=== PATIENT | female | born 1935 ===

== ENCOUNTER 2016-07-06 09:31 | Observation (INO) | payer MEDICARE, MEDICAID ==
[2016-07-06 09:31] VITALS: BMI 28.7
[2016-07-06 10:31] LABS: BASO % 0.3 % (0.0-2.0); EOS # 0.1 K/uL (0.0-0.7); EOS % 0.4 % (0.0-4.0); HEMATOCRIT 42.9 % (34.0-47.0); LYMPH # 6.8 K/uL (1.0-4.3); LYMPH % 40.5 % (20.0-40.0); MEAN CELL VOLUME 86.2 fL (81.0-99.0); MEAN CORPUSCULAR HEMOGLOBIN 27.9 pg (27.0-31.0); MEAN CORPUSCULAR HGB CONC 32.4 g/dL (33.0-37.0); MEAN PLATELET VOLUME 8.5 fL (7.2-11.7); MONO # 1.2 K/uL (0.0-0.8); MONO % 6.8 % (0.0-10.0); NRBC % 0.1 % (0.0-2.0); RED CELL DISTRIBUTION WIDTH 14.6 % (11.5-14.5); WHITE BLOOD COUNT 16.9 K/uL (4.8-10.8)
[2016-07-06 10:37] LABS: INR 1.2
[2016-07-06 10:44] LABS: CHLORIDE 100 mmol/L (98-107); POTASSIUM 3.8 mmol/L (3.6-5.2); SODIUM 140 mmol/L (132-148)
[2016-07-06 10:46] LABS: BILIRUBIN,TOTAL 0.6 mg/dL (0.2-1.3); GFR AFRICAN-AMERICAN > 60
[2016-07-06 10:47] LABS: ALB/GLOB RATIO 1.2 (1.0-2.1); ALKALINE PHOSPHATASE 73 U/L (38-126); ALT/SGPT 122 U/L (9-52); AST/SGOT 41 U/L (14-36); BLOOD UREA NITROGEN 23 mg/dL (7-17); CALCIUM 8.2 mg/dl (8.6-10.4); CARBON DIOXIDE 29 mmol/L (22-30); GLUCOSE,RANDOM 101 mg/dL (65-105); TOTAL PROTEIN 7.4 g/dL (6.3-8.3)
--- NOTE | 2016-07-06 11:55 | RAD ---
HISTORY: chest pain COMPARISON: Chest x-ray performed 06/26/15 TECHNIQUE: Chest, one view. FINDINGS: Examination limited by habitus. LUNGS: Biapical pleural thickening. Mild bibasilar atelectasis. Please note that chest x-ray has limited sensitivity for the detection of pulmonary masses. PLEURA: No significant pleural effusion identified. No definite pneumothorax . CARDIOVASCULAR: Heart size appears within normal limits. Atherosclerotic calcification of the aorta. OSSEOUS STRUCTURES: No acute osseous abnormality identified. VISUALIZED UPPER ABDOMEN: Unremarkable. OTHER FINDINGS: None. IMPRESSION: Biapical pleural thickening. Mild bibasilar atelectasis.
--- NOTE | 2016-07-06 12:12 | C.PDOC ---
History Of Present Illness A 80 year old female presents to the emergency room with complaints of an increasing cough for the past few days. Patient describes the cough as mostly dry. Patient notes tightness in chest that is worst with exertion. Patient is taking regular medications. Patient denies any fever, chills, nausea, vomiting or noncompliance with meds. Time Seen by Provider: 07/06/16 09:48 Chief Complaint (Nursing): Chest Pain History Per: Patient History/Exam Limitations: no limitations Onset/Duration Of Symptoms: Days (Few days) Current Symptoms Are (Timing): Still Present Severity: Mild Quality: Tightness Associated Symptoms: denies: Nausea, Diaphoresis Modifying Factors: None Exacerbating Factors: Exertion Alleviating Factors: None Recent travel outside of the [place]: No Past Medical History Reviewed: Historical Data, Nursing Documentation, Vital Signs Vital Signs: Last Vital Signs Temp 98.0 F 07/06/16 09:42 Pulse 104 H 07/06/16 11:47 Resp 20 07/06/16 11:47 BP 116/56 L 07/06/16 11:47 Pulse Ox 97 07/06/16 12:18 - Medical History PMH: Anxiety, Asthma, Atrial Fibrillation, CAD, Cardia Arrhythmia, CVA (2000), Gall Bladder Disease (Cholecystitis (April 2014)), HTN, Hypercholesterolemia, Malignancy, Osteoporosis Surgical History: Endoscopy - [facility] Procedures ATRIAL CARDIOVERSION (04/26/13) DX ULTRASOUND-HEART (04/26/13) OTHER ESOPHAGOSCOPY (04/26/13) Family History: States: Unknown Family Hx, Diabetes (son) - Social History Hx Tobacco Use: Yes (Former (1992)) Hx Alcohol Use: No Hx Substance Use: No Review Of Systems Constitutional: Negative for: Fever, Chills Cardiovascular: Positive for: Chest Pain (Chest tightness, worst with exertion) Respiratory: Positive for: Cough Gastrointestinal: Negative for: Nausea, Vomiting, Diarrhea Neurological: Negative for: Headache, Dizziness Physical Exam - Physical Exam Appears: Non-toxic Skin: Warm, Dry, No Rash Head: Atraumatic, Normacephalic Cardiovascular: Rhythm Irregular (Irregularly irregular rhythm) Respiratory: Decreased Breath Sounds (Bilaterally), No Rales, No Rhonchi, No Wheezing Gastrointestinal/Abdominal: Soft, No Tenderness Extremity: Normal ROM, No Tenderness, No Deformity, No Swelling Neurological/Psych: Oriented x3, Normal Speech, Normal Cognition ED Course And Treatment - Laboratory Results Result Diagrams: 07/06/16 10:23 07/06/16 10:23 ECG: Interpreted By Me, Viewed By Me ECG Rhythm: Atrial Fibrillation Interpretation Of ECG: Incomplete left bundle branch block Rate From EC O2 Sat by Pulse Oximetry: 97 - Radiology CXR: Interpreted by Me, Viewed By Me CXR Interpretation: Yes: Cardiomegaly, Other (Mild vascular congestion) Medical Decision Making Medical Decision Making: Plan: -- EKG -- CXR -- Labs -- Cardizem Post bolus and drip given PO cardizem, HR continued around 100, without further CP or SOB In view of tjhe CP and SOB observation indicated Discussed with dr Mcfarland and Dr Fox plan tele obs Disposition - Disposition Disposition: HOSPITALIZED Disposition Time: 13:15 Condition: FAIR - Clinical Impression Clinical Impression: Congestive heart failure, Chest pain - Scribe Statement The provider has reviewed the documentation as recorded by the Scribcolette Sim All medical record entries made by the Artisibe were at my direction and personally dictated by me. I have reviewed the chart and agree that the record accurately reflects my personal performance of the history, physical exam, medical decision making, and the department course for this patient. I have also personally directed, reviewed, and agree with the discharge instructions and disposition.
--- NOTE | 2016-07-06 15:04 | CON ---
DATE: 07/06/2016 REASON FOR CONSULTATION: Rapid atrial fibrillation. The patient is an 80-year-old female who has a history of chronic atrial fibrillation, history of CVA in the past and is on Cardizem and Xarelto therapy at home. She presented because of a dry cough as well as chest tightness for the past few weeks. The patient denies any fever or chills. The patien t stated that she may have had a heart attack in the past. SOCIAL HISTORY: The patient is a nonsmoker, nondrinker. HOME MEDICATIONS: Include Crestor 10 mg once a day, Lopressor 25 mg twice a day, p.r.n. sublingual n itroglycerin, albuterol inhaler, Xarelto 15 mg daily, Protonix 40 mg p.o. once a day, Cardizem 240 mg once a day, Cardizem-CD 240 mg once a day. REVIEW OF SYSTEMS: No fever or chills. No vomiting or diarrhea. No dizziness or syncope. PHYSICAL EXAMINATION: GENERAL: The patient is an elderly female who does not appear to be in acute distress. VITAL SIGNS: Blood pressure 116/56, heart rate currently 93, respirations 20, temperature 98. HEENT: Left facial drooping. NECK: No JVD. CHEST: Minimal rhonchi bilaterally. HEART: S1, S2 regular. ABDOMEN: Soft. EXTREMITIES: No edema. LABORATORIES: SMA-7 is within normal limits except for BUN of 23. ProBNP is 4270. CBC: WBC 16.9, hemoglobin 13.9, hematocrit 42.9, platelet count . INR is 1.2, PTT 29. Head CT scan dating back to 09/2015 revealed chronic microvascular ischemic changes, a small left caud ate head lacunar infarct. Echocardiograph study in 04/2013 revealed moderate mitral insufficiency, mi ld aortic insufficiency and mild tricuspid insufficiency. ASSESSMENT: 1. Rapid atrial fibrillation. 2. Consider exacerbation of chronic obstructive lung disease. 3. Rule out underlying pneumonia. RECOMMENDATIONS: The patient was already given a dose of 10 mg of intravenous Lasix and was started on infusion at 5 mg per hour, which was later discontinued. Resume the patient's prior medications i ncluding Crestor at 10 mg once a day, Lopressor 25 mg twice a day, Xarelto 15 mg once a day, Cardizem -CD at 240 mg once a day. Obtain an echocardiogram, TSH level. Carroll Gonzalez MD cc: [id number] TT: 07/06/2016 15:04:25 Confirmation # [id number] Dictation # [id number] en
[2016-07-06 17:11] LABS: THYROID STIMULATING HORMONE 1.27 mIU/L (0.46-4.68)
[2016-07-07] MEDS: Albuterol-Ipratrop 3 mg / 0.5 (3 ml) UD INH PRN ×2 (00:43→08:15)
[2016-07-07 07:29] LABS: BASO % 0.3 % (0.0-2.0); EOS # 0.1 K/uL (0.0-0.7); EOS % 1.4 % (0.0-4.0); HEMATOCRIT 38.6 % (34.0-47.0); LYMPH # 4.6 K/uL (1.0-4.3); LYMPH % 44.2 % (20.0-40.0); MEAN CORPUSCULAR HEMOGLOBIN 28.3 pg (27.0-31.0); MEAN CORPUSCULAR HGB CONC 32.9 g/dL (33.0-37.0); MEAN PLATELET VOLUME 8.3 fL (7.2-11.7); MONO # 0.7 K/uL (0.0-0.8); MONO % 6.7 % (0.0-10.0); RED CELL DISTRIBUTION WIDTH 14.2 % (11.5-14.5); WHITE BLOOD COUNT 10.4 K/uL (4.8-10.8)
[2016-07-07 07:32] LABS: INR 1.1
[2016-07-07 07:57] LABS: CHLORIDE 100 mmol/L (98-107); POTASSIUM 3.6 mmol/L (3.6-5.2); SODIUM 136 mmol/L (132-148)
[2016-07-07 07:59] LABS: ALB/GLOB RATIO 1.1 (1.0-2.1); AST/SGOT 26 U/L (14-36); BILIRUBIN,TOTAL 0.7 mg/dL (0.2-1.3); CARBON DIOXIDE 28 mmol/L (22-30); CHOLESTEROL 142 mg/dL (0-199); GFR AFRICAN-AMERICAN > 60; TOTAL PROTEIN 6.5 g/dL (6.3-8.3)
[2016-07-07 08:00] LABS: ALKALINE PHOSPHATASE 72 U/L (38-126); ALT/SGPT 82 U/L (9-52); BLOOD UREA NITROGEN 15 mg/dL (7-17); CALCIUM 7.5 mg/dl (8.6-10.4); GLUCOSE,RANDOM 107 mg/dL (65-105)
[2016-07-07] MEDS ORDERED: Fluticasone-Salmeterol 250-50mcg Diskus IH SCH (08:00)
[2016-07-07] MEDS: Calcium-Vit D 500 mg-200 Units Tab UD PO SCH ×2 (09:23→18:01)
[2016-07-07] MEDS: diltiaZEM 240 mg/24 Hours CD Cap PO SCH (09:23)
--- NOTE | 2016-07-07 10:22 | CP.PCM.HP ---
History of Present Illness - History of Present Illness History of Present Illness: cough sob Present on Admission - Present on Admission Any Indicators Present on Admission: No Review of Systems - Review of Systems Systems not reviewed;Unavailable: Acuity of Condition - Constitutional Constitutional: Fatigue - EENT Eyes: As Per HPI Nose/Mouth/Throat: As Per HPI - Breasts Breasts: As Per HPI - Cardiovascular Cardiovascular: Chest Pain, Dyspnea, Irregular Heart Rhythm, Palpitations, Rapid Heart Rate - Respiratory Respiratory: Cough, Dyspnea, Wheezing - Gastrointestinal Gastrointestinal: As Per HPI - Genitourinary Genitourinary: As Per HPI - Reproductive: Female Reproductive:Female: Post Menopausal - Menstruation Menstruation: Post Menopausal - Musculoskeletal Musculoskeletal: Stiffness - Integumentary Integumentary: As Per HPI - Neurological Neurological: As Per HPI - Psychiatric Psychiatric: As Per HPI - Endocrine Endocrine: Palpitations - Hematologic/Lymphatic Hematologic: As Per HPI Past Patient History - Infectious Disease Hx of Infectious Diseases: None - Past Medical History & Family History Past Medical History?: Yes - Past Social History Smoking Status: Never Smoked - CARDIAC Hx Atrial Fibrillation: Yes Hx Cardia Arrhythmia: Yes Hx Hypercholesterolemia: Yes Hx Hypertension: Yes - PULMONARY Hx Asthma: Yes - NEUROLOGICAL HX Cerebrovascular Accident: Yes (residual left side weakness) - HEENT Hx HEENT Problems: Yes Hx Cataracts: Yes (both eyes) Other/Comment: wear eyeglasses - ENDOCRINE/METABOLIC Hx Endocrine Disorders: No - HEMATOLOGICAL/ONCOLOGICAL Hx Blood Disorders: No Hx Blood Transfusions: No - INTEGUMENTARY Hx Dermatological Problems: No - MUSCULOSKELETAL/RHEUMATOLOGICAL Hx Falls: No Hx Osteoporosis: Yes - GASTROINTESTINAL Hx Gall Bladder Disease: Yes (Cholecystitis (April 2014)) - GENITOURINARY/GYNECOLOGICAL Hx Genitourinary Disorders: Yes Hx Cervical Cancer: Yes (S/P HYSTERECTOMY) - PSYCHIATRIC Hx Anxiety: Yes Hx Substance Use: No - SURGICAL HISTORY Hx Surgeries: Yes Hx Hysterectomy: Yes - ANESTHESIA Hx Anesthesia: Yes Hx Anesthesia Reactions: No Hx Malignant Hyperthermia: No Meds Allergies/Adverse Reactions: Allergies Allergy/AdvReac Type Severity Reaction Status Date / Time paroxetine HCl [From Paxil] Allergy Verified 07/06/16 09:41 tramadol Allergy Verified 07/06/16 09:41 Physical Exam - Constitutional Appears: Non-toxic, In Acute Distress - Head Exam Head Exam: ATRAUMATIC - Eye Exam Eye Exam: Normal appearance - ENT Exam ENT Exam: Mucous Membranes Moist - Neck Exam Neck exam: Positive for: Full Rom - Respiratory Exam Respiratory Exam: Decreased Breath Sounds, Rhonchi - Cardiovascular Exam Cardiovascular Exam: Irregular Rhythm - GI/Abdominal Exam GI & Abdominal Exam: Normal Bowel Sounds - Rectal Exam Rectal Exam: NORMAL INSPECTION - Extremities Exam Extremities exam: Positive for: normal inspection Results - Vital Signs Recent Vital Signs: Last Vital Signs Temp 98 F 07/07/16 07:20 Pulse 88 07/07/16 07:20 Resp 18 07/07/16 07:20 BP 114/80 07/07/16 07:20 Pulse Ox 95 07/07/16 07:20 - Labs Result Diagrams: 07/07/16 07:09 07/07/16 07:09 Labs: Laboratory Results - last 24 hr 07/07/16 07/07/16 07/07/16 00:29 07:09 07:09 WBC 10.4 RBC 4.48 Hgb 12.7 Hct 38.6 MCV 86.0 MCH 28.3 MCHC 32.9 L RDW 14.2 Plt Count 240 MPV 8.3 Neut % (Auto) 47.4 L Lymph % (Auto) 44.2 H Irion % (Auto) 6.7 Eos % (Auto) 1.4 Baso % (Auto) 0.3 Neut # 4.9 Lymph # 4.6 H Irion # 0.7 Eos # 0.1 Baso # 0.0 PT 12.5 H INR 1.1 Sodium Potassium Chloride Carbon Dioxide Anion Gap BUN Creatinine Est GFR ( Amer) Est GFR (Non-Af Amer) Random Glucose Calcium Total Bilirubin AST ALT Alkaline Phosphatase Total Creatine Kinase 36 CK-MB (Mass) 0.36 Troponin I, Quant < 0.0120 Total Protein Albumin Globulin Albumin/Globulin Ratio Triglycerides Cholesterol LDL Cholesterol Direct HDL Cholesterol 07/07/16 07:09 WBC RBC Hgb Hct MCV MCH MCHC RDW Plt Count MPV Neut % (Auto) Lymph % (Auto) Irion % (Auto) Eos % (Auto) Baso % (Auto) Neut # Lymph # Irion # Eos # Baso # PT INR Sodium 136 Potassium 3.6 Chloride 100 Carbon Dioxide 28 Anion Gap 12 BUN 15 Creatinine 0.6 L Est GFR ( Amer) > 60 Est GFR (Non-Af Amer) > 60 Random Glucose 107 H Calcium 7.5 L Total Bilirubin 0.7 AST 26 ALT 82 H D Alkaline Phosphatase 72 Total Creatine Kinase CK-MB (Mass) Troponin I, Quant Total Protein 6.5 Albumin 3.4 L Globulin 3.1 Albumin/Globulin Ratio 1.1 Triglycerides 116 D Cholesterol 142 LDL Cholesterol Direct 69 HDL Cholesterol 49 - EKG Data Interpretation: Acute Arrhythmia Assessment & Plan - Assessment and Plan (Free Text) Assessment: ac at fib rapid rate ac bronchitis athma chest pain Plan: as per orders - Date & Time Date: 07/07/16 Time: 10:28 Decision To Admit - Pt Status Changed To: Hospital Disposition Of: Inpatient - Admit Certification Admit to Inpatient:: After my assessment, the patient will require hospitalization for at least two midnights. This is because of the severity of symptoms shown, intensity of services needed, and/or the medical risk in this patient being treated as an outpatient. - InPatient: Physician Admission Certification:: pt admited to tele cardiology consultcalled - . Bed Request Type: Telemetry
--- NOTE | 2016-07-07 17:17 | PN ---
DATE: 07/07/2016 SUBJECTIVE: The patient denies any chest pain. She denies any cough or shortness of breath. PHYSICAL EXAMINATION: VITAL SIGNS: Blood pressure 109/64, heart rate 87, temperature 98, respiration 18. HEENT: Left facial drooping. NECK: No JVD. CHEST: Clear. HEART: S1, S2 regular. ABDOMEN: Soft. EXTREMITIES: No edema. LABORATORIES: Today's SMA-7 is within normal limits except for glucose of 107 and creatinine 0.6. T wo sets of troponins are negative. Today's hemoglobin, hematocrit, white count and platelet count ar e within normal limits. EKG revealed sinus rhythm at a rate of 82 and left bundle branch block. ASSESSMENT: 1. Paroxysmal atrial fibrillation. 2. Consider exacerbation of chronic obstructive lung disease. 3. Hypertension. RECOMMENDATIONS: Continue Xarelto 15 mg once a day, Crestor 10 mg once a day, Cardizem-CD at 240 mg once a day. I will review the echocardiographic study performed today. was done and is within normal limits. Carroll Gonzalez MD cc: [id number] TT: 07/07/2016 17:16:10 Confirmation # [id number] Dictation # [id number] rico
[2016-07-07] MEDS: Pantoprazole 40 mg EC Tab PO SCH (17:59)
[2016-07-08] MEDS: diltiaZEM 240 mg/24 Hours CD Cap PO SCH (09:46)
[2016-07-08] MEDS: Calcium-Vit D 500 mg-200 Units Tab UD PO SCH ×2 (09:46→17:49)
--- NOTE | 2016-07-08 11:36 | CP.PCM.PN ---
Subjective - Date & Time of Evaluation Date of Evaluation: 07/08/16 Time of Evaluation: 11:31 - Subjective Subjective: PT HAS PAIN LEG TODAY STILL COUGHING ALOT Objective - Vital Signs/Intake and Output Vital Signs (last 24 hours): Temp Pulse Resp BP Pulse Ox 98.2 F 81 18 122/72 95 07/08/16 07:35 07/08/16 09:45 07/08/16 07:35 07/08/16 09:45 07/08/16 07:35 Intake and Output: 07/08/16 07/08/16 06:59 18:59 Intake Total 300 Balance 300 - Medications Medications: Current Medications Albuterol/Ipratropium (Duoneb 3 Mg/0.5 Mg (3 Ml) Ud) 3 ml INH RQ6 PRN PRN Reason: Shortness of Breath Last Admin: 07/07/16 08:15 Dose: 3 ml Calcium/Vitamin D (Oyster Shell Calcium/Vitamin D 500 Mg-200 Iu) 1 tab PO BID [facility] Last Admin: 07/08/16 09:46 Dose: 1 tab Diltiazem HCl (Cardizem Cd) 240 mg PO DAILY [facility] Last Admin: 07/08/16 09:46 Dose: 240 mg Montelukast Sodium (Singulair) 10 mg PO HS [facility] Pantoprazole Sodium (Protonix Ec Tab) 40 mg PO ACD [facility] Last Admin: 07/07/16 17:59 Dose: 40 mg Rivaroxaban (Xarelto) 15 mg PO DAILY [facility] Last Admin: 07/08/16 09:46 Dose: 15 mg Rosuvastatin Calcium (Crestor) 10 mg PO HS [facility] Last Admin: 07/07/16 21:36 Dose: 10 mg Fluticasone/Salmeterol (Advair Diskus 250/50) 1 puff IH RQ12 [facility] - Labs Labs: 07/07/16 07:09 07/07/16 07:09 PT 12.5 SECONDS (9.7-12.2) H 07/07/16 07:09 INR 1.1 07/07/16 07:09 APTT 29 SECONDS (21-34) 07/06/16 10:23 - Constitutional Appears: Non-toxic - Head Exam Head Exam: NORMAL INSPECTION - Eye Exam Eye Exam: Normal appearance Pupil Exam: NORMAL ACCOMODATION - ENT Exam ENT Exam: Mucous Membranes Moist - Neck Exam Neck Exam: Full ROM - Respiratory Exam Respiratory Exam: Decreased Breath Sounds, Rales - Neurological Exam Neurological Exam: Normal Gait - Psychiatric Exam Psychiatric exam: Normal Mood - Skin Skin Exam: Normal Color Assessment and Plan - Assessment and Plan (Free Text) Assessment: AC PAIN LEG AC BRONHITIS ABN CXRAY HX AT FIB Plan: PER ORDERS
[2016-07-08 14:00] LABS: INR 2.2
--- NOTE | 2016-07-08 16:04 | PN ---
DATE: 07/08/2016 The patient denies any cough or shortness of breath. PHYSICAL EXAMINATION: VITAL SIGNS: Blood pressure 122/72, heart rate 88, temperature 98.2, respirations 18. HEENT: Normocephalic. NECK: No JVD. CHEST: Minimal rhonchi. HEART: S1, S2 regular. ABDOMEN: Soft. EXTREMITIES: No edema. Today's INR is 2.2. ASSESSMENT: 1. Paroxysmal atrial fibrillation. 2. Systemic hypertension. 3. Chronic obstructive lung disease. RECOMMENDATIONS: Continue Cardizem-CD at 240 mg once a day, Crestor at 10 mg once a day, Xarelto at 15 mg daily. Echo report is still pending. Carroll Gonzalez MD cc: [id number] TT: 07/08/2016 16:03:02 Confirmation # [id number] Dictation # [id number] en
[2016-07-08] MEDS: Pantoprazole 40 mg EC Tab PO SCH (17:49)
--- NOTE | 2016-07-08 18:04 | CARD ---
APPROVED REPORT EXAM: Two-dimensional and M-mode echocardiogram with Doppler and color Doppler. Other Information Quality : AverageRhythm : NSR INDICATION Atrial Fibrillation Chest Pain M-Mode DIMENSIONS RVDd1.39 (2.1-3.2cm)Left Atrium (MM)3.44 (2.5-4.0cm) IVSd1.46 (0.7-1.1cm)Aortic Root2.46 (2.2-3.7cm) LVDd4.96 (4.0-5.6cm)Aortic Cusp Exc.1.60 (1.5-2.0cm) PWd1.32 (0.7-1.1cm)FS (%) 24 % LVDs3.78 (2.0-3.8cm)LVEF (%)47 (>50%) Aortic Valve AoV Peak Bskhviua166.9cm/Emilee Peak GR.9mmHgAI P 1/2 [id number] Mitral Valve MV E Mrtluqjx26.1cm/sMV A Njtbfueo438.8cm/sE/A ratio0.5 TDI E/Lateral E'0.0E/Medial E'0.0 Tricuspid Valve TR Peak [id number]/sTR Peak Gr.82usMeEKTY69bdHz LEFT VENTRICLE The left ventricle is normal size. There is mild to moderate concentric left ventricular hypertrophy. Left ventricle systolic function is mildly impaired. The Ejection Fraction is 40-45%. No regional wall motion abnormalities noted. Tissue Doppler imaging reveals abnormal left ventricular diastolic dysfunction. No left ventricle thrombus noted on this study. There is no ventricular septal defect visualized. There is no left ventricular aneurysm. There is no mass noted in the left ventricle. RIGHT VENTRICLE The right ventricle is normal size. There is normal right ventricular wall thickness. The right ventricular systolic function is normal. ATRIA The left atrium size is normal. The right atrium size is normal. The interatrial septum is intact with no evidence for an atrial septal defect. AORTIC VALVE The aortic valve is normal in structure and function. There is mild aortic regurgitation. There is no aortic valvular stenosis. There is no aortic valvular vegetation. MITRAL VALVE The mitral valve is normal in structure and function. There is no evidence of mitral valve prolapse. There is no mitral valve stenosis. Mitral regurgitation is mild. TRICUSPID VALVE The tricuspid valve is normal in structure and function. There is mild tricuspid regurgitation. Right ventricular systolic pressure is estimated at 30-40 mmHg. There is mild-moderate pulmonary hypertension. There is no tricuspid valve prolapse or vegetation. There is no tricuspid valve stenosis. PULMONIC VALVE The pulmonary valve is normal in structure and function. There is no pulmonic valvular regurgitation. There is no pulmonic valvular stenosis. GREAT VESSELS The aortic root is normal in size. The ascending aorta is normal in size. The pulmonary artery is normal. The IVC is normal in size and collapses >50% with inspiration. PERICARDIAL EFFUSION The pericardium appears normal. There is no pleural effusion. <Conclusion> The left ventricle is normal size. There is mild to moderate concentric left ventricular hypertrophy. The Ejection Fraction is 40-45%. Tissue Doppler imaging reveals abnormal left ventricular diastolic dysfunction. There is mild aortic regurgitation. There is mild aortic regurgitation. Mitral regurgitation is mild.
--- NOTE | 2016-07-08 18:33 | CP.PCM.CON ---
History of Present Illness - History of Present Illness History of Present Illness: Chief complaint: Congested chest cough History present illness: 80-year-old female with history of chronic atrial fibrillation, history of CVA, hypertension, congestive heart failure admitted to the hospital with the complaining of one-week history of chronic cough. Patient is also having shortness of breath, cough and congested lungs. Patient is a Hebrew-speaking. After hospitalized the patient feeling slightly better. Currently having still minimal cough. Her leg swelling is improving. She did not have any fever, no chills noted. Denies any nausea, no vomiting noted. Patient received Lasix in the emergency room, after that she felt better. But still having some changes in the lungs noted, especially with the cough, thick yellow mucus production. Review of Systems - Review of Systems All systems: reviewed and no additional remarkable complaints except Review of Systems: She has no headache. Denies any visual symptom, denies any neck pain. Throat discomfort noted, with the cough, congested lungs noted. Wheezing occasionally percent. Denies any nausea. Leg swelling occasionally noted, bilateral knee pain noted patient also had a history of atrial fibrillation, and palpitation on and off noted. Past Patient History - Infectious Disease Hx of Infectious Diseases: None - Past Medical History & Family History Past Medical History?: Yes Past Family History: Reviewed and not pertinent - Past Social History Smoking Status: Never Smoked - CARDIAC Hx Atrial Fibrillation: Yes Hx Cardia Arrhythmia: Yes Hx Hypercholesterolemia: Yes Hx Hypertension: Yes - PULMONARY Hx Asthma: Yes - NEUROLOGICAL HX Cerebrovascular Accident: Yes (residual left side weakness) - HEENT Hx HEENT Problems: Yes Hx Cataracts: Yes (both eyes) Other/Comment: wear eyeglasses - ENDOCRINE/METABOLIC Hx Endocrine Disorders: No - HEMATOLOGICAL/ONCOLOGICAL Hx Blood Disorders: No Hx Blood Transfusions: No - INTEGUMENTARY Hx Dermatological Problems: No - MUSCULOSKELETAL/RHEUMATOLOGICAL Hx Falls: No Hx Osteoporosis: Yes - GASTROINTESTINAL Hx Gall Bladder Disease: Yes (Cholecystitis (April 2014)) - GENITOURINARY/GYNECOLOGICAL Hx Genitourinary Disorders: Yes Hx Cervical Cancer: Yes (S/P HYSTERECTOMY) - PSYCHIATRIC Hx Anxiety: Yes Hx Substance Use: No - SURGICAL HISTORY Hx Surgeries: Yes Hx Hysterectomy: Yes - ANESTHESIA Hx Anesthesia: Yes Hx Anesthesia Reactions: No Hx Malignant Hyperthermia: No Meds Allergies/Adverse Reactions: Allergies Allergy/AdvReac Type Severity Reaction Status Date / Time paroxetine HCl [From Paxil] Allergy Verified 07/06/16 09:41 tramadol Allergy Verified 07/06/16 09:41 - Medications Medications: Current Medications Albuterol/Ipratropium (Duoneb 3 Mg/0.5 Mg (3 Ml) Ud) 3 ml INH RQ6 PRN PRN Reason: Shortness of Breath Last Admin: 07/07/16 08:15 Dose: 3 ml Calcium/Vitamin D (Oyster Shell Calcium/Vitamin D 500 Mg-200 Iu) 1 tab PO BID [facility] Last Admin: 07/08/16 17:49 Dose: 1 tab Diltiazem HCl (Cardizem Cd) 240 mg PO DAILY [facility] Last Admin: 07/08/16 09:46 Dose: 240 mg Montelukast Sodium (Singulair) 10 mg PO HS [facility] Pantoprazole Sodium (Protonix Ec Tab) 40 mg PO ACD [facility] Last Admin: 07/08/16 17:49 Dose: 40 mg Rivaroxaban (Xarelto) 15 mg PO DAILY [facility] Last Admin: 07/08/16 09:46 Dose: 15 mg Rosuvastatin Calcium (Crestor) 10 mg PO HS [facility] Last Admin: 07/07/16 21:36 Dose: 10 mg Fluticasone/Salmeterol (Advair Diskus 250/50) 1 puff IH RQ12 [facility] Physical Exam - Head Exam Head Exam: ATRAUMATIC Additional comments: Vital signs reviewed No neck vein distention noted Chest good air entry bilaterally, no wheezing or rales noted CVS regular heart sound, no murmur noted Abdomen soft, nontender. Extremities no pedal edema [employer] alert awake oriented 3, no functional neurological deficit Results - Vital Signs Recent Vital Signs: Last Vital Signs Temp 98.1 F 07/08/16 16:44 Pulse 78 07/08/16 16:44 Resp 20 07/08/16 16:44 BP 106/68 07/08/16 16:44 Pulse Ox 98 07/08/16 16:44 - Labs Result Diagrams: 07/07/16 07:09 07/07/16 07:09 Labs: Laboratory Results - last 24 hr 07/08/16 13:49 PT 25.2 H D INR 2.2 D - Impressions Impression: Chest x-ray is nonspecific. Mild vascular congestion noted. No other major changes noted. But reported as having pleural thickening, I suggested to have a CAT scan Assessment & Plan (1) Congestive heart failure Status: Acute (2) Atrial fibrillation by electrocardiogram Assessment and Plan: Patient with the CHF, atrial fibrillation. Currently controlled well. He is on anticoagulation, beta maritza. Continue the current treatment. Patient also has a questionable changes in the lung x-ray. I suggested to have a CAT scan of the chest. But no further treatment is needed at this time. Continue the current treatment Status: Acute
[2016-07-08] MEDS ORDERED: Fluticasone-Salmeterol 250-50mcg Diskus IH SCH (20:00)
[2016-07-09 08:06] VITALS: TEMP 98.3
[2016-07-09] MEDS: Calcium-Vit D 500 mg-200 Units Tab UD PO SCH ×2 (09:54→17:22)
[2016-07-09] MEDS: diltiaZEM 240 mg/24 Hours CD Cap PO SCH (09:54)
--- NOTE | 2016-07-09 10:58 | VASCLAB ---
PROCEDURE: Lower Extremity Venous Duplex Exam. HISTORY: R leg pain, rule out DVT PRIORS: None. TECHNIQUE: Bilateral common femoral, femoral, popliteal and posterior tibial, peroneal and great saphenous veins were evaluated. Flow was assessed with color Doppler, compressibility, assessment of phasic flow and augmentation response. Report prepared by PEDRO Ansari call out clerk. FINDINGS: RIGHT: 1. Common Femoral Vein: 1.1. Compressibility - Fully compressible: Thrombus - None : Flow - Phasic: Augmentation -Normal: Reflux - None. 2. Femoral Vein: 2.1. Compressibility - Fully compressible: Thrombus - None : Flow - Phasic: Augmentation -Normal: Reflux - None. 3. Popliteal Vein: 3.1. Compressibility - Fully compressible: Thrombus - None : Flow - Phasic: Augmentation -Normal: Reflux - None. 4. Posterior Tibial Vein: 4.1. Compressibility - Fully compressible: Thrombus - None: Flow - Phasic: Augmentation -Normal: Reflux - None. 5. Peroneal Vein: 5.1. Compressibility - Fully compressible: Thrombus - None: Flow - Phasic: Augmentation -Normal: Reflux - None. 6. Great Saphenous Vein: 6.1. Compressibility - Fully compressible: Thrombus - None: Flow - Phasic: Augmentation - Normal: Reflux - None. LEFT: 1. Common Femoral Vein: 1.1. Compressibility - Fully compressible: Thrombus - None: Flow - Phasic: Augmentation -Normal: Reflux - None. 2. Femoral Vein: 2.1. Compressibility - Fully compressible: Thrombus - None: Flow - Phasic: Augmentation -Normal: Reflux - None. 3. Popliteal Vein: 3.1. Compressibility - Fully compressible: Thrombus - None : Flow - Phasic: Augmentation -Normal: Reflux - None. 4. Posterior Tibial Vein: 4.1. Compressibility - Fully compressible: Thrombus - None: Flow - Phasic: Augmentation -Normal: Reflux - None. 5. Peroneal Vein: 5.1. Compressibility - Fully compressible: Thrombus - None: Flow - Phasic: Augmentation -Normal: Reflux - None. 6. Great Saphenous Vein: 6.1. Compressibility - Fully compressible: Thrombus - None: Flow - Phasic: Augmentation - Normal: Reflux - None. OTHER FINDINGS: Right: None significant. Left: None significant. IMPRESSION: Right: No evidence of deep or superficial vein thrombosis of the right lower extremity. Normal valve function noted of the right side. Left: No evidence of deep or superficial vein thrombosis of the left lower extremity. Normal valve function noted of the left side.
--- NOTE | 2016-07-09 11:10 | CARD ---
APPROVED REPORT EKG Measurement Heart [id number] <Conclusion> Atrial fibrillation with rapid ventricular response Left axis deviation Incomplete left bundle branch block Nonspecific ST and T wave abnormality Abnormal ECG
--- NOTE | 2016-07-09 13:58 | CT ---
PROCEDURE: CT Chest without contrast HISTORY: pleural thickening COMPARISON: None. TECHNIQUE: Contiguous axial images were obtained through the chest without intravenous contrast enhancement. Sagittal and coronal reconstructions were performed. Radiation dose (DLP): 352.99 mGy-cm. This CT exam was performed using one or more of the following dose reduction techniques: Automated exposure control, adjustment of the mA and/or kV according to patient size, and/or use of iterative reconstruction technique. FINDINGS: LUNGS: No pulmonary infiltrate. No pulmonary mass. Minimal bilateral apical scarring. MEDIASTINUM: Unremarkable thoracic aorta. No aneurysm. Normal sized heart. Main pulmonary artery unremarkable. No vascular congestion. No lymphadenopathy. Small hiatal hernia noted. PLEURA: No pleural effusion. No significant pleural thickening. No pneumothorax. BONES: No fracture. No destructive lesion. UPPER ABDOMEN: Several small calcifications in the posterior right hepatic lobe consistent with old calcified granulomas. OTHER FINDINGS: None. IMPRESSION: No acute abnormality. No significant pleural thickening identified. Minimal bilateral apical scarring.
--- NOTE | 2016-07-09 16:39 | CP.PCM.PN ---
Subjective - Date & Time of Evaluation Date of Evaluation: 07/09/16 Time of Evaluation: 16:36 - Subjective Subjective: feels beter no cough Objective - Vital Signs/Intake and Output Vital Signs (last 24 hours): Temp Pulse Resp BP Pulse Ox 98.3 F 91 H 18 115/70 97 07/09/16 07:05 07/09/16 12:00 07/09/16 07:05 07/09/16 09:52 07/09/16 07:05 Intake and Output: 07/09/16 07/09/16 06:59 18:59 Intake Total 300 400 Balance 300 400 - Medications Medications: Current Medications Albuterol/Ipratropium (Duoneb 3 Mg/0.5 Mg (3 Ml) Ud) 3 ml INH RQ6 PRN PRN Reason: Shortness of Breath Last Admin: 07/07/16 08:15 Dose: 3 ml Calcium/Vitamin D (Oyster Shell Calcium/Vitamin D 500 Mg-200 Iu) 1 tab PO BID [facility] Last Admin: 07/09/16 09:54 Dose: 1 tab Diltiazem HCl (Cardizem Cd) 240 mg PO DAILY [facility] Last Admin: 07/09/16 09:54 Dose: 240 mg Montelukast Sodium (Singulair) 10 mg PO HS [facility] Last Admin: 07/08/16 22:16 Dose: 10 mg Pantoprazole Sodium (Protonix Ec Tab) 40 mg PO ACD [facility] Last Admin: 07/08/16 17:49 Dose: 40 mg Rivaroxaban (Xarelto) 15 mg PO DAILY [facility] Last Admin: 07/09/16 09:54 Dose: 15 mg Rosuvastatin Calcium (Crestor) 10 mg PO HS [facility] Last Admin: 07/08/16 22:16 Dose: 10 mg Fluticasone/Salmeterol (Advair Diskus 250/50) 1 puff IH RQ12 MATT Last Admin: 07/08/16 20:21 Dose: 1 puff - Labs Labs: 07/07/16 07:09 07/07/16 07:09 PT 25.2 SECONDS (9.7-12.2) H D 07/08/16 13:49 INR 2.2 D 07/08/16 13:49 APTT 29 SECONDS (21-34) 07/06/16 10:23 - Constitutional Appears: Non-toxic - Head Exam Head Exam: NORMAL INSPECTION - Eye Exam Eye Exam: Normal appearance Pupil Exam: NORMAL ACCOMODATION - ENT Exam ENT Exam: Mucous Membranes Moist - Neck Exam Neck Exam: Full ROM - Respiratory Exam Respiratory Exam: Clear to Ausculation Bilateral - GI/Abdominal Exam GI & Abdominal Exam: Normal Bowel Sounds - Rectal Exam Rectal Exam: NORMAL INSPECTION - Exam Exam: NORMAL INSPECTION - Extremities Exam Extremities Exam: Full ROM - Neurological Exam Neurological Exam: Alert, Oriented x3 - Psychiatric Exam Psychiatric exam: Normal Mood - Skin Skin Exam: Abrasion Assessment and Plan - Assessment and Plan (Free Text) Assessment: ac bronchitis improved at fib controled rate Plan: pt will d/c home today f/u by me next weekw
[2016-07-09] MEDS: Pantoprazole 40 mg EC Tab PO SCH (17:13)
[2016-07-09 17:56] VITALS: BP 118/73; PULSE 89; RESP 20; O2SAT 96
--- NOTE | 2016-07-09 18:34 | PN ---
DATE: 07/09/2016 The patient denied any palpitation or dizziness. PHYSICAL EXAMINATION: VITAL SIGNS: Blood pressure 118/73, heart rate 89, temperature 98.3, respirations 20. HEENT: Normocephalic. NECK: No JVD. CHEST: Clear. HEART: S1, S2 regular. ABDOMEN: Soft. EXTREMITIES: No edema. Echocardiographic study revealed ejection fraction range of 40-45%, mild aortic insufficiency, and mi ld mitral insufficiency. Chest CT scan: No acute abnormality, no significant pleural thickening veena ntified. Minimal bilateral apical scarring. The study was a noncontrast study. ASSESSMENT: 1. Atrial fibrillation. 2. History of cerebrovascular accident. 3. Mildly depressed ejection fraction. 4. Chronic obstructive lung disease. RECOMMENDATIONS: Continue current Cardizem-CD 240 mg once a day, Crestor at 10 mg once a day, Xarelt o at 15 mg daily. Start enalapril at 2.5 mg once a day. Carroll Gonzalez MD cc: [id number] TT: 07/09/2016 18:33:53 Confirmation # [id number] Dictation # [id number] evelyne
--- NOTE | 2016-07-09 19:05 | CP.PCM.PN ---
Subjective - Date & Time of Evaluation Date of Evaluation: 07/09/16 Time of Evaluation: 19:04 - Subjective Subjective: Patient is currently feeling better, denies any chest pain or shortness of breath. Leg swelling is improving. No nausea vomiting. Objective - Vital Signs/Intake and Output Vital Signs (last 24 hours): Temp Pulse Resp BP Pulse Ox 98.3 F 89 20 118/73 96 07/09/16 15:07 07/09/16 15:07 07/09/16 15:07 07/09/16 15:07 07/09/16 15:07 Vital signs reviewed No neck vein distention noted Chest good air entry bilaterally, no wheezing or rales noted CVS regular heart sound, no murmur noted Abdomen soft, nontender. 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 HEAD alert awake oriented 3, no functional neurological deficit Intake and Output: 07/09/16 07/10/16 18:59 06:59 Intake Total 400 Balance 400 - Medications Medications: Current Medications Albuterol/Ipratropium (Duoneb 3 Mg/0.5 Mg (3 Ml) Ud) 3 ml INH RQ6 PRN PRN Reason: Shortness of Breath Last Admin: 07/07/16 08:15 Dose: 3 ml Calcium/Vitamin D (Oyster Shell Calcium/Vitamin D 500 Mg-200 Iu) 1 tab PO BID [facility] Last Admin: 07/09/16 17:22 Dose: 1 tab Diltiazem HCl (Cardizem Cd) 240 mg PO DAILY [facility] Last Admin: 07/09/16 09:54 Dose: 240 mg Enalapril Maleate (Vasotec) 2.5 mg PO DAILY [facility] Montelukast Sodium (Singulair) 10 mg PO HS [facility] Last Admin: 07/08/16 22:16 Dose: 10 mg Pantoprazole Sodium (Protonix Ec Tab) 40 mg PO ACD [facility] Last Admin: 07/09/16 17:13 Dose: 40 mg Rivaroxaban (Xarelto) 15 mg PO DAILY [facility] Last Admin: 07/09/16 09:54 Dose: 15 mg Rosuvastatin Calcium (Crestor) 10 mg PO HS [facility] Last Admin: 07/08/16 22:16 Dose: 10 mg Fluticasone/Salmeterol (Advair Diskus 250/50) 1 puff IH RQ12 [facility] Last Admin: 07/08/16 20:21 Dose: 1 puff - Labs Labs: 07/07/16 07:09 07/07/16 07:09 PT 25.2 SECONDS (9.7-12.2) H D 07/08/16 13:49 INR 2.2 D 07/08/16 13:49 APTT 29 SECONDS (21-34) 07/06/16 10:23 Assessment and Plan (1) Congestive heart failure Assessment & Plan: Patient CT scan of the chest showing no evidence of any acute pathology, minimal apical pleural thickening, nonspecific. Congestive heart failure stable, atrial fibrillation control. Continue the current management. Status: Acute (2) Atrial fibrillation by electrocardiogram Status: Acute
--- NOTE | 2016-07-20 11:19 | CARD ---
APPROVED REPORT EKG Measurement Heart [id number] NC [id number] [id number] <Conclusion> Normal sinus rhythm Left axis deviation Left bundle branch block Abnormal ECG
--- NOTE | 2016-09-06 07:54 | DS ---
HISTORY OF PRESENT ILLNESS: The patient came into the emergency room on 07/06/2016 complaining of chest pain, shortness of breath, cough, and fatigue. She was very tight in her chest. PHYSICAL EXAMINATION: VITAL SIGNS: Her vitals sings were okay. Her blood pressure 116/56, she has pulse of 104, her temperature 98, and her pulse ox is 97. PAST MEDICAL HISTORY: Anxiety, asthma, atrial fibrillation, coronary artery disease with arrhythmia. She had CVA, hypertension, and hypercholesterolemia. On admission, her white count was 16.9 and her BUN was 23 *------*. Otherwise, the rest was normal. Her EKG was done. Her chest x-ray, she was advised on catheterization. The impression was congestive heart failure, bronchitis, and chest pain, and she was started on medications, oxygen nebulizer, and the followup visits, she was improving and she was feeling better. She was on diltiazem also for her heart, and pantoprazole and she was on Xarelto and Crestor. Her white count came down to 10, and she improved. Lung is improving. Her CT scan of the chest showed no pulmonary infiltrate, no pulmonary mass, and bilateral apical scarring. Since she had acute bronchitis and she had asthma exacerbation and she was improving and she had the history of atrial fibrillation, she was discharged home with the same medications as she was taking in the hospital and to continue followup by her *------*. FINAL DIAGNOSES: Congestive heart failure, history of cardiac arrhythmia, acute bronchitis, and asthma exacerbation. Elif Ta MD
== END 2016-07-09 19:00 | disposition home or self-care (01) ==
LOC: C.ER 09:31 → C.9E 13:17 → C.6T 18:04
PROVIDERS: ADMIT Internal Medicine; ATTEND Internal Medicine
DX: I11.0 Hypertensive heart disease with heart failure (principal); I25.2 Old myocardial infarction; E78.00 Pure hypercholesterolemia, unspecified; I50.9 Heart failure, unspecified; J44.9 Chronic obstructive pulmonary disease, unspecified; J45.909 Unspecified asthma, uncomplicated; Z86.73 Personal history of transient ischemic attack (TIA), and cerebral infarction without residual deficits; Z87.891 Personal history of nicotine dependence; I48.0 Paroxysmal atrial fibrillation
CPT/HCPCS: 36415; 71010; 71250; 80053; 80061; 83880; 84443; 84484; 85025; 85610; 85730; 93005; 93306; 93970; 94640; 96365; 96366; 96375; 97116; 97162; 99285; G0378; G8978; G8979

== ENCOUNTER 2016-08-17 20:17 | Inpatient (IN) | payer MEDICARE, MEDICAID ==
[2016-08-17 20:17] VITALS: BMI 28.7
[2016-08-17 20:46] LABS: BASO # 0.1 K/uL (0.0-0.2); BASO % 0.9 % (0.0-2.0); EOS # 0.2 K/uL (0.0-0.7); EOS % 1.7 % (0.0-4.0); HEMATOCRIT 39.6 % (34.0-47.0); LYMPH # 3.1 K/uL (1.0-4.3); LYMPH % 26.7 % (20.0-40.0); MEAN CORPUSCULAR HEMOGLOBIN 27.2 pg (27.0-31.0); MEAN CORPUSCULAR HGB CONC 31.9 g/dL (33.0-37.0); MEAN PLATELET VOLUME 8.5 fL (7.2-11.7); MONO % 8.5 % (0.0-10.0); NRBC % 0.1 % (0.0-2.0); RED CELL DISTRIBUTION WIDTH 14.5 % (11.5-14.5); WHITE BLOOD COUNT 11.5 K/uL (4.8-10.8)
[2016-08-17 20:54] LABS: INR 1.2
[2016-08-17 20:56] LABS: CHLORIDE 99 mmol/L (98-107); POTASSIUM 3.4 mmol/L (3.6-5.2); SODIUM 135 mmol/L (132-148)
[2016-08-17 20:58] LABS: AST/SGOT 25 U/L (14-36); BILIRUBIN,TOTAL 0.4 mg/dL (0.2-1.3); CARBON DIOXIDE 27 mmol/L (22-30); GFR AFRICAN-AMERICAN > 60
[2016-08-17 20:59] LABS: ALB/GLOB RATIO 1.1 (1.0-2.1); ALKALINE PHOSPHATASE 72 U/L (38-126); ALT/SGPT 32 U/L (9-52); BLOOD UREA NITROGEN 16 mg/dL (7-17); CALCIUM 8.1 mg/dl (8.6-10.4); GLUCOSE,RANDOM 115 mg/dL (65-105); TOTAL PROTEIN 7.4 g/dL (6.3-8.3)
[2016-08-17 21:16] LABS: VENOUS BLOOD GAS BASE EXCESS 0.5 mmol/L (0.0-2.0); VENOUS BLOOD GAS PCO2 44 mmHg (40-60); VENOUS BLOOD PH 7.38 (7.32-7.43)
[2016-08-17 21:47] LABS: RBC URINE 2 /hpf (0-3); URINE BILIRUBIN NEGATIVE (NEGATIVE); URINE BLOOD 2+ (NEGATIVE); URINE COLOR Colorless (YELLOW); URINE GLUCOSE (UA) NORMAL (Normal); URINE KETONE NEGATIVE (NEGATIVE); URINE PROTEIN NEGATIVE (NEGATIVE); URINE UROBILINOGEN NORMAL mg/dL (0.2-1.0); WBC URINE 2 /hpf (0-5)
[2016-08-17 21:48] LABS: URINE LEUKOCYTE ESTERASE NEGATIVE Leu/uL (Negative)
--- NOTE | 2016-08-17 22:27 | C.PDOC ---
History Of Present Illness 80 year old female presents to the ED with complaints of chest pain and palpitations since noon today. As per patient's daughter, when she arrived home from work she brought patient to ED. Patient has a history of atrial fibrillation, currently on Xarelto. Patient denies SOB, abdominal pain, nausea , vomiting, diarrhea, fever, cough. Time Seen by Provider: 08/17/16 20:26 Chief Complaint (Nursing): Chest Pain History Per: Patient History/Exam Limitations: no limitations Onset/Duration Of Symptoms: Hrs (since noon today ) Current Symptoms Are (Timing): Still Present Severity: Moderate Quality: "Pain" Associated Symptoms: denies: Nausea, Syncope Past Medical History Reviewed: Historical Data, Nursing Documentation, Vital Signs Vital Signs: Last Vital Signs Temp 98.2 F 08/19/16 15:57 Pulse 72 08/19/16 15:57 Resp 20 08/19/16 15:57 BP 105/58 L 08/19/16 15:57 Pulse Ox 98 08/19/16 15:57 - Medical History PMH: Anxiety, Asthma, Atrial Fibrillation, CAD, Cardia Arrhythmia, CVA (2000), Gall Bladder Disease (Cholecystitis (April 2014)), HTN, Hypercholesterolemia, Malignancy, Osteoporosis Surgical History: Endoscopy - [facility] Procedures ATRIAL CARDIOVERSION (04/26/13) DX ULTRASOUND-HEART (04/26/13) OTHER ESOPHAGOSCOPY (04/26/13) Family History: States: Diabetes (son) - Social History Hx Tobacco Use: Yes (Former (1992)) Hx Alcohol Use: No Hx Substance Use: No - Immunization History Hx Tetanus Toxoid Vaccination: No Hx Influenza Vaccination: No Hx Pneumococcal Vaccination: No Review Of Systems Except As Marked, All Systems Reviewed And Found Negative. Constitutional: Negative for: Fever, Chills Cardiovascular: Positive for: Chest Pain, Palpitations Respiratory: Negative for: Cough, Shortness of Breath Gastrointestinal: Negative for: Nausea, Vomiting, Abdominal Pain, Diarrhea Skin: Negative for: Rash Neurological: Negative for: Weakness Physical Exam - Physical Exam Appears: Well, Non-toxic, Other ( in mild pain ) Skin: Normal Color, Warm, Dry, No Rash Head: Normacephalic Eye(s): bilateral: Normal Inspection Oral Mucosa: Moist Cardiovascular: Rhythm Irregular (irregularly irregular & tachycardic ) Respiratory: No Accessory Muscle Use, Rales (mild rales at bases bilaterally ), No Rhonchi, No Wheezing Gastrointestinal/Abdominal: Normal Exam, Bowel Sounds, Soft, No Tenderness Extremity: Normal ROM, No Tenderness, Pedal Edema (+1 pitting edema of the legs ), No Calf Tenderness, No Deformity Pulses: Left Dorsalis Pedis: Normal, Right Dorsalis Pedis: Normal Neurological/Psych: Oriented x3, Normal Sensation, Normal Reflexes ED Course And Treatment - Laboratory Results Result Diagrams: 08/19/16 09:48 08/19/16 09:48 ECG: Interpreted By Me, Viewed By Me ECG Rhythm: Atrial Fibrillation, L BBB ECG Interpretation: Abnormal Interpretation Of ECG: Atrial fibrillation, 127 bpm, left axis deviation, LBBB with no acute ST/T wave changes. O2 Sat by Pulse Oximetry: 99 (RA) Pulse Ox Interpretation: Normal - Radiology CXR: Interpreted by Me, Viewed By Me (? right sided developing infiltrate, no effusions) Progress Note: Patient given IV Cardizem 10mg, PO Cardizem 30mg, ASA 325 mg PO, IV lasix. Blood work, CXR, EKG, UA ordered and reviewed. PO Tylenol given for fever. Heart rate controlled with IV + PO Cardizem. IV Avelox ordered due to fever and questionable left sided infiltrate on CXR. - Physician Consult Information Physician Contacted: Torey Mccoy Jr. Outcome Of Conversation: Discussed patient with Dr. Mccoy, agrees with telemetry admission for Af ib with RVR, chest pain, fever, ? pneumonia, BNP. residential designer notifed of admission. Medical Decision Making Medical Decision Making: differential diagnoses considered: rapid Afib, [place]/ACS, pneumonia, PE, UTI, CHF exacerbation, COPD exacerbation Disposition - Disposition Disposition: HOSPITALIZED Disposition Time: 22:58 Condition: STABLE - Clinical Impression Clinical Impression: Atrial fibrillation with RVR, Chest pain, Fever, Pneumonia - Scribe Statement The provider has reviewed the documentation as recorded by the Scribcolette Oconnor All medical record entries made by the Artisibcolette were at my direction and personally dictated by me. I have reviewed the chart and agree that the record accurately reflects my personal performance of the history, physical exam, medical decision making, and the department course for this patient. I have also personally directed, reviewed, and agree with the discharge instructions and disposition. Decision To Admit - Pt Status Changed To: Hospital Disposition Of: Inpatient - Admit Certification Admit to Inpatient:: After my assessment, the patient will require hospitalization for at least two midnights. This is because of the severity of symptoms shown, intensity of services needed, and/or the medical risk in this patient being treated as an outpatient. - InPatient: Physician Admission Certification: I certify that this patient requires 2 or more midnights of care for the following reason:: see notes - . Bed Request Type: Telemetry Admitting Physician: Torey Mccoy Jr. Patient Diagnosis: Atrial fibrillation with RVR, Chest pain, Fever, Pneumonia
[2016-08-17] MEDS ORDERED: Moxifloxacin IV 400mg/250ml NS 400 MG/250 ML BAG IV STA (22:29)
[2016-08-17] MEDS ORDERED: Moxifloxacin IV 400mg/250ml NS 400 MG/250 ML BAG IVPB ONE (22:42)
[2016-08-18] MEDS ORDERED: Pneumococcal 23-Valent Vaccine IM ONE (00:44)
--- NOTE | 2016-08-18 00:50 | CP.PCM.HP ---
History of Present Illness - History of Present Illness History of Present Illness: CC: chest pain HPI: Mrs Lomois is a 81 yo F who was brought to the ED by her daughter for mid sternal chest pain that started at 2pm yesterday. She describes the pain as a sharp pain which began while at rest. She rates the pain 8/10. Her daughter gave her 0.4mg nitroglycerin sublingual which did not resolve her pain. She states the pain radiates to her left shoulder but not below her shoulder. She says she's never had chest pain like this before. She also endorses a chronic cough with production of clear phlegm, nausea and subjective fever. She denies diaphoresis, palpitations, shortness of breath, abdominal pain, vomiting, diarrhea, constipation, leg pain or noncompliance with medications. PMD: Dr Vaughn; does not see a physician allergist immunologist PMHx: A-fib, Asthma, CAD, CVA (2000), Gall Bladder Disease (Cholecystitis april 2014), Anxiety, Hypercholesterolemia, arthritis, history of uterine cancer s/p hystrectomy in jan 2014 PSHx: hysterectomy jan 2014 Allergies: seasonal allergies Social Hx: smoked 3 ppd for 37 yrs, currently not smoking; social drinker; retired; lives at home with daughter Fam Hx: no hx of heart disease in family, son has DM Present on Admission - Present on Admission Any Indicators Present on Admission: No Review of Systems - Constitutional Constitutional: Fatigue - EENT Eyes: absent: Blurred Vision, Change in Vision Ears: absent: Ear Pain Nose/Mouth/Throat: absent: Nasal Congestion, Nasal Discharge, Sore Throat - Cardiovascular Cardiovascular: Chest Pain, Chest Pain at Rest, Chest Pain with Activity, Pain Radiating to Arm/Neck/Jaw. absent: Palpitations - Respiratory Respiratory: Cough. absent: Hemoptysis, Wheezing - Gastrointestinal Gastrointestinal: absent: Abdominal Pain, Constipation, Diarrhea - Genitourinary Genitourinary: absent: Difficulty Urinating, Dysuria, Flank Pain - Reproductive: Female Reproductive:Female: Amenorrhea, S/P Hysterectomy - Menstruation Menstruation: Amenorrhea - Musculoskeletal Musculoskeletal: Arthralgias, Back Pain. absent: Muscle Cramps - Integumentary Integumentary: absent: Pruritus, Skin Ulcer, Swelling - Neurological Neurological: absent: Confusion, Paresthesias, Syncope - Psychiatric Psychiatric: absent: Change in Appetite, Confusion - Endocrine Endocrine: Fatigue. absent: Excessive Sweating - Hematologic/Lymphatic Hematologic: absent: Easy Bleeding Past Patient History - Infectious Disease Hx of Infectious Diseases: None - Past Medical History & Family History Past Medical History?: Yes - Past Social History Smoking Status: Never Smoked - CARDIAC Hx Atrial Fibrillation: Yes Hx Cardia Arrhythmia: Yes Hx Hypercholesterolemia: Yes Hx Hypertension: Yes - PULMONARY Hx Asthma: Yes - NEUROLOGICAL HX Cerebrovascular Accident: Yes - HEENT Hx HEENT Problems: Yes Hx Cataracts: Yes (both eyes) Other/Comment: wear eyeglasses - ENDOCRINE/METABOLIC Hx Endocrine Disorders: No - HEMATOLOGICAL/ONCOLOGICAL Hx Blood Disorders: No Hx Blood Transfusions: No - INTEGUMENTARY Hx Dermatological Problems: No - MUSCULOSKELETAL/RHEUMATOLOGICAL Hx Osteoporosis: Yes - GASTROINTESTINAL Hx Gall Bladder Disease: Yes (Cholecystitis (April 2014)) - GENITOURINARY/GYNECOLOGICAL Hx Genitourinary Disorders: Yes Hx Cervical Cancer: Yes (S/P HYSTERECTOMY) - PSYCHIATRIC Hx Anxiety: Yes Hx Substance Use: No - SURGICAL HISTORY Hx Surgeries: Yes Hx Hysterectomy: Yes - ANESTHESIA Hx Anesthesia: Yes Hx Anesthesia Reactions: No Hx Malignant Hyperthermia: No Meds Allergies/Adverse Reactions: Allergies Allergy/AdvReac Type Severity Reaction Status Date / Time paroxetine HCl [From Paxil] Allergy Verified 08/17/16 20:35 tramadol Allergy Verified 08/17/16 20:35 Physical Exam - Constitutional Appears: Well, No Acute Distress - Head Exam Head Exam: ATRAUMATIC, NORMAL INSPECTION - Eye Exam Eye Exam: EOMI, Normal appearance Pupil Exam: PERRL - ENT Exam ENT Exam: Mucous Membranes Moist, Normal Exam - Neck Exam Neck exam: Positive for: Normal Inspection - Respiratory Exam Respiratory Exam: Clear to Auscultation Bilateral, NORMAL BREATHING PATTERN. absent: Rales, Rhonchi, Wheezes - Cardiovascular Exam Cardiovascular Exam: Irregular Rhythm - GI/Abdominal Exam GI & Abdominal Exam: Normal Bowel Sounds, Soft. absent: Tenderness - Rectal Exam Rectal Exam: Deferred - Extremities Exam Extremities exam: Positive for: full ROM, normal inspection. Negative for: pedal edema - Back Exam Back exam: NORMAL INSPECTION - Neurological Exam Neurological exam: Alert, CN II-XII Intact, Oriented x3 - Psychiatric Exam Psychiatric exam: Normal Affect, Normal Mood - Skin Skin Exam: Dry, Intact, Normal Color, Warm Results - Vital Signs Recent Vital Signs: Last Vital Signs Temp 99.2 F 08/17/16 21:55 Pulse 98 H 08/17/16 23:26 Resp 18 08/17/16 23:26 BP 113/63 08/17/16 23:26 Pulse Ox 96 08/17/16 23:26 - Labs Result Diagrams: 08/17/16 20:42 08/17/16 20:42 Assessment & Plan (1) Chest pain Assessment and Plan: ROMIx1 negative ROMIx2, EKGx2 ordered 6 hours apart, f/u cmp, cbc, mag, phos, tsh cardio consult, Dr. Goodwin, help appreciated cmp, cbc, mag, phos, tsh, f/u Status: Acute (2) Fever Assessment and Plan: Temp 101.9 [08/17 at 21:13], Temp 98.4 [08/18 00:00] wbc 11.5] c/o of subjective fevers chest xray interpreted by ER physician shows possible right sided developing infiltrate, no effusions consider CT chest CT chest [07/09/16] showed no acute abnormality. No significant pleural thickening identified. Minimal bilateral apical scarring. moxifloxacin IV 400mg qd UA negative procalcitonin, f/u Status: Acute (3) Atrial fibrillation by electrocardiogram Assessment and Plan: hx of AFib EKG taken in ED showed Afib In ED with Afib with rapid ventricular response with rate in 150-160s; was given Cardizem 10mg IV and Cardizem 30mg po which brought her rate down currently rate controlled con't home med of diltiazem 240mg po daily Status: Acute (4) Congestive heart failure Assessment and Plan: BNP 1900; BNP 4270 on 07/04/16 Echo [07/04]: EF 40-45% in ED: Lasix 20mg IV Status: Acute (5) Bronchitis Assessment and Plan: hx of smoking 3 packs per day for 37 years con't home meds: symbicort 160-4.5 mcg IH daily, albuterol IH q6 prn, flovent diskus 50mcg IH daily Status: Acute (6) Hyperlipidemia Assessment and Plan: hx of HLD con't home meds: rosuvastatin 10mg po hs lipid panel, f/u Status: Acute (7) GERD (gastroesophageal reflux disease) Assessment and Plan: hx of GERD con't home meds: pantoprazole 40mg po daily Status: Acute (8) Prophylactic measure Assessment and Plan: SCDs protonix 40mg daily heparin 5000u sc daily PT/OT Status: Acute
[2016-08-18] MEDS ORDERED: Albuterol HFA 90 mcg/actuation (8 g) IH PRN (03:09)
[2016-08-18 07:39] LABS: BASO % 0.5 % (0.0-2.0); EOS # 0.1 K/uL (0.0-0.7); HEMATOCRIT 36.6 % (34.0-47.0); LYMPH # 3.2 K/uL (1.0-4.3); LYMPH % 35.9 % (20.0-40.0); MEAN CELL VOLUME 84.3 fL (81.0-99.0); MEAN CORPUSCULAR HEMOGLOBIN 27.8 pg (27.0-31.0); MEAN PLATELET VOLUME 8.6 fL (7.2-11.7); MONO # 0.9 K/uL (0.0-0.8); MONO % 10.3 % (0.0-10.0); RED CELL DISTRIBUTION WIDTH 14.4 % (11.5-14.5); WHITE BLOOD COUNT 8.8 K/uL (4.8-10.8)
[2016-08-18 08:09] LABS: CHLORIDE 101 mmol/L (98-107)
[2016-08-18 08:10] LABS: POTASSIUM 3.1 mmol/L (3.6-5.2); SODIUM 137 mmol/L (132-148)
[2016-08-18 08:12] LABS: CARBON DIOXIDE 27 mmol/L (22-30); CHOLESTEROL 160 mg/dL (0-199); GFR AFRICAN-AMERICAN > 60
[2016-08-18 08:13] LABS: ALB/GLOB RATIO 1.1 (1.0-2.1); ALKALINE PHOSPHATASE 64 U/L (38-126); ALT/SGPT 27 U/L (9-52); AST/SGOT 20 U/L (14-36); BILIRUBIN,TOTAL 0.5 mg/dL (0.2-1.3); BLOOD UREA NITROGEN 13 mg/dL (7-17); GLUCOSE,RANDOM 100 mg/dL (65-105); PHOSPHOROUS 2.7 mg/dL (2.5-4.5); TOTAL PROTEIN 6.4 g/dL (6.3-8.3)
[2016-08-18 08:14] LABS: CALCIUM 7.5 mg/dl (8.6-10.4); MAGNESIUM 1.7 mg/dL (1.6-2.3)
[2016-08-18 08:39] LABS: THYROID STIMULATING HORMONE 0.57 mIU/L (0.46-4.68)
[2016-08-18] MEDS: Pantoprazole 40 mg EC Tab PO SCH ×2 (09:32→09:33)
[2016-08-18] MEDS: Calcium-Vit D 500 mg-200 Units Tab UD PO SCH ×2 (09:33→18:00)
[2016-08-18] MEDS: diltiaZEM 240 mg/24 Hours CD Cap PO SCH (09:34)
--- NOTE | 2016-08-18 09:55 | RAD ---
PROCEDURE: CHEST RADIOGRAPH, 1 VIEW HISTORY: Chest pain COMPARISON: 07/06/2016. FINDINGS: LUNGS: The lungs are well inflated and clear. PLEURA: No pneumothorax or pleural fluid seen. CARDIOVASCULAR: Normal. OSSEOUS STRUCTURES: No significant abnormalities. VISUALIZED UPPER ABDOMEN: Normal. OTHER FINDINGS: None. IMPRESSION: No active pulmonary disease.
[2016-08-18] MEDS ORDERED: [UNRECOGNIZED DRUG - OTHER] IH SCH (10:00)
[2016-08-18] MEDS ORDERED: Potassium Chloride 20 mEq ER Tab PO ONE (10:00)
[2016-08-18] MEDS: Potassium Chloride 20 mEq ER Tab PO SCH ×2 (10:45→16:00)
[2016-08-18] MEDS ORDERED: Fluticasone-Salmeterol 250-50mcg Diskus IH SCH (20:00)
[2016-08-18] MEDS ORDERED: Moxifloxacin IV 400mg/250ml NS 400 MG/250 ML BAG IVPB SCH (22:00)
[2016-08-18] MEDS ORDERED: Mometasone 220 mcg/puff-14 puff Inh INH SCH (22:00)
--- NOTE | 2016-08-18 22:14 | CP.PCM.PN ---
<Milind Modi - Last Filed: 08/20/16 15:39> Subjective - Date & Time of Evaluation Date of Evaluation: 08/18/16 Time of Evaluation: 08:10 - Subjective Subjective: PGY2 Medicine Note - Dr. Mccoy's Service Patient seen and examined at bedside. No overnight events per nursing. Pt reports cough persists however chest pain is improving with treatment. Denies diaphoresis, palpitations, shortness of breath, abdominal pain, vomiting, diarrhea, constipation, leg pain or any additional complaints. Objective - Vital Signs/Intake and Output Vital Signs (last 24 hours): Temp Pulse Resp BP Pulse Ox 98.2 F 77 20 116/80 95 08/18/16 07:35 08/18/16 07:35 08/18/16 07:35 08/18/16 07:35 08/18/16 07:35 - Medications Medications: Current Medications Albuterol (Ventolin Hfa 90 Mcg/Actuation (8 G)) 1 puff IH RQ6 PRN PRN Reason: Wheezing Calcium/Vitamin D (Oyster Shell Calcium/Vitamin D 500 Mg-200 Iu) 1 tab PO BID [facility] Last Admin: 08/18/16 09:33 Dose: 1 tab Diltiazem HCl (Cardizem Cd) 240 mg PO DAILY [facility] Last Admin: 08/18/16 09:34 Dose: 240 mg Heparin Sodium (Porcine) (Heparin) 5,000 units SC Q12 [facility] Last Admin: 08/18/16 09:34 Dose: 5,000 units Moxifloxacin HCl (Avelox Iv 400mg/250ml Ns) 400 mg in 250 mls @ 167 mls/hr IVPB Q24H [facility] Metoprolol Tartrate (Lopressor) 50 mg PO BID [facility] Last Admin: 08/18/16 09:33 Dose: 50 mg Mometasone Furoate (Asmanex Twisthaler 220 Mcg) 1 puff INH [facility] Montelukast Sodium (Singulair) 10 mg PO HS [facility] Nitroglycerin (Nitrostat Sl Tab) 0.4 mg SL Q5M PRN PRN Reason: CHEST PAIN W/OUT HYPOTENSION Pantoprazole Sodium (Protonix Ec Tab) 40 mg PO DAILY [facility] Pantoprazole Sodium (Protonix Ec Tab) 40 mg PO DAILY [facility] Last Admin: 08/18/16 09:33 Dose: 40 mg Pneumococcal Polyvalent Vaccine (Pneumovax 23 Vaccine) 0.5 ml IM .ONCE ONE Stop: 08/19/16 10:01 Potassium Chloride (K-Dur 20 Meq Er Tab) 40 meq PO DAILY ONE Stop: 08/19/16 10:01 Rivaroxaban (Xarelto) 15 mg PO DAILY [facility] Last Admin: 08/18/16 09:34 Dose: 15 mg Rosuvastatin Calcium (Crestor) 10 mg PO HS [facility] Fluticasone/Salmeterol (Advair Diskus 250/50) 1 puff IH RBID [facility] - Labs Labs: 08/18/16 07:21 08/18/16 07:21 PT 13.8 SECONDS (9.7-12.2) H 08/17/16 20:42 INR 1.2 08/17/16 20:42 APTT 34 SECONDS (21-34) 08/17/16 20:42 - Additional Findings Additional findings: - Constitutional Appears: Well, No Acute Distress - Head Exam Head Exam: ATRAUMATIC, NORMAL INSPECTION - Eye Exam Eye Exam: EOMI, Normal appearance Pupil Exam: PERRL - ENT Exam ENT Exam: Mucous Membranes Moist, Normal Exam - Neck Exam Neck exam: Positive for: Normal Inspection - Respiratory Exam Respiratory Exam: Clear to Auscultation Bilateral, NORMAL BREATHING PATTERN. absent: Rales, Rhonchi, Wheezes +Cough noted - Cardiovascular Exam Cardiovascular Exam: Irregular Rhythm - GI/Abdominal Exam GI & Abdominal Exam: Normal Bowel Sounds, Soft. absent: Tenderness - Extremities Exam Extremities exam: Positive for: full ROM, normal inspection. Negative for: pedal edema - Back Exam Back exam: NORMAL INSPECTION - Neurological Exam Neurological exam: Alert, CN II-XII Intact, Oriented x3 - Psychiatric Exam Psychiatric exam: Normal Affect, Normal Mood - Skin Skin Exam: Dry, Intact, Normal Color, Warm Assessment and Plan - Assessment and Plan (Free Text) Assessment: (1) Chest pain Assessment and Plan: BETH negative x3. EKGx2 ordered 6 hours apart cardio consult, Dr. Goodwin, help appreciated Labs WNL Status: Acute (2) Fever Assessment and Plan: 08/18: fever resolved with tx. procalcitonin WNL Temp 101.9 [08/17 at 21:13], Temp 98.4 [08/18 00:00] wbc 11.5] c/o of subjective fevers chest xray interpreted by ER physician shows possible right sided developing infiltrate, no effusions consider CT chest CT chest [07/09/16] showed no acute abnormality. No significant pleural thickening identified. Minimal bilateral apical scarring. moxifloxacin IV 400mg qd UA negative Status: Acute (3) Atrial fibrillation by electrocardiogram Assessment and Plan: 08/18: rate controlled x of AFib EKG taken in ED showed Afib In ED with Afib with rapid ventricular response with rate in 150-160s; was given Cardizem 10mg IV and Cardizem 30mg po which brought her rate down currently rate controlled con't home med of diltiazem 240mg po daily Status: Acute (4) Congestive heart failure Assessment and Plan: BNP 1900; BNP 4270 on 07/04/16 Echo [07/04]: EF 40-45% in ED: Lasix 20mg IV Status: Acute (5) Bronchitis Assessment and Plan: hx of smoking 3 packs per day for 37 years con't home meds: symbicort 160-4.5 mcg IH daily, albuterol IH q6 prn, flovent diskus 50mcg IH daily Status: Acute (6) Hyperlipidemia Assessment and Plan: hx of HLD con't home meds: rosuvastatin 10mg po hs lipid panel - WNL Status: Acute (7) GERD (gastroesophageal reflux disease) Assessment and Plan: hx of GERD con't home meds: pantoprazole 40mg po daily Status: Acute (8) Prophylactic measure Assessment and Plan: SCDs protonix 40mg daily heparin 5000u sc daily PT/OT Status: Acute <Torey Mccoy Jr. - Last Filed: 08/28/16 10:15> Objective - Vital Signs/Intake and Output Vital Signs (last 24 hours): Temp Pulse Resp BP Pulse Ox 98.2 F 72 20 105/58 L 99 08/19/16 15:57 08/19/16 15:57 08/19/16 15:57 08/19/16 15:57 08/25/16 08:31 - Labs Labs: 08/19/16 09:48 08/19/16 09:48 PT 13.8 SECONDS (9.7-12.2) H 08/17/16 20:42 INR 1.2 08/17/16 20:42 APTT 34 SECONDS (21-34) 08/17/16 20:42 Attending/Attestation - Attestation I have personally seen and examined this patient.: Yes I have fully participated in the care of the patient.: Yes I have reviewed all pertinent clinical information, including history, physical exam and plan: Yes Notes (Text): 08/28/16 10:15 Agree with resident note and findings
[2016-08-19] MEDS: Pantoprazole 40 mg EC Tab PO SCH ×4 (09:26→09:33)
[2016-08-19] MEDS: Calcium-Vit D 500 mg-200 Units Tab UD PO SCH (09:27)
[2016-08-19] MEDS: diltiaZEM 240 mg/24 Hours CD Cap PO SCH (09:28)
[2016-08-19 09:54] LABS: BASO % 0.7 % (0.0-2.0); EOS # 0.3 K/uL (0.0-0.7); EOS % 4.2 % (0.0-4.0); HEMATOCRIT 38.8 % (34.0-47.0); LYMPH % 49.3 % (20.0-40.0); MEAN CELL VOLUME 86.4 fL (81.0-99.0); MEAN CORPUSCULAR HEMOGLOBIN 27.7 pg (27.0-31.0); MEAN CORPUSCULAR HGB CONC 32.1 g/dL (33.0-37.0); MONO # 0.3 K/uL (0.0-0.8); MONO % 5.7 % (0.0-10.0); NRBC % 0.1 % (0.0-2.0); RED CELL DISTRIBUTION WIDTH 14.9 % (11.5-14.5); WHITE BLOOD COUNT 6.2 K/uL (4.8-10.8)
[2016-08-19] MEDS ORDERED: Pneumococcal 23-Valent Vaccine IM ONE (10:00)
[2016-08-19] MEDS ORDERED: Potassium Chloride 20 mEq ER Tab PO ONE (10:00)
[2016-08-19 10:07] LABS: CHLORIDE 104 mmol/L (98-107); POTASSIUM 4.9 mmol/L (3.6-5.2); SODIUM 141 mmol/L (132-148)
[2016-08-19 10:09] LABS: ALB/GLOB RATIO 1.1 (1.0-2.1); ALKALINE PHOSPHATASE 69 U/L (38-126); AST/SGOT 22 U/L (14-36); BILIRUBIN,TOTAL 0.5 mg/dL (0.2-1.3); BLOOD UREA NITROGEN 11 mg/dL (7-17); CARBON DIOXIDE 28 mmol/L (22-30); GFR AFRICAN-AMERICAN > 60; TOTAL PROTEIN 7.1 g/dL (6.3-8.3)
[2016-08-19 10:10] LABS: ALT/SGPT 27 U/L (9-52); CALCIUM 8.1 mg/dl (8.6-10.4); GLUCOSE,RANDOM 144 mg/dL (65-105); PHOSPHOROUS 2.2 mg/dL (2.5-4.5)
[2016-08-19 16:01] VITALS: BP 105/58; PULSE 72; RESP 20; TEMP 98.2
--- NOTE | 2016-08-19 17:19 | CP.PCM.CON ---
History of Present Illness - History of Present Illness History of Present Illness: I was asked to see patient by Dr. Mccoy. Patient is a 81 year old female with PMH THn, afib, CVA who presents with chest pain. She describes intermittent chest pain which is worse with cough. The patient has had cough productive of yellowish sputum. The patitn deneis palpitations or syncope. Review of Systems - Constitutional Constitutional: absent: As Per HPI, Anorexia, Chills, Daytime Sleepiness, Excessive Sweating, Fatigue, Fever, Frequent Falls, Headache, Increased Appetite , Lethargy, Malaise, Night Sweats, Snoring, Sleep Apnea, Weight Gain, Weight Loss, Weakness, Other - EENT Eyes: absent: As Per HPI, Blind Spots, Blurred Vision, Change in Vision, Decreased Night Vision, Diplopia, Discharge, Dry Eye, Exophthalmos, Floaters, Irritation, Itchy Eyes, Loss of Peripheral Vision, Pain, Photophobia, Requires Corrective Lenses, Sees Flashes, Spots in Vision, Tunnel Vision, Other Visual Disturbances, Loss of Vision, Other Ears: absent: As Per HPI, Decreased Hearing, Ear Discharge, Ear Pain, Tinnitus, Abnormal Hearing, Disequilibrium, Dizziness, Other Nose/Mouth/Throat: absent: As Per HPI, Epistaxis, Nasal Congestion, Nasal Discharge, Nasal Obstruction, Nasal Trauma, Nose Pain, Post Nasal Drip, Sinus Pain, Sinus Pressure, Bleeding Gums, Change in Voice, Dental Pain, Dry Mouth, Dysphagia, Halitosis, Hoarsness, Lip Swelling, Mouth Lesions, Mouth Pain, Odynophagia, Sore Throat, Throat Swelling, Tongue Swelling, Facial Pain, Neck Pain, Neck Mass, Other - Cardiovascular Cardiovascular: absent: As Per HPI, Acrocyanosis, Chest Pain, Chest Pain at Rest , Chest Pain with Activity, Claudication, Diaphoresis, Dyspnea, Dyspnea on Exertion, Edema, Irregular Heart Rhythm, Pain Radiating to Arm/Neck/Jaw, Leg Edema, Leg Ulcers, Lightheadedness, Orthopnea, Palpitations, Paroxysmal Nocturnal Dyspnea, Pedal Edema, Radiating Pain, Rapid Heart Rate, Slow Heart Rate, Syncope, Other - Respiratory Respiratory: Cough, Chest Congestion - Gastrointestinal Gastrointestinal: absent: As Per HPI, Abdominal Pain, Belching, Bloating, Change in Bowel Habits, Change in Stool Character, Coffee Ground Emesis, Constipation, Cramping, Diarrhea, Dyspepsia, Dysphagia, Early Satiety, Excessive Flatus, Fecal Incontinence, Heartburn, Hematemesis, Hematochezia, Loose Stools, Melena, Nausea, Odynophagia, Temesmus, Vomiting, Other - Genitourinary Genitourinary: absent: As Per HPI, Change in Urinary Stream, Difficulty Urinating, Dysuria, Flank Pain, Hematuria, Pyuria, Nocturia, Urinary Incontinence, Urinary Frequency, Urinary Hesitance, Urinary Urgency, Voiding Freq/Small Amts, Freq UTI, Hx Renal/Bladder Calculi, Hx /Renal Surgery, Bladder Distension, Other - Musculoskeletal Musculoskeletal: absent: As Per HPI, Abnormal Gait, Arthralgias, Atrophy, Back Pain, Deformity, Joint Swelling, Limited Range of Motion, Loss of Height, Muscle Cramps, Muscle Weakness, Myalgias, Neck Pain, Numbness, Radiating Pain into Limb, Stiffness, Tingling, Other - Integumentary Integumentary: absent: As Per HPI, Acne, Alopecia, Bleeding Lesions, Change in Hair, Change in Nails, Change in Pigmentation, Changing Lesions, Dry Skin, Erythema, Furuncle, Hirsutism, Lesions, New Lesions, Non-Healing Lesions, Photosensitivity, Pruritus, Rash, Skin Pain, Skin Ulcer, Sores, Striae, Swelling , Unusual Bruising, Wounds, Jaundice, Other - Neurological Neurological: absent: As Per HPI, Abnormal Gait, Abnormal Hearing, Abnormal Movements, Abnormal Speech, Behavioral Changes, Burning Sensations, Confusion, Convulsions, Disequilibrium, Dizziness, Numbness, Focal Weakness, Frequent Falls , Headaches, Lack of Coordination, Loss of Vision, Memory Loss, Paresthesias, Radicular Pain, Restless Legs, Sensory Deficit, Syncope, Tingling, Tremor, Vertigo, Weakness, Other Visual Disturbances, Other - Psychiatric Psychiatric: absent: As Per HPI, Abnormal Sleep Pattern, Anhedonia, Anxiety, Auditory Hallucinations, Behavioral Changes, Change in Appetite, Change in Libido, Confusion, Depression, Difficulty Concentrating, Hallucinations, Homicidal Ideation, Hopelessness, Irritability, Memory Loss, Mood Swings, Panic Attacks, Paranoia, Suicidal Ideation, Visual Hallucinations, Tactile Hallucinations, Other - Endocrine Endocrine: absent: As Per HPI, Change in Body Appearance, Change in Libido, Cold Intolorance, Deepening of Voice, Excessive Sweating, Fatigue, Flushing, Heat Intolorance, Increase in Ring/Shoe/Hat Size, Palpitations, Polydipsia, Polyphagia, Polyuria, Other - Hematologic/Lymphatic Hematologic: absent: As Per HPI, Easy Bleeding, Easy Bruising, Lymphadenopathy, Other Past Patient History - Infectious Disease Hx of Infectious Diseases: None - Past Medical History & Family History Past Medical History?: Yes - Past Social History Smoking Status: Never Smoked - CARDIAC Hx Atrial Fibrillation: Yes Hx Cardia Arrhythmia: Yes Hx Hypercholesterolemia: Yes Hx Hypertension: Yes - PULMONARY Hx Asthma: Yes - NEUROLOGICAL HX Cerebrovascular Accident: Yes - HEENT Hx HEENT Problems: Yes Hx Cataracts: Yes (both eyes) Other/Comment: wear eyeglasses - ENDOCRINE/METABOLIC Hx Endocrine Disorders: No - HEMATOLOGICAL/ONCOLOGICAL Hx Blood Disorders: No Hx Blood Transfusions: No - INTEGUMENTARY Hx Dermatological Problems: No - MUSCULOSKELETAL/RHEUMATOLOGICAL Hx Osteoporosis: Yes - GASTROINTESTINAL Hx Gall Bladder Disease: Yes (Cholecystitis (April 2014)) - GENITOURINARY/GYNECOLOGICAL Hx Genitourinary Disorders: Yes Hx Cervical Cancer: Yes (S/P HYSTERECTOMY) - PSYCHIATRIC Hx Anxiety: Yes Hx Substance Use: No - SURGICAL HISTORY Hx Surgeries: Yes Hx Hysterectomy: Yes - ANESTHESIA Hx Anesthesia: Yes Hx Anesthesia Reactions: No Hx Malignant Hyperthermia: No Meds Home Medications: Home Medication List Medication Instructions Recorded Confirmed Type Methylprednisolone [Medrol Dose 4 mg PO DAILY #21 mg 08/19/16 Rx Pack (21 tabs)] Metoprolol Tartrate [Lopressor] 50 mg PO BID #60 tab 08/19/16 Rx Moxifloxacin [Avelox] 400 mg PO DAILY #7 tab 08/19/16 Rx Allergies/Adverse Reactions: Allergies Allergy/AdvReac Type Severity Reaction Status Date / Time paroxetine HCl [From Paxil] Allergy Verified 08/17/16 20:35 tramadol Allergy Verified 08/17/16 20:35 - Medications Medications: Current Medications Albuterol (Ventolin Hfa 90 Mcg/Actuation (8 G)) 1 puff IH RQ6 PRN PRN Reason: Wheezing Calcium/Vitamin D (Oyster Shell Calcium/Vitamin D 500 Mg-200 Iu) 1 tab PO BID [facility] Last Admin: 08/19/16 09:27 Dose: 1 tab Diltiazem HCl (Cardizem Cd) 240 mg PO DAILY [facility] Last Admin: 08/19/16 09:28 Dose: 240 mg Heparin Sodium (Porcine) (Heparin) 5,000 units SC Q12 [facility] Last Admin: 08/19/16 09:28 Dose: 5,000 units Moxifloxacin HCl (Avelox Iv 400mg/250ml Ns) 400 mg in 250 mls @ 167 mls/hr IVPB Q24H [facility] Last Admin: 08/18/16 22:24 Dose: 167 mls/hr Metoprolol Tartrate (Lopressor) 50 mg PO BID [facility] Last Admin: 08/19/16 09:27 Dose: 50 mg Mometasone Furoate (Asmanex Twisthaler 220 Mcg) 1 puff INH RHS [facility] Montelukast Sodium (Singulair) 10 mg PO HS [facility] Last Admin: 08/18/16 22:28 Dose: 10 mg Nitroglycerin (Nitrostat Sl Tab) 0.4 mg SL Q5M PRN PRN Reason: CHEST PAIN W/OUT HYPOTENSION Pantoprazole Sodium (Protonix Ec Tab) 40 mg PO DAILY [facility] Last Admin: 08/19/16 09:27 Dose: 40 mg Pantoprazole Sodium (Protonix Ec Tab) 40 mg PO DAILY [facility] Last Admin: 08/19/16 09:33 Dose: Not Given Rivaroxaban (Xarelto) 15 mg PO DAILY [facility] Last Admin: 08/19/16 09:28 Dose: 15 mg Rosuvastatin Calcium (Crestor) 10 mg PO HS [facility] Last Admin: 08/18/16 22:24 Dose: 10 mg Fluticasone/Salmeterol (Advair Diskus 250/50) 1 puff IH RBID [facility] Physical Exam - Constitutional Appears: Non-toxic - Head Exam Head Exam: NORMAL INSPECTION - Eye Exam Eye Exam: Normal appearance - ENT Exam ENT Exam: Mucous Membranes Moist - Neck Exam Neck exam: Positive for: Full Rom - Respiratory Exam Respiratory Exam: Decreased Breath Sounds - Cardiovascular Exam Cardiovascular Exam: Irregular Rhythm - GI/Abdominal Exam GI & Abdominal Exam: Normal Bowel Sounds - Rectal Exam Rectal Exam: Deferred - Extremities Exam Extremities exam: Negative for: pedal edema - Back Exam Back exam: NORMAL INSPECTION - Neurological Exam Neurological exam: Alert, Oriented x3 - Psychiatric Exam Psychiatric exam: Normal Affect - Skin Skin Exam: Normal Color Results - Vital Signs Recent Vital Signs: Last Vital Signs Temp 98.2 F 08/19/16 15:57 Pulse 72 07/02/17 15:57 Resp 20 08/19/16 15:57 BP 105/58 L 08/19/16 15:57 Pulse Ox 98 08/19/16 15:57 - Labs Result Diagrams: 08/19/16 09:48 08/19/16 09:48 Labs: Laboratory Results - last 24 hr 08/19/16 08/19/16 08/19/16 09:48 09:48 16:55 WBC 6.2 RBC 4.49 Hgb 12.4 Hct 38.8 MCV 86.4 D MCH 27.7 MCHC 32.1 L RDW 14.9 H Plt Count 182 MPV 9.0 Neut % (Auto) 40.1 L Lymph % (Auto) 49.3 H Boyle % (Auto) 5.7 Eos % (Auto) 4.2 H Baso % (Auto) 0.7 Neut # 2.5 Lymph # 3.0 Boyle # 0.3 Eos # 0.3 Baso # 0.0 Sodium 141 Potassium 4.9 Chloride 104 Carbon Dioxide 28 Anion Gap 15 BUN 11 Creatinine 0.6 L Est GFR ( Amer) > 60 Est GFR (Non-Af Amer) > 60 POC Glucose (mg/dL) 109 Random Glucose 144 H Calcium 8.1 L Phosphorus 2.2 L Magnesium 2.0 Total Bilirubin 0.5 AST 22 ALT 27 Alkaline Phosphatase 69 Total Protein 7.1 Albumin 3.7 Globulin 3.4 Albumin/Globulin Ratio 1.1 - EKG Data EKG Interpreted by: Myself Assessment & Plan (1) Chest pain Assessment and Plan: may be realted to cough and possible pneumonitis. recommend serial cardiac enzymes. will recommend continued antiobiotic therapy. consider outpatient stress test. Status: Acute (2) Atrial fibrillation by electrocardiogram Assessment and Plan: rate controlled. consider anticoagulation. Status: Acute
--- NOTE | 2016-08-19 17:20 | CP.PCM.PN ---
Subjective - Date & Time of Evaluation Date of Evaluation: 08/19/16 Time of Evaluation: 12:30 - Subjective Subjective: no current chest pain. less cough Objective - Vital Signs/Intake and Output Vital Signs (last 24 hours): Temp Pulse Resp BP Pulse Ox 98.2 F 72 20 105/58 L 98 08/19/16 15:57 08/19/16 15:57 08/19/16 15:57 08/19/16 15:57 08/19/16 15:57 Intake and Output: 08/19/16 08/19/16 06:59 18:59 Intake Total 350 600 Balance 350 600 - Medications Medications: Current Medications Albuterol (Ventolin Hfa 90 Mcg/Actuation (8 G)) 1 puff IH RQ6 PRN PRN Reason: Wheezing Calcium/Vitamin D (Oyster Shell Calcium/Vitamin D 500 Mg-200 Iu) 1 tab PO BID [facility] Last Admin: 08/19/16 09:27 Dose: 1 tab Diltiazem HCl (Cardizem Cd) 240 mg PO DAILY [facility] Last Admin: 08/19/16 09:28 Dose: 240 mg Heparin Sodium (Porcine) (Heparin) 5,000 units SC Q12 [facility] Last Admin: 08/19/16 09:28 Dose: 5,000 units Moxifloxacin HCl (Avelox Iv 400mg/250ml Ns) 400 mg in 250 mls @ 167 mls/hr IVPB Q24H [facility] Last Admin: 08/18/16 22:24 Dose: 167 mls/hr Metoprolol Tartrate (Lopressor) 50 mg PO BID [facility] Last Admin: 08/19/16 09:27 Dose: 50 mg Mometasone Furoate (Asmanex Twisthaler 220 Mcg) 1 puff INH RHS [facility] Montelukast Sodium (Singulair) 10 mg PO HS [facility] Last Admin: 08/18/16 22:28 Dose: 10 mg Nitroglycerin (Nitrostat Sl Tab) 0.4 mg SL Q5M PRN PRN Reason: CHEST PAIN W/OUT HYPOTENSION Pantoprazole Sodium (Protonix Ec Tab) 40 mg PO DAILY [facility] Last Admin: 08/19/16 09:27 Dose: 40 mg Pantoprazole Sodium (Protonix Ec Tab) 40 mg PO DAILY [facility] Last Admin: 08/19/16 09:33 Dose: Not Given Rivaroxaban (Xarelto) 15 mg PO DAILY [facility] Last Admin: 08/19/16 09:28 Dose: 15 mg Rosuvastatin Calcium (Crestor) 10 mg PO [facility] Last Admin: 08/18/16 22:24 Dose: 10 mg Fluticasone/Salmeterol (Advair Diskus 250/50) 1 puff IH RBID [facility] - Labs Labs: 08/19/16 09:48 08/19/16 09:48 PT 13.8 SECONDS (9.7-12.2) H 08/17/16 20:42 INR 1.2 08/17/16 20:42 APTT 34 SECONDS (21-34) 08/17/16 20:42 - Constitutional Appears: Non-toxic - Head Exam Head Exam: NORMAL INSPECTION - Eye Exam Eye Exam: Normal appearance - ENT Exam ENT Exam: Mucous Membranes Moist - Neck Exam Neck Exam: Full ROM - Respiratory Exam Respiratory Exam: Decreased Breath Sounds - Cardiovascular Exam Cardiovascular Exam: REGULAR RHYTHM - GI/Abdominal Exam GI & Abdominal Exam: Normal Bowel Sounds - Rectal Exam Rectal Exam: Deferred - Extremities Exam Extremities Exam: absent: Pedal Edema - Back Exam Back Exam: NORMAL INSPECTION - Neurological Exam Neurological Exam: Alert - Psychiatric Exam Psychiatric exam: Normal Affect - Skin Skin Exam: Normal Color Assessment and Plan (1) Atrial fibrillation by electrocardiogram Assessment & Plan: rate controlled. continue Xarelto Status: Acute (2) Chest pain Assessment & Plan: no current angina Status: Acute (3) Hyperlipidemia Assessment & Plan: recommend continued statin therapy Status: Acute
--- NOTE | 2016-08-19 17:30 | CP.PCM.DIS ---
Provider - Provider Date of Admission: 08/17/16 22:58 Attending physician: Torey Mccoy Jr, MD Primary care physician: Dr. Mccoy Consults: Dr. Goodwin, cardiology Time Spent in preparation of Discharge (in minutes): 40 Hospital Course - Lab Results Lab Results: Most Recent Lab Values WBC 6.2 K/uL (4.8-10.8) 08/19/16 09:48 RBC 4.49 Mil/uL (3.80-5.20) 08/19/16 09:48 Hgb 12.4 g/dL (11.0-16.0) 08/19/16 09:48 Hct 38.8 % (34.0-47.0) 08/19/16 09:48 MCV 86.4 fL (81.0-99.0) D 08/19/16 09:48 MCH 27.7 pg (27.0-31.0) 08/19/16 09:48 MCHC 32.1 g/dL (33.0-37.0) L 08/19/16 09:48 RDW 14.9 % (11.5-14.5) H 08/19/16 09:48 Plt Count 182 K/uL (130-400) 08/19/16 09:48 MPV 9.0 fL (7.2-11.7) 08/19/16 09:48 Neut % (Auto) 40.1 % (50.0-75.0) L 08/19/16 09:48 Lymph % (Auto) 49.3 % (20.0-40.0) H 08/19/16 09:48 Wake % (Auto) 5.7 % (0.0-10.0) 08/19/16 09:48 Eos % (Auto) 4.2 % (0.0-4.0) H 08/19/16 09:48 Baso % (Auto) 0.7 % (0.0-2.0) 08/19/16 09:48 Neut # 2.5 K/uL (1.8-7.0) 08/19/16 09:48 Lymph # 3.0 K/uL (1.0-4.3) 08/19/16 09:48 Wake # 0.3 K/uL (0.0-0.8) 08/19/16 09:48 Eos # 0.3 K/uL (0.0-0.7) 08/19/16 09:48 Baso # 0.0 K/uL (0.0-0.2) 08/19/16 09:48 PT 13.8 SECONDS (9.7-12.2) H 08/17/16 20:42 INR 1.2 08/17/16 20:42 APTT 34 SECONDS (21-34) 08/17/16 20:42 pO2 25 mm/Hg (30-55) L 08/17/16 21:10 VBG pH 7.38 (7.32-7.43) 08/17/16 21:10 VBG pCO2 44 mmHg (40-60) 08/17/16 21:10 VBG HCO3 23.9 mmol/L 08/17/16 21:10 VBG Total CO2 27.4 mmol/L (22-28) 08/17/16 21:10 VBG O2 Sat (Calc) 53.1 % (40-65) 08/17/16 21:10 VBG Base Excess 0.5 mmol/L (0.0-2.0) 08/17/16 21:10 VBG Potassium 3.4 mmol/L (3.6-5.2) L 08/17/16 21:10 Sodium 137.0 mmol/l (132-148) 08/17/16 21:10 Chloride 104.0 mmol/L (98-107) 08/17/16 21:10 Glucose 127 mg/dl (65-105) H 08/17/16 21:10 Lactate 1.5 mmol/L (0.7-2.1) 08/17/16 21:10 FiO2 21.0 % 08/17/16 21:10 Sodium 141 mmol/L (132-148) 08/19/16 09:48 Potassium 4.9 mmol/L (3.6-5.2) 08/19/16 09:48 Chloride 104 mmol/L (98-107) 08/19/16 09:48 Carbon Dioxide 28 mmol/L (22-30) 08/19/16 09:48 Anion Gap 15 (10-20) 08/19/16 09:48 BUN 11 mg/dL (7-17) 08/19/16 09:48 Creatinine 0.6 MG/DL (0.7-1.2) L 08/19/16 09:48 Est GFR ( Amer) > 60 08/19/16 09:48 Est GFR (Non-Af Amer) > 60 08/19/16 09:48 POC Glucose (mg/dL) 109 mg/dL (65-110) 08/19/16 16:55 Random Glucose 144 mg/dL (65-105) H 08/19/16 09:48 Calcium 8.1 mg/dl (8.6-10.4) L 08/19/16 09:48 Phosphorus 2.2 mg/dL (2.5-4.5) L 08/19/16 09:48 Magnesium 2.0 mg/dL (1.6-2.3) 08/19/16 09:48 Total Bilirubin 0.5 mg/dL (0.2-1.3) 08/19/16 09:48 AST 22 U/L (14-36) 08/19/16 09:48 ALT 27 U/L (9-52) 08/19/16 09:48 Alkaline Phosphatase 69 U/L (38-126) 08/19/16 09:48 Total Creatine Kinase 70 U/L (30-135) 08/18/16 07:21 CK-MB (Mass) 0.46 ng/mL (0.0-3.38) 08/18/16 07:21 Troponin I < 0.0120 ng/mL (0.00-0.120) 08/17/16 20:42 Troponin I, Quant < 0.0120 ng/mL (0.00-0.120) 08/18/16 07:21 NT-Pro-B Natriuret Pep 1900 pg/mL (0-900) H 08/17/16 20:42 Total Protein 7.1 g/dL (6.3-8.3) 08/19/16 09:48 Albumin 3.7 g/dL (3.5-5.0) 08/19/16 09:48 Globulin 3.4 gm/dL (2.2-3.9) 08/19/16 09:48 Albumin/Globulin Ratio 1.1 (1.0-2.1) 08/19/16 09:48 Triglycerides 102 mg/dL (0-149) 08/18/16 07:21 Cholesterol 160 mg/dL (0-199) 08/18/16 07:21 LDL Cholesterol Direct 91 mg/dL (0-129) 08/18/16 07:21 HDL Cholesterol 43 mg/dL (30-70) 08/18/16 07:21 Procalcitonin 0.22 NG/ML (0.19-0.49) 08/18/16 07:21 TSH 3rd Generation 0.57 mIU/L (0.46-4.68) 08/18/16 07:21 Venous Blood Potassium 3.4 mmol/L (3.6-5.2) L 08/17/16 21:10 Urine Color Colorless (YELLOW) 08/17/16 21:39 Urine Clarity Clear (Clear) 08/17/16 21:39 Urine pH 6.0 (5.0-8.0) 08/17/16 21:39 Ur Specific Carmine 1.006 (1.003-1.030) 08/17/16 21:39 Urine Protein Negative mg/dL (NEGATIVE) 08/17/16 21:39 Urine Glucose (UA) Normal mg/dL (Normal) 08/17/16 21:39 Urine Ketones Negative mg/dL (NEGATIVE) 08/17/16 21:39 Urine Blood 2+ (NEGATIVE) H 08/17/16 21:39 Urine Nitrate Negative (NEGATIVE) 08/17/16 21:39 Urine Bilirubin Negative (NEGATIVE) 08/17/16 21:39 Urine Urobilinogen Normal mg/dL (0.2-1.0) 08/17/16 21:39 Ur Leukocyte Esterase Negative Torsten/uL (Negative) 08/17/16 21:39 Urine WBC (Auto) 2 /hpf (0-5) 08/17/16 21:39 Urine RBC (Auto) 2 /hpf (0-3) 08/17/16 21:39 Ur Squamous Epith Cells 1 /hpf (0-5) 08/17/16 21:39 Urine HCG, Qual Negative (NEGATIVE) 08/17/16 21:39 - Hospital Course Hospital Course: Upon hospital admission: Mrs Loomis is a 81 yo F who was brought to the ED by her daughter for mid sternal chest pain that started at 2pm yesterday. She describes the pain as a sharp pain which began while at rest. She rates the pain 8/10. Her daughter gave her 0.4mg nitroglycerin sublingual which did not resolve her pain. She states the pain radiates to her left shoulder but not below her shoulder. She says she's never had chest pain like this before. She also endorses a chronic cough with production of clear phlegm, nausea and subjective fever. She denies diaphoresis, palpitations, shortness of breath, abdominal pain, vomiting, diarrhea, constipation, leg pain or noncompliance with medications. 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 Goodwin. EKG consistent with Afib w/RVR, Left axis deviation, and possible lateral ischemia. (2) Atrial fibrillation by electrocardiogram - In ED with Afib with rapid ventricular response with rate in 150-160s; was given Cardizem 10mg IV and Cardizem 30mg po which brought her rate down. We continued her home med of diltiazem 240mg po daily and she remained rate controlled. (3) Fever with Temp 101.9 [08/17 at 21:13], Temp 98.4 [7 00:00] and wbc 11.5. procalcitonin WNL. UA negative. Chest xray showed possible right sided developing infiltrate, no effusions consider CT chest. CT chest [07/09/16] showed no acute abnormality. No significant pleural thickening identified. Minimal bilateral apical scarring. Patient was treated with moxifloxacin IV 400mg qd and quickly improved. Fevers resolved with tx. (4) Congestive heart failure with BNP 1900; BNP 4270 on . Echo [07/04]: EF 40-45%. Patient treated with Lasix 20mg IV in the ED. (5) Bronchitis in this patient with hx of smoking 3 packs per day for 37 years. She did well on her home meds of symbicort 160-4.5 mcg IH daily, albuterol IH q6 prn , flovent diskus 50mcg IH daily. (6) Hyperlipidemia tx with home med rosuvastatin 10mg po hs. lipid panel - WNL. (7) GERD (gastroesophageal reflux disease) tx with home med pantoprazole 40mg po daily. The patient did well during this admission, responded well to treatment, and was deemed stable for discharge. Upon hospital discharge, the patient was provided with the following instructions: Patient is stable for discharge per Dr. Mccoy. Patient should resume all medications as outlined in this document. Additionally, patient should take the new medications listed below (scripts provided). Please make an appointment and follow up with your Primary Doctor Dr. Mccoy within one week of discharge. Patient should return to ED immediately if symptoms return or worsen. Instructions discussed with patient who understood and agreed. Newly prescribed medications: Medrol Dose Pack 4mg #21 - Please follow label instructions Lopressor 50mg PO BID #60 Avelox 400mg PO daily #7 Please stop your prior dose of Lopressor 25mg PO BID. Thank you. This is a summary of the patient's hospital admission, see chart for comprehensive detail. - Date & Time of H&P Date of H&P: 08/18/16 Time of H&P: 00:05 Discharge Exam - Additional Findings Additional findings: - Constitutional Appears: Well, No Acute Distress - Head Exam Head Exam: ATRAUMATIC, NORMAL INSPECTION - Eye Exam Eye Exam: EOMI, Normal appearance Pupil Exam: PERRL - ENT Exam ENT Exam: Mucous Membranes Moist, Normal Exam - Neck Exam Neck exam: Positive for: Normal Inspection - Respiratory Exam Respiratory Exam: Clear to Auscultation Bilateral, NORMAL BREATHING PATTERN. absent: Rales, Rhonchi, Wheezes Cough resolved - Cardiovascular Exam Cardiovascular Exam: Irregular Rhythm - GI/Abdominal Exam GI & Abdominal Exam: Normal Bowel Sounds, Soft. absent: Tenderness - Extremities Exam Extremities exam: Positive for: full ROM, normal inspection. Negative for: pedal edema - Back Exam Back exam: NORMAL INSPECTION - Neurological Exam Neurological exam: Alert, CN II-XII Intact, Oriented x3 - Psychiatric Exam Psychiatric exam: Normal Affect, Normal Mood - Skin Skin Exam: Dry, Intact, Normal Color, Warm Discharge Plan - Discharge Medications Prescriptions: Methylprednisolone [Medrol Dose Pack (21 tabs)] 4 mg PO DAILY #21 mg Metoprolol Tartrate [Lopressor] 50 mg PO BID #60 tab Moxifloxacin [Avelox] 400 mg PO DAILY #7 tab - Follow Up Plan Condition: GOOD Disposition: HOME/ ROUTINE Instructions: Metoprolol (By mouth), Methylprednisolone (By mouth), Moxifloxacin (By mouth), Angina (DC), Fever in Adults (GEN) Additional Instructions: Patient is stable for discharge per Dr. Mccoy. Patient should resume all medications as outlined in this document. Additionally, patient should take the new medications listed below (scripts provided). Please make an appointment and follow up with your Primary Doctor Dr. Mccoy within one week of discharge. Patient should return to ED immediately if symptoms return or worsen. Instructions discussed with patient who understood and agreed. Newly prescribed medications: Medrol Dose Pack 4mg #21 - Please follow label instructions Lopressor 50mg PO BID #60 Avelox 400mg PO daily #7 Please stop your prior dose of Lopressor 25mg PO BID. Thank you. Referrals: Torey Mccoy Jr., MD [Medical Doctor] -
--- NOTE | 2016-08-20 14:05 | CARD ---
APPROVED REPORT EKG Measurement Heart [id number] <Conclusion> Atrial fibrillation with rapid ventricular response Left axis deviation Incomplete left bundle branch block ST & T wave abnormality, consider lateral ischemia Abnormal ECG
[2016-08-25 08:25] VITALS: O2SAT 99
--- NOTE | 2016-08-27 12:38 | CARD ---
APPROVED REPORT EKG Measurement Heart [id number] <Conclusion> Unusual P axis, possible ectopic atrial rhythm Left axis deviation Anterior infarct, age undetermined Intraventricular conduction delay Abnormal ECG
== END 2016-08-19 18:30 | disposition home or self-care (01) | DRG 291 ==
LOC: C.ER 20:17 → C.6T 22:58
PROVIDERS: ADMIT Internal Medicine; ATTEND Internal Medicine
DX: I11.0 Hypertensive heart disease with heart failure (principal); J18.9 Pneumonia, unspecified organism; I48.91 Unspecified atrial fibrillation; Z79.01 Long term (current) use of anticoagulants; I50.9 Heart failure, unspecified; I25.10 Atherosclerotic heart disease of native coronary artery without angina pectoris; J45.909 Unspecified asthma, uncomplicated; Z86.73 Personal history of transient ischemic attack (TIA), and cerebral infarction without residual deficits; E78.00 Pure hypercholesterolemia, unspecified; M81.0 Age-related osteoporosis without current pathological fracture; Z87.891 Personal history of nicotine dependence; Z85.42 Personal history of malignant neoplasm of other parts of uterus; Z90.49 Acquired absence of other specified parts of digestive tract; F41.9 Anxiety disorder, unspecified; E78.5 Hyperlipidemia, unspecified; K21.9 Gastro-esophageal reflux disease without esophagitis

== ENCOUNTER 2016-10-18 13:16 | Inpatient (IN) | payer MEDICARE, MEDICAID ==
--- NOTE | 2016-10-18 13:47 | C.PDOC ---
History Of Present Illness 81 yr old female presents to the ER with complaints of weakness and dizziness for the past few days. Patient states the symptoms were worse this morning and after waking up she started having palpitations. Patient states she went to go see her PMD Dr. Vaughn who put her on a monitor and found she was in rapid A-fib. Patient reports history of heart failure and hypertension. 911 was called by the PMD, medics gave patient 15mg of Cardizem IV and her rate came down to 90. Currently patient is asymptomatic, denies fever, chills, vision changes, chest pain, SOB, headache or numbness. Time Seen by Provider: 10/18/16 13:27 Chief Complaint (Nursing): Palpitations History Per: Patient History/Exam Limitations: no limitations Onset/Duration Of Symptoms: Days Past Medical History Reviewed: Historical Data, Nursing Documentation, Vital Signs Vital Signs: Last Vital Signs Temp 99.0 F 10/18/16 13:29 Pulse 88 10/18/16 15:52 Resp 15 10/18/16 15:52 BP 116/65 10/18/16 15:52 Pulse Ox 96 10/18/16 15:52 - Medical History PMH: Anxiety, Asthma, Atrial Fibrillation, CAD, Cardia Arrhythmia, CVA (2000), Gall Bladder Disease (Cholecystitis (April 2014)), HTN, Hypercholesterolemia, Malignancy, Osteoporosis Surgical History: Endoscopy - [facility] Procedures ATRIAL CARDIOVERSION (04/26/13) DX ULTRASOUND-HEART (04/26/13) OTHER ESOPHAGOSCOPY (04/26/13) Family History: States: Diabetes (son) - Social History Hx Tobacco Use: Yes (Former (1992)) Hx Alcohol Use: No Hx Substance Use: No - Immunization History Hx Tetanus Toxoid Vaccination: No Hx Influenza Vaccination: No Hx Pneumococcal Vaccination: No Review Of Systems Except As Marked, All Systems Reviewed And Found Negative. Constitutional: Positive for: Weakness. Negative for: Fever, Chills Eyes: Negative for: Vision Change Cardiovascular: Positive for: Palpitations. Negative for: Chest Pain Respiratory: Negative for: Shortness of Breath Neurological: Negative for: Numbness, Headache Physical Exam - Physical Exam Appears: Non-toxic, No Acute Distress Skin: Warm, Dry, No Rash Head: Atraumatic, Normacephalic Oral Mucosa: Moist Chest: Symmetrical, No Tenderness Cardiovascular: Rhythm Irregular (With controlled rate.) Respiratory: Normal Breath Sounds, No Rales, No Rhonchi, No Wheezing Gastrointestinal/Abdominal: Normal Exam, Soft, No Tenderness, No Guarding, No Rebound Extremity: Normal ROM, No Swelling Neurological/Psych: Oriented x3, Normal Speech, Normal Motor ED Course And Treatment - Laboratory Results Result Diagrams: 10/18/16 14:05 10/18/16 14:05 Lab Interpretation: No Acute Changes ECG: Interpreted By Me ECG Rhythm: Atrial Fibrillation (with left axis deviation), L BBB (incomplete), ST/T Changes (flattened I, AVL) Rate From EC O2 Sat by Pulse Oximetry: 96 (RA ) Pulse Ox Interpretation: Normal - Radiology CXR: Interpreted by Me CXR Interpretation: Yes: No Acute Disease Reevaluation Time: 16:10 Reassessment Condition: Improved - Physician Consult Information Time Consulting Physician Contacted: 16:10 Physician Contacted: Torey Mccoy Jr. Outcome Of Conversation: Patient to be admitted to [facility] for new onset atrial fibrillation Medical Decision Making Medical Decision Making: PLAN: * CXR * EKG * CBC * CMP * Troponin * Aspirin PO Disposition - Disposition Disposition: HOSPITALIZED Disposition Time: 16:11 Condition: STABLE - POA Present On Arrival: None - Clinical Impression Clinical Impression: New onset atrial fibrillation - Scribe Statement The provider has reviewed the documentation as recorded by the [email or web address] Oro Provider Attestation: All medical record entries made by the Artisibe were at my direction and personally dictated by me. I have reviewed the chart and agree that the record accurately reflects my personal performance of the history, physical exam, medical decision making, and the department course for this patient. I have also personally directed, reviewed, and agree with the discharge instructions and disposition.
[2016-10-18 13:51] VITALS: BMI 23.3
[2016-10-18] MEDS ORDERED: Aspirin 325 mg EC Tablets PO ONE ×2 (14:00→14:08)
[2016-10-18 14:13] LABS: BASO # 0.1 K/uL (0.0-0.2); BASO % 0.6 % (0.0-2.0); EOS # 0.1 K/uL (0.0-0.7); EOS % 1.6 % (0.0-4.0); HEMATOCRIT 39.2 % (34.0-47.0); LYMPH # 4.7 K/uL (1.0-4.3); LYMPH % 54.8 % (20.0-40.0); MEAN CELL VOLUME 84.9 fL (81.0-99.0); MEAN CORPUSCULAR HEMOGLOBIN 27.3 pg (27.0-31.0); MEAN CORPUSCULAR HGB CONC 32.1 g/dL (33.0-37.0); MEAN PLATELET VOLUME 8.4 fL (7.2-11.7); MONO # 0.7 K/uL (0.0-0.8); MONO % 8.7 % (0.0-10.0); NRBC % 0.1 % (0.0-2.0); RED CELL DISTRIBUTION WIDTH 14.6 % (11.5-14.5); WHITE BLOOD COUNT 8.5 K/uL (4.8-10.8)
[2016-10-18 14:17] LABS: CHLORIDE 103 mmol/L (98-107)
[2016-10-18 14:18] LABS: POTASSIUM 3.6 mmol/L (3.6-5.2); SODIUM 141 mmol/L (132-148)
[2016-10-18 14:20] LABS: ALB/GLOB RATIO 1.2 (1.0-2.1); ALKALINE PHOSPHATASE 67 U/L (38-126); AST/SGOT 25 U/L (14-36); BILIRUBIN,TOTAL 0.3 mg/dL (0.2-1.3); BLOOD UREA NITROGEN 12 mg/dL (7-17); CARBON DIOXIDE 26 mmol/L (22-30); GFR AFRICAN-AMERICAN > 60; GLUCOSE,RANDOM 97 mg/dL (65-105); TOTAL PROTEIN 7.1 g/dL (6.3-8.3)
[2016-10-18 14:21] LABS: ALT/SGPT 32 U/L (9-52); CALCIUM 8.4 mg/dl (8.6-10.4)
--- NOTE | 2016-10-18 16:58 | RAD ---
PROCEDURE: CHEST RADIOGRAPH, 1 VIEW HISTORY: Palpations COMPARISON: 08/17/2016 FINDINGS: LUNGS: Clear. PLEURA: No pneumothorax or pleural fluid seen. CARDIOVASCULAR: Cardiomegaly -similar OSSEOUS STRUCTURES: No significant abnormalities. VISUALIZED UPPER ABDOMEN: Normal. OTHER FINDINGS: None. IMPRESSION: Cardiomegaly. No interval pathology noted
[2016-10-18] MEDS ORDERED: Albuterol HFA 90 mcg/actuation (8 g) IH PRN (17:03)
--- NOTE | 2016-10-18 17:53 | CP.PCM.HP ---
History of Present Illness - History of Present Illness History of Present Illness: HPI: 81 year old female with a PMHx of HTN and CHF presents with palpitations that began this morning. Patient has never experienced an episode like this in the past. Patient had an appointment with her PMD, Dr. Vaughn, today and mentioned that she was feeling dizzy this morning and that her heart was racing. He did an EKG and checked her pulse and told her to come to the ED due to new onset a fib with RVR. Patient received 15 mg of Cardizem in the field and has been rate controlled since. Patient admits chronic cough and a headache yesterday that she always gets. Patient denies fever, chills, chest pains, SOB , hemoptysis, weakness, diaphoresis, change in vision, change in speech, confusion, abdominal pain, nausea, vomiting, diarrhea, constipation, or urinary problems. PMHx: HTN, CHF PSHx: Uterine fibroid removal, bilateral salpingo-oophorectomy with hysterectomy FHx: Unsure of maternal or paternal cause of , says they of natural causes. Daughter of breast CA SHx: Currently lives with her remaining children. She smoked when she was a kid until 30 years old (claims 3 cigarettes per day). She does not drink or use illicit drugs. Home Medications: Cardizem 24HR CD 240 mg PO daily Ipratropium-Albuterol Inhale 1 puff three times a day Lasix 20 mg PO daily Lidocaine 5% ointment apply in the affected area three times a day as needed for pain Metoprolol Succinate ER 25 mg PO daily Vitamin D3 PO daily Pantoprazole 40 mg PO daily Prolia 60 mg/ml syringe twice yearly Symbicort 1604.5 mcg inhaler 1 puff BID Valsartan 40 mg PO daily Allergies:NKDA Present on Admission - Present on Admission Any Indicators Present on Admission: No History of DVT/PE: No History of Uncontrolled Diabetes: No Urinary Catheter: No Decubitus Ulcer Present: No Review of Systems - Review of Systems Systems not reviewed;Unavailable: Language Barrier - Constitutional Constitutional: Headache - EENT Eyes: absent: Blurred Vision, Change in Vision, Diplopia Ears: Dizziness. absent: Decreased Hearing, Disequilibrium Nose/Mouth/Throat: absent: Nasal Discharge, Post Nasal Drip, Sore Throat Additional comments: cough - Cardiovascular Cardiovascular: Palpitations. absent: Chest Pain, Claudication, Edema - Respiratory Respiratory: Cough. absent: Dyspnea - Gastrointestinal Gastrointestinal: absent: Abdominal Pain, Change in Stool Character, Constipation, Diarrhea - Genitourinary Genitourinary: absent: Difficulty Urinating, Urinary Hesitance - Musculoskeletal Musculoskeletal: absent: Joint Swelling, Muscle Weakness - Neurological Neurological: Dizziness. absent: Abnormal Hearing, Numbness, Lack of Coordination - Psychiatric Psychiatric: absent: Confusion - Endocrine Endocrine: absent: Excessive Sweating Past Patient History - Infectious Disease Hx of Infectious Diseases: None - Past Medical History & Family History Past Medical History?: Yes - Past Social History Smoking Status: Never Smoked - CARDIAC Hx Atrial Fibrillation: Yes Hx Cardia Arrhythmia: Yes Hx Hypercholesterolemia: Yes Hx Hypertension: Yes - PULMONARY Hx Asthma: Yes - NEUROLOGICAL HX Cerebrovascular Accident: Yes - HEENT Hx HEENT Problems: Yes Hx Cataracts: Yes (both eyes) Other/Comment: wear eyeglasses - ENDOCRINE/METABOLIC Hx Endocrine Disorders: No - HEMATOLOGICAL/ONCOLOGICAL Hx Blood Disorders: No Hx Blood Transfusions: No - INTEGUMENTARY Hx Dermatological Problems: No - MUSCULOSKELETAL/RHEUMATOLOGICAL Hx Osteoporosis: Yes - GASTROINTESTINAL Hx Gall Bladder Disease: Yes (Cholecystitis (April 2014)) - GENITOURINARY/GYNECOLOGICAL Hx Genitourinary Disorders: Yes Hx Cervical Cancer: Yes (S/P HYSTERECTOMY) - PSYCHIATRIC Hx Anxiety: Yes Hx Substance Use: No - SURGICAL HISTORY Hx Surgeries: Yes Hx Hysterectomy: Yes - ANESTHESIA Hx Anesthesia: Yes Hx Anesthesia Reactions: No Hx Malignant Hyperthermia: No Meds Allergies/Adverse Reactions: Allergies Allergy/AdvReac Type Severity Reaction Status Date / Time paroxetine HCl [From Paxil] Allergy Verified 10/18/16 13:40 tramadol Allergy Verified 10/18/16 13:40 Physical Exam - Constitutional Appears: Non-toxic, No Acute Distress - Head Exam Head Exam: ATRAUMATIC, NORMAL INSPECTION, NORMOCEPHALIC - Eye Exam Eye Exam: EOMI, Normal appearance - ENT Exam ENT Exam: Mucous Membranes Moist - Respiratory Exam Respiratory Exam: Clear to Auscultation Bilateral, NORMAL BREATHING PATTERN. absent: Rales, Rhonchi, Wheezes, Respiratory Distress, Stridor - Cardiovascular Exam Cardiovascular Exam: Irregular Rhythm. absent: Gallop, RRR, Rubs, Systolic Murmur - GI/Abdominal Exam GI & Abdominal Exam: Normal Bowel Sounds, Soft - Extremities Exam Extremities exam: Positive for: normal inspection. Negative for: calf tenderness, pedal edema - Neurological Exam Neurological exam: Alert, Oriented x3 - Psychiatric Exam Psychiatric exam: Normal Affect, Normal Mood - Skin Skin Exam: Intact, Normal Color, Warm Results - Vital Signs Recent Vital Signs: Last Vital Signs Temp 99.0 F 10/18/16 13:29 Pulse 88 10/18/16 15:52 Resp 15 10/18/16 15:52 BP 116/65 10/18/16 15:52 Pulse Ox 96 10/18/16 16:11 - Labs Result Diagrams: 10/18/16 14:05 10/18/16 14:05 Assessment & Plan - Assessment and Plan (Free Text) Assessment: 1. New Onset Afib rate controlled after received 15 mg of Cardizem in the field Metoprolol 50 mg PO BID Xarelto [address] Goodwin, cardio, consulted- help appreciated 2. HTN Cozaar 25mg PO daily Cardizem 240 mg po daily 3. Hx CHF Lasix 20 mg po daily 4. Asthma Albuterol 1 puff q6h PRN Singulair 10 mg po daily 5. Prophylactic measures SCDs Protonix 40mg daily
[2016-10-18] MEDS: Calcium-Vit D 500 mg-200 Units Tab UD PO SCH (18:23)
[2016-10-18] MEDS ORDERED: Potassium Chloride 20 mEq ER Tab PO STA (18:36)
[2016-10-19 07:57] LABS: BASO % 0.6 % (0.0-2.0); EOS # 0.1 K/uL (0.0-0.7); EOS % 1.5 % (0.0-4.0); HEMATOCRIT 41.9 % (34.0-47.0); LYMPH # 3.9 K/uL (1.0-4.3); LYMPH % 57.1 % (20.0-40.0); MEAN CELL VOLUME 84.5 fL (81.0-99.0); MEAN CORPUSCULAR HEMOGLOBIN 27.7 pg (27.0-31.0); MEAN CORPUSCULAR HGB CONC 32.8 g/dL (33.0-37.0); MEAN PLATELET VOLUME 8.7 fL (7.2-11.7); MONO # 0.5 K/uL (0.0-0.8); MONO % 7.2 % (0.0-10.0); NRBC % 0.2 % (0.0-2.0); RED CELL DISTRIBUTION WIDTH 14.9 % (11.5-14.5); WHITE BLOOD COUNT 6.9 K/uL (4.8-10.8)
--- NOTE | 2016-10-19 08:13 | CP.PCM.CON ---
History of Present Illness - History of Present Illness History of Present Illness: I was asked to see patient by Dr Mccoy. Patient is an 81 year old female with PMH HTN, hypercholesterolemia who presents with palpitaitons. Symptoms began about 2 days prior to admission. She felt the sensation of rapid heart rate. She had mild dyspnea. She was found to be in atrial fibrillation with rapid ventricular response. The patient does not give a specific history of a fib although her outpatient medication list includes Xarelto. Review of Systems - Constitutional Constitutional: absent: As Per HPI, Anorexia, Chills, Daytime Sleepiness, Excessive Sweating, Fatigue, Fever, Frequent Falls, Headache, Increased Appetite , Lethargy, Malaise, Night Sweats, Snoring, Sleep Apnea, Weight Gain, Weight Loss, Weakness, Other - EENT Eyes: absent: As Per HPI, Blind Spots, Blurred Vision, Change in Vision, Decreased Night Vision, Diplopia, Discharge, Dry Eye, Exophthalmos, Floaters, Irritation, Itchy Eyes, Loss of Peripheral Vision, Pain, Photophobia, Requires Corrective Lenses, Sees Flashes, Spots in Vision, Tunnel Vision, Other Visual Disturbances, Loss of Vision, Other Ears: absent: As Per HPI, Decreased Hearing, Ear Discharge, Ear Pain, Tinnitus, Abnormal Hearing, Disequilibrium, Dizziness, Other Nose/Mouth/Throat: absent: As Per HPI, Epistaxis, Nasal Congestion, Nasal Discharge, Nasal Obstruction, Nasal Trauma, Nose Pain, Post Nasal Drip, Sinus Pain, Sinus Pressure, Bleeding Gums, Change in Voice, Dental Pain, Dry Mouth, Dysphagia, Halitosis, Hoarsness, Lip Swelling, Mouth Lesions, Mouth Pain, Odynophagia, Sore Throat, Throat Swelling, Tongue Swelling, Facial Pain, Neck Pain, Neck Mass, Other - Cardiovascular Cardiovascular: Palpitations, Paroxysmal Nocturnal Dyspnea - Respiratory Respiratory: absent: As Per HPI, Cough, Dyspnea, Hemoptysis, Dyspnea on Exertion , Wheezing, Snoring, Stridor, Pain on Inspiration, Chest Congestion, Excessive Mucous Production, Change in Mucous Color, Pain with Coughing, Other - Gastrointestinal Gastrointestinal: absent: As Per HPI, Abdominal Pain, Belching, Bloating, Change in Bowel Habits, Change in Stool Character, Coffee Ground Emesis, Constipation, Cramping, Diarrhea, Dyspepsia, Dysphagia, Early Satiety, Excessive Flatus, Fecal Incontinence, Heartburn, Hematemesis, Hematochezia, Loose Stools, Melena, Nausea, Odynophagia, Temesmus, Vomiting, Other - Genitourinary Genitourinary: absent: As Per HPI, Change in Urinary Stream, Difficulty Urinating, Dysuria, Flank Pain, Hematuria, Pyuria, Nocturia, Urinary Incontinence, Urinary Frequency, Urinary Hesitance, Urinary Urgency, Voiding Freq/Small Amts, Freq UTI, Hx Renal/Bladder Calculi, Hx /Renal Surgery, Bladder Distension, Other - Musculoskeletal Musculoskeletal: absent: As Per HPI, Abnormal Gait, Arthralgias, Atrophy, Back Pain, Deformity, Joint Swelling, Limited Range of Motion, Loss of Height, Muscle Cramps, Muscle Weakness, Myalgias, Neck Pain, Numbness, Radiating Pain into Limb, Stiffness, Tingling, Other - Integumentary Integumentary: absent: As Per HPI, Acne, Alopecia, Bleeding Lesions, Change in Hair, Change in Nails, Change in Pigmentation, Changing Lesions, Dry Skin, Erythema, Furuncle, Hirsutism, Lesions, New Lesions, Non-Healing Lesions, Photosensitivity, Pruritus, Rash, Skin Pain, Skin Ulcer, Sores, Striae, Swelling , Unusual Bruising, Wounds, Jaundice, Other - Neurological Neurological: absent: As Per HPI, Abnormal Gait, Abnormal Hearing, Abnormal Movements, Abnormal Speech, Behavioral Changes, Burning Sensations, Confusion, Convulsions, Disequilibrium, Dizziness, Numbness, Focal Weakness, Frequent Falls , Headaches, Lack of Coordination, Loss of Vision, Memory Loss, Paresthesias, Radicular Pain, Restless Legs, Sensory Deficit, Syncope, Tingling, Tremor, Vertigo, Weakness, Other Visual Disturbances, Other - Psychiatric Psychiatric: absent: As Per HPI, Abnormal Sleep Pattern, Anhedonia, Anxiety, Auditory Hallucinations, Behavioral Changes, Change in Appetite, Change in Libido, Confusion, Depression, Difficulty Concentrating, Hallucinations, Homicidal Ideation, Hopelessness, Irritability, Memory Loss, Mood Swings, Panic Attacks, Paranoia, Suicidal Ideation, Visual Hallucinations, Tactile Hallucinations, Other - Endocrine Endocrine: absent: As Per HPI, Change in Body Appearance, Change in Libido, Cold Intolorance, Deepening of Voice, Excessive Sweating, Fatigue, Flushing, Heat Intolorance, Increase in Ring/Shoe/Hat Size, Palpitations, Polydipsia, Polyphagia, Polyuria, Other - Hematologic/Lymphatic Hematologic: absent: As Per HPI, Easy Bleeding, Easy Bruising, Lymphadenopathy, Other Past Patient History - Infectious Disease Hx of Infectious Diseases: None - Past Medical History & Family History Past Medical History?: Yes - Past Social History Smoking Status: Never Smoked - CARDIAC Hx Atrial Fibrillation: Yes Hx Cardia Arrhythmia: Yes Hx Hypercholesterolemia: Yes Hx Hypertension: Yes - PULMONARY Hx Asthma: Yes - NEUROLOGICAL HX Cerebrovascular Accident: Yes - HEENT Hx HEENT Problems: Yes Hx Cataracts: Yes (both eyes) Other/Comment: wear eyeglasses - ENDOCRINE/METABOLIC Hx Endocrine Disorders: No - HEMATOLOGICAL/ONCOLOGICAL Hx Blood Disorders: No Hx Blood Transfusions: No - INTEGUMENTARY Hx Dermatological Problems: No - MUSCULOSKELETAL/RHEUMATOLOGICAL Hx Osteoporosis: Yes - GASTROINTESTINAL Hx Gall Bladder Disease: Yes (Cholecystitis (April 2014)) - GENITOURINARY/GYNECOLOGICAL Hx Genitourinary Disorders: Yes Hx Cervical Cancer: Yes (S/P HYSTERECTOMY) - PSYCHIATRIC Hx Anxiety: Yes Hx Substance Use: No - SURGICAL HISTORY Hx Surgeries: Yes Hx Hysterectomy: Yes - ANESTHESIA Hx Anesthesia: Yes Hx Anesthesia Reactions: No Hx Malignant Hyperthermia: No Meds Allergies/Adverse Reactions: Allergies Allergy/AdvReac Type Severity Reaction Status Date / Time paroxetine HCl [From Paxil] Allergy Verified 10/18/16 13:40 tramadol Allergy Verified 10/18/16 13:40 - Medications Medications: Current Medications Albuterol (Ventolin Hfa 90 Mcg/Actuation (8 G)) 1 puff IH RQ6 PRN PRN Reason: Wheezing Calcium/Vitamin D (Oyster Shell Calcium/Vitamin D 500 Mg-200 Iu) 1 tab PO BID [facility] Last Admin: 10/18/16 18:23 Dose: 1 tab Diltiazem HCl (Cardizem Cd) 240 mg PO DAILY [facility] Furosemide (Lasix) 20 mg PO DAILY [facility] Home Med (Budesonide/Formoterol Fumarate [Symbicort 160-4.5 Mcg Inhaler]) 1 aer IH DAILY [facility] Losartan Potassium (Cozaar) 25 mg PO DAILY [facility] Metoprolol Tartrate (Lopressor) 50 mg PO BID [facility] Last Admin: 10/18/16 18:23 Dose: 50 mg Montelukast Sodium (Singulair) 10 mg PO DAILY [facility] Pantoprazole Sodium (Protonix Ec Tab) 40 mg PO DAILY [facility] Rivaroxaban (Xarelto) 15 mg PO DAILY [facility] Physical Exam - Constitutional Appears: Non-toxic - Head Exam Head Exam: NORMAL INSPECTION - Eye Exam Eye Exam: Normal appearance - ENT Exam ENT Exam: Mucous Membranes Moist - Neck Exam Neck exam: Positive for: Normal Inspection - Respiratory Exam Respiratory Exam: Decreased Breath Sounds - Cardiovascular Exam Cardiovascular Exam: Irregular Rhythm - GI/Abdominal Exam GI & Abdominal Exam: Normal Bowel Sounds - Rectal Exam Rectal Exam: Deferred - Extremities Exam Extremities exam: Positive for: pedal edema - Back Exam Back exam: NORMAL INSPECTION - Neurological Exam Neurological exam: Oriented x3 - Psychiatric Exam Psychiatric exam: Normal Affect - Skin Skin Exam: Normal Color Results - Vital Signs Recent Vital Signs: Last Vital Signs Temp 97.6 F 10/19/16 04:35 Pulse 78 10/19/16 00:50 Resp 20 10/18/16 23:20 BP 102/72 10/18/16 23:20 Pulse Ox 96 10/18/16 23:20 - Labs Result Diagrams: 10/19/16 07:43 10/18/16 14:05 Labs: Laboratory Results - last 24 hr 10/19/16 07:43 WBC 6.9 RBC 4.95 Hgb 13.7 Hct 41.9 MCV 84.5 MCH 27.7 MCHC 32.8 L RDW 14.9 H Plt Count 241 MPV 8.7 Neut % (Auto) 33.6 L Lymph % (Auto) 57.1 H [place] % (Auto) 7.2 Eos % (Auto) 1.5 Baso % (Auto) 0.6 Neut # 2.3 Lymph # 3.9 [place] # 0.5 Eos # 0.1 Baso # 0.0 - EKG Data EKG Specific Queries Rhythm: Atrial Fib Assessment & Plan (1) Atrial fibrillation with RVR Assessment and Plan: unclear duration. will order echocardiogram. continue rate control. continue Xarelto. Status: Acute (2) HTN (hypertension) Assessment and Plan: blood pressure control Status: Acute (3) Congestive heart failure Assessment and Plan: elevated pro BNP. will check echocardiogram Status: Acute (4) Hyperlipidemia Assessment and Plan: statin therapy Status: Acute
[2016-10-19 08:20] LABS: CHLORIDE 109 mmol/L (98-107); POTASSIUM 4.2 mmol/L (3.6-5.2); SODIUM 142 mmol/L (132-148)
[2016-10-19 08:22] LABS: ALB/GLOB RATIO 1.2 (1.0-2.1); AST/SGOT 26 U/L (14-36); BILIRUBIN,TOTAL 0.6 mg/dL (0.2-1.3); CARBON DIOXIDE 26 mmol/L (22-30); GFR AFRICAN-AMERICAN > 60
[2016-10-19 08:23] LABS: ALKALINE PHOSPHATASE 63 U/L (38-126); ALT/SGPT 28 U/L (9-52); BLOOD UREA NITROGEN 12 mg/dL (7-17); CALCIUM 8.3 mg/dl (8.6-10.4); GLUCOSE,RANDOM 110 mg/dL (65-105); PHOSPHOROUS 2.4 mg/dL (2.5-4.5)
[2016-10-19] MEDS ORDERED: diltiaZEM 240 mg/24 Hours CD Cap PO SCH (10:00)
[2016-10-19] MEDS: Pantoprazole 40 mg EC Tab PO SCH (10:26)
[2016-10-19] MEDS: Calcium-Vit D 500 mg-200 Units Tab UD PO SCH ×2 (10:27→17:55)
[2016-10-19] MEDS: diltiaZEM 240 mg/24 Hours CD Cap PO SCH (10:30)
--- NOTE | 2016-10-19 14:13 | CP.PCM.PN ---
<GuidoDenisa EugeniaGregoria - Last Filed: 10/19/16 20:05> Subjective - Date & Time of Evaluation Date of Evaluation: 10/19/16 Time of Evaluation: 10:00 - Subjective Subjective: Medicine Progress Note: Patient was seen and examined at bedside in the AM. Patient denies chest pain, shortness of breath, difficulty breathing, palpitations, nausea or vomiting, diarrhea, or constipation. Patient states she would like to go home. Objective - Vital Signs/Intake and Output Vital Signs (last 24 hours): Temp Pulse Resp BP Pulse Ox 98.2 F 117 H 18 108/73 97 10/19/16 07:30 10/19/16 08:10 10/19/16 07:30 10/19/16 10:26 10/19/16 07:30 - Medications Medications: Current Medications Albuterol (Ventolin Hfa 90 Mcg/Actuation (8 G)) 1 puff IH RQ6 PRN PRN Reason: Wheezing Calcium/Vitamin D (Oyster Shell Calcium/Vitamin D 500 Mg-200 Iu) 1 tab PO BID [facility] Last Admin: 10/19/16 10:27 Dose: 1 tab Diltiazem HCl (Cardizem Cd) 240 mg PO DAILY [facility] Last Admin: 10/19/16 10:30 Dose: Not Given Furosemide (Lasix) 20 mg PO DAILY [facility] Last Admin: 10/19/16 10:26 Dose: 20 mg Losartan Potassium (Cozaar) 25 mg PO DAILY [facility] Last Admin: 10/19/16 10:30 Dose: 25 mg Metoprolol Tartrate (Lopressor) 50 mg PO BID [facility] Last Admin: 10/19/16 10:30 Dose: 50 mg Montelukast Sodium (Singulair) 10 mg PO DAILY [facility] Last Admin: 10/19/16 10:30 Dose: 10 mg Pantoprazole Sodium (Protonix Ec Tab) 40 mg PO DAILY [facility] Last Admin: 10/19/16 10:26 Dose: 40 mg Pneumococcal Polyvalent Vaccine (Pneumovax 23 Vaccine) 0.5 ml IM .ONCE ONE Stop: 10/20/16 10:01 Rivaroxaban (Xarelto) 15 mg PO DAILY [facility] Last Admin: 10/19/16 10:27 Dose: 15 mg Fluticasone/Salmeterol (Advair Diskus 250/50) 1 puff INH RQ12 [facility] - Labs Labs: 10/19/16 07:43 10/19/16 07:43 - Constitutional Appears: Well, No Acute Distress - Head Exam Head Exam: ATRAUMATIC, NORMAL INSPECTION, NORMOCEPHALIC - Eye Exam Eye Exam: EOMI, Normal appearance, PERRL Pupil Exam: NORMAL ACCOMODATION - ENT Exam ENT Exam: Mucous Membranes Moist - Respiratory Exam Respiratory Exam: Clear to Ausculation Bilateral, NORMAL BREATHING PATTERN - Cardiovascular Exam Cardiovascular Exam: REGULAR RHYTHM, RRR, +S1, +S2. absent: JVD - GI/Abdominal Exam GI & Abdominal Exam: Soft, Normal Bowel Sounds. absent: Tenderness - Extremities Exam Extremities Exam: Normal Inspection. absent: Pedal Edema, Tenderness - Neurological Exam Neurological Exam: Alert, Awake, Oriented x3 - Psychiatric Exam Psychiatric exam: Normal Affect, Normal Mood - Skin Skin Exam: Normal Color, Warm Assessment and Plan - Assessment and Plan (Free Text) Plan: 1. New Onset Afib rate controlled after received 15 mg of Cardizem in the field Metoprolol 50 mg PO BID Discontinued Xarelto 15 mg PO daily Started on Therapeutic Lovenox 60mg Q12h 10/19/16 Dr. Goodwin, cardio, consulted- help appreciated f/u ECHO Per Dr. Goodwin possible cardiac cath Saturday 2. HTN Cozaar 25mg PO daily Cardizem 240 mg po daily 3. Hx CHF Lasix 20 mg po daily 4. Asthma Albuterol 1 puff q6h PRN Singulair 10 mg po daily 5. Prophylactic measures SCDs Protonix 40mg daily Case discussed with Dr. Darius Lora PGY-1 <Torey Mccoy Jr. - Last Filed: 10/22/16 14:00> Objective - Vital Signs/Intake and Output Vital Signs (last 24 hours): Temp Pulse Resp BP Pulse Ox 98.2 F 74 18 116/71 98 10/22/16 09:12 10/22/16 09:12 10/22/16 09:12 10/22/16 10:55 10/22/16 09:12 Intake and Output: 10/22/16 10/22/16 06:59 18:59 Intake Total 150 Balance 150 - Medications Medications: Current Medications Albuterol (Ventolin Hfa 90 Mcg/Actuation (8 G)) 1 puff IH RQ6 PRN PRN Reason: Wheezing Alprazolam (Xanax) 0.25 mg PO BID PRN PRN Reason: Anxiety Stop: 10/27/16 19:24 Last Admin: 10/21/16 21:53 Dose: 0.25 mg Calcium/Vitamin D (Oyster Shell Calcium/Vitamin D 500 Mg-200 Iu) 1 tab PO BID [facility] Last Admin: 10/22/16 10:57 Dose: 1 tab Diltiazem HCl (Cardizem Cd) 240 mg PO DAILY [facility] Last Admin: 10/22/16 10:57 Dose: 240 mg Enoxaparin Sodium (Lovenox) 60 mg SC Q12 [facility] Last Admin: 10/22/16 10:57 Dose: 60 mg Furosemide (Lasix) 40 mg PO DAILY [facility] Last Admin: 10/22/16 10:55 Dose: 40 mg Guaifenesin/Dextromethorphan (Robitussin Dm) 10 ml PO Q4H PRN PRN Reason: Cough and congestion Last Admin: 10/21/16 21:53 Dose: 10 ml Losartan Potassium (Cozaar) 25 mg PO DAILY [facility] Last Admin: 10/22/16 10:55 Dose: 25 mg Metoprolol Tartrate (Lopressor) 50 mg PO BID [facility] Last Admin: 10/22/16 10:57 Dose: 50 mg Montelukast Sodium (Singulair) 10 mg PO DAILY [facility] Last Admin: 10/22/16 10:57 Dose: 10 mg Pantoprazole Sodium (Protonix Ec Tab) 40 mg PO DAILY [facility] Last Admin: 10/22/16 10:57 Dose: 40 mg Fluticasone/Salmeterol (Advair Diskus 250/50) 1 puff INH RQ12 [facility] Last Admin: 10/22/16 10:59 Dose: 1 puff - Labs Labs: 10/22/16 06:10 10/22/16 06:10 Attending/Attestation - Attestation I have personally seen and examined this patient.: Yes I have fully participated in the care of the patient.: Yes I have reviewed all pertinent clinical information, including history, physical exam and plan: Yes Notes (Text): 10/22/16 14:00 Agree with resident note and plan of care
--- NOTE | 2016-10-20 01:37 | CP.PCM.PN ---
<Nelly Alvarez - Last Filed: 10/20/16 01:35> Subjective - Date & Time of Evaluation Date of Evaluation: 10/20/16 Time of Evaluation: 07:00 - Subjective Subjective: PGY1- Medicine Note- Dr. Mccoy's Service Patient was seen and examined at bedside in no acute distress. Patient denies chest pain, shortness of breath, difficulty breathing, palpitations, nausea or vomiting, diarrhea, or constipation. Objective - Vital Signs/Intake and Output Vital Signs (last 24 hours): Temp Pulse Resp BP Pulse Ox 97.9 F 81 20 136/67 98 10/19/16 23:15 10/19/16 23:30 10/19/16 23:15 10/19/16 23:15 10/19/16 23:15 Intake and Output: 10/19/16 10/20/16 18:59 06:59 Intake Total 240 Balance 240 - Medications Medications: Current Medications Albuterol (Ventolin Hfa 90 Mcg/Actuation (8 G)) 1 puff IH RQ6 PRN PRN Reason: Wheezing Calcium/Vitamin D (Oyster Shell Calcium/Vitamin D 500 Mg-200 Iu) 1 tab PO BID [facility] Last Admin: 10/19/16 17:55 Dose: 1 tab Diltiazem HCl (Cardizem Cd) 240 mg PO DAILY [facility] Last Admin: 10/19/16 10:30 Dose: Not Given Enoxaparin Sodium (Lovenox) 60 mg SC Q12 [facility] Furosemide (Lasix) 40 mg PO DAILY [facility] Losartan Potassium (Cozaar) 25 mg PO DAILY [facility] Last Admin: 10/19/16 10:30 Dose: 25 mg Metoprolol Tartrate (Lopressor) 50 mg PO BID [facility] Last Admin: 10/19/16 17:55 Dose: 50 mg Montelukast Sodium (Singulair) 10 mg PO DAILY [facility] Last Admin: 10/19/16 10:30 Dose: 10 mg Pantoprazole Sodium (Protonix Ec Tab) 40 mg PO DAILY [facility] Last Admin: 10/19/16 10:26 Dose: 40 mg Pneumococcal Polyvalent Vaccine (Pneumovax 23 Vaccine) 0.5 ml IM .ONCE ONE Stop: 10/20/16 10:01 Fluticasone/Salmeterol (Advair Diskus 250/50) 1 puff INH RQ12 [facility] - Constitutional Appears: Well, Non-toxic, No Acute Distress - Head Exam Head Exam: ATRAUMATIC, NORMAL INSPECTION, NORMOCEPHALIC - Eye Exam Eye Exam: EOMI, Normal appearance - ENT Exam ENT Exam: Mucous Membranes Moist - Neck Exam Neck Exam: Full ROM, Normal Inspection - Respiratory Exam Respiratory Exam: Clear to Ausculation Bilateral, NORMAL BREATHING PATTERN. absent: Rales, Rhonchi, Wheezes, Respiratory Distress, Stridor - Cardiovascular Exam Cardiovascular Exam: Irregular Rhythm. absent: Gallop, Rubs, Murmur - GI/Abdominal Exam GI & Abdominal Exam: Soft, Normal Bowel Sounds. absent: Distended, Tenderness - Extremities Exam Extremities Exam: Full ROM, Normal Inspection. absent: Pedal Edema - Neurological Exam Neurological Exam: Alert, Awake, Oriented x3 - Psychiatric Exam Psychiatric exam: Normal Affect, Normal Mood - Skin Skin Exam: Intact, Normal Color, Warm Assessment and Plan - Assessment and Plan (Free Text) Assessment: 1. New Onset Afib rate controlled after received 15 mg of Cardizem in the field Metoprolol 50 mg PO BID Discontinued Xarelto 15 mg PO daily Started on Therapeutic Lovenox 60mg Q12h 10/19/16 Dr. Goodwin, cardio, consulted- help appreciated f/u ECHO Per Dr. Goodwin possible cardiac cath Saturday 2. HTN Cozaar 25mg PO daily Cardizem 240 mg po daily 3. Hx CHF Lasix 20 mg po daily 4. Asthma Albuterol 1 puff q6h PRN Singulair 10 mg po daily 5. Prophylactic measures SCDs Protonix 40mg daily <Torey Mccoy Jr. - Last Filed: 10/22/16 14:04> Objective - Vital Signs/Intake and Output Vital Signs (last 24 hours): Temp Pulse Resp BP Pulse Ox 98.2 F 74 18 116/71 98 10/22/16 09:12 10/22/16 09:12 10/22/16 09:12 10/22/16 10:55 10/22/16 09:12 Intake and Output: 10/22/16 10/22/16 06:59 18:59 Intake Total 150 Balance 150 - Medications Medications: Current Medications Albuterol (Ventolin Hfa 90 Mcg/Actuation (8 G)) 1 puff IH RQ6 PRN PRN Reason: Wheezing Alprazolam (Xanax) 0.25 mg PO BID PRN PRN Reason: Anxiety Stop: 10/27/16 19:24 Last Admin: 10/21/16 21:53 Dose: 0.25 mg Calcium/Vitamin D (Oyster Shell Calcium/Vitamin D 500 Mg-200 Iu) 1 tab PO BID [facility] Last Admin: 10/22/16 10:57 Dose: 1 tab Diltiazem HCl (Cardizem Cd) 240 mg PO DAILY [facility] Last Admin: 10/22/16 10:57 Dose: 240 mg Enoxaparin Sodium (Lovenox) 60 mg SC Q12 [facility] Last Admin: 10/22/16 10:57 Dose: 60 mg Furosemide (Lasix) 40 mg PO DAILY [facility] Last Admin: 10/22/16 10:55 Dose: 40 mg Guaifenesin/Dextromethorphan (Robitussin Dm) 10 ml PO Q4H PRN PRN Reason: Cough and congestion Last Admin: 10/21/16 21:53 Dose: 10 ml Losartan Potassium (Cozaar) 25 mg PO DAILY [facility] Last Admin: 10/22/16 10:55 Dose: 25 mg Metoprolol Tartrate (Lopressor) 50 mg PO BID [facility] Last Admin: 10/22/16 10:57 Dose: 50 mg Montelukast Sodium (Singulair) 10 mg PO DAILY [facility] Last Admin: 10/22/16 10:57 Dose: 10 mg Pantoprazole Sodium (Protonix Ec Tab) 40 mg PO DAILY [facility] Last Admin: 10/22/16 10:57 Dose: 40 mg Fluticasone/Salmeterol (Advair Diskus 250/50) 1 puff INH RQ12 [facility] Last Admin: 10/22/16 10:59 Dose: 1 puff - Labs Labs: 10/22/16 06:10 10/22/16 06:10 Attending/Attestation - Attestation I have personally seen and examined this patient.: Yes I have fully participated in the care of the patient.: Yes I have reviewed all pertinent clinical information, including history, physical exam and plan: Yes Notes (Text): 10/22/16 14:04 Agree with resident note and plan of care
--- NOTE | 2016-10-20 07:57 | CARD ---
APPROVED REPORT EKG Measurement Heart [id number] <Conclusion> Atrial fibrillation Left axis deviation Incomplete left bundle branch block Nonspecific T wave abnormality Prolonged QT Abnormal ECG
--- NOTE | 2016-10-20 09:12 | CARD ---
APPROVED REPORT EXAM: Two-dimensional and M-mode echocardiogram with Doppler and color Doppler. Other Information Quality : GoodRhythm : Atrial Fibrillation INDICATION Dizziness and Vertigo Chest Pain Congestive Heart Failure Palpitations PNEUMONIA; FEVER RISK FACTORS Hyperlipidemia 2D DIMENSIONS IVSd1.1 (0.7-1.1cm)LVDd3.7 (3.9-5.9cm) PWd1.2 (0.7-1.1cm)LVDs2.7 (2.5-4.0cm) FS (%) 26.0 %LVEF (%)52.0 (>50%) M-Mode DIMENSIONS Left Atrium (MM)2.92 (2.5-4.0cm)Aortic Root3.23 (2.2-3.7cm) Aortic Cusp Exc.1.54 (1.5-2.0cm) Aortic Valve AI P 1/2 [id number] Mitral Valve MV E Zwxjouci34.2cm/sMV A Tuoatczp841.1cm/sE/A ratio0.6 TDI E/Lateral E'0.0E/Medial E'0.0 Tricuspid Valve TR Peak [id number] Peak [id number] LEFT VENTRICLE The left ventricle is normal size. There is normal left ventricular wall thickness. Left ventricle systolic function is low normal. The Ejection Fraction is 50-55%. There is normal LV segmental wall motion. The left ventricular diastolic function is abnormal. Transmitral Doppler flow pattern is Grade I-abnormal relaxation pattern. No left ventricle thrombus noted on this study. RIGHT VENTRICLE The right ventricle is normal size. The right ventricular systolic function is normal. ATRIA The left atrium is mildly dilated on 2D The right atrium size is normal. AORTIC VALVE The aortic valve is mildly to moderately sclerotic. The aortic valve is trileaflet. There is mild aortic regurgitation. There is no aortic valvular stenosis. There is no aortic valvular vegetation. MITRAL VALVE Mitral annular calcification is mild to moderate. There is no evidence of mitral valve prolapse. There is no mitral valve stenosis. Mitral regurgitation is mild to moderate. TRICUSPID VALVE The tricuspid valve is normal in structure. There is trace tricuspid regurgitation. Right ventricular systolic pressure is estimated at less than 30 mmHg. There is no pulmonary hypertension. There is no tricuspid valve prolapse or vegetation. There is no tricuspid valve stenosis. PULMONIC VALVE The pulmonic valve is not well visualized. There is no pulmonic valvular regurgitation. GREAT VESSELS The aortic root is normal in size. The IVC is normal in size and collapses >50% with inspiration. PERICARDIAL EFFUSION There is no pericardial effusion. There is no pleural effusion. <Conclusion> The left ventricle is normal size. Left ventricle systolic function is low normal. The Ejection Fraction is 50-55%. The left ventricular diastolic function is abnormal. Transmitral Doppler flow pattern is Grade I-abnormal relaxation pattern. The right ventricle is normal size. The right ventricular systolic function is normal. The left atrium is mildly dilated on 2D The right atrium size is normal. There is mild aortic regurgitation. Mitral regurgitation is mild to moderate. There is trace tricuspid regurgitation.
[2016-10-20] MEDS ORDERED: Pneumococcal 23-Valent Vaccine IM ONE (10:00)
[2016-10-20] MEDS: Enoxaparin 60 mg Syringe SC SCH ×2 (10:54→22:02)
[2016-10-20] MEDS: diltiaZEM 240 mg/24 Hours CD Cap PO SCH (10:57)
[2016-10-20] MEDS: Pantoprazole 40 mg EC Tab PO SCH (10:57)
[2016-10-20] MEDS: Calcium-Vit D 500 mg-200 Units Tab UD PO SCH ×2 (10:57→18:08)
--- NOTE | 2016-10-20 12:06 | CP.PCM.PN ---
Subjective - Date & Time of Evaluation Date of Evaluation: 10/20/16 Time of Evaluation: 11:00 - Subjective Subjective: patient has no current dyspnea. Objective - Vital Signs/Intake and Output Vital Signs (last 24 hours): Temp Pulse Resp BP Pulse Ox 98.2 F 92 H 20 147/79 97 10/20/16 10:52 10/20/16 10:52 10/20/16 10:52 10/20/16 10:55 10/20/16 10:52 Intake and Output: 10/20/16 10/20/16 06:59 18:59 Intake Total 390 Balance 390 - Medications Medications: Current Medications Albuterol (Ventolin Hfa 90 Mcg/Actuation (8 G)) 1 puff IH RQ6 PRN PRN Reason: Wheezing Calcium/Vitamin D (Oyster Shell Calcium/Vitamin D 500 Mg-200 Iu) 1 tab PO BID [facility] Last Admin: 10/20/16 10:57 Dose: 1 tab Diltiazem HCl (Cardizem Cd) 240 mg PO DAILY [facility] Last Admin: 10/20/16 10:57 Dose: 240 mg Enoxaparin Sodium (Lovenox) 60 mg SC Q12 [facility] Last Admin: 10/20/16 10:54 Dose: 60 mg Furosemide (Lasix) 40 mg PO DAILY [facility] Last Admin: 10/20/16 10:55 Dose: 40 mg Losartan Potassium (Cozaar) 25 mg PO DAILY [facility] Last Admin: 10/20/16 10:57 Dose: 25 mg Metoprolol Tartrate (Lopressor) 50 mg PO BID [facility] Last Admin: 10/20/16 10:58 Dose: 50 mg Montelukast Sodium (Singulair) 10 mg PO DAILY [facility] Last Admin: 10/20/16 10:56 Dose: 10 mg Pantoprazole Sodium (Protonix Ec Tab) 40 mg PO DAILY [facility] Last Admin: 10/20/16 10:57 Dose: 40 mg Fluticasone/Salmeterol (Advair Diskus 250/50) 1 puff INH RQ12 [facility] - Constitutional Appears: Non-toxic - Head Exam Head Exam: NORMAL INSPECTION - Eye Exam Eye Exam: Normal appearance - ENT Exam ENT Exam: Mucous Membranes Moist - Neck Exam Neck Exam: Full ROM - Respiratory Exam Respiratory Exam: NORMAL BREATHING PATTERN - Cardiovascular Exam Cardiovascular Exam: REGULAR RHYTHM - GI/Abdominal Exam GI & Abdominal Exam: Normal Bowel Sounds - Rectal Exam Rectal Exam: Deferred - Extremities Exam Extremities Exam: Pedal Edema - Back Exam Back Exam: NORMAL INSPECTION - Neurological Exam Neurological Exam: Alert - Psychiatric Exam Psychiatric exam: Normal Affect - Skin Skin Exam: Normal Color Assessment and Plan (1) Atrial fibrillation with RVR Assessment & Plan: conttolled. d/c Xarelto as [patient has severe MR) Status: Acute (2) HTN (hypertension) Status: Acute (3) Congestive heart failure Assessment & Plan: likley valvular dysfunction. medical therapy, but needs cardiac cath to evaluate for CAD Status: Acute (4) Hyperlipidemia Status: Acute
[2016-10-20] MEDS: Fluticasone-Salmeterol 250-50mcg Diskus INH SCH ×2 (12:53→19:21)
[2016-10-20] MEDS: guaiFENesin DM 200 mg-20 mg/10 ml UD PO PRN (22:02)
--- NOTE | 2016-10-21 00:43 | CP.PCM.PN ---
<Nelly Alvarez - Last Filed: 10/21/16 00:40> Subjective - Date & Time of Evaluation Date of Evaluation: 10/21/16 Time of Evaluation: 07:00 - Subjective Subjective: PGY1- Medicine Note- Dr. Mccoy's Service Patient seen and examined at bedside and in no acute distress. Patient says she was coughing yesterday but it has now resolved. Patient denies sob, chest pain, abdominal pain, n/v, c/d. Family is worried patient may try to leave [place] because she wants to leave the hospital. Objective - Vital Signs/Intake and Output Vital Signs (last 24 hours): Temp Pulse Resp BP Pulse Ox 98.2 F 64 20 90/55 L 94 L 10/20/16 23:20 10/21/16 00:09 10/20/16 23:20 10/20/16 23:20 10/20/16 23:20 Intake and Output: 10/20/16 10/21/16 18:59 06:59 Intake Total 300 Balance 300 - Medications Medications: Current Medications Albuterol (Ventolin Hfa 90 Mcg/Actuation (8 G)) 1 puff IH RQ6 PRN PRN Reason: Wheezing Alprazolam (Xanax) 0.25 mg PO BID PRN PRN Reason: Anxiety Stop: 10/27/16 19:24 Last Admin: 10/20/16 22:02 Dose: 0.25 mg Calcium/Vitamin D (Oyster Shell Calcium/Vitamin D 500 Mg-200 Iu) 1 tab PO BID [facility] Last Admin: 10/20/16 18:08 Dose: 1 tab Diltiazem HCl (Cardizem Cd) 240 mg PO DAILY [facility] Last Admin: 10/20/16 10:57 Dose: 240 mg Enoxaparin Sodium (Lovenox) 60 mg SC Q12 [facility] Last Admin: 10/20/16 22:02 Dose: 60 mg Furosemide (Lasix) 40 mg PO DAILY [facility] Last Admin: 10/20/16 10:55 Dose: 40 mg Guaifenesin/Dextromethorphan (Robitussin Dm) 10 ml PO Q4H PRN PRN Reason: Cough and congestion Last Admin: 10/20/16 22:02 Dose: 10 ml Losartan Potassium (Cozaar) 25 mg PO DAILY [facility] Last Admin: 10/20/16 10:57 Dose: 25 mg Metoprolol Tartrate (Lopressor) 50 mg PO BID [facility] Last Admin: 10/20/16 19:00 Dose: 50 mg Montelukast Sodium (Singulair) 10 mg PO DAILY [facility] Last Admin: 10/20/16 10:56 Dose: 10 mg Pantoprazole Sodium (Protonix Ec Tab) 40 mg PO DAILY [facility] Last Admin: 10/20/16 10:57 Dose: 40 mg Fluticasone/Salmeterol (Advair Diskus 250/50) 1 puff INH RQ12 [facility] Last Admin: 10/20/16 19:21 Dose: 1 puff - Constitutional Appears: Well, Non-toxic, No Acute Distress - Head Exam Head Exam: ATRAUMATIC, NORMAL INSPECTION, NORMOCEPHALIC - Eye Exam Eye Exam: EOMI, Normal appearance, PERRL - ENT Exam ENT Exam: Mucous Membranes Moist, Normal Exam - Neck Exam Neck Exam: Full ROM, Normal Inspection. absent: Lymphadenopathy - Respiratory Exam Respiratory Exam: Clear to Ausculation Bilateral, NORMAL BREATHING PATTERN. absent: Rales, Rhonchi, Wheezes, Respiratory Distress, Stridor - Cardiovascular Exam Cardiovascular Exam: Irregular Rhythm. absent: Gallop, Rubs, Murmur - GI/Abdominal Exam GI & Abdominal Exam: Soft, Normal Bowel Sounds - Extremities Exam Extremities Exam: Full ROM, Normal Inspection. absent: Pedal Edema - Neurological Exam Neurological Exam: Alert, Awake, Oriented x3 - Psychiatric Exam Psychiatric exam: Normal Affect, Normal Mood - Skin Skin Exam: Intact, Normal Color, Warm Assessment and Plan - Assessment and Plan (Free Text) Assessment: 1. New Onset Afib rate controlled after received 15 mg of Cardizem in the field Metoprolol 50 mg PO BID Discontinued Xarelto 15 mg PO daily Started on Therapeutic Lovenox 60mg Q12h 10/19/16 Dr. Goodwin, cardio, consulted- help appreciated ECHO-LVEF 52%, left ventricular diastolic function is abnormal, Grade I abnormal relaxation pattern, mild aortic regurg, mitral regurg mild to moderate , trace tricuspid regurg Per Dr. Goodwin possible cardiac cath Saturday 2. HTN Cozaar 25mg PO daily Cardizem 240 mg po daily 3. Hx CHF Lasix 20 mg po daily 4. Asthma Albuterol 1 puff q6h PRN Singulair 10 mg po daily 5. Prophylactic measures SCDs Protonix 40mg daily <Torey Mccoy Jr. - Last Filed: 10/22/16 14:10> Objective - Vital Signs/Intake and Output Vital Signs (last 24 hours): Temp Pulse Resp BP Pulse Ox 98.2 F 74 18 116/71 98 10/22/16 09:12 10/22/16 09:12 10/22/16 09:12 10/22/16 10:55 10/22/16 09:12 Intake and Output: 10/22/16 10/22/16 06:59 18:59 Intake Total 150 Balance 150 - Medications Medications: Current Medications Albuterol (Ventolin Hfa 90 Mcg/Actuation (8 G)) 1 puff IH RQ6 PRN PRN Reason: Wheezing Alprazolam (Xanax) 0.25 mg PO BID PRN PRN Reason: Anxiety Stop: 10/27/16 19:24 Last Admin: 10/21/16 21:53 Dose: 0.25 mg Calcium/Vitamin D (Oyster Shell Calcium/Vitamin D 500 Mg-200 Iu) 1 tab PO BID [facility] Last Admin: 10/22/16 10:57 Dose: 1 tab Diltiazem HCl (Cardizem Cd) 240 mg PO DAILY [facility] Last Admin: 10/22/16 10:57 Dose: 240 mg Enoxaparin Sodium (Lovenox) 60 mg SC Q12 [facility] Last Admin: 10/22/16 10:57 Dose: 60 mg Furosemide (Lasix) 40 mg PO DAILY [facility] Last Admin: 10/22/16 10:55 Dose: 40 mg Guaifenesin/Dextromethorphan (Robitussin Dm) 10 ml PO Q4H PRN PRN Reason: Cough and congestion Last Admin: 10/21/16 21:53 Dose: 10 ml Losartan Potassium (Cozaar) 25 mg PO DAILY [facility] Last Admin: 10/22/16 10:55 Dose: 25 mg Metoprolol Tartrate (Lopressor) 50 mg PO BID [facility] Last Admin: 10/22/16 10:57 Dose: 50 mg Montelukast Sodium (Singulair) 10 mg PO DAILY [facility] Last Admin: 10/22/16 10:57 Dose: 10 mg Pantoprazole Sodium (Protonix Ec Tab) 40 mg PO DAILY [facility] Last Admin: 09/04/17 10:57 Dose: 40 mg Fluticasone/Salmeterol (Advair Diskus 250/50) 1 puff INH RQ12 [facility] Last Admin: 10/22/16 10:59 Dose: 1 puff - Labs Labs: 10/22/16 06:10 10/22/16 06:10 Attending/Attestation - Attestation I have personally seen and examined this patient.: Yes I have fully participated in the care of the patient.: Yes I have reviewed all pertinent clinical information, including history, physical exam and plan: Yes Notes (Text): 10/22/16 14:10 Agree with resident note and plan of care
[2016-10-21 07:30] LABS: BASO % 0.5 % (0.0-2.0); EOS # 0.1 K/uL (0.0-0.7); EOS % 1.8 % (0.0-4.0); HEMATOCRIT 40.4 % (34.0-47.0); LYMPH # 3.9 K/uL (1.0-4.3); LYMPH % 56.8 % (20.0-40.0); MEAN CELL VOLUME 84.2 fL (81.0-99.0); MEAN CORPUSCULAR HEMOGLOBIN 27.7 pg (27.0-31.0); MEAN CORPUSCULAR HGB CONC 32.9 g/dL (33.0-37.0); MEAN PLATELET VOLUME 8.5 fL (7.2-11.7); MONO # 0.5 K/uL (0.0-0.8); NRBC % 0.1 % (0.0-2.0); RED CELL DISTRIBUTION WIDTH 14.8 % (11.5-14.5); WHITE BLOOD COUNT 6.9 K/uL (4.8-10.8)
[2016-10-21 07:40] LABS: ALB/GLOB RATIO 1.2 (1.0-2.1); ALKALINE PHOSPHATASE 54 U/L (38-126); ALT/SGPT 27 U/L (9-52); AST/SGOT 20 U/L (14-36); BILIRUBIN,TOTAL 0.3 mg/dL (0.2-1.3); BLOOD UREA NITROGEN 18 mg/dL (7-17); CALCIUM 8.8 mg/dl (8.6-10.4); CARBON DIOXIDE 29 mmol/L (22-30); CHLORIDE 97 mmol/L (98-107); GFR AFRICAN-AMERICAN > 60; GLUCOSE,RANDOM 102 mg/dL (65-105); MAGNESIUM 1.6 mg/dL (1.6-2.3); PHOSPHOROUS 3.7 mg/dL (2.5-4.5); POTASSIUM 3.8 mmol/L (3.6-5.2); SODIUM 136 mmol/L (132-148); TOTAL PROTEIN 6.4 g/dL (6.3-8.3)
[2016-10-21] MEDS: Fluticasone-Salmeterol 250-50mcg Diskus INH SCH ×2 (08:32→19:30)
[2016-10-21] MEDS: Enoxaparin 60 mg Syringe SC SCH ×2 (10:44→21:53)
[2016-10-21] MEDS: Calcium-Vit D 500 mg-200 Units Tab UD PO SCH ×2 (10:45→18:39)
[2016-10-21] MEDS: Pantoprazole 40 mg EC Tab PO SCH (10:45)
[2016-10-21] MEDS: diltiaZEM 240 mg/24 Hours CD Cap PO SCH (10:46)
[2016-10-21] MEDS: guaiFENesin DM 200 mg-20 mg/10 ml UD PO PRN (21:53)
[2016-10-22 06:20] LABS: BASO % 0.6 % (0.0-2.0); EOS # 0.1 K/uL (0.0-0.7); EOS % 1.6 % (0.0-4.0); LYMPH # 4.5 K/uL (1.0-4.3); LYMPH % 59.4 % (20.0-40.0); MEAN CELL VOLUME 83.8 fL (81.0-99.0); MEAN CORPUSCULAR HEMOGLOBIN 27.9 pg (27.0-31.0); MEAN CORPUSCULAR HGB CONC 33.3 g/dL (33.0-37.0); MEAN PLATELET VOLUME 7.9 fL (7.2-11.7); MONO # 0.6 K/uL (0.0-0.8); MONO % 7.7 % (0.0-10.0); NRBC % 0.1 % (0.0-2.0); RED CELL DISTRIBUTION WIDTH 14.9 % (11.5-14.5); WHITE BLOOD COUNT 7.6 K/uL (4.8-10.8)
[2016-10-22 06:35] LABS: ALB/GLOB RATIO 1.1 (1.0-2.1); ALKALINE PHOSPHATASE 59 U/L (38-126); ALT/SGPT 27 U/L (9-52); AST/SGOT 22 U/L (14-36); BILIRUBIN,TOTAL 0.3 mg/dL (0.2-1.3); BLOOD UREA NITROGEN 18 mg/dL (7-17); CALCIUM 9.6 mg/dl (8.6-10.4); CARBON DIOXIDE 31 mmol/L (22-30); CHLORIDE 97 mmol/L (98-107); GFR AFRICAN-AMERICAN > 60; GLUCOSE,RANDOM 112 mg/dL (65-105); MAGNESIUM 1.8 mg/dL (1.6-2.3); PHOSPHOROUS 4.3 mg/dL (2.5-4.5); SODIUM 139 mmol/L (132-148); TOTAL PROTEIN 6.8 g/dL (6.3-8.3)
--- NOTE | 2016-10-22 08:29 | CP.PCM.PN ---
Subjective - Date & Time of Evaluation Date of Evaluation: 10/21/16 Time of Evaluation: 09:00 - Subjective Subjective: patient has no current chest pain or dyspnea. Objective - Vital Signs/Intake and Output Vital Signs (last 24 hours): Temp Pulse Resp BP Pulse Ox 98 F 77 20 119/69 96 10/21/16 23:15 10/22/16 04:06 10/21/16 23:15 10/21/16 23:15 10/21/16 23:15 Intake and Output: 10/22/16 10/22/16 06:59 18:59 Intake Total 150 Balance 150 - Medications Medications: Current Medications Albuterol (Ventolin Hfa 90 Mcg/Actuation (8 G)) 1 puff IH RQ6 PRN PRN Reason: Wheezing Alprazolam (Xanax) 0.25 mg PO BID PRN PRN Reason: Anxiety Stop: 10/27/16 19:24 Last Admin: 10/21/16 21:53 Dose: 0.25 mg Calcium/Vitamin D (Oyster Shell Calcium/Vitamin D 500 Mg-200 Iu) 1 tab PO BID [facility] Last Admin: 10/21/16 18:39 Dose: 1 tab Diltiazem HCl (Cardizem Cd) 240 mg PO DAILY [facility] Last Admin: 10/21/16 10:46 Dose: 240 mg Enoxaparin Sodium (Lovenox) 60 mg SC Q12 [facility] Last Admin: 10/21/16 21:53 Dose: 60 mg Furosemide (Lasix) 40 mg PO DAILY [facility] Last Admin: 10/21/16 10:44 Dose: 40 mg Guaifenesin/Dextromethorphan (Robitussin Dm) 10 ml PO Q4H PRN PRN Reason: Cough and congestion Last Admin: 10/21/16 21:53 Dose: 10 ml Losartan Potassium (Cozaar) 25 mg PO DAILY [facility] Last Admin: 10/21/16 10:45 Dose: 25 mg Metoprolol Tartrate (Lopressor) 50 mg PO BID [facility] Last Admin: 10/21/16 18:39 Dose: 50 mg Montelukast Sodium (Singulair) 10 mg PO DAILY [facility] Last Admin: 10/21/16 10:45 Dose: 10 mg Pantoprazole Sodium (Protonix Ec Tab) 40 mg PO DAILY [facility] Last Admin: 10/21/16 10:45 Dose: 40 mg Fluticasone/Salmeterol (Advair Diskus 250/50) 1 puff INH RQ12 [facility] Last Admin: 10/21/16 19:30 Dose: 1 puff - Labs Labs: 10/22/16 06:10 10/22/16 06:10 - Constitutional Appears: Non-toxic - Head Exam Head Exam: NORMAL INSPECTION - Eye Exam Eye Exam: Normal appearance - ENT Exam ENT Exam: Mucous Membranes Moist - Neck Exam Neck Exam: Full ROM - Respiratory Exam Respiratory Exam: NORMAL BREATHING PATTERN - Cardiovascular Exam Cardiovascular Exam: REGULAR RHYTHM - GI/Abdominal Exam GI & Abdominal Exam: Normal Bowel Sounds - Rectal Exam Rectal Exam: Deferred - Extremities Exam Extremities Exam: absent: Pedal Edema - Back Exam Back Exam: NORMAL INSPECTION - Neurological Exam Neurological Exam: Alert - Psychiatric Exam Psychiatric exam: Normal Affect - Skin Skin Exam: Normal Color Assessment and Plan (1) Atrial fibrillation with RVR Assessment & Plan: controlled Status: Acute (2) HTN (hypertension) Assessment & Plan: medical therapy Status: Acute (3) Congestive heart failure Assessment & Plan: likley due to valvular heart disease and severe mitral regurgitation. Patient will need cardiac cath for further evalaution. Echocardiogram was suggestive of wall motion abnormalities. Status: Acute (4) Hyperlipidemia Status: Acute
--- NOTE | 2016-10-22 09:00 | CP.PCM.PN ---
<Nelly Alvarez - Last Filed: 10/22/16 14:06> Subjective - Date & Time of Evaluation Date of Evaluation: 10/22/16 Time of Evaluation: 07:00 - Subjective Subjective: PGY1- Medicine Note- Dr. Mccoy's Service Patient seen and examined at bedside and in no acute distress. Patient says she is feeling a little better. Patient denies shortness of breath, chest pain, abdominal pain, n/v, c/d. Objective - Vital Signs/Intake and Output Vital Signs (last 24 hours): Temp Pulse Resp BP Pulse Ox 98 F 77 20 119/69 96 10/21/16 23:15 10/22/16 04:06 10/21/16 23:15 10/21/16 23:15 10/21/16 23:15 Intake and Output: 10/22/16 10/22/16 06:59 18:59 Intake Total 150 Balance 150 - Medications Medications: Current Medications Albuterol (Ventolin Hfa 90 Mcg/Actuation (8 G)) 1 puff IH RQ6 PRN PRN Reason: Wheezing Alprazolam (Xanax) 0.25 mg PO BID PRN PRN Reason: Anxiety Stop: 10/27/16 19:24 Last Admin: 10/21/16 21:53 Dose: 0.25 mg Calcium/Vitamin D (Oyster Shell Calcium/Vitamin D 500 Mg-200 Iu) 1 tab PO BID [facility] Last Admin: 10/21/16 18:39 Dose: 1 tab Diltiazem HCl (Cardizem Cd) 240 mg PO DAILY [facility] Last Admin: 10/21/16 10:46 Dose: 240 mg Enoxaparin Sodium (Lovenox) 60 mg SC Q12 [facility] Last Admin: 10/21/16 21:53 Dose: 60 mg Furosemide (Lasix) 40 mg PO DAILY [facility] Last Admin: 10/21/16 10:44 Dose: 40 mg Guaifenesin/Dextromethorphan (Robitussin Dm) 10 ml PO Q4H PRN PRN Reason: Cough and congestion Last Admin: 10/21/16 21:53 Dose: 10 ml Losartan Potassium (Cozaar) 25 mg PO DAILY [facility] Last Admin: 10/21/16 10:45 Dose: 25 mg Metoprolol Tartrate (Lopressor) 50 mg PO BID [facility] Last Admin: 10/21/16 18:39 Dose: 50 mg Montelukast Sodium (Singulair) 10 mg PO DAILY [facility] Last Admin: 10/21/16 10:45 Dose: 10 mg Pantoprazole Sodium (Protonix Ec Tab) 40 mg PO DAILY [facility] Last Admin: 10/21/16 10:45 Dose: 40 mg Fluticasone/Salmeterol (Advair Diskus 250/50) 1 puff INH RQ12 [facility] Last Admin: 10/21/16 19:30 Dose: 1 puff - Labs Labs: 10/22/16 06:10 10/22/16 06:10 - Constitutional Appears: Non-toxic, No Acute Distress - Head Exam Head Exam: ATRAUMATIC, NORMAL INSPECTION, NORMOCEPHALIC - Eye Exam Eye Exam: EOMI, Normal appearance - ENT Exam ENT Exam: Mucous Membranes Moist - Neck Exam Neck Exam: Full ROM. absent: Tenderness - Respiratory Exam Respiratory Exam: Clear to Ausculation Bilateral, NORMAL BREATHING PATTERN. absent: Rales, Rhonchi, Wheezes, Respiratory Distress, Stridor - Cardiovascular Exam Cardiovascular Exam: Irregular Rhythm. absent: Murmur - GI/Abdominal Exam GI & Abdominal Exam: Soft, Normal Bowel Sounds. absent: Tenderness - Extremities Exam Extremities Exam: Full ROM, Normal Inspection. absent: Pedal Edema - Neurological Exam Neurological Exam: Alert, Awake, Oriented x3 - Psychiatric Exam Psychiatric exam: Normal Affect, Normal Mood - Skin Skin Exam: Intact, Normal Color, Warm Assessment and Plan - Assessment and Plan (Free Text) Assessment: 1. New Onset Afib rate controlled after received 15 mg of Cardizem in the field Metoprolol 50 mg PO BID Discontinued Xarelto 15 mg PO daily Started on Therapeutic Lovenox 60mg Q12h 10/19/16 Dr. Goodwin, cardio, consulted- help appreciated ECHO-LVEF 52%, left ventricular diastolic function is abnormal, Grade I abnormal relaxation pattern, mild aortic regurg, mitral regurg mild to moderate , trace tricuspid regurg Per Dr. Goodwin possible cardiac cath Saturday 2. HTN Cozaar 25mg PO daily Cardizem 240 mg po daily 3. Hx CHF Lasix 20 mg po daily 4. Asthma Albuterol 1 puff q6h PRN Singulair 10 mg po daily 5. Prophylactic measures SCDs Protonix 40mg daily <Torey Mccoy Jr. - Last Filed: 10/27/16 10:35> Objective - Vital Signs/Intake and Output Vital Signs (last 24 hours): Temp Pulse Resp BP Pulse Ox 98.4 F 67 18 111/66 96 10/24/16 15:25 10/24/16 15:25 10/24/16 15:25 10/24/16 15:25 10/24/16 15:25 - Labs Labs: 10/24/16 06:20 10/24/16 06:20 PT 11.2 SECONDS (9.7-12.2) 10/23/16 15:27 INR 1.0 10/23/16 15:27 APTT 29 SECONDS (21-34) 10/23/16 15:27 Attending/Attestation - Attestation I have personally seen and examined this patient.: Yes I have fully participated in the care of the patient.: Yes I have reviewed all pertinent clinical information, including history, physical exam and plan: Yes Notes (Text): 10/27/16 10:35 Agree with resident note and plan of care
[2016-10-22] MEDS: Calcium-Vit D 500 mg-200 Units Tab UD PO SCH ×2 (10:57→19:00)
[2016-10-22] MEDS: Enoxaparin 60 mg Syringe SC SCH (10:57)
[2016-10-22] MEDS: diltiaZEM 240 mg/24 Hours CD Cap PO SCH (10:57)
[2016-10-22] MEDS: Pantoprazole 40 mg EC Tab PO SCH (10:57)
[2016-10-22] MEDS: Fluticasone-Salmeterol 250-50mcg Diskus INH SCH ×3 (10:58→20:06)
--- NOTE | 2016-10-22 12:27 | CP.PCM.PN ---
Subjective - Date & Time of Evaluation Date of Evaluation: 10/22/16 Time of Evaluation: 12:00 - Subjective Subjective: patient has no current chest Objective - Vital Signs/Intake and Output Vital Signs (last 24 hours): Temp Pulse Resp BP Pulse Ox 98.2 F 74 18 116/71 98 10/22/16 09:12 10/22/16 09:12 10/22/16 09:12 10/22/16 10:55 10/22/16 09:12 Intake and Output: 10/22/16 10/22/16 06:59 18:59 Intake Total 150 Balance 150 - Medications Medications: Current Medications Albuterol (Ventolin Hfa 90 Mcg/Actuation (8 G)) 1 puff IH RQ6 PRN PRN Reason: Wheezing Alprazolam (Xanax) 0.25 mg PO BID PRN PRN Reason: Anxiety Stop: 10/27/16 19:24 Last Admin: 10/21/16 21:53 Dose: 0.25 mg Calcium/Vitamin D (Oyster Shell Calcium/Vitamin D 500 Mg-200 Iu) 1 tab PO BID [facility] Last Admin: 10/22/16 10:57 Dose: 1 tab Diltiazem HCl (Cardizem Cd) 240 mg PO DAILY [facility] Last Admin: 10/22/16 10:57 Dose: 240 mg Enoxaparin Sodium (Lovenox) 60 mg SC Q12 [facility] Last Admin: 10/22/16 10:57 Dose: 60 mg Furosemide (Lasix) 40 mg PO DAILY [facility] Last Admin: 10/22/16 10:55 Dose: 40 mg Guaifenesin/Dextromethorphan (Robitussin Dm) 10 ml PO Q4H PRN PRN Reason: Cough and congestion Last Admin: 10/21/16 21:53 Dose: 10 ml Losartan Potassium (Cozaar) 25 mg PO DAILY [facility] Last Admin: 10/22/16 10:55 Dose: 25 mg Metoprolol Tartrate (Lopressor) 50 mg PO BID [facility] Last Admin: 10/22/16 10:57 Dose: 50 mg Montelukast Sodium (Singulair) 10 mg PO DAILY [facility] Last Admin: 10/22/16 10:57 Dose: 10 mg Pantoprazole Sodium (Protonix Ec Tab) 40 mg PO DAILY [facility] Last Admin: 10/22/16 10:57 Dose: 40 mg Fluticasone/Salmeterol (Advair Diskus 250/50) 1 puff INH RQ12 [facility] Last Admin: 10/22/16 10:59 Dose: 1 puff - Labs Labs: 10/22/16 06:10 10/22/16 06:10 - Constitutional Appears: Non-toxic - Head Exam Head Exam: NORMAL INSPECTION - Eye Exam Eye Exam: Normal appearance - ENT Exam ENT Exam: Mucous Membranes Moist - Neck Exam Neck Exam: Full ROM - Respiratory Exam Respiratory Exam: NORMAL BREATHING PATTERN - Cardiovascular Exam Cardiovascular Exam: REGULAR RHYTHM - GI/Abdominal Exam GI & Abdominal Exam: Normal Bowel Sounds - Rectal Exam Rectal Exam: Deferred - Extremities Exam Extremities Exam: absent: Pedal Edema - Back Exam Back Exam: NORMAL INSPECTION - Neurological Exam Neurological Exam: Alert - Psychiatric Exam Psychiatric exam: Normal Affect - Skin Skin Exam: Normal Color Assessment and Plan (1) Atrial fibrillation with RVR Assessment & Plan: controlled Status: Acute (2) HTN (hypertension) Assessment & Plan: controlled on medical therapy Status: Acute (3) Congestive heart failure Assessment & Plan: imroving. Likely due to valvular dysfunction. for cardiac cath Status: Acute (4) Hyperlipidemia Status: Acute
[2016-10-23] MEDS: guaiFENesin DM 200 mg-20 mg/10 ml UD PO PRN (01:30)
[2016-10-23 07:43] LABS: BASO % 0.7 % (0.0-2.0); EOS # 0.1 K/uL (0.0-0.7); EOS % 1.6 % (0.0-4.0); HEMATOCRIT 39.3 % (34.0-47.0); LYMPH # 3.6 K/uL (1.0-4.3); LYMPH % 54.7 % (20.0-40.0); MEAN CELL VOLUME 83.9 fL (81.0-99.0); MEAN CORPUSCULAR HEMOGLOBIN 27.9 pg (27.0-31.0); MEAN CORPUSCULAR HGB CONC 33.3 g/dL (33.0-37.0); MEAN PLATELET VOLUME 8.4 fL (7.2-11.7); MONO # 0.5 K/uL (0.0-0.8); MONO % 7.8 % (0.0-10.0); NRBC % 0.1 % (0.0-2.0); RED CELL DISTRIBUTION WIDTH 14.9 % (11.5-14.5); WHITE BLOOD COUNT 6.5 K/uL (4.8-10.8)
--- NOTE | 2016-10-23 07:43 | CP.PCM.PN ---
<Nelly Alvarez - Last Filed: 10/23/16 10:25> Subjective - Date & Time of Evaluation Date of Evaluation: 10/23/16 Time of Evaluation: 07:00 - Subjective Subjective: PGY1-Medicine Note- Dr. Mccoy's Service Patient seen and examined at bedside and in no acute distress. Patient has no acute complaints. Patient denies chest pain, shortness of breath, abdominal pain , n/v, c/d. Patient to go for cardiac cath this afternoon. Objective - Vital Signs/Intake and Output Vital Signs (last 24 hours): Temp Pulse Resp BP Pulse Ox 97.6 F 56 L 20 102/60 95 10/22/16 23:14 10/23/16 00:00 10/22/16 23:14 10/22/16 23:14 10/22/16 23:14 Intake and Output: 10/23/16 10/23/16 06:59 18:59 Intake Total 250 Balance 250 - Medications Medications: Current Medications Albuterol (Ventolin Hfa 90 Mcg/Actuation (8 G)) 1 puff IH RQ6 PRN PRN Reason: Wheezing Alprazolam (Xanax) 0.25 mg PO BID PRN PRN Reason: Anxiety Stop: 10/27/16 19:24 Last Admin: 10/21/16 21:53 Dose: 0.25 mg Calcium/Vitamin D (Oyster Shell Calcium/Vitamin D 500 Mg-200 Iu) 1 tab PO BID [facility] Last Admin: 10/22/16 19:00 Dose: 1 tab Diltiazem HCl (Cardizem Cd) 240 mg PO DAILY [facility] Last Admin: 10/22/16 10:57 Dose: 240 mg Enoxaparin Sodium (Lovenox) 60 mg SC Q12 [facility] Last Admin: 10/22/16 10:57 Dose: 60 mg Furosemide (Lasix) 40 mg PO DAILY [facility] Last Admin: 10/22/16 10:55 Dose: 40 mg Guaifenesin/Dextromethorphan (Robitussin Dm) 10 ml PO Q4H PRN PRN Reason: Cough and congestion Last Admin: 10/23/16 01:30 Dose: 10 ml Losartan Potassium (Cozaar) 25 mg PO DAILY [facility] Last Admin: 10/22/16 10:55 Dose: 25 mg Metoprolol Tartrate (Lopressor) 50 mg PO BID [facility] Last Admin: 10/22/16 19:00 Dose: 50 mg Montelukast Sodium (Singulair) 10 mg PO DAILY [facility] Last Admin: 10/22/16 10:57 Dose: 10 mg Pantoprazole Sodium (Protonix Ec Tab) 40 mg PO DAILY [facility] Last Admin: 10/22/16 10:57 Dose: 40 mg Fluticasone/Salmeterol (Advair Diskus 250/50) 1 puff INH RQ12 [facility] Last Admin: 10/22/16 20:06 Dose: 1 puff - Labs Labs: 10/22/16 06:10 10/22/16 06:10 - Constitutional Appears: Non-toxic, No Acute Distress - Head Exam Head Exam: ATRAUMATIC, NORMAL INSPECTION, NORMOCEPHALIC - Eye Exam Eye Exam: EOMI, Normal appearance - ENT Exam ENT Exam: Mucous Membranes Moist - Neck Exam Neck Exam: Full ROM. absent: Tenderness - Respiratory Exam Respiratory Exam: Clear to Ausculation Bilateral, NORMAL BREATHING PATTERN. absent: Rales, Rhonchi, Wheezes, Respiratory Distress, Stridor - Cardiovascular Exam Cardiovascular Exam: Irregular Rhythm. absent: Gallop, Rubs, Murmur - GI/Abdominal Exam GI & Abdominal Exam: Soft, Normal Bowel Sounds. absent: Tenderness - Extremities Exam Extremities Exam: Normal Inspection. absent: Pedal Edema - Neurological Exam Neurological Exam: Alert, Awake, Oriented x3 - Psychiatric Exam Psychiatric exam: Normal Affect, Normal Mood - Skin Skin Exam: Intact, Normal Color, Warm Assessment and Plan - Assessment and Plan (Free Text) Assessment: 1. New Onset Afib rate controlled after received 15 mg of Cardizem in the field Metoprolol 50 mg PO BID Discontinued Xarelto 15 mg PO daily Started on Therapeutic Lovenox 60mg Q12h 10/19/16 Dr. Goodwin, cardio, consulted- help appreciated ECHO-LVEF 52%, left ventricular diastolic function is abnormal, Grade I abnormal relaxation pattern, mild aortic regurg, mitral regurg mild to moderate , trace tricuspid regurg Cardiac cath with Dr. Goodwin scheduled for today (10/23) 2. HTN Cozaar 25mg PO daily Cardizem 240 mg po daily 3. Hx CHF Lasix 20 mg po daily 4. Asthma Albuterol 1 puff q6h PRN Singulair 10 mg po daily 5. Prophylactic measures SCDs Protonix 40mg daily <Mccoy,Torey Ramos Jr. - Last Filed: 10/27/16 10:37> Objective - Vital Signs/Intake and Output Vital Signs (last 24 hours): Temp Pulse Resp BP Pulse Ox 98.4 F 67 18 111/66 96 10/24/16 15:25 10/24/16 15:25 10/24/16 15:25 10/24/16 15:25 10/24/16 15:25 - Labs Labs: 10/24/16 06:20 10/24/16 06:20 PT 11.2 SECONDS (9.7-12.2) 10/23/16 15:27 INR 1.0 10/23/16 15:27 APTT 29 SECONDS (21-34) 10/23/16 15:27 Attending/Attestation - Attestation I have personally seen and examined this patient.: Yes I have fully participated in the care of the patient.: Yes I have reviewed all pertinent clinical information, including history, physical exam and plan: Yes Notes (Text): 10/27/16 10:37 Agree with resident note and plan of care
[2016-10-23 08:16] LABS: CHLORIDE 100 mmol/L (98-107); SODIUM 142 mmol/L (132-148)
[2016-10-23 08:17] LABS: POTASSIUM 3.8 mmol/L (3.6-5.2)
[2016-10-23 08:19] LABS: ALB/GLOB RATIO 1.3 (1.0-2.1); ALKALINE PHOSPHATASE 54 U/L (38-126); ALT/SGPT 26 U/L (9-52); AST/SGOT 23 U/L (14-36); BILIRUBIN,TOTAL 0.4 mg/dL (0.2-1.3); BLOOD UREA NITROGEN 15 mg/dL (7-17); CARBON DIOXIDE 29 mmol/L (22-30); GFR AFRICAN-AMERICAN > 60; GLUCOSE,RANDOM 111 mg/dL (65-105); TOTAL PROTEIN 6.8 g/dL (6.3-8.3)
[2016-10-23 08:20] LABS: CALCIUM 8.8 mg/dl (8.6-10.4); MAGNESIUM 1.6 mg/dL (1.6-2.3)
[2016-10-23] MEDS: Pantoprazole 40 mg EC Tab PO SCH (09:15)
[2016-10-23] MEDS: Calcium-Vit D 500 mg-200 Units Tab UD PO SCH ×2 (09:15→19:33)
[2016-10-23] MEDS: diltiaZEM 240 mg/24 Hours CD Cap PO SCH (09:15)
[2016-10-23] MEDS: Fluticasone-Salmeterol 250-50mcg Diskus INH SCH ×2 (10:55→20:18)
[2016-10-23] MEDS ORDERED: Iohexol 350mg/ml 100 ML ONE (16:31)
[2016-10-23] MEDS ORDERED: Midazolam 2 MG/2 ML VIAL ONE (16:36)
--- NOTE | 2016-10-23 16:54 | CP.PCM.PN ---
Subjective - Date & Time of Evaluation Date of Evaluation: 10/23/16 Time of Evaluation: 16:50 - Subjective Subjective: cardiac cath performed. Mild diffuse CAD. Normal LV function, mild to moderate mitral regurgitation. Objective - Vital Signs/Intake and Output Vital Signs (last 24 hours): Temp Pulse Resp BP Pulse Ox 98.1 F 75 18 103/67 96 10/23/16 07:20 10/23/16 14:15 10/23/16 07:20 10/23/16 14:15 10/23/16 07:20 Intake and Output: 10/23/16 10/23/16 06:59 18:59 Intake Total 250 Balance 250 - Medications Medications: Current Medications Albuterol (Ventolin Hfa 90 Mcg/Actuation (8 G)) 1 puff IH RQ6 PRN PRN Reason: Wheezing Alprazolam (Xanax) 0.25 mg PO BID PRN PRN Reason: Anxiety Stop: 10/27/16 19:24 Last Admin: 10/21/16 21:53 Dose: 0.25 mg Calcium/Vitamin D (Oyster Shell Calcium/Vitamin D 500 Mg-200 Iu) 1 tab PO BID [facility] Last Admin: 10/23/16 09:15 Dose: 1 tab Diltiazem HCl (Cardizem Cd) 240 mg PO DAILY [facility] Last Admin: 10/23/16 09:15 Dose: 240 mg Enoxaparin Sodium (Lovenox) 60 mg SC Q12 [facility] Last Admin: 10/22/16 10:57 Dose: 60 mg Furosemide (Lasix) 40 mg PO DAILY [facility] Last Admin: 10/23/16 09:15 Dose: 40 mg Guaifenesin/Dextromethorphan (Robitussin Dm) 10 ml PO Q4H PRN PRN Reason: Cough and congestion Last Admin: 10/23/16 01:30 Dose: 10 ml Losartan Potassium (Cozaar) 25 mg PO DAILY [facility] Last Admin: 10/23/16 09:15 Dose: 25 mg Metoprolol Tartrate (Lopressor) 50 mg PO BID [facility] Last Admin: 10/23/16 09:15 Dose: 50 mg Montelukast Sodium (Singulair) 10 mg PO DAILY [facility] Last Admin: 10/23/16 09:15 Dose: 10 mg Pantoprazole Sodium (Protonix Ec Tab) 40 mg PO DAILY [facility] Last Admin: 10/23/16 09:15 Dose: 40 mg Fluticasone/Salmeterol (Advair Diskus 250/50) 1 puff INH RQ12 [facility] Last Admin: 10/23/16 10:55 Dose: 1 puff - Labs Labs: 10/23/16 07:24 10/23/16 07:24 PT 11.2 SECONDS (9.7-12.2) 10/23/16 15:27 INR 1.0 10/23/16 15:27 APTT 29 SECONDS (21-34) 10/23/16 15:27 Assessment and Plan (1) Atrial fibrillation with RVR Status: Acute (2) HTN (hypertension) Status: Acute (3) Congestive heart failure Status: Acute (4) Hyperlipidemia Status: Acute
--- NOTE | 2016-10-23 17:05 | CATH ---
APPROVED REPORT Procedure(s) performed: Left Heart Catheterization Selective Right and Left Coronary Angiography Left Ventriculogram HISTORY : The patient is a 81 year-old female with a history of . INDICATION The indication(s) include : unstable angina , atrial fibrillation, valvular heart disease. CASE TECHNIQUE The patient was brought electively to the Cardiac Catheterization Laboratory in a fasting state and was prepped and draped in a sterile manner. The right femoral groin was infiltrated with subcutaneous anesthesia. A sheath was inserted into the right femoral artery without difficulty. Coronary angiography was performed using coronary diagnostic catheters. The left coronary system was accessed and visualized with a Diagnostic catheter. The right coronary system was accessed and visualized with a Diagnostic catheter. The left ventricle was accessed and visualized with a Diagnostic catheter. Left ventricular/Aortic Valve gradient assessed on pullback. Left ventriculogram was performed in REID projection. Closure device was deployed with a 6 Fr Angioseal without any complications. The patient tolerated the procedure well and there were no complications associated with the procedure. Vessel Analysis The patient's coronary anatomy is right dominant. The left main coronary artery is a medium size vessel free of disease. The left main bifurcates to the left anterior descending and circumflex. The left anterior descending artery is a small size vessel with intimal irregularities and without significant stenosis. The circumflex artery is a medium size vessel with intimal irregularities. The right coronary artery is a medium size vessel with intimal irregularities. Left Ventricle The left ventricular ejection fraction is estimated to be 55%. There was no gradient across the aortic valve upon pullback. Valves There is Grade 2 mitral insufficiency present. Conclusion No signifcant CAD. Normal left ventricular function. Mioderate mitral regurgitation. Recommendations Aggressive Medical Therapy
[2016-10-24 00:32] VITALS: O2SAT 96
[2016-10-24 06:34] LABS: BASO % 0.4 % (0.0-2.0); EOS # 0.1 K/uL (0.0-0.7); EOS % 1.3 % (0.0-4.0); HEMATOCRIT 38.3 % (34.0-47.0); LYMPH # 3.6 K/uL (1.0-4.3); LYMPH % 46.6 % (20.0-40.0); MEAN CELL VOLUME 83.8 fL (81.0-99.0); MEAN CORPUSCULAR HEMOGLOBIN 28.3 pg (27.0-31.0); MEAN CORPUSCULAR HGB CONC 33.8 g/dL (33.0-37.0); MEAN PLATELET VOLUME 8.3 fL (7.2-11.7); MONO # 0.6 K/uL (0.0-0.8); MONO % 7.7 % (0.0-10.0); RED CELL DISTRIBUTION WIDTH 14.9 % (11.5-14.5); WHITE BLOOD COUNT 7.7 K/uL (4.8-10.8)
[2016-10-24] MEDS: Fluticasone-Salmeterol 250-50mcg Diskus INH SCH (07:17)
[2016-10-24 07:52] LABS: CHLORIDE 98 mmol/L (98-107); POTASSIUM 3.6 mmol/L (3.6-5.2); SODIUM 136 mmol/L (132-148)
[2016-10-24 07:54] LABS: ALB/GLOB RATIO 1.2 (1.0-2.1); AST/SGOT 24 U/L (14-36); BILIRUBIN,TOTAL 0.5 mg/dL (0.2-1.3); CARBON DIOXIDE 28 mmol/L (22-30); GFR AFRICAN-AMERICAN > 60; TOTAL PROTEIN 6.9 g/dL (6.3-8.3)
[2016-10-24 07:55] LABS: ALKALINE PHOSPHATASE 56 U/L (38-126); ALT/SGPT 30 U/L (9-52); BLOOD UREA NITROGEN 17 mg/dL (7-17); CALCIUM 8.5 mg/dl (8.6-10.4); GLUCOSE,RANDOM 96 mg/dL (65-105); MAGNESIUM 1.7 mg/dL (1.6-2.3); PHOSPHOROUS 3.6 mg/dL (2.5-4.5)
[2016-10-24 08:21] VITALS: RESP 18
[2016-10-24] MEDS: diltiaZEM 240 mg/24 Hours CD Cap PO SCH (09:35)
[2016-10-24] MEDS: Calcium-Vit D 500 mg-200 Units Tab UD PO SCH (09:35)
[2016-10-24] MEDS: Pantoprazole 40 mg EC Tab PO SCH (09:35)
[2016-10-24 15:29] VITALS: BP 111/66; PULSE 67; TEMP 98.4
[2016-10-24] MEDS ORDERED: Pneumococcal 23-Valent Vaccine IM ONE (16:00)
--- NOTE | 2016-10-24 18:52 | CP.PCM.DIS ---
Provider - Provider Date of Admission: 10/19/16 15:08 Attending physician: Torey Mccoy Jr, MD Primary care physician: Dr. Vaughn Consults: Dr. Goodwin (cardiology) Time Spent in preparation of Discharge (in minutes): 45 Hospital Course - Lab Results Lab Results: Most Recent Lab Values WBC 7.7 K/uL (4.8-10.8) 10/24/16 06:20 RBC 4.57 Mil/uL (3.80-5.20) 10/24/16 06:20 Hgb 12.9 g/dL (11.0-16.0) 10/24/16 06:20 Hct 38.3 % (34.0-47.0) 10/24/16 06:20 MCV 83.8 fL (81.0-99.0) 10/24/16 06:20 MCH 28.3 pg (27.0-31.0) 10/24/16 06:20 MCHC 33.8 g/dL (33.0-37.0) 10/24/16 06:20 RDW 14.9 % (11.5-14.5) H 10/24/16 06:20 Plt Count 213 K/uL (130-400) 10/24/16 06:20 MPV 8.3 fL (7.2-11.7) 10/24/16 06:20 Neut % (Auto) 44.0 % (50.0-75.0) L 10/24/16 06:20 Lymph % (Auto) 46.6 % (20.0-40.0) H 10/24/16 06:20 Vilas % (Auto) 7.7 % (0.0-10.0) 10/24/16 06:20 Eos % (Auto) 1.3 % (0.0-4.0) 10/24/16 06:20 Baso % (Auto) 0.4 % (0.0-2.0) 10/24/16 06:20 Neut # 3.4 K/uL (1.8-7.0) 10/24/16 06:20 Lymph # 3.6 K/uL (1.0-4.3) 10/24/16 06:20 Vilas # 0.6 K/uL (0.0-0.8) 10/24/16 06:20 Eos # 0.1 K/uL (0.0-0.7) 10/24/16 06:20 Baso # 0.0 K/uL (0.0-0.2) 10/24/16 06:20 PT 11.2 SECONDS (9.7-12.2) 10/23/16 15:27 INR 1.0 10/23/16 15:27 APTT 29 SECONDS (21-34) 10/23/16 15:27 D-Dimer, Quantitative < 200 ng/mlDDU (0-243) 10/18/16 14:05 Sodium 136 mmol/L (132-148) 10/24/16 06:20 Potassium 3.6 mmol/L (3.6-5.2) 10/24/16 06:20 Chloride 98 mmol/L (98-107) 10/24/16 06:20 Carbon Dioxide 28 mmol/L (22-30) 10/24/16 06:20 Anion Gap 14 (10-20) 10/24/16 06:20 BUN 17 mg/dL (7-17) 10/24/16 06:20 Creatinine 0.7 MG/DL (0.7-1.2) 10/24/16 06:20 Est GFR ( Amer) > 60 10/24/16 06:20 Est GFR (Non-Af Amer) > 60 10/24/16 06:20 Random Glucose 96 mg/dL (65-105) 10/24/16 06:20 Calcium 8.5 mg/dl (8.6-10.4) L 10/24/16 06:20 Phosphorus 3.6 mg/dL (2.5-4.5) 10/24/16 06:20 Magnesium 1.7 mg/dL (1.6-2.3) 10/24/16 06:20 Total Bilirubin 0.5 mg/dL (0.2-1.3) 10/24/16 06:20 AST 24 U/L (14-36) 10/24/16 06:20 ALT 30 U/L (9-52) 10/24/16 06:20 Alkaline Phosphatase 56 U/L (38-126) 10/24/16 06:20 Troponin I < 0.0120 ng/mL (0.00-0.120) 10/18/16 14:05 NT-Pro-B Natriuret Pep 2240 pg/mL (0-900) H 10/18/16 14:05 Total Protein 6.9 g/dL (6.3-8.3) 10/24/16 06:20 Albumin 3.7 g/dL (3.5-5.0) 10/24/16 06:20 Globulin 3.2 gm/dL (2.2-3.9) 10/24/16 06:20 Albumin/Globulin Ratio 1.2 (1.0-2.1) 10/24/16 06:20 - Hospital Course Hospital Course: "HPI: 81 year old female with a PMHx of HTN and CHF presents with palpitations that began this morning. Patient has never experienced an episode like this in the past. Patient had an appointment with her PMD, Dr. Vaughn, today and mentioned that she was feeling dizzy this morning and that her heart was racing. He did an EKG and checked her pulse and told her to come to the ED due to new onset a fib with RVR. Patient received 15 mg of Cardizem in the field and has been rate controlled since. Patient admits chronic cough and a headache yesterday that she always gets. Patient denies fever, chills, chest pains, SOB , hemoptysis, weakness, diaphoresis, change in vision, change in speech, confusion, abdominal pain, nausea, vomiting, diarrhea, constipation, or urinary problems. " Hospital Course: Patient presented to the ED on 10/18/16 with new onset atrial fibrillation which was rate controlled with metroprolol and Dr. Goodwin, cardiology, was consulted for further management. Patient went for cardiac cath on 10/24 which showed mild diffuse CAD, normal LV fxn, mild to moderate mild regurgitation. Patient sent home on amiodarone 200mg daily and xarelto 15mg daily. HTN: Patient was started on cozaar 25mg PO daily and Cardizem 240 mg po daily on 10/18/16. Patient's blood pressure well controlled Hx diastolic CHF: Patient was started on Lasix 20 mg po daily on 10/18/16. Patient sent home on lasix 40 mg daily. Asthma: Patient was treated with albuterol as needed and singulair daily. Asthma is well controlled. Prophylactic measures: Patient was treated with SCDs for DVT prophylaxis. Protonix given daily. The patients atrial fibrillation is better controlled. Patient is stable for discharge as per Dr. Mccoy and Dr. Goodwin. This is a summary of the patients hospital course, see chart for details. Discharge Exam - Head Exam Head Exam: ATRAUMATIC, NORMAL INSPECTION, NORMOCEPHALIC - Eye Exam Eye Exam: EOMI, Normal appearance, PERRL - ENT Exam ENT Exam: Mucous Membranes Moist - Respiratory Exam Respiratory Exam: Clear to PA & Lateral, Rales, NORMAL BREATHING PATTERN, UNREMARKABLE - Cardiovascular Exam Cardiovascular Exam: Irregular Rhythm. absent: Gallop, Rubs, Systolic Murmur - GI/Abdominal Exam GI & Abdominal Exam: Normal Bowel Sounds. absent: Distended - Extremities Exam Extremities exam: full ROM, normal inspection - Neurological Exam Neurological exam: Alert, Oriented x3 - Psychiatric Exam Psychiatric exam: Normal Affect, Normal Mood - Skin Skin Exam: Intact, Normal Color, Warm Discharge Plan - Discharge Medications Prescriptions: Amiodarone [Cordarone] 200 mg PO DAILY #30 tab Furosemide [Lasix] 40 mg PO DAILY #30 tab Rivaroxaban [Xarelto] 15 mg PO DAILY #30 tab - Follow Up Plan Condition: STABLE Disposition: HOME/ ROUTINE Instructions: Furosemide (By mouth), Amiodarone (By mouth), Rivaroxaban (By mouth), Coronary Artery Disease (DC), Atrial Fibrillation (DC), Heart Catheterization (DC) Additional Instructions: Patient stable for discharge as per Dr. Goodwin and Dr. Mccoy. Patient to continue home medications. Patient to start new medications: Amiodarone 200mg daily, Xarelto 15mg daily, and Lasix 40 mg daily. Patient should follow up with primary doctor, Dr. Vaughn within 2 weeks of discharge. Patient explained instructions who understood and agreed. Patient should please return to emergency room if symptoms return or worsen. Referrals: Torey Mccoy Jr., MD [Medical Doctor] - Maurice Goodwin MD [Staff Provider] -
== END 2016-10-24 16:45 | disposition home or self-care (01) | DRG 287 ==
LOC: C.ER 13:16 → C.9E 16:12 → C.6T 18:19 → OBSVTOIN 10-19 15:08
PROVIDERS: ADMIT Internal Medicine; ATTEND Internal Medicine
PROC: B201YZZ Plain Radiography of Multiple Coronary Arteries using Other Contrast (ICD-10-PCS; 2016-10-23)
PROC: B205YZZ Plain Radiography of Left Heart using Other Contrast (ICD-10-PCS; 2016-10-23)
PROC: 4A023N7 Measurement of Cardiac Sampling and Pressure, Left Heart, Percutaneous Approach (ICD-10-PCS; principal; 2016-10-23 16:00)
DX: I48.91 Unspecified atrial fibrillation (principal); I11.0 Hypertensive heart disease with heart failure; I50.30 Unspecified diastolic (congestive) heart failure; I25.110 Atherosclerotic heart disease of native coronary artery with unstable angina pectoris; I34.0 Nonrheumatic mitral (valve) insufficiency; F41.9 Anxiety disorder, unspecified; J45.909 Unspecified asthma, uncomplicated; Z86.73 Personal history of transient ischemic attack (TIA), and cerebral infarction without residual deficits; E78.00 Pure hypercholesterolemia, unspecified; M81.0 Age-related osteoporosis without current pathological fracture; Z87.891 Personal history of nicotine dependence

== ENCOUNTER 2017-04-12 09:00 | Observation (INO) | payer MEDICARE, MEDICAID ==
[2017-04-12 09:01] VITALS: BMI 23.3
[2017-04-12 09:40] LABS: BASO # 0.1 K/uL (0.0-0.2); BASO % 0.6 % (0.0-2.0); HEMOGLOBIN 12.8 g/dL (11.0-16.0); LYMPH # 3.2 K/uL (1.0-4.3); LYMPH % 29.2 % (20.0-40.0); MEAN CELL VOLUME 84.7 fL (81.0-99.0); MEAN CORPUSCULAR HGB CONC 34.2 g/dL (33.0-37.0); MEAN PLATELET VOLUME 7.8 fL (7.2-11.7); MONO # 0.7 K/uL (0.0-0.8); NEUT % 64.2 % (50.0-75.0); RBC 4.41 Mil/uL (3.80-5.20); RED CELL DISTRIBUTION WIDTH 14.6 % (11.5-14.5); WHITE BLOOD COUNT 10.9 K/uL (4.8-10.8)
[2017-04-12 09:59] LABS: ALB/GLOB RATIO 1.1 (1.0-2.1); ALBUMIN 4.4 g/dL (3.5-5.0); ALT/SGPT 32 U/L (9-52); AST/SGOT 27 U/L (14-36); BLOOD UREA NITROGEN 10 mg/dL (7-17); CALCIUM 9.3 mg/dl (8.6-10.4); GFR AFRICAN-AMERICAN > 60; GFR NON-AFRICAN AMERICAN > 60
--- NOTE | 2017-04-12 10:51 | C.PDOC ---
History Of Present Illness 81yo female, with history of CAD, hypertension, A-Fib, presents to ER with complaints of palpitations since last night with chest pain. She reports she has an associated headache but denies any weakness, dizziness. She also denies any fever, shortness of breathback pain, or nausea, Time Seen by Provider: 04/12/17 10:03 Chief Complaint (Nursing): Palpitations History Per: Patient History/Exam Limitations: no limitations Onset/Duration Of Symptoms: Days (1) Current Symptoms Are (Timing): Still Present Quality: Other (palpitation) Associated Symptoms: denies: Nausea Additional History Per: Patient Past Medical History Reviewed: Historical Data, Nursing Documentation, Vital Signs Vital Signs: Last Vital Signs Temp 98.2 F 04/12/17 12:05 Pulse 92 H 04/12/17 12:05 Resp 17 04/12/17 12:05 BP 133/70 04/12/17 15:59 Pulse Ox 99 04/12/17 16:22 - Medical History PMH: Anxiety, Asthma, Atrial Fibrillation, CAD, Cardia Arrhythmia, CVA (2000), Gall Bladder Disease (Cholecystitis (April 2014)), HTN, Hypercholesterolemia, Malignancy, Osteoporosis Surgical History: Endoscopy - [facility] Procedures ATRIAL CARDIOVERSION (04/26/13) DX ULTRASOUND-HEART (04/26/13) MEASURE OF CARDIAC SAMPL & PRESSURE, L HEART, PERC APPROACH (10/19/16) OTHER ESOPHAGOSCOPY (04/26/13) PLAIN RADIOGRAPHY OF LEFT HEART USING OTHER CONTRAST (10/19/16) PLAIN RADIOGRAPHY OF MULT COR ART USING OTH CONTRAST (10/19/16) Family History: States: Unknown Family Hx, Diabetes (son) - Social History Hx Tobacco Use: Yes (Former (1992)) Hx Alcohol Use: No Hx Substance Use: No - Immunization History Hx Tetanus Toxoid Vaccination: No Hx Influenza Vaccination: No Hx Pneumococcal Vaccination: No Review Of Systems Except As Marked, All Systems Reviewed And Found Negative. Constitutional: Negative for: Fever Cardiovascular: Positive for: Palpitations Respiratory: Positive for: Cough. Negative for: Shortness of Breath Gastrointestinal: Negative for: Nausea Musculoskeletal: Negative for: Leg Pain Neurological: Positive for: Headache. Negative for: Weakness, Dizziness Physical Exam - Physical Exam Appears: Non-toxic Skin: Normal Color, No Rash Head: Atraumatic, Normacephalic Eye(s): bilateral: Normal Inspection, PERRL, EOMI Oral Mucosa: Moist Neck: Normal ROM, Supple Chest: Symmetrical Cardiovascular: Rhythm Regular, No Friction Rub, No Murmur Respiratory: Normal Breath Sounds, No Stridor, No Wheezing Gastrointestinal/Abdominal: Normal Exam, Soft, No Tenderness Back: Normal Inspection, No CVA Tenderness Extremity: Normal ROM, No Pedal Edema, No Calf Tenderness, No Swelling Pulses: Left Radial: Normal, Right Radial: Normal, Left Dorsalis Pedis: Normal, Right Dorsalis Pedis: Normal Neurological/Psych: Oriented x3, Normal Speech, Normal Cognition, Normal Motor Gait: Steady ED Course And Treatment - Laboratory Results Result Diagrams: 04/12/17 09:38 04/12/17 09:38 ECG: Interpreted By Me, Viewed By Me ECG Rhythm: Sinus Rhythm, L BBB, PVC Interpretation Of ECG: Left axis deviation. As compared to 10/18/16 patient was in AFib with LBBB Rate From EC O2 Sat by Pulse Oximetry: 99 (RA) Pulse Ox Interpretation: Normal - Radiology CXR: Viewed By Me, Read By Radiologist CXR Interpretation: Yes: No Acute Disease. No: Infiltrates Medical Decision Making Medical Decision Making: Plan: -- EKG -- CXR -- Labs Time: 1159 Labs reviewed and within normal limits. Time: [address] Lorenzana and patient to be admitted to [facility] for palpitations and chest pain. Disposition - Disposition Disposition: HOSPITALIZED Disposition Time: 11:00 Condition: STABLE - Clinical Impression Clinical Impression: Palpitations, Chest pain - PA / BOTTLE DEALER / Resident Statement MD/DO has reviewed & agrees with the documentation as recorded. - Scribe Statement The provider has reviewed the documentation as recorded by the Scribe (Lorene Britton) Provider Attestation: All medical record entries made by the Artisibe were at my direction and personally dictated by me. I have reviewed the chart and agree that the record accurately reflects my personal performance of the history, physical exam, medical decision making, and the department course for this patient. I have also personally directed, reviewed, and agree with the discharge instructions and disposition.
--- NOTE | 2017-04-12 12:01 | RAD ---
HISTORY: palpitations COMPARISON: 10/18/2016 FINDINGS: LUNGS: No active pulmonary disease. PLEURA: No significant pleural effusion identified, no pneumothorax apparent. CARDIOVASCULAR: Normal. OSSEOUS STRUCTURES: No significant abnormalities. VISUALIZED UPPER ABDOMEN: Normal. OTHER FINDINGS: None. IMPRESSION: No active disease.
[2017-04-12] MEDS ORDERED: Metoprolol 1 mg/ml Inj IVP STA (12:28)
[2017-04-12] MEDS ORDERED: Metoprolol 1 mg/ml Inj IVP ONE (12:41)
[2017-04-12] MEDS ORDERED: Albuterol HFA 90 mcg/actuation (8 g) IH PRN (12:55)
--- NOTE | 2017-04-12 14:52 | CP.PCM.PN ---
Subjective - Date & Time of Evaluation Date of Evaluation: 04/12/17 Time of Evaluation: 14:49 - Subjective Subjective: CC: Palpitations 81 year old female with a PMHx of HTN and CHF presents with palpitations that began last night. The patient has had episodes of this like the past, and knew it was her afibb. Currently the tatient denies fever, chills, chest pains, palpitations SOB, hemoptysis, weakness, diaphoresis, change in vision, change in speech, confusion, abdominal pain, nausea, vomiting, diarrhea, constipation, or urinary problems. PMHx: HTN, CHF, Afibb RVR PSHx: Uterine fibroid removal, bilateral salpingo-oophorectomy with hysterectomy FHx: Unsure of maternal or paternal cause of , says they of natural causes. Daughter of breast CA SHx: Currently lives with her remaining children. She smoked when she was a kid until 30 years old (claims 3 cigarettes per day). She does not drink or use illicit drugs. Home Medications: Cardizem 24HR CD 240 mg PO daily Xarelto 15mg Amiodarone 200mg Ipratropium-Albuterol Inhale 1 puff three times a day Lasix 20 mg PO daily Lidocaine 5% ointment apply in the affected area three times a day as needed for pain Metoprolol Succinate ER 25 mg PO daily Vitamin D3 PO daily Pantoprazole 40 mg PO daily Prolia 60 mg/ml syringe twice yearly Symbicort 1604.5 mcg inhaler 1 puff BID Valsartan 40 mg PO daily Objective - Vital Signs/Intake and Output Vital Signs (last 24 hours): Temp Pulse Resp BP Pulse Ox 98.2 F 92 H 17 161/85 H 99 04/12/17 12:05 04/12/17 12:05 04/12/17 12:05 04/12/17 12:46 04/12/17 14:41 - Medications Medications: Current Medications Albuterol (Ventolin Hfa 90 Mcg/Actuation (8 G)) 1 puff IH Q6 PRN PRN Reason: Wheezing Amiodarone HCl (Cordarone) 200 mg PO DAILY [facility] Calcium/Vitamin D (Oyster Shell Calcium/Vitamin D 500 Mg-200 Iu) 1 tab PO BID [facility] Denosumab (Prolia) 60 mg SC BID [facility] Diltiazem HCl (Cardizem Cd) 1 mg PO DAILY [facility] Furosemide (Lasix) 40 mg PO DAILY [facility] Home Med (Kelli Nf) 60 mg PO DAILY [facility] Home Med (Budesonide/Formoterol Fumarate [Symbicort 160-4.5 Mcg Inhaler]) 1 aer IH DAILY [facility] Home Med (Montelukast) 10 mg PO DAILY [facility] Home Med (Valsartan) 40 mg PO DAILY [facility] Metoprolol Tartrate (Lopressor) 25 mg PO BID [facility] Rivaroxaban (Xarelto) 15 mg PO DAILY [facility] - Labs Labs: 04/12/17 09:38 04/12/17 09:38 - Constitutional Appears: Well, Non-toxic (elderly pleasant female ) - Head Exam Head Exam: ATRAUMATIC - Eye Exam Eye Exam: EOMI, Normal appearance, PERRL. absent: Scleral icterus Pupil Exam: PERRL - ENT Exam ENT Exam: Mucous Membranes Moist - Neck Exam Neck Exam: Full ROM - Respiratory Exam Respiratory Exam: Clear to Ausculation Bilateral - Cardiovascular Exam Cardiovascular Exam: REGULAR RHYTHM, +S1, +S2 - GI/Abdominal Exam GI & Abdominal Exam: Soft, Normal Bowel Sounds - Extremities Exam Extremities Exam: absent: Calf Tenderness - Back Exam Back Exam: NORMAL INSPECTION. absent: CVA tenderness (L), CVA tenderness (R) - Neurological Exam Neurological Exam: Alert, Awake, Oriented x3 Assessment and Plan - Assessment and Plan (Free Text) Assessment: 81 yo F admitted for Afibb r/o ACS Afibb r/o ACS -patient is currently rate and symptom controlled with current medications -cardizem shortage nationwide which would be preferred; verpamil 5mg IV given ED -c/w home meds; amiodarone, cardizem PO, toprol XL, Xarelto -patient received metoprolol 5mg IV and Verapamil IV 5mg in ED which broke afibb -BETH negx1; f/u next two -Dr. Mullins Cardiology Consult; thank you for your help -patient with diffuse CAD on cath in 12/04 although nothing ammenable to stenting -Echo in 11/04 showed EF of 50-55% with diastolic dysfunction patient is not in acute exaceration of CHF HTN -c/w home meds COPD; chronic not in acute exacerbation -c/w home meds -breathing treatments as needed Proph -Xarelto from home meds -Protonix -heart healthy diet/diabetic diet All management as per Dr. Anaya
[2017-04-12] MEDS: Calcium-Vit D 500 mg-200 Units Tab UD PO SCH (16:47)
[2017-04-12 17:08] VITALS: RESP 20
[2017-04-12] MEDS ORDERED: Denosumab 60 mg/ml Sol(Prolia) SC SCH (18:00)
[2017-04-12] MEDS ORDERED: Fluticasone-Salmeterol 250-50mcg Diskus INH SCH (20:00)
--- NOTE | 2017-04-12 20:06 | CP.PCM.CON ---
History of Present Illness - History of Present Illness History of Present Illness: Patient is an 81 year old female with PMH HTN, hypercholesterolemia who presents with palpitaitons. She felt the sensation of rapid heart rate. She had mild dyspnea. She was found to be in atrial fibrillation with rapid ventricular response. Review of Systems - Constitutional Constitutional: absent: As Per HPI, Anorexia, Chills, Daytime Sleepiness, Excessive Sweating, Fatigue, Fever, Frequent Falls, Headache, Increased Appetite , Lethargy, Malaise, Night Sweats, Snoring, Sleep Apnea, Weight Gain, Weight Loss, Weakness, Other - EENT Eyes: absent: As Per HPI, Blind Spots, Blurred Vision, Change in Vision, Decreased Night Vision, Diplopia, Discharge, Dry Eye, Exophthalmos, Floaters, Irritation, Itchy Eyes, Loss of Peripheral Vision, Pain, Photophobia, Requires Corrective Lenses, Sees Flashes, Spots in Vision, Tunnel Vision, Other Visual Disturbances, Loss of Vision, Other Ears: absent: As Per HPI, Decreased Hearing, Ear Discharge, Ear Pain, Tinnitus, Abnormal Hearing, Disequilibrium, Dizziness, Other Nose/Mouth/Throat: absent: As Per HPI, Epistaxis, Nasal Congestion, Nasal Discharge, Nasal Obstruction, Nasal Trauma, Nose Pain, Post Nasal Drip, Sinus Pain, Sinus Pressure, Bleeding Gums, Change in Voice, Dental Pain, Dry Mouth, Dysphagia, Halitosis, Hoarsness, Lip Swelling, Mouth Lesions, Mouth Pain, Odynophagia, Sore Throat, Throat Swelling, Tongue Swelling, Facial Pain, Neck Pain, Neck Mass, Other - Cardiovascular Cardiovascular: Palpitations, Paroxysmal Nocturnal Dyspnea - Respiratory Respiratory: absent: As Per HPI, Cough, Dyspnea, Hemoptysis, Dyspnea on Exertion , Wheezing, Snoring, Stridor, Pain on Inspiration, Chest Congestion, Excessive Mucous Production, Change in Mucous Color, Pain with Coughing, Other - Gastrointestinal Gastrointestinal: absent: As Per HPI, Abdominal Pain, Belching, Bloating, Change in Bowel Habits, Change in Stool Character, Coffee Ground Emesis, Constipation, Cramping, Diarrhea, Dyspepsia, Dysphagia, Early Satiety, Excessive Flatus, Fecal Incontinence, Heartburn, Hematemesis, Hematochezia, Loose Stools, Melena, Nausea, Odynophagia, Temesmus, Vomiting, Other - Genitourinary Genitourinary: absent: As Per HPI, Change in Urinary Stream, Difficulty Urinating, Dysuria, Flank Pain, Hematuria, Pyuria, Nocturia, Urinary Incontinence, Urinary Frequency, Urinary Hesitance, Urinary Urgency, Voiding Freq/Small Amts, Freq UTI, Hx Renal/Bladder Calculi, Hx /Renal Surgery, Bladder Distension, Other - Musculoskeletal Musculoskeletal: absent: As Per HPI, Abnormal Gait, Arthralgias, Atrophy, Back Pain, Deformity, Joint Swelling, Limited Range of Motion, Loss of Height, Muscle Cramps, Muscle Weakness, Myalgias, Neck Pain, Numbness, Radiating Pain into Limb, Stiffness, Tingling, Other - Integumentary Integumentary: absent: As Per HPI, Acne, Alopecia, Bleeding Lesions, Change in Hair, Change in Nails, Change in Pigmentation, Changing Lesions, Dry Skin, Erythema, Furuncle, Hirsutism, Lesions, New Lesions, Non-Healing Lesions, Photosensitivity, Pruritus, Rash, Skin Pain, Skin Ulcer, Sores, Striae, Swelling , Unusual Bruising, Wounds, Jaundice, Other - Neurological Neurological: absent: As Per HPI, Abnormal Gait, Abnormal Hearing, Abnormal Movements, Abnormal Speech, Behavioral Changes, Burning Sensations, Confusion, Convulsions, Disequilibrium, Dizziness, Numbness, Focal Weakness, Frequent Falls , Headaches, Lack of Coordination, Loss of Vision, Memory Loss, Paresthesias, Radicular Pain, Restless Legs, Sensory Deficit, Syncope, Tingling, Tremor, Vertigo, Weakness, Other Visual Disturbances, Other - Psychiatric Psychiatric: absent: As Per HPI, Abnormal Sleep Pattern, Anhedonia, Anxiety, Auditory Hallucinations, Behavioral Changes, Change in Appetite, Change in Libido, Confusion, Depression, Difficulty Concentrating, Hallucinations, Homicidal Ideation, Hopelessness, Irritability, Memory Loss, Mood Swings, Panic Attacks, Paranoia, Suicidal Ideation, Visual Hallucinations, Tactile Hallucinations, Other - Endocrine Endocrine: absent: As Per HPI, Change in Body Appearance, Change in Libido, Cold Intolorance, Deepening of Voice, Excessive Sweating, Fatigue, Flushing, Heat Intolorance, Increase in Ring/Shoe/Hat Size, Palpitations, Polydipsia, Polyphagia, Polyuria, Other - Hematologic/Lymphatic Hematologic: absent: As Per HPI, Easy Bleeding, Easy Bruising, Lymphadenopathy, Other Physical Exam - Constitutional Appears: Non-toxic - Head Exam Head Exam: NORMAL INSPECTION - Eye Exam Eye Exam: Normal appearance - ENT Exam ENT Exam: Mucous Membranes Moist - Neck Exam Neck exam: Positive for: Normal Inspection - Respiratory Exam Respiratory Exam: Decreased Breath Sounds - Cardiovascular Exam Cardiovascular Exam: Irregular Rhythm - GI/Abdominal Exam GI & Abdominal Exam: Normal Bowel Sounds - Rectal Exam Rectal Exam: Deferred - Extremities Exam Extremities exam: Positive for: pedal edema - Back Exam Back exam: NORMAL INSPECTION - Neurological Exam Neurological exam: Oriented x3 - Psychiatric Exam Psychiatric exam: Normal Affect - Skin Skin Exam: Normal Color Past Patient History - Infectious Disease Hx of Infectious Diseases: None - Past Medical History & Family History Past Medical History?: Yes - Past Social History Smoking Status: Never Smoked - CARDIAC Hx Atrial Fibrillation: Yes Hx Cardia Arrhythmia: Yes Hx Hypercholesterolemia: Yes Hx Hypertension: Yes - PULMONARY Hx Asthma: Yes - NEUROLOGICAL Hx Neurological Disorder: Yes HX Cerebrovascular Accident: Yes - HEENT Hx HEENT Problems: Yes Hx Cataracts: Yes (both eyes) Other/Comment: wear eyeglasses - ENDOCRINE/METABOLIC Hx Endocrine Disorders: No - HEMATOLOGICAL/ONCOLOGICAL Hx Blood Disorders: No Hx Blood Transfusions: No - INTEGUMENTARY Hx Dermatological Problems: No - MUSCULOSKELETAL/RHEUMATOLOGICAL Hx Osteoporosis: Yes - GASTROINTESTINAL Hx Gall Bladder Disease: Yes (Cholecystitis (April 2014)) - GENITOURINARY/GYNECOLOGICAL Hx Genitourinary Disorders: Yes Hx Cervical Cancer: Yes (S/P HYSTERECTOMY) - PSYCHIATRIC Hx Anxiety: Yes Hx Substance Use: No - SURGICAL HISTORY Hx Surgeries: Yes Hx Hysterectomy: Yes - ANESTHESIA Hx Anesthesia: Yes Hx Anesthesia Reactions: No Hx Malignant Hyperthermia: No Meds Allergies/Adverse Reactions: Allergies Allergy/AdvReac Type Severity Reaction Status Date / Time paroxetine HCl [From Paxil] Allergy Verified 04/12/17 09:10 tramadol Allergy Verified 04/12/17 09:10 - Medications Medications: Current Medications Albuterol (Ventolin Hfa 90 Mcg/Actuation (8 G)) 1 puff IH Q6 PRN PRN Reason: Wheezing Amiodarone HCl (Cordarone) 200 mg PO DAILY [facility] Aspirin (Ecotrin) 81 mg PO DAILY [facility] Calcium/Vitamin D (Oyster Shell Calcium/Vitamin D 500 Mg-200 Iu) 1 tab PO BID [facility] Last Admin: 04/12/17 16:47 Dose: 1 tab Denosumab (Prolia) 60 mg SC BID [facility] Diltiazem HCl (Cardizem Cd) 240 mg PO DAILY [facility] Furosemide (Lasix) 40 mg PO DAILY [facility] Loratadine (Claritin) 10 mg PO DAILY [facility] Losartan Potassium (Cozaar) 25 mg PO DAILY [facility] Metoprolol Tartrate (Lopressor) 25 mg PO BID [facility] Last Admin: 04/12/17 16:46 Dose: 25 mg Montelukast Sodium (Singulair) 10 mg PO HS [facility] Pantoprazole Sodium (Protonix Ec Tab) 20 mg PO DAILY [facility] Rivaroxaban (Xarelto) 15 mg PO DAILY [facility] Fluticasone/Salmeterol (Advair Diskus 250/50) 1 puff INH RQ12 [facility] Results - Vital Signs Recent Vital Signs: Last Vital Signs Temp 98.4 F 04/12/17 17:07 Pulse 79 04/12/17 17:36 Resp 20 04/12/17 17:07 BP 155/70 H 04/12/17 17:07 Pulse Ox 95 04/12/17 17:36 - Labs Result Diagrams: 04/12/17 09:38 04/12/17 09:38 Labs: Laboratory Results - last 24 hr 04/12/17 04/12/17 09:38 09:38 WBC 10.9 H RBC 4.41 Hgb 12.8 Hct 37.3 MCV 84.7 MCH 29.0 MCHC 34.2 RDW 14.6 H Plt Count 280 MPV 7.8 Neut % (Auto) 64.2 Lymph % (Auto) 29.2 [place] % (Auto) 6.0 Eos % (Auto) 0.0 Baso % (Auto) 0.6 Neut # (Auto) 7.0 Lymph # (Auto) 3.2 [place]field # (Auto) 0.7 Eos # (Auto) 0.0 Baso # (Auto) 0.1 Sodium 140 Potassium 3.5 L Chloride 97 L Carbon Dioxide 29 Anion Gap 18 BUN 10 Creatinine 0.6 L Est GFR ( Amer) > 60 Est GFR (Non-Af Amer) > 60 Random Glucose 149 H Calcium 9.3 Total Bilirubin 0.4 AST 27 ALT 32 Alkaline Phosphatase 70 Troponin I 0.0160 Total Protein 8.3 Albumin 4.4 Globulin 4.0 H Albumin/Globulin Ratio 1.1 Assessment & Plan - Assessment and Plan (Free Text) Assessment: Assessment & Plan (1) Atrial fibrillation with RVR Assessment and Plan: rate control. continue Xarelto. Status: Acute (2) HTN (hypertension) Assessment and Plan: blood pressure control Status: Acute (3) Congestive heart failure Assessment and Plan: Diasolic CHF Status: Acute (4) Hyperlipidemia Assessment and Plan: statin therapy Status: Acute
[2017-04-12 20:26] LABS: CK-MB 1.16 ng/mL (0.0-3.38)
[2017-04-13 01:56] LABS: CK-MB 0.91 ng/mL (0.0-3.38)
[2017-04-13 07:47] LABS: BASO % 0.5 % (0.0-2.0); EOS # 0.1 K/uL (0.0-0.7); EOS % 1.4 % (0.0-4.0); HEMOGLOBIN 12.8 g/dL (11.0-16.0); LYMPH # 4.6 K/uL (1.0-4.3); LYMPH % 50.7 % (20.0-40.0); MEAN CELL VOLUME 85.5 fL (81.0-99.0); MEAN CORPUSCULAR HEMOGLOBIN 28.8 pg (27.0-31.0); MEAN CORPUSCULAR HGB CONC 33.7 g/dL (33.0-37.0); MEAN PLATELET VOLUME 7.9 fL (7.2-11.7); MONO # 0.6 K/uL (0.0-0.8); MONO % 7.1 % (0.0-10.0); NEUT # 3.6 K/uL (1.8-7.0); NEUT % 40.3 % (50.0-75.0); RBC 4.45 Mil/uL (3.80-5.20); RED CELL DISTRIBUTION WIDTH 14.8 % (11.5-14.5)
[2017-04-13 08:09] LABS: ALB/GLOB RATIO 1.2 (1.0-2.1); ALBUMIN 3.8 g/dL (3.5-5.0); ALT/SGPT 33 U/L (9-52); AST/SGOT 25 U/L (14-36); BLOOD UREA NITROGEN 13 mg/dL (7-17); CALCIUM 9.1 mg/dl (8.6-10.4); GFR AFRICAN-AMERICAN > 60; GFR NON-AFRICAN AMERICAN > 60
[2017-04-13] MEDS: Calcium-Vit D 500 mg-200 Units Tab UD PO SCH ×2 (09:52→18:38)
[2017-04-13] MEDS: diltiaZEM 240 mg/24 Hours CD Cap PO SCH (09:53)
[2017-04-13] MEDS: Pantoprazole 20 mg EC Tab PO SCH (09:54)
--- NOTE | 2017-04-13 20:14 | CARD ---
APPROVED REPORT EKG Measurement Heart [id number] <Conclusion> Sinus rhythm with occasional premature ventricular complexes Left axis deviation Left bundle branch block prolonged QTc interval Abnormal ECG
[2017-04-14 08:56] LABS: BASO % 0.4 % (0.0-2.0); EOS # 0.1 K/uL (0.0-0.7); EOS % 1.2 % (0.0-4.0); HEMOGLOBIN 13.3 g/dL (11.0-16.0); LYMPH # 3.7 K/uL (1.0-4.3); LYMPH % 30.5 % (20.0-40.0); MEAN CELL VOLUME 85.6 fL (81.0-99.0); MEAN CORPUSCULAR HEMOGLOBIN 28.6 pg (27.0-31.0); MEAN CORPUSCULAR HGB CONC 33.4 g/dL (33.0-37.0); MONO # 0.6 K/uL (0.0-0.8); MONO % 5.4 % (0.0-10.0); NEUT # 7.5 K/uL (1.8-7.0); NEUT % 62.5 % (50.0-75.0); RBC 4.64 Mil/uL (3.80-5.20); RED CELL DISTRIBUTION WIDTH 14.9 % (11.5-14.5)
[2017-04-14 09:07] LABS: ALB/GLOB RATIO 1.1 (1.0-2.1); ALBUMIN 3.8 g/dL (3.5-5.0); ALT/SGPT 26 U/L (9-52); AST/SGOT 26 U/L (14-36); BLOOD UREA NITROGEN 21 mg/dL (7-17); CALCIUM 9.1 mg/dl (8.6-10.4); GFR AFRICAN-AMERICAN > 60; GFR NON-AFRICAN AMERICAN > 60
[2017-04-14] MEDS: diltiaZEM 240 mg/24 Hours CD Cap PO SCH (09:24)
[2017-04-14] MEDS: Calcium-Vit D 500 mg-200 Units Tab UD PO SCH ×2 (09:25→17:48)
[2017-04-14] MEDS: Pantoprazole 20 mg EC Tab PO SCH (09:25)
--- NOTE | 2017-04-14 10:40 | CP.PCM.PN ---
Subjective - Date & Time of Evaluation Date of Evaluation: 04/13/17 Time of Evaluation: 18:30 - Subjective Subjective: Patient seen and evaluated comfortable Denies chest pain and dyspnea Review of Systems - Constitutional Constitutional: absent: As Per HPI, Anorexia, Chills, Daytime Sleepiness, Excessive Sweating, Fatigue, Fever, Frequent Falls, Headache, Increased Appetite , Lethargy, Malaise, Night Sweats, Snoring, Sleep Apnea, Weight Gain, Weight Loss, Weakness, Other - EENT Eyes: absent: As Per HPI, Blind Spots, Blurred Vision, Change in Vision, Decreased Night Vision, Diplopia, Discharge, Dry Eye, Exophthalmos, Floaters, Irritation, Itchy Eyes, Loss of Peripheral Vision, Pain, Photophobia, Requires Corrective Lenses, Sees Flashes, Spots in Vision, Tunnel Vision, Other Visual Disturbances, Loss of Vision, Other Ears: absent: As Per HPI, Decreased Hearing, Ear Discharge, Ear Pain, Tinnitus, Abnormal Hearing, Disequilibrium, Dizziness, Other Nose/Mouth/Throat: absent: As Per HPI, Epistaxis, Nasal Congestion, Nasal Discharge, Nasal Obstruction, Nasal Trauma, Nose Pain, Post Nasal Drip, Sinus Pain, Sinus Pressure, Bleeding Gums, Change in Voice, Dental Pain, Dry Mouth, Dysphagia, Halitosis, Hoarsness, Lip Swelling, Mouth Lesions, Mouth Pain, Odynophagia, Sore Throat, Throat Swelling, Tongue Swelling, Facial Pain, Neck Pain, Neck Mass, Other - Cardiovascular Cardiovascular: Palpitations, Paroxysmal Nocturnal Dyspnea - Respiratory Respiratory: absent: As Per HPI, Cough, Dyspnea, Hemoptysis, Dyspnea on Exertion , Wheezing, Snoring, Stridor, Pain on Inspiration, Chest Congestion, Excessive Mucous Production, Change in Mucous Color, Pain with Coughing, Other - Gastrointestinal Gastrointestinal: absent: As Per HPI, Abdominal Pain, Belching, Bloating, Change in Bowel Habits, Change in Stool Character, Coffee Ground Emesis, Constipation, Cramping, Diarrhea, Dyspepsia, Dysphagia, Early Satiety, Excessive Flatus, Fecal Incontinence, Heartburn, Hematemesis, Hematochezia, Loose Stools, Melena, Nausea, Odynophagia, Temesmus, Vomiting, Other - Genitourinary Genitourinary: absent: As Per HPI, Change in Urinary Stream, Difficulty Urinating, Dysuria, Flank Pain, Hematuria, Pyuria, Nocturia, Urinary Incontinence, Urinary Frequency, Urinary Hesitance, Urinary Urgency, Voiding Freq/Small Amts, Freq UTI, Hx Renal/Bladder Calculi, Hx /Renal Surgery, Bladder Distension, Other - Musculoskeletal Musculoskeletal: absent: As Per HPI, Abnormal Gait, Arthralgias, Atrophy, Back Pain, Deformity, Joint Swelling, Limited Range of Motion, Loss of Height, Muscle Cramps, Muscle Weakness, Myalgias, Neck Pain, Numbness, Radiating Pain into Limb, Stiffness, Tingling, Other - Integumentary Integumentary: absent: As Per HPI, Acne, Alopecia, Bleeding Lesions, Change in Hair, Change in Nails, Change in Pigmentation, Changing Lesions, Dry Skin, Erythema, Furuncle, Hirsutism, Lesions, New Lesions, Non-Healing Lesions, Photosensitivity, Pruritus, Rash, Skin Pain, Skin Ulcer, Sores, Striae, Swelling , Unusual Bruising, Wounds, Jaundice, Other - Neurological Neurological: absent: As Per HPI, Abnormal Gait, Abnormal Hearing, Abnormal Movements, Abnormal Speech, Behavioral Changes, Burning Sensations, Confusion, Convulsions, Disequilibrium, Dizziness, Numbness, Focal Weakness, Frequent Falls , Headaches, Lack of Coordination, Loss of Vision, Memory Loss, Paresthesias, Radicular Pain, Restless Legs, Sensory Deficit, Syncope, Tingling, Tremor, Vertigo, Weakness, Other Visual Disturbances, Other - Psychiatric Psychiatric: absent: As Per HPI, Abnormal Sleep Pattern, Anhedonia, Anxiety, Auditory Hallucinations, Behavioral Changes, Change in Appetite, Change in Libido, Confusion, Depression, Difficulty Concentrating, Hallucinations, Homicidal Ideation, Hopelessness, Irritability, Memory Loss, Mood Swings, Panic Attacks, Paranoia, Suicidal Ideation, Visual Hallucinations, Tactile Hallucinations, Other - Endocrine Endocrine: absent: As Per HPI, Change in Body Appearance, Change in Libido, Cold Intolorance, Deepening of Voice, Excessive Sweating, Fatigue, Flushing, Heat Intolorance, Increase in Ring/Shoe/Hat Size, Palpitations, Polydipsia, Polyphagia, Polyuria, Other - Hematologic/Lymphatic Hematologic: absent: As Per HPI, Easy Bleeding, Easy Bruising, Lymphadenopathy, Other Physical Exam - Constitutional Appears: Non-toxic - Head Exam Head Exam: NORMAL INSPECTION - Eye Exam Eye Exam: Normal appearance - ENT Exam ENT Exam: Mucous Membranes Moist - Neck Exam Neck exam: Positive for: Normal Inspection - Respiratory Exam Respiratory Exam: Decreased Breath Sounds - Cardiovascular Exam Cardiovascular Exam: Irregular Rhythm - GI/Abdominal Exam GI & Abdominal Exam: Normal Bowel Sounds - Rectal Exam Rectal Exam: Deferred - Extremities Exam Extremities exam: Positive for: pedal edema - Back Exam Back exam: NORMAL INSPECTION - Neurological Exam Neurological exam: Oriented x3 - Psychiatric Exam Psychiatric exam: Normal Affect - Skin Skin Exam: Normal Color Objective - Vital Signs/Intake and Output Vital Signs (last 24 hours): Temp Pulse Resp BP Pulse Ox 98.1 F 84 20 125/71 95 04/14/17 09:07 04/14/17 09:07 04/14/17 09:07 04/14/17 09:24 04/14/17 09:07 Intake and Output: 04/14/17 04/14/17 06:59 18:59 Intake Total 240 Balance 240 - Medications Medications: Current Medications Albuterol (Ventolin Hfa 90 Mcg/Actuation (8 G)) 1 puff IH Q6 PRN PRN Reason: Wheezing Amiodarone HCl (Cordarone) 200 mg PO DAILY [facility] Last Admin: 04/14/17 09:22 Dose: 200 mg Aspirin (Ecotrin) 81 mg PO DAILY [facility] Last Admin: 04/14/17 09:24 Dose: 81 mg Calcium/Vitamin D (Oyster Shell Calcium/Vitamin D 500 Mg-200 Iu) 1 tab PO BID [facility] Last Admin: 04/13/17 18:38 Dose: 1 tab Denosumab (Prolia) 60 mg SC BID [facility] Diltiazem HCl (Cardizem Cd) 240 mg PO DAILY [facility] Last Admin: 04/14/17 09:24 Dose: 240 mg Furosemide (Lasix) 40 mg PO DAILY [facility] Last Admin: 04/14/17 09:24 Dose: 40 mg Loratadine (Claritin) 10 mg PO DAILY [facility] Last Admin: 04/13/17 09:53 Dose: 10 mg Losartan Potassium (Cozaar) 25 mg PO DAILY [facility] Last Admin: 04/13/17 09:52 Dose: 25 mg Metoprolol Tartrate (Lopressor) 25 mg PO BID [facility] Last Admin: 04/14/17 09:24 Dose: 25 mg Montelukast Sodium (Singulair) 10 mg PO [facility] Last Admin: 04/13/17 22:24 Dose: 10 mg Pantoprazole Sodium (Protonix Ec Tab) 20 mg PO DAILY [facility] Last Admin: 04/14/17 09:25 Dose: 20 mg Rivaroxaban (Xarelto) 15 mg PO DAILY [facility] Last Admin: 04/14/17 09:25 Dose: 15 mg Fluticasone/Salmeterol (Advair Diskus 250/50) 1 puff INH RQ12 [facility] - Labs Labs: 04/14/17 08:43 04/14/17 08:43 Assessment and Plan - Assessment and Plan (Free Text) Assessment: Assessment: 81 yo F admitted for Afibb r/o ACS Afib Rate controlled cath film reviewed Non obstructive CAD Medical management HTN -c/w home meds COPD; chronic not in acute exacerbation -c/w home meds -breathing treatments as needed Proph -Xarelto from home meds -Protonix -heart healthy diet/diabetic diet Cardiac point of view cleared for discharge
--- NOTE | 2017-04-14 16:17 | CP.PCM.PN ---
Subjective - Date & Time of Evaluation Date of Evaluation: 04/14/17 Time of Evaluation: 08:20 - Subjective Subjective: Patient with new events Stable No additional work up cardiac point of view Objective - Vital Signs/Intake and Output Vital Signs (last 24 hours): Temp Pulse Resp BP Pulse Ox 98.1 F 84 20 125/71 95 04/14/17 09:07 04/14/17 09:07 04/14/17 09:07 04/14/17 09:24 04/14/17 09:07 Intake and Output: 04/14/17 04/14/17 06:59 18:59 Intake Total 240 Balance 240 - Medications Medications: Current Medications Albuterol (Ventolin Hfa 90 Mcg/Actuation (8 G)) 1 puff IH Q6 PRN PRN Reason: Wheezing Amiodarone HCl (Cordarone) 200 mg PO DAILY [facility] Last Admin: 04/14/17 09:22 Dose: 200 mg Aspirin (Ecotrin) 81 mg PO DAILY [facility] Last Admin: 04/14/17 09:24 Dose: 81 mg Calcium/Vitamin D (Oyster Shell Calcium/Vitamin D 500 Mg-200 Iu) 1 tab PO BID [facility] Last Admin: 04/14/17 09:25 Dose: 1 tab Denosumab (Prolia) 60 mg SC BID [facility] Diltiazem HCl (Cardizem Cd) 240 mg PO DAILY [facility] Last Admin: 04/14/17 09:24 Dose: 240 mg Furosemide (Lasix) 40 mg PO DAILY [facility] Last Admin: 04/14/17 09:24 Dose: 40 mg Loratadine (Claritin) 10 mg PO DAILY [facility] Last Admin: 04/14/17 09:25 Dose: 10 mg Losartan Potassium (Cozaar) 25 mg PO DAILY [facility] Last Admin: 04/14/17 09:25 Dose: 25 mg Metoprolol Tartrate (Lopressor) 25 mg PO BID [facility] Last Admin: 04/14/17 09:24 Dose: 25 mg Montelukast Sodium (Singulair) 10 mg PO HS [facility] Last Admin: 04/13/17 22:24 Dose: 10 mg Pantoprazole Sodium (Protonix Ec Tab) 20 mg PO DAILY [facility] Last Admin: 04/14/17 09:25 Dose: 20 mg Rivaroxaban (Xarelto) 15 mg PO DAILY [facility] Last Admin: 04/14/17 09:25 Dose: 15 mg Fluticasone/Salmeterol (Advair Diskus 250/50) 1 puff INH RQ12 [facility] - Labs Labs: 04/14/17 08:43 04/14/17 08:43
[2017-04-15 08:04] LABS: BASO % 0.5 % (0.0-2.0); EOS # 0.1 K/uL (0.0-0.7); EOS % 1.6 % (0.0-4.0); HEMOGLOBIN 12.8 g/dL (11.0-16.0); LYMPH % 48.1 % (20.0-40.0); MEAN CELL VOLUME 85.3 fL (81.0-99.0); MEAN CORPUSCULAR HEMOGLOBIN 28.2 pg (27.0-31.0); MEAN CORPUSCULAR HGB CONC 33.1 g/dL (33.0-37.0); MEAN PLATELET VOLUME 7.8 fL (7.2-11.7); MONO # 0.5 K/uL (0.0-0.8); MONO % 6.7 % (0.0-10.0); NEUT # 3.5 K/uL (1.8-7.0); NEUT % 43.1 % (50.0-75.0); RBC 4.54 Mil/uL (3.80-5.20); RED CELL DISTRIBUTION WIDTH 14.8 % (11.5-14.5); WHITE BLOOD COUNT 8.2 K/uL (4.8-10.8)
[2017-04-15 08:13] LABS: ALBUMIN 3.5 g/dL (3.5-5.0); ALT/SGPT 29 U/L (9-52); AST/SGOT 26 U/L (14-36); BLOOD UREA NITROGEN 18 mg/dL (7-17); CALCIUM 8.8 mg/dl (8.6-10.4); GFR AFRICAN-AMERICAN > 60; GFR NON-AFRICAN AMERICAN > 60
--- NOTE | 2017-04-15 08:34 | PN ---
DATE: 04/14/2017 The patient is complaining of dizziness and weakness, seen by carpenter packing. Agus Anaya MD
[2017-04-15 08:40] VITALS: PULSE 83; TEMP 98; O2SAT 95
--- NOTE | 2017-04-15 08:47 | CP.PCM.PN ---
Subjective - Date & Time of Evaluation Date of Evaluation: 04/15/17 Time of Evaluation: 07:00 - Subjective Subjective: PGY2 Medicine Note - Dr. Anaya Patient seen and examined at bedside. Patient denies palpitations, reports last symptoms were 3 days ago. She is AAOx2, not oriented to year. Reports mild constipation, no BM x2days. Denies fever, chills, chest pains, SOB, weakness, diaphoresis, nausea, vomiting, diarrhea, or any additional acute complaints. --- Patient is stable for discharge per Dr. Anaya. Patient should resume all medications as outlined in this document. Additionally, patient should take the new medications listed below (scripts provided). Please make an appointment and follow up with your Primary Doctor within one week of discharge. Patient should return to ED immediately if symptoms return or worsen. Instructions discussed with patient who understood and agreed. Newly prescribed OTC (Over the counter) medications: Aspirin 81mg - 1 tab orally every day Robitussin DM - take as needed for cough Objective - Vital Signs/Intake and Output Vital Signs (last 24 hours): Temp Pulse Resp BP Pulse Ox 98.0 F 83 20 108/74 95 04/15/17 08:39 04/15/17 08:39 04/15/17 08:39 04/15/17 08:39 04/15/17 08:39 Intake and Output: 04/15/17 04/15/17 06:59 18:59 Intake Total 620 Balance 620 - Medications Medications: Current Medications Albuterol (Ventolin Hfa 90 Mcg/Actuation (8 G)) 1 puff IH Q6 PRN PRN Reason: Wheezing Amiodarone HCl (Cordarone) 200 mg PO DAILY [facility] Last Admin: 04/14/17 09:22 Dose: 200 mg Aspirin (Ecotrin) 81 mg PO DAILY [facility] Last Admin: 04/14/17 09:24 Dose: 81 mg Calcium/Vitamin D (Oyster Shell Calcium/Vitamin D 500 Mg-200 Iu) 1 tab PO BID [facility] Last Admin: 04/14/17 17:48 Dose: 1 tab Denosumab (Prolia) 60 mg SC BID [facility] Diltiazem HCl (Cardizem Cd) 240 mg PO DAILY [facility] Last Admin: 04/14/17 09:24 Dose: 240 mg Furosemide (Lasix) 40 mg PO DAILY [facility] Last Admin: 04/14/17 09:24 Dose: 40 mg Loratadine (Claritin) 10 mg PO DAILY [facility] Last Admin: 04/14/17 09:25 Dose: 10 mg Losartan Potassium (Cozaar) 25 mg PO DAILY [facility] Last Admin: 04/14/17 09:25 Dose: 25 mg Metoprolol Tartrate (Lopressor) 25 mg PO BID [facility] Last Admin: 04/14/17 17:48 Dose: 25 mg Montelukast Sodium (Singulair) 10 mg PO HS [facility] Last Admin: 04/14/17 21:28 Dose: 10 mg Pantoprazole Sodium (Protonix Ec Tab) 20 mg PO DAILY [facility] Last Admin: 04/14/17 09:25 Dose: 20 mg Rivaroxaban (Xarelto) 15 mg PO DAILY [facility] Last Admin: 04/14/17 09:25 Dose: 15 mg Fluticasone/Salmeterol (Advair Diskus 250/50) 1 puff INH RQ12 [facility] - Labs Labs: 04/15/17 07:45 04/15/17 07:45 - Additional Findings Additional findings: - Constitutional Appears: Well, Non-toxic (elderly pleasant female ) - Head Exam Head Exam: ATRAUMATIC - Eye Exam Eye Exam: EOMI, Normal appearance, PERRL. absent: Scleral icterus Pupil Exam: PERRL - ENT Exam ENT Exam: Mucous Membranes Moist - Neck Exam Neck Exam: Full ROM - Respiratory Exam Respiratory Exam: Clear to Ausculation Bilateral - Cardiovascular Exam Cardiovascular Exam: REGULAR RHYTHM, +S1, +S2 - GI/Abdominal Exam GI & Abdominal Exam: Soft, Normal Bowel Sounds - Extremities Exam Extremities Exam: absent: Calf Tenderness - Back Exam Back Exam: NORMAL INSPECTION. absent: CVA tenderness (L), CVA tenderness (R) - Neurological Exam Neurological Exam: Alert, Awake, Oriented x3 Assessment and Plan - Assessment and Plan (Free Text) Assessment: 81 yo F admitted for Afibb r/o ACS Afibb r/o ACS -patient is currently rate and symptom controlled with current medications -cardizem shortage nationwide which would be preferred; verpamil 5mg IV given ED -c/w home meds; amiodarone, cardizem PO, toprol XL, Xarelto -patient received metoprolol 5mg IV and Verapamil IV 5mg in ED which broke afibb -BETH negx1; f/u next two -Dr. Mullins Cardiology Consult; thank you for your help -patient with diffuse CAD on cath in 12/04 although nothing ammenable to stenting -Echo in 11/04 showed EF of 50-55% with diastolic dysfunction patient is not in acute exaceration of CHF HTN -c/w home meds COPD; chronic not in acute exacerbation -c/w home meds -breathing treatments as needed Constipation 04/15: start Colace 100mg PO BID [facility] -Xarelto from home meds -Protonix -heart healthy diet/diabetic diet All management as per Dr. Anaya
[2017-04-15] MEDS: Calcium-Vit D 500 mg-200 Units Tab UD PO SCH ×2 (09:37→17:34)
[2017-04-15] MEDS: diltiaZEM 240 mg/24 Hours CD Cap PO SCH (09:37)
[2017-04-15] MEDS: Pantoprazole 20 mg EC Tab PO SCH (09:37)
--- NOTE | 2017-04-15 10:32 | HP ---
HISTORY OF PRESENT ILLNESS: An 81-year-old female chief complaint weakness, fatigue, tiredness, shortness of breath and dizziness. The patient came to the ER, advised admission. PHYSICAL EXAMINATION: GENERAL: The patient is awake, alert, and oriented. VITAL SIGNS: Temperature 98 and pulse 90. HEENT: Within normal limits. NECK: Supple. CHEST: Symmetrical. HEART: Regular. ABDOMEN: Soft. EXTREMITIES: No edema. IMPRESSION AND PLAN: The patient suffers from cardiac arrhythmia and weakness. The patient on bed rest, supportive care. Agus Anaya MD
--- NOTE | 2017-04-15 11:12 | HP ---
HISTORY OF PRESENT ILLNESS: Patient is a 81-year-old female admitted to the hospital with chief complaint of chest pain, palpitations. Patient came to the ER, advised admission, rule out ACS. The patient has hypertension. PHYSICAL EXAMINATION: GENERAL: The patient is awake, alert, and oriented. VITAL SIGNS: Temperature 98.4, pulse 78. HEENT: Within normal limits. NECK: Supple. CHEST: Symmetrical. HEART: Regular. ABDOMEN: Soft. EXTREMITIES: No edema. ASSESSMENT AND PLAN: The patient suffers from acute syndrome. The patient on bed rest, supportive care. Agus Anaya MD
[2017-04-15] MEDS ORDERED: Pneumococcal 23-Valent Vaccine IM ONE (12:00)
[2017-04-15 17:34] VITALS: BP 120/75
== END 2017-04-15 17:30 | disposition home or self-care (01) ==
LOC: C.ER 09:00 → C.9E 12:26 → C.6T 16:32
PROVIDERS: ADMIT Internal Medicine Pulmonary Disease; ATTEND Internal Medicine Pulmonary Disease
DX: I48.91 Unspecified atrial fibrillation (principal); I11.0 Hypertensive heart disease with heart failure; I50.32 Chronic diastolic (congestive) heart failure; E78.00 Pure hypercholesterolemia, unspecified; E78.5 Hyperlipidemia, unspecified; I25.10 Atherosclerotic heart disease of native coronary artery without angina pectoris; J44.9 Chronic obstructive pulmonary disease, unspecified; K59.00 Constipation, unspecified; M81.0 Age-related osteoporosis without current pathological fracture; Z79.51 Long term (current) use of inhaled steroids; Z79.01 Long term (current) use of anticoagulants; Z79.899 Other long term (current) drug therapy; Z87.891 Personal history of nicotine dependence
CPT/HCPCS: 36415; 71045; 80053; 83036; 84484; 85025; 93005; 96374; 97116; 97162; 99284; G0378; G8978; G8979

== ENCOUNTER 2017-07-26 09:57 | Emergency (ER) | payer MEDICARE, MEDICAID ==
[2017-07-26 09:57] VITALS: BMI 23.3
[2017-07-26] MEDS ORDERED: Hydrocortisone 1% Cream (30 GM) TOP STA (11:15)
--- NOTE | 2017-07-26 11:31 | C.PDOC ---
History Of Present Illness 81-year-old female, presents to the emergency department with complaints of an itchy rash to her chest. Patient states that two days ago, she was wearing a new necklace, after which she developed erythema, and a pruritic rash to neck and anterior chest area. She denies any shortness of breath, trouble swallowing , swelling or any other associated symptoms. No other complaints at this time Time Seen by Provider: 07/26/17 10:12 Chief Complaint (Nursing): Allergic Reaction History Per: Patient History/Exam Limitations: no limitations Onset/Duration Of Symptoms: Days Current Symptoms Are (Timing): Still Present Past Medical History Reviewed: Historical Data, Nursing Documentation, Vital Signs Vital Signs: Last Vital Signs Temp 98.0 F 07/26/17 11:33 Pulse 72 07/26/17 11:33 Resp 18 07/26/17 11:33 BP 129/78 07/26/17 11:33 Pulse Ox 99 07/26/17 14:28 - Medical History PMH: Anxiety, Asthma, Atrial Fibrillation, CAD, Cardia Arrhythmia, CVA (2000), Gall Bladder Disease (Cholecystitis (April 2014)), HTN, Hypercholesterolemia, Malignancy, Osteoporosis Surgical History: Endoscopy - [facility] Procedures ATRIAL CARDIOVERSION (04/26/13) DX ULTRASOUND-HEART (04/26/13) MEASURE OF CARDIAC SAMPL & PRESSURE, L HEART, PERC APPROACH (10/19/16) OTHER ESOPHAGOSCOPY (04/26/13) PLAIN RADIOGRAPHY OF LEFT HEART USING OTHER CONTRAST (10/19/16) PLAIN RADIOGRAPHY OF MULT COR ART USING OTH CONTRAST (10/19/16) Family History: States: Diabetes (son) - Social History Hx Tobacco Use: Yes (Former (1992)) Hx Alcohol Use: No Hx Substance Use: No - Immunization History Hx Tetanus Toxoid Vaccination: No Hx Influenza Vaccination: No Hx Pneumococcal Vaccination: No Review Of Systems Constitutional: Negative for: Fever, Chills ENT: Negative for: Nose Congestion, Mouth Swelling, Throat Swelling Respiratory: Negative for: Cough, Shortness of Breath Gastrointestinal: Negative for: Vomiting Skin: Positive for: Rash Physical Exam - Physical Exam Appears: Non-toxic, No Acute Distress Skin: Normal Color, Warm, Dry, Rash (Urticarial rash in shape of necklace around anterior chest.) Head: Atraumatic, Normacephalic Eye(s): bilateral: Normal Inspection Nose: Normal Oral Mucosa: Moist Lips: Normal Appearing Neck: Normal ROM Chest: Symmetrical Cardiovascular: Rhythm Regular, No Murmur Respiratory: Normal Breath Sounds, No Accessory Muscle Use Extremity: Normal ROM, No Deformity, No Swelling Neurological/Psych: Oriented x3, Normal Speech ED Course And Treatment O2 Sat by Pulse Oximetry: 99 (RA) Pulse Ox Interpretation: Normal Medical Decision Making Medical Decision Making: Patient treated with Benadryl, hydrocortisone, pepcid and prednisone. On re-evaluation, rash has resolved, pt is feeling better and will be discharged for outpatient f.u with pmd. Disposition - Disposition Referrals: [facility] [Outside] Marylin Chaudhry MD [Non-Staff] - Disposition: HOME/ ROUTINE Disposition Time: 11:28 Condition: STABLE Additional Instructions: Follow up with your PMD within 1-2 days. Return to ED if feel worse. Prescriptions: DiphenhydrAMINE [Benadryl] 25 mg PO .Q4-6 H #30 cap Famotidine [Pepcid] 20 mg PO BID #20 tab predniSONE [predniSONE Tab] 1 tab PO DAILY #6 tab Instructions: Contact Dermatitis (DC) Forms: [email or web address] (Armenian) Print Language: BURMESE - Clinical Impression Clinical Impression: Allergic reaction - Scribe Statement The provider has reviewed the documentation as recorded by the Scribe (Sabrina Hernandez) All medical record entries made by the Scribe were at my direction and personally dictated by me. I have reviewed the chart and agree that the record accurately reflects my personal performance of the history, physical exam, medical decision making, and the department course for this patient. I have also personally directed, reviewed, and agree with the discharge instructions and disposition.
[2017-07-26 11:34] VITALS: BP 129/78; PULSE 72; RESP 18; TEMP 98
[2017-07-26 14:24] VITALS: O2SAT 99
== END 2017-07-26 11:56 | disposition home or self-care (01) ==
LOC: C.ER 09:57
DX: T78.49XA Other allergy, initial encounter (principal); X58.XXXA Exposure to other specified factors, initial encounter

== ENCOUNTER 2017-10-05 18:34 | Emergency (ER) | payer MEDICARE, MEDICAID ==
[2017-10-05 18:35] VITALS: BMI 23.3
[2017-10-05 18:50] VITALS: TEMP 98; O2SAT 97
--- NOTE | 2017-10-05 19:39 | C.PDOC ---
History Of Present Illness 82 year old female patient presents to the ER with c/o thoracic back pain for x3 days. Patient reports it is worse with thoracic flexion/extension. Patient denies trauma, fever, chills and weakness/numbness on lower extremities. Time Seen by Provider: 10/05/17 19:06 Chief Complaint (Nursing): Back Pain History Per: Patient History/Exam Limitations: no limitations Onset/Duration Of Symptoms: Days (x3) Current Symptoms Are (Timing): Still Present Previous Symptoms: Back Pain Past Medical History Reviewed: Historical Data, Nursing Documentation, Vital Signs Vital Signs: Last Vital Signs Temp 98.0 F 10/05/17 18:42 Pulse 76 10/05/17 20:27 Resp 18 10/05/17 20:27 BP 123/82 10/05/17 20:27 Pulse Ox 97 10/05/17 20:07 - Medical History PMH: Anxiety, Asthma, Atrial Fibrillation, CAD, Cardia Arrhythmia, CVA (2000), Gall Bladder Disease (Cholecystitis (April 2014)), HTN, Hypercholesterolemia, Malignancy, Osteoporosis Surgical History: Endoscopy - [facility] Procedures ATRIAL CARDIOVERSION (04/26/13) DX ULTRASOUND-HEART (04/26/13) MEASURE OF CARDIAC SAMPL & PRESSURE, L HEART, PERC APPROACH (10/19/16) OTHER ESOPHAGOSCOPY (04/26/13) PLAIN RADIOGRAPHY OF LEFT HEART USING OTHER CONTRAST (10/19/16) PLAIN RADIOGRAPHY OF MULT COR ART USING OTH CONTRAST (10/19/16) Family History: States: Diabetes (son) - Social History Hx Tobacco Use: Yes (Former (1992)) Hx Alcohol Use: No Hx Substance Use: No - Immunization History Hx Tetanus Toxoid Vaccination: No Hx Influenza Vaccination: No Hx Pneumococcal Vaccination: No Review Of Systems Except As Marked, All Systems Reviewed And Found Negative. Constitutional: Negative for: Fever, Chills, Other (trauma ) Neurological: Negative for: Weakness, Numbness Physical Exam - Physical Exam Appears: Well, Non-toxic, No Acute Distress Skin: Normal Color, Warm, Dry, No Rash Head: Atraumatic, Normacephalic Eye(s): bilateral: Normal Inspection Oral Mucosa: Moist Neck: Normal ROM, Supple Chest: Symmetrical, No Deformity Cardiovascular: Rhythm Regular Respiratory: Normal Breath Sounds Gastrointestinal/Abdominal: Soft, No Tenderness Back: Paraspinal Tenderness (b/l thoracic) Extremity: Normal ROM (x4), No Tenderness, No Pedal Edema, Capillary Refill (<2 sec), No Deformity Extremity: Bilateral: Atraumatic Neurological/Psych: Oriented x3, Normal Speech, Normal Motor, Normal Sensation, Normal Reflexes Gait: Steady ED Course And Treatment ECG: Interpreted By Me ECG Rhythm: Sinus Rhythm ECG Interpretation: Normal Rate From EC O2 Sat by Pulse Oximetry: 97 (RA) Pulse Ox Interpretation: Normal - Other Rad T-Spine plain films X-Ray: Interpreted by Me (no fx/disloc) Reevaluation Time: 20:05 Reassessment Condition: Improved Medical Decision Making Medical Decision Making: Impression: Thoracic pain Plans: -- ibuprofen -- XR thoracic spine Reassess: Patient is resting comfortably. No fever, no bony tendnerness, no numbness/weakness. Patient is ambulatory. Patient is advised to f/u with PCP in 1-2 days. thoracic paraspinal strain normal films LOW susp of aneurysm Disposition Doctor Will See Patient In The: Office Counseled Patient/Family Regarding: Studies Performed, Diagnosis - Disposition Referrals: [facility] [Outside] [facility] [Outside] [facility] [Outside] Disposition: HOME/ ROUTINE Disposition Time: 20:06 Condition: GOOD Additional Instructions: [place] 1/2 hor por hora, nada caliente no gael caliente por 2 auguste Ibuprofeno/Advil 400-600 mg cada 6 horas luisa necessario Sigue en [facility] luisa necessario [place] NORMAL Instructions: Upper Back Pain Forms: [facility] (Honduran) Print Language: PUERTO RICAN - Clinical Impression Clinical Impression: Thoracic back sprain - Scribe Statement The provider has reviewed the documentation as recorded by the Tamiko Leggett Do Provider Attestation: All medical record entries made by the Scribe were at my direction and personally dictated by me. I have reviewed the chart and agree that the record accurately reflects my personal performance of the history, physical exam, medical decision making, and the department course for this patient. I have also personally directed, reviewed, and agree with the discharge instructions and disposition.
[2017-10-05 20:30] VITALS: BP 123/82; PULSE 76; RESP 18
--- NOTE | 2017-10-06 10:47 | RAD ---
Thoracic spine two views History: Pain. Comparison: None available. Findings: Mild thoracic kyphosis of the thoracic spine. Multilevel degenerative changes with disc space narrowing as well as anterior osteophytosis. Mild loss of height of several inferior endplates of the mid to inferior thoracic vertebral bodies. Incidentally noted is a prominent tortuous and ectatic aorta. Cardiomegaly. Incidentally noted is a curvilinear density in the posterior soft tissues which may be external. Impression: Mild thoracic kyphosis of the thoracic spine. Multilevel degenerative changes with disc space narrowing as well as anterior osteophytosis. Mild loss of height of several inferior endplates of the mid to inferior thoracic vertebral bodies. If pain persists, consider correlation with MRI.
--- NOTE | 2017-10-08 16:41 | CARD ---
APPROVED REPORT Date of service: 10/05/2017 EKG Measurement Heart [id number] <Conclusion> Normal sinus rhythm Incomplete left bundle branch block Prolonged QT Abnormal ECG
== END 2017-10-05 20:30 | disposition home or self-care (01) ==
LOC: C.ER 18:34
DX: S23.3XXA Sprain of ligaments of thoracic spine, initial encounter (principal); X58.XXXA Exposure to other specified factors, initial encounter

== ENCOUNTER 2018-01-18 02:40 | Inpatient (IN) | payer MEDICARE, MEDICAID ==
[2018-01-18 02:41] VITALS: BMI 23.3
--- NOTE | 2018-01-18 02:51 | C.PDOC ---
History Of Present Illness 82 year old female is brought to the ED accompanied by daughter for evaluation. As per daughter while at daycare today patient was told by someone to take her nitroglycerine if she feels her heart racing. Patient took nitroglycerin and had a syncopal episode falling to the ground. Patient is known for taking numerous nitroglycerins with similar events in the past. Patient was noticed to be hypotensive on the field. Patient denies fever, chills, nausea, vomit, headache, dizziness, weakness, numbness. Time Seen by Provider: 01/18/18 02:49 History Per: EMS, Family History/Exam Limitations: no limitations Onset/Duration Of Symptoms: Hrs Current Symptoms Are (Timing): Still Present Severity: Moderate Pain Scale Rating Of: 4 Reports Recently: Treated By A Physician Recent travel outside of the [place]: No Additional History Per: EMS, Family Past Medical History Reviewed: Historical Data, Nursing Documentation, Vital Signs - Medical History PMH: Anxiety, Asthma, Atrial Fibrillation, CAD, Cardia Arrhythmia, CVA (2000), Gall Bladder Disease (Cholecystitis (April 2014)), HTN, Hypercholesterolemia, Malignancy, Osteoporosis Surgical History: Endoscopy - [facility] Procedures ATRIAL CARDIOVERSION (04/26/13) DX ULTRASOUND-HEART (04/26/13) MEASURE OF CARDIAC SAMPL & PRESSURE, L HEART, PERC APPROACH (10/19/16) OTHER ESOPHAGOSCOPY (04/26/13) PLAIN RADIOGRAPHY OF LEFT HEART USING OTHER CONTRAST (10/19/16) PLAIN RADIOGRAPHY OF MULT COR ART USING OTH CONTRAST (10/19/16) Family History: States: Unknown Family Hx, Diabetes (son) - Social History Hx Tobacco Use: Yes (Former (1992)) Hx Alcohol Use: No Hx Substance Use: No - Immunization History Hx Tetanus Toxoid Vaccination: No Hx Influenza Vaccination: No Hx Pneumococcal Vaccination: No Review Of Systems Constitutional: Negative for: Fever, Chills Eyes: Negative for: Vision Change Cardiovascular: Negative for: Chest Pain, Palpitations Respiratory: Negative for: Shortness of Breath Gastrointestinal: Negative for: Nausea, Vomiting, Abdominal Pain Skin: Negative for: Rash Neurological: Negative for: Weakness, Numbness, Headache, Dizziness Physical Exam - Physical Exam Appears: Non-toxic, No Acute Distress Skin: Warm, Dry Head: Normacephalic, No Laceration Eye(s): bilateral: Normal Inspection, PERRL, EOMI Oral Mucosa: Moist Neck: No Midline Cervical Tenderness, Supple Chest: Symmetrical Cardiovascular: Rhythm Irregular (irregularly irregular) Respiratory: No Rales, No Rhonchi, No Wheezing Gastrointestinal/Abdominal: Soft, No Tenderness, No Guarding, No Rebound Back: Normal Inspection Extremity: Normal ROM Extremity: Bilateral: Atraumatic, Normal Color And Temperature, Normal ROM Neurological/Psych: Oriented x3, Normal Speech, Normal Cognition Gait: Unable To Assess ED Course And Treatment - Laboratory Results Result Diagrams: 01/18/18 03:39 01/18/18 03:39 ECG: Interpreted By Me, Viewed By Me ECG Rhythm: Sinus Rhythm (63), 1st Degree HB, Nonspecific Changes O2 Sat by Pulse Oximetry: 97 (On RA) Pulse Ox Interpretation: Normal - Radiology CXR: Interpreted by Me, Viewed By Me CXR Interpretation: Yes: Other (unchanged from 01/05). No: Infiltrates, Fracture, Pnemothorax Progress Note: Plan: - CT head. - EKG. - Labs. - CXR. - UA Disposition Discussed With Dr.: Amos Sheikh Comment: accepted the pt on his service and took over the care at 6:22 AM Doctor Will See Patient In The: Hospital Counseled Patient/Family Regarding: Studies Performed, Diagnosis - Disposition Referrals: Marylin Chaudhry MD [Primary Care Provider] - Disposition: HOSPITALIZED Disposition Time: 02:51 Condition: FAIR - POA Present On Arrival: Poor Glycemic Control - Clinical Impression Clinical Impression: Syncope - Scribe Statement The provider has reviewed the documentation as recorded by the Scribe Truman Ventura All medical record entries made by the Scribe were at my direction and personally dictated by me. I have reviewed the chart and agree that the record accurately reflects my personal performance of the history, physical exam, medical decision making, and the department course for this patient. I have also personally directed, reviewed, and agree with the discharge instructions and disposition. Decision To Admit - Pt Status Changed To: Hospital Disposition Of: Observation - . Bed Request Type: Telemetry Admitting Physician: Amos Sheikh Patient Diagnosis: Syncope
[2018-01-18 03:45] LABS: BASO # 0.1 K/uL (0.0-0.2); BASO % 0.9 % (0.0-2.0); EOS # 0.1 K/uL (0.0-0.7); EOS % 1.6 % (0.0-4.0); HEMOGLOBIN 11.6 g/dL (11.0-16.0); LYMPH # 2.6 K/uL (1.0-4.3); LYMPH % 30.7 % (20.0-40.0); MEAN CELL VOLUME 84.2 fL (81.0-99.0); MEAN CORPUSCULAR HEMOGLOBIN 27.6 pg (27.0-31.0); MEAN CORPUSCULAR HGB CONC 32.8 g/dL (33.0-37.0); MEAN PLATELET VOLUME 8.1 fL (7.2-11.7); MONO # 0.5 K/uL (0.0-0.8); NEUT # 5.1 K/uL (1.8-7.0); NEUT % 60.8 % (50.0-75.0); RBC 4.2 Mil/uL (3.80-5.20); RED CELL DISTRIBUTION WIDTH 14.3 % (11.5-14.5); WHITE BLOOD COUNT 8.3 K/uL (4.8-10.8)
[2018-01-18 03:53] LABS: INR 1.5; PROTHROMBIN TIME 16.6 SECONDS (9.7-12.2)
[2018-01-18 03:54] LABS: ALB/GLOB RATIO 1.3 (1.0-2.1); ALBUMIN 3.8 g/dL (3.5-5.0); ALT/SGPT 25 U/L (9-52); AST/SGOT 22 U/L (14-36); BLOOD UREA NITROGEN 11 mg/dL (7-17); CALCIUM 7.3 mg/dl (8.6-10.4); GFR NON-AFRICAN AMERICAN > 60
[2018-01-18 07:34] VITALS: RESP 20
--- NOTE | 2018-01-18 07:50 | CT ---
Date of service: 01/18/2018 PROCEDURE: CT HEAD WITH CONTRAST HISTORY: fall COMPARISON: 10/11/2015 TECHNIQUE: Axial computed tomography images were obtained through the head/brain with intravenous contrast. Contrast dose: Radiation dose: Total exam DLP = 980.33 mGy-cm. This CT exam was performed using one or more of the following dose reduction techniques: Automated exposure control, adjustment of the mA and/or kV according to patient size, and/or use of iterative reconstruction technique. FINDINGS: HEMORRHAGE: No intracranial hemorrhage. BRAIN: No mass, mass effect or edema. No abnormal intracranial enhancement. Scattered focal lucencies in the subcortical and periventricular white matter suggestive for chronic microvascular ischemic change. Punctate hypodensities in the bilateral basal ganglia suggestive for lacunar infarcts. VENTRICLES: Unremarkable. No hydrocephalus. CALVARIUM: Unremarkable. PARANASAL SINUSES: Unremarkable as visualized. No significant inflammatory changes. MASTOID AIR CELLS: Unremarkable as visualized. No mastoid effusion. OTHER FINDINGS: None. IMPRESSION: Chronic microvascular ischemic change. Bilateral basal ganglia lacunar infarcts. If symptoms persists, consider correlation with MRI. A preliminary report was generated at 4:57 a.m. on 01/18/[address] Zack Nuñez from [employer].
--- NOTE | 2018-01-18 08:17 | RAD ---
Chest x-ray single frontal view HISTORY: Chest pain. COMPARISON: 01/13/2018 Findings: Mild venous congestion. Bilateral hilar prominence. Patchy increased markings at the left lung base. Tortuous ectatic aorta. Degenerative changes in the spine and shoulders. Impression: Mild venous congestion. Bilateral hilar prominence. Patchy increased markings at the left lung base.
[2018-01-18] MEDS ORDERED: Home Med 1 UNIT (Esomeprazole Magnesium [Nexium] 40 MG) PO SCH (10:00)
[2018-01-18] MEDS ORDERED: Home Med 1 UNIT (Atorvastatin [Lipitor] 20 MG) PO SCH (10:00)
[2018-01-18] MEDS ORDERED: Enoxaparin 40 mg Syringe SC SCH (10:00)
[2018-01-18] MEDS: Pantoprazole 40 mg EC Tab PO SCH (10:31)
[2018-01-18] MEDS: diltiaZEM 240 mg/24 Hours CD Cap PO SCH (10:31)
[2018-01-18 16:43] LABS: SQUAMOUS EPITHIAL 1 /hpf (0-5); URINE BACTERIA FEW (<OCC); URINE BILIRUBIN NEGATIVE (NEGATIVE); URINE BLOOD 1+ (NEGATIVE); URINE CLARITY Clear (Clear); URINE COLOR Straw (YELLOW); URINE GLUCOSE (UA) NORMAL (Normal); URINE LEUKOCYTE ESTERASE NEG Leu/uL (Negative); URINE PROTEIN NEGATIVE (NEGATIVE); URINE UROBILINOGEN NORMAL mg/dL (0.2-1.0)
--- NOTE | 2018-01-19 00:03 | HP ---
HISTORY OF PRESENT ILLNESS: An 82-year-old female who was brought in with a history of syncopal episode after taking a few nitroglycerin . Routine labs were acceptable to the ER. CAT scan showed some chronic changes and basilar infarct. She denies any chest pain, shortness of breath, orthopnea, PND or ankle edema. She had a chronic cough and was recently seen, and her Cozaar was discontinued. She also has a history of paroxysmal atrial fibrillation, has been on amiodarone 200 mg p.o. Saturday, Saturday and Saturday and Xarelto 15 mg p.o. once a day. Echocardiogram done in 10/2017 had shown normal LV systolic function, normal valves. Carotid Doppler duplex done in 05/2017 did not show any significant stenosis. PERSONAL HISTORY: She does not smoke, does not drink. ALLERGIES: DENIED. FAMILY HISTORY: Unremarkable. Negative for premature coronary artery disease. PAST SURGICAL HISTORY: Hysterectomy. PAST MEDICAL HISTORY: She was also admitted on multiple occasions to [facility], the details are unknown, but probably for chest pain and syncopal episode in the past and irregular heart rate. She also had a history of CVA in 2000, cholecystitis in 2014. She also has osteoporosis. Possible cardioversion in 04/2013. Questionable if she had a cardiac cath done in 10/2016, the details of which are unknown to me. REVIEW OF SYSTEMS CONSTITUTIONAL: Generalized weakness is noted. Right-sided facial droop is questionably new. EYES: No pallor, no vision changes. CARDIAC: Denies any chest pain or shortness of breath. Occasional palpitations. RESPIRATORY: Still has cough, but no hemoptysis. GASTROINTESTINAL: Negative for hematemesis, melena or abdominal pain. SKIN: Negative for rash. NEUROLOGICAL: Denies any weakness except some facial droop that she has told us today. GENITOURINARY: No urinary complaints. PSYCHIATRIC: No depression. MUSCULOSKELETAL: Multiple joint pains and back pains. PHYSICAL EXAMINATION GENERAL: Shows an elderly female who is conscious, alert, well oriented, follows all the commands, in no acute distress. VITAL SIGNS: She is 5 feet 1 inch and weighs 150 pounds. The weight is also as per chart review but appears around 135. Blood pressure is 120/70, heart rate of 68, respiratory of 20, afebrile. HEENT: Head is normocephalic. Eyes: No pallor, no icterus. NECK: Supple. LUNGS: Clear to auscultation. HEART: PMI is normal. S1, S2 is normal. No definite gallops or murmurs. ABDOMEN: Soft. EXTREMITIES: No cyanosis, clubbing or edema. Distal pulses are intact. NEUROLOGICAL: She is awake, alert and oriented x3. Moves all 4 extremities. weakness. Mild right-sided facial droop is noted, although swallowing is intact. She has eaten all the food normally. She is able to walk and go to the bathroom normally. ROUTINE LABORATORY DATA: CBC and chemistries all are acceptable. CAT scan of the head had shown chronic microvascular changes and possible basilar infarct, age is undetermined. ASSESSMENT: An 82-year-old female with a history of paroxysmal atrial fibrillation, has presented with a syncopal episode. PLAN: At this point to admit to telemetry. We will obtain an MRI of the head, neurological evaluation, 24-hour Holter monitoring. We will obtain the previous cardiac cath report. Amos Sheikh MD
[2018-01-19 08:41] LABS: BASO # 0.1 K/uL (0.0-0.2); BASO % 0.9 % (0.0-2.0); EOS # 0.1 K/uL (0.0-0.7); EOS % 1.6 % (0.0-4.0); HEMOGLOBIN 12.4 g/dL (11.0-16.0); LYMPH # 2.8 K/uL (1.0-4.3); LYMPH % 45.8 % (20.0-40.0); MEAN CELL VOLUME 83.7 fL (81.0-99.0); MEAN CORPUSCULAR HEMOGLOBIN 27.5 pg (27.0-31.0); MEAN CORPUSCULAR HGB CONC 32.9 g/dL (33.0-37.0); MEAN PLATELET VOLUME 7.9 fL (7.2-11.7); MONO # 0.4 K/uL (0.0-0.8); MONO % 6.8 % (0.0-10.0); NEUT # 2.8 K/uL (1.8-7.0); NEUT % 44.9 % (50.0-75.0); NRBC % 0.1 % (0.0-2.0); RBC 4.51 Mil/uL (3.80-5.20); RED CELL DISTRIBUTION WIDTH 14.3 % (11.5-14.5); WHITE BLOOD COUNT 6.1 K/uL (4.8-10.8)
[2018-01-19 08:55] LABS: ALB/GLOB RATIO 1.4 (1.0-2.1); ALT/SGPT 25 U/L (9-52); AST/SGOT 25 U/L (14-36); BLOOD UREA NITROGEN 11 mg/dL (7-17); CALCIUM 7.9 mg/dl (8.6-10.4); GFR NON-AFRICAN AMERICAN > 60
[2018-01-19] MEDS: Pantoprazole 40 mg EC Tab PO SCH (09:47)
[2018-01-19] MEDS: diltiaZEM 240 mg/24 Hours CD Cap PO SCH (09:47)
[2018-01-19 15:22] LABS: HDL CHOLESTEROL 60 mg/dL (30-70)
[2018-01-19 15:33] LABS: LDL CHOLESTEROL 108 mg/dL (0-129)
[2018-01-20] MEDS: diltiaZEM 240 mg/24 Hours CD Cap PO SCH (09:06)
[2018-01-20] MEDS: Pantoprazole 40 mg EC Tab PO SCH (09:12)
--- NOTE | 2018-01-20 14:49 | CP.PCM.PN ---
Subjective - Date & Time of Evaluation Date of Evaluation: 01/20/18 Time of Evaluation: 14:48 - Subjective Subjective: vitals noted.pt in mri Objective - Vital Signs/Intake and Output Vital Signs (last 24 hours): Temp Pulse Resp BP Pulse Ox 97.9 F 72 20 135/70 98 01/20/18 08:00 01/20/18 08:00 01/20/18 08:00 01/20/18 09:06 01/20/18 08:00 - Medications Medications: Current Medications Aspirin (Ecotrin) 81 mg PO DAILY [facility] Last Admin: 01/20/18 09:06 Dose: 81 mg Diltiazem HCl (Cardizem Cd) 240 mg PO DAILY [facility] Last Admin: 01/20/18 09:06 Dose: 240 mg Furosemide (Lasix) 20 mg PO DAILY [facility] Last Admin: 01/20/18 09:06 Dose: 20 mg Montelukast Sodium (Singulair) 10 mg PO DAILY [facility] Last Admin: 01/20/18 09:06 Dose: 10 mg Pantoprazole Sodium (Protonix Ec Tab) 40 mg PO DAILY [facility] Last Admin: 01/20/18 09:12 Dose: 40 mg Pneumococcal Polyvalent Vaccine (Pneumovax 23 Vaccine) 0.5 ml IM .ONCE ONE Stop: 01/20/18 15:25 Rivaroxaban (Xarelto) 15 mg PO DAILY [facility] Last Admin: 01/20/18 09:06 Dose: 15 mg Rosuvastatin Calcium (Crestor) 10 mg PO HS [facility] Last Admin: 01/19/18 21:18 Dose: 10 mg - Labs Labs: 01/19/18 08:31 01/19/18 08:31 PT 16.6 SECONDS (9.7-12.2) H 01/18/18 03:39 INR 1.5 01/18/18 03:39 APTT 32 SECONDS (21-34) 01/18/18 03:39 - Constitutional Appears: No Acute Distress - Head Exam Head Exam: NORMOCEPHALIC - Respiratory Exam Respiratory Exam: Clear to Ausculation Bilateral - Cardiovascular Exam Cardiovascular Exam: REGULAR RHYTHM - GI/Abdominal Exam GI & Abdominal Exam: Soft - Neurological Exam Neurological Exam: Alert, Oriented x3 Assessment and Plan - Assessment and Plan (Free Text) Plan: seen by [email or web address].
[2018-01-20] MEDS ORDERED: Pneumococcal 23-Valent Vaccine IM ONE (15:24)
--- NOTE | 2018-01-20 15:40 | MRI ---
Date of service: 01/20/2018 PROCEDURE: MRI BRAIN WITHOUT CONTRAST HISTORY: Possible stroke COMPARISON: Comparison made with prior CT scan brain 01/18/2018.. TECHNIQUE: Multiplanar, multisequence MR images of the brain were obtained without intravenous contrast enhancement. Note this study is limited by motion artifact. FINDINGS: HEMORRHAGE: No acute parenchymal, subarachnoid or extra-axial hemorrhage. No evidence of hemosiderin deposition is identified on gradient echo weighted sequence. DWI: No evidence of an acute or early subacute infarction seen on diffusion imaging. BRAIN PARENCHYMA: Mild-moderate moderate diffuse confluent chronic white matter ischemic changes seen extending peripherally into the deep and to a lesser degree subcortical white matter both cerebral hemispheres most conspicuous in the focal areas of prolonged T2 signal also seen scattered about the deep and subcortical white matter some of which are confluent as well, consistent with microvascular ischemic disease. Scattered chronic bilateral basal nuclei lacunar type infarcts are present. Moderate generalized volume loss. No obvious parenchymal nor extra-axial mass or collection seen on this noncontrast exam VENTRICLES: No obstructive hydrocephalus. CRANIUM: Calvarium grossly unremarkable.. ORBITS: Changes of bilateral cataract surgery again noted. PARANASAL SINUSES/MASTOIDS: Clear VASCULAR SYSTEM: Visualized major vascular flow voids at skull base patent.. OTHER FINDINGS: None. IMPRESSION: Limited motion degraded study. No evidence of acute intracranial hemorrhage or infarct. [id number] chronic white matter and basal nuclei ischemic changes. Moderate generalized volume loss
[2018-01-21 07:36] VITALS: TEMP 98.1; O2SAT 96
[2018-01-21] MEDS: Pantoprazole 40 mg EC Tab PO SCH (10:07)
[2018-01-21] MEDS: diltiaZEM 240 mg/24 Hours CD Cap PO SCH (10:07)
[2018-01-21 10:08] VITALS: BP 136/72
[2018-01-21 12:56] VITALS: PULSE 102
--- NOTE | 2018-01-21 19:16 | CARD ---
APPROVED REPORT Date of service: 01/18/2018 EKG Measurement Heart [id number] <Conclusion> Sinus rhythm with 1st degree AV block Left axis deviation Left bundle branch block Abnormal ECG
--- NOTE | 2018-01-22 05:34 | DS ---
An 82-year-old female was brought in with a syncopal episode. The patient has history of hypertension, paroxysmal atrial fibrillation. She also has a history of cath done in the past, the report of which is not available. Echocardiogram done recently and carotids were noted and had a normal LV systolic function. No significant valvular heart disease. CAT scan of the head and MRI were done. Neuro consult was obtained and there was no new infarct. Chronic changes were noted, cerebral atrophy was noted related to the age. Routine labs were acceptable. Physical therapy and speech therapy have been ordered. The patient is stable at this point. She will be discharged today to be followed as an outpatient. She is on Cardizem 240 mg once a day, Crestor 10 mg, baby aspirin one a day, Lasix 20, Protonix, and Xarelto 15 mg p.o. one a day. She has been on amiodarone three times a week which will be continued as an outpatient. She was advised to avoid using too many nitroglycerin on the tongue unless she has chest pressures and this was explained to the patient's daughter who was at the bedside. Medical therapy will be continued at this point. Mild right-sided facial droop was noted, which is questionable whether it is new or old. There is no other focal sign. The patient is awake, alert, oriented, and she is able to ambulate. Outpatient physical therapy will be continued. She came with a syncopal episode. FINAL DIAGNOSES: Syncope, hypertension, paroxysmal atrial fibrillation. Amos Sheikh MD
== END 2018-01-21 14:16 | disposition home or self-care (01) | DRG 312 ==
LOC: C.ER 02:40 → SUPCPDRO 02:40 → C.5S 06:20 → OBSVTOIN 06:32
PROVIDERS: ADMIT Internal Medicine Cardiovascular Disease; ATTEND Internal Medicine Cardiovascular Disease
DX: R55 Syncope and collapse (principal); I48.0 Paroxysmal atrial fibrillation; I10 Essential (primary) hypertension; I25.10 Atherosclerotic heart disease of native coronary artery without angina pectoris; J45.909 Unspecified asthma, uncomplicated; M81.0 Age-related osteoporosis without current pathological fracture; E78.00 Pure hypercholesterolemia, unspecified; R29.810 Facial weakness; Z79.01 Long term (current) use of anticoagulants; Z86.73 Personal history of transient ischemic attack (TIA), and cerebral infarction without residual deficits; Z87.891 Personal history of nicotine dependence

== ENCOUNTER 2018-03-28 00:07 | Inpatient (IN) | payer MEDICARE, MEDICAID ==
[2018-03-28] MEDS ORDERED: Sodium Chloride 0.9% 1,000 ML IV ONE ×2 (00:30→07:56)
--- NOTE | 2018-03-28 00:32 | C.PDOC ---
History Of Present Illness 82 year old female presents to the ER with sudden onset chest pain that began tonight described to be to the anterior chest wall and nonradiating. Denies fever or chills. Time Seen by Provider: 03/28/18 00:20 Chief Complaint (Nursing): Chest Pain History Per: Patient History/Exam Limitations: no limitations Onset/Duration Of Symptoms: Hrs, Sudden Onset Current Symptoms Are (Timing): Still Present Modifying Factors: None Exacerbating Factors: None Alleviating Factors: None Recent travel outside of the [place]: No Past Medical History Reviewed: Historical Data, Nursing Documentation, Vital Signs Vital Signs: Last Vital Signs Temp 98.5 F 03/28/18 00:26 Pulse 62 03/28/18 00:26 Resp 18 03/28/18 00:26 BP 95/60 L 03/28/18 00:26 Pulse Ox 95 03/28/18 00:26 - Medical History PMH: Anxiety, Asthma, Atrial Fibrillation, CAD, Cardia Arrhythmia, CVA (2000), Gall Bladder Disease (Cholecystitis (April 2014)), HTN, Hypercholesterolemia, Malignancy, Osteoporosis Surgical History: Cholecystectomy, Endoscopy - [facility] ATRIAL CARDIOVERSION (04/26/13) DX ULTRASOUND-HEART (04/26/13) MEASURE OF CARDIAC SAMPL & PRESSURE, L HEART, PERC APPROACH (10/19/16) OTHER ESOPHAGOSCOPY (04/26/13) PLAIN RADIOGRAPHY OF LEFT HEART USING OTHER CONTRAST (10/19/16) PLAIN RADIOGRAPHY OF MULT COR ART USING OTH CONTRAST (10/19/16) Family History: States: Diabetes (son) - Social History Hx Tobacco Use: Yes (Former (1992)) Hx Alcohol Use: No Hx Substance Use: No - Immunization History Hx Tetanus Toxoid Vaccination: No Hx Influenza Vaccination: No Hx Pneumococcal Vaccination: No Review Of Systems Constitutional: Negative for: Fever, Chills Cardiovascular: Positive for: Chest Pain Respiratory: Negative for: Cough, Shortness of Breath Gastrointestinal: Negative for: Nausea, Vomiting Neurological: Negative for: Weakness, Numbness Physical Exam - Physical Exam Appears: In Acute Distress Skin: Normal Color, Warm, Dry Head: Atraumatic, Normacephalic Eye(s): bilateral: Normal Inspection Oral Mucosa: Moist Neck: Normal, No Midline Cervical Tenderness, No Paracervical Tenderness, Supple Chest: Symmetrical, No Tenderness Cardiovascular: Rhythm Regular Respiratory: Normal Breath Sounds, No Rales, No Rhonchi, No Wheezing Gastrointestinal/Abdominal: Soft, No Tenderness Neurological/Psych: Oriented x3, Normal Speech ED Course And Treatment - Laboratory Results Result Diagrams: 03/28/18 01:26 03/28/18 01:26 ECG: Interpreted By Me, Viewed By Me ECG Rhythm: Junctional Rhythm, ST/T Changes ECG Interpretation: Abnormal Interpretation Of ECG: junctional rhythm. IRBBB,ST-T abnormality, INferolateral wall Area-ischemic changes., no St elevation. Rate From EC O2 Sat by Pulse Oximetry: 95 (Room air) Pulse Ox Interpretation: Normal - Radiology CXR: Interpreted by Me CXR Interpretation: Yes: No Acute Disease, Cardiomegaly Progress Note: EKG, blood work, and CXR ordered. IV fluids, morphine, and nitro administered. Disposition Discussed With : Elif Dunnim Doctor Will See Patient In The: Hospital Counseled Patient/Family Regarding: Diagnosis - Disposition Referrals: Marylin Chaudhry MD [Primary Care Provider] - Disposition: HOSPITALIZED Disposition Time: 02:30 Condition: GUARDED Forms: [facility] (Malagasy) - POA Present On Arrival: None - Clinical Impression Clinical Impression: Chest pain, Hypotension, Cardiac arrhythmia - Scribe Statement The provider has reviewed the documentation as recorded by the Scribe Jose Alejandro Hunter All medical record entries made by the Scribe were at my direction and perso irma dictated by me. I have reviewed the chart and agree that the record accurately reflects my personal performance of the history, physical exam, medical decision making, and the department course for this patient. I have also personally directed, reviewed, and agree with the discharge instructions and disposition.
[2018-03-28] MEDS ORDERED: Sodium Chloride 0.9% 3,000 ML IV ONE (00:45)
[2018-03-28] MEDS ORDERED: Naloxone HCl 2mg/2ml syr IVP ONE (00:55)
[2018-03-28] MEDS ORDERED: Sodium Chloride 0.9% 1,000 ML ONE (00:55)
[2018-03-28] MEDS ORDERED: Naloxone 0.4 mg/ml Inj (Adult) ONE (00:55)
[2018-03-28 01:30] LABS: BASO # 0.1 K/uL (0.0-0.2); BASO % 0.6 % (0.0-2.0); EOS # 0.2 K/uL (0.0-0.7); EOS % 1.4 % (0.0-4.0); HEMOGLOBIN 11.7 g/dL (11.0-16.0); LYMPH # 3.6 K/uL (1.0-4.3); LYMPH % 27.7 % (20.0-40.0); MEAN CORPUSCULAR HEMOGLOBIN 27.3 pg (27.0-31.0); MEAN CORPUSCULAR HGB CONC 32.2 g/dL (33.0-37.0); MEAN PLATELET VOLUME 8.6 fL (7.2-11.7); MONO # 0.9 K/uL (0.0-0.8); NEUT # 8.2 K/uL (1.8-7.0); NEUT % 63.3 % (50.0-75.0); RBC 4.29 Mil/uL (3.80-5.20); RED CELL DISTRIBUTION WIDTH 15.8 % (11.5-14.5); WHITE BLOOD COUNT 12.9 K/uL (4.8-10.8)
[2018-03-28 01:41] LABS: D DIMER 228 ng/mlDDU (0-243); PARTIAL THROMBOPLASTIN TIME 37 SECONDS (21-34)
[2018-03-28 01:46] LABS: BLOOD UREA NITROGEN 18 mg/dL (7-17); CALCIUM 7.8 mg/dl (8.6-10.4); GFR NON-AFRICAN AMERICAN > 60
[2018-03-28 01:51] LABS: ALB/GLOB RATIO 1.4 (1.0-2.1); ALBUMIN 4.1 g/dL (3.5-5.0); ALT/SGPT 25 U/L (9-52); AST/SGOT 49 U/L (14-36)
[2018-03-28 02:02] LABS: B-TYPE NATRIURETIC PEPTIDE 2130 pg/mL (0-900)
[2018-03-28] MEDS ORDERED: Alum-Mag Hydrox-Simethicone Susp (30 mL) PO ONE (02:21)
[2018-03-28] MEDS ORDERED: Sodium Chloride 0.9% 3,000 ML ONE (02:22)
--- NOTE | 2018-03-28 02:27 | CP.PCM.CON ---
History of Present Illness - History of Present Illness History of Present Illness: Patient presents to [facility] (formerly [facility]) near 4PM. Patient c/o chest pain. Patient was given morphine and sublinguinal nitro. As per nursing pt's blood pressure dropped and then 0.2 mg of narca pushed and patient awoken. Blood work reals tro p neg. ICu consulted as patient has low BP. Patient seen and examined at bedside. Patient is drowsy, not able to provide any history. Patient points to epigastric area as site of pain. no nausea or v omitting, Patient unable to state whether she had a bowel movement. -lactic not available -Patient too drowsy to provide any history -EKG reveals new T wave inversion on inferior leads Pmx: CAD, Psurg history: not obtainable social history: unknown as patient is drowsy Review of Systems - Review of Systems Systems not reviewed;Unavailable: Altered Mental Status Past Patient History - Infectious Disease Hx of Infectious Diseases: None - Past Medical History & Family History Past Medical History?: Yes - Past Social History Smoking Status: Never Smoked - CARDIAC Hx Atrial Fibrillation: Yes Hx Cardia Arrhythmia: Yes Hx Hypercholesterolemia: Yes Hx Hypertension: Yes - PULMONARY Hx Asthma: Yes - NEUROLOGICAL HX Cerebrovascular Accident: Yes - HEENT Hx HEENT Problems: Yes Hx Cataracts: Yes (both eyes) Other/Comment: wear eyeglasses - ENDOCRINE/METABOLIC Hx Endocrine Disorders: No - HEMATOLOGICAL/ONCOLOGICAL Hx Blood Disorders: No Hx Blood Transfusions: No - INTEGUMENTARY Hx Dermatological Problems: No - MUSCULOSKELETAL/RHEUMATOLOGICAL Hx Osteoporosis: Yes - GASTROINTESTINAL Hx Gall Bladder Disease: Yes (Cholecystitis (April 2014)) - GENITOURINARY/GYNECOLOGICAL Hx Genitourinary Disorders: Yes Hx Cervical Cancer: Yes (S/P HYSTERECTOMY) - PSYCHIATRIC Hx Anxiety: Yes Hx Substance Use: No - SURGICAL HISTORY Hx Cholecystectomy: Yes - ANESTHESIA Hx Anesthesia: Yes Hx Anesthesia Reactions: No Hx Malignant Hyperthermia: No Meds Allergies/Adverse Reactions: Allergies Allergy/AdvReac Type Severity Reaction Status Date / Time paroxetine HCl [From Paxil] Allergy Verified 03/28/18 00:25 tramadol Allergy Verified 03/28/18 00:25 - Medications Medications: Current Medications Al Hydrox/Mg Hydrox/Simethicone (Maalox Plus 30 Ml) 30 ml PO ONCE ONE Stop: 03/28/18 02:22 Sodium Chloride (Sodium Chloride 0.9%) 1,000 mls @ 100 mls/hr IV .Q10H ONE Stop: 03/28/18 10:29 Last Admin: 03/28/18 00:30 Dose: 100 mls/hr Pantoprazole Sodium (Protonix Inj) 40 mg IVP Q12H MATT Physical Exam - Head Exam Head Exam: ATRAUMATIC, NORMAL INSPECTION, NORMOCEPHALIC - Eye Exam Eye Exam: EOMI - ENT Exam ENT Exam: Mucous Membranes Dry - Respiratory Exam Respiratory Exam: Clear to Auscultation Bilateral, NORMAL BREATHING PATTERN. absent: Rales, Rhonchi, Wheezes, Respiratory Distress, Stridor - Cardiovascular Exam Cardiovascular Exam: REGULAR RHYTHM, +S1, +S2, Systolic Murmur - GI/Abdominal Exam GI & Abdominal Exam: Normal Bowel Sounds, Soft, Tenderness. absent: Distended, Firm, Guarding, Hernia, Organomegaly, Pulsatile Mass, Rebound, Rigid - Extremities Exam Extremities exam: Positive for: normal capillary refill, normal inspection. Negative for: pedal edema - Neurological Exam Neurological exam: Altered - Skin Skin Exam: Normal Color Results - Vital Signs Recent Vital Signs: Last Vital Signs Temp 98.5 F 03/28/18 00:26 Pulse 62 03/28/18 00:26 Resp 18 03/28/18 00:26 BP 95/60 L 03/28/18 00:26 Pulse Ox 95 03/28/18 02:12 - Labs Result Diagrams: 03/28/18 06:11 03/28/18 06:11 Labs: Laboratory Results - last 24 hr 03/28/18 03/28/18 03/28/18 01:26 01:26 01:26 WBC 12.9 H D RBC 4.29 Hgb 11.7 Hct 36.5 MCV 85.0 MCH 27.3 MCHC 32.2 L RDW 15.8 H Plt Count 245 MPV 8.6 Neut % (Auto) 63.3 Lymph % (Auto) 27.7 [place] % (Auto) 7.0 Eos % (Auto) 1.4 Baso % (Auto) 0.6 Neut # (Auto) 8.2 H Lymph # (Auto) 3.6 [place] # (Auto) 0.9 H Eos # (Auto) 0.2 Baso # (Auto) 0.1 APTT 37 H D-Dimer, Quantitative 228 Sodium 136 Potassium 5.4 H Chloride 105 Carbon Dioxide 25 Anion Gap 11 BUN 18 H Creatinine 0.6 L Est GFR ( Amer) > 60 Est GFR (Non-Af Amer) > 60 Random Glucose 135 H D Calcium 7.8 L Total Bilirubin 1.0 AST 49 H D ALT 25 Alkaline Phosphatase 49 Troponin I < 0.0120 NT-Pro-B Natriuret Pep 2130 H Total Protein 7.1 Albumin 4.1 Globulin 3.0 Albumin/Globulin Ratio 1.4 Assessment & Plan - Assessment and Plan (Free Text) Assessment: Chest Pain/Epihastric pain: trop first set neg/(alt neg), oral maalox, check amylas/lipase, given patient's age, suspect patient has h/o CAD (previously seen by fashion photographer) -epigastric pain: while on NOAC: suspect upper Gi bleed:continue IV protonix q12hrs', obtain lactic, obtain CT abd/pelvis with oral contrast -Chornic diastolic heart failure: avoid fluid overload state, IVF to maintain BP -AMS: check drug screening, obtain CT head -Leukocytosis: but no signs of fevers, hypotension (suspect 2nd morphine and nitro SUB lingual-- Jan 18, 2018 similar episode), rodriguez culture,start epirical abx, patient refused Fitch and urine analsysis, empriically on zosyn, US of RUQ pending -NPO -DVT ppx was on NOAC at home: start heparin SQ -PUD ppx protonix q12 Patient's history and physical are not diagnostic 2nd confounding effects of morphine and AMS. -pending lab tests and CT head/CT abd.pelvis -Patient's SBP near 90s-100 (while ususally patient's BSP near 130s - from previous admissions) -continue to monitor -will obtain home medication list when patient more awake (morphine metabolized out) - Date & Time Date: 03/28/18 Time: 02:33
[2018-03-28] MEDS ORDERED: Alum-Mag Hydrox-Simethicone Susp (30 mL) ONE (02:52)
[2018-03-28 03:05] LABS: ABG ALLEN TEST POS; ARTERIAL BLOOD GAS HCO3 18.6 mmol/L (21-28); ARTERIAL BLOOD GAS O2 SAT 98.3 % (95-98); ARTERIAL BLOOD GAS PCO2 37 mm/Hg (35-45); ARTERIAL BLOOD GAS PH 7.29 (7.35-7.45); ARTERIAL BLOOD GAS PO2 97 mm/Hg (80-100); ARTERIAL BLOOD GAS TCO2 18.9 mmol/L (22-28)
[2018-03-28 03:31] LABS: AMYLASE 38 U/L (30-110); LIPASE 128 U/L (23-300)
[2018-03-28 05:10] VITALS: BMI 24.8
[2018-03-28 06:36] LABS: ALB/GLOB RATIO 1.2 (1.0-2.1); ALBUMIN 3.1 g/dL (3.5-5.0); ALT/SGPT 114 U/L (9-52); AST/SGOT 106 U/L (14-36); BLOOD UREA NITROGEN 13 mg/dL (7-17); CALCIUM 6.4 mg/dl (8.6-10.4); GFR NON-AFRICAN AMERICAN > 60
[2018-03-28 07:20] LABS: BASO % 0.2 % (0.0-2.0); EOS % 0.2 % (0.0-4.0); HEMOGLOBIN 10.6 g/dL (11.0-16.0); LYMPH % 17.5 % (20.0-40.0); MEAN CELL VOLUME 85.5 fL (81.0-99.0); MEAN CORPUSCULAR HEMOGLOBIN 26.9 pg (27.0-31.0); MEAN CORPUSCULAR HGB CONC 31.5 g/dL (33.0-37.0); MEAN PLATELET VOLUME 8.7 fL (7.2-11.7); MONO # 0.6 K/uL (0.0-0.8); MONO % 5.2 % (0.0-10.0); NEUT # 8.8 K/uL (1.8-7.0); NEUT % 76.9 % (50.0-75.0); RBC 3.94 Mil/uL (3.80-5.20); WHITE BLOOD COUNT 11.4 K/uL (4.8-10.8)
[2018-03-28] MEDS: Piperacillin/Tazobact 3.375 GM in Sodium Chloride 100 ML IVPB SCH ×3 (08:31→18:24)
--- NOTE | 2018-03-28 08:38 | CT ---
Date of service: 03/28/2018 PROCEDURE: CT HEAD WITHOUT CONTRAST. HISTORY: AMS while on blood thinner NOAC COMPARISON: 01/18/2018. TECHNIQUE: Axial computed tomography images were obtained through the head/brain without intravenous contrast. Radiation dose: Total exam DLP = 896.34 mGy-cm. This CT exam was performed using one or more of the following dose reduction techniques: Automated exposure control, adjustment of the mA and/or kV according to patient size, and/or use of iterative reconstruction technique. FINDINGS: HEMORRHAGE: No intracranial hemorrhage. BRAIN: There are mild chronic microangiopathic changes. There is no mass, mass effect or abnormal extra-axial fluid collection. There is no territorial infarction. The midline sagittal structures are normal. VENTRICLES: There is mild age-related global parenchymal volume loss and proportionate enlargement of the ventricles and cortical sulci. CALVARIUM: There is no calvarial fracture or extracranial soft tissue swelling. PARANASAL SINUSES: There are aerosolized secretions in the left posterior ethmoid air cells. The remaining included paranasal sinuses are predominantly MASTOID AIR CELLS: Predominantly clear. OTHER FINDINGS: None. IMPRESSION: No acute intracranial abnormality. Mild chronic microangiopathic changes and mild age-related global parenchymal volume loss. Acute and/or chronic left posterior ethmoid sinusitis. A preliminary report was provided by [employer].
[2018-03-28 08:44] LABS: ALB/GLOB RATIO 1.2 (1.0-2.1); ALBUMIN 3.1 g/dL (3.5-5.0); ALT/SGPT 97 U/L (9-52); AST/SGOT 91 U/L (14-36); BLOOD UREA NITROGEN 11 mg/dL (7-17); CALCIUM 6.3 mg/dl (8.6-10.4); GFR NON-AFRICAN AMERICAN > 60
--- NOTE | 2018-03-28 09:21 | RAD ---
Date of service: 03/28/2018 PROCEDURE: CHEST RADIOGRAPH, 1 VIEW HISTORY: chest pain COMPARISON: 01/18/2018. FINDINGS: LUNGS: The lungs are well inflated and clear. PLEURA: No pneumothorax or pleural effusion. CARDIOVASCULAR: There is mild cardiomegaly. No aortic atherosclerotic calcifications present. OSSEOUS STRUCTURES: Within normal limits for the patient's age. VISUALIZED UPPER ABDOMEN: Normal. OTHER FINDINGS: None. IMPRESSION: No active pulmonary disease.
[2018-03-28 09:47] LABS: HEMOGLOBIN 9.3 g/dL (11.0-16.0); MEAN CELL VOLUME 85.5 fL (81.0-99.0); MEAN CORPUSCULAR HEMOGLOBIN 27.7 pg (27.0-31.0); MEAN CORPUSCULAR HGB CONC 32.4 g/dL (33.0-37.0); RBC 3.37 Mil/uL (3.80-5.20)
[2018-03-28 10:12] LABS: BARBITURATES, UR NEGATIVE (NEGATIVE); BENZODIAZEPINES, UR NEGATIVE (NEGATIVE); PHENCYCLIDINE, UR NEGATIVE (NEGATIVE)
--- NOTE | 2018-03-28 10:25 | US ---
HISTORY: r/o cholecystitis COMPARISON: CT abdomen and pelvis without contrast performed 03/28/18 TECHNIQUE: Sonographic evaluation of the abdomen. FINDINGS: LIVER: Measures 13.0 cm in sagittal dimension. Echogenic liver may be seen in setting of hepatic parenchymal disease or fatty infiltration. No focal hepatic mass identified. The main portal vein appears patent with normal directional flow. No intrahepatic bile duct dilatation. GALLBLADDER: No gallstones. Small pericholecystic edema. Gallbladder wall thickening measuring approximately 6 mm. Negative sonographic Gardner's sign as assessed by the orthodontic technician assistant. COMMON BILE DUCT: Measures 5 mm. PANCREAS: Not well visualized. RIGHT KIDNEY: Measures 12.9 x 5.0 x 5.4 cm. No obstructing calculus or hydronephrosis identified. 8.0 x 5.4 x 6.7 cm septated lower pole cyst. 5.8 x 4.7 x 5.7 cm midpole cyst. LEFT KIDNEY: Measures 12.1 x 5.6 x 5.7 cm. No obstructing calculus or hydronephrosis identified. SPLEEN: Measures approximately 7.7 cm. AORTA: Limited views appear unremarkable. IVC: Limited views appear unremarkable. OTHER FINDINGS: None. IMPRESSION: Echogenic liver may be seen in setting of hepatic parenchymal disease or fatty infiltration. Gallbladder wall thickening/pericholecystic edema. No evidence of gallstones. Negative sonographic Gardner's sign as assessed by the orthodontic technician assistant. 8.0 x 5.4 x 6.7 cm septated lower pole cyst. 5.8 x 4.7 x 5.7 cm midpole cyst.
[2018-03-28 10:36] LABS: OPIATES, UR POSITIVE (NEGATIVE)
--- NOTE | 2018-03-28 11:30 | CP.PCM.HP ---
History of Present Illness - History of Present Illness History of Present Illness: pt came in to ed for chest lam retrosternal Present on Admission - Present on Admission Any Indicators Present on Admission: Yes Review of Systems - Review of Systems Systems not reviewed;Unavailable: Acuity of Condition - Constitutional Constitutional: Fatigue - EENT Eyes: As Per HPI Ears: As Per HPI Nose/Mouth/Throat: As Per HPI - Breasts Breasts: As Per HPI - Cardiovascular Cardiovascular: Chest Pain, Chest Pain at Rest, Chest Pain with Activity, Lightheadedness - Respiratory Respiratory: Dyspnea on Exertion - Gastrointestinal Gastrointestinal: As Per HPI - Genitourinary Genitourinary: As Per HPI - Reproductive: Female Reproductive:Female: As Per HPI - Menstruation Menstruation: As Per HPI, Post Menopausal - Musculoskeletal Musculoskeletal: As Per HPI - Integumentary Integumentary: As Per HPI - Neurological Neurological: Dizziness - Psychiatric Psychiatric: As Per HPI - Endocrine Additional Comments: dm - Hematologic/Lymphatic Hematologic: As Per HPI Past Patient History - Infectious Disease Hx of Infectious Diseases: None - Past Medical History & Family History Past Medical History?: Yes - Past Social History Smoking Status: Never Smoked - CARDIAC Hx Hypercholesterolemia: Yes Hx Hypertension: Yes - PULMONARY Hx Asthma: Yes - NEUROLOGICAL HX Cerebrovascular Accident: Yes - HEENT Hx HEENT Problems: Yes Hx Cataracts: Yes (both eyes) Other/Comment: wear eyeglasses - ENDOCRINE/METABOLIC Hx Endocrine Disorders: No - HEMATOLOGICAL/ONCOLOGICAL Hx Blood Disorders: No Hx Blood Transfusions: No - INTEGUMENTARY Hx Dermatological Problems: No - MUSCULOSKELETAL/RHEUMATOLOGICAL Hx Osteoporosis: Yes - GASTROINTESTINAL Hx Gall Bladder Disease: Yes (Cholecystitis (April 2014)) - GENITOURINARY/GYNECOLOGICAL Hx Genitourinary Disorders: Yes Hx Cervical Cancer: Yes (S/P HYSTERECTOMY) - PSYCHIATRIC Hx Anxiety: Yes Hx Substance Use: No - SURGICAL HISTORY Hx Cholecystectomy: Yes - ANESTHESIA Hx Anesthesia: Yes Hx Anesthesia Reactions: No Hx Malignant Hyperthermia: No Meds Allergies/Adverse Reactions: Allergies Allergy/AdvReac Type Severity Reaction Status Date / Time paroxetine HCl [From Paxil] Allergy Verified 03/28/18 00:25 tramadol Allergy Verified 03/28/18 00:25 Physical Exam - Constitutional Appears: In Acute Distress - Head Exam Head Exam: ATRAUMATIC - Eye Exam Eye Exam: Normal appearance Pupil Exam: NORMAL ACCOMODATION - ENT Exam ENT Exam: Mucous Membranes Moist - Neck Exam Neck exam: Positive for: Normal Inspection - Respiratory Exam Respiratory Exam: Clear to Auscultation Bilateral - Cardiovascular Exam Cardiovascular Exam: REGULAR RHYTHM - GI/Abdominal Exam GI & Abdominal Exam: Normal Bowel Sounds - Rectal Exam Rectal Exam: Deferred - Extremities Exam Extremities exam: Positive for: normal inspection - Back Exam Back exam: NORMAL INSPECTION - Neurological Exam Neurological exam: Abnormal Gait, Alert, Oriented x3 - Psychiatric Exam Psychiatric exam: Normal Affect - Skin Skin Exam: Normal Color Results - Vital Signs Recent Vital Signs: Last Vital Signs Temp 98.2 F 03/28/18 08:00 Pulse 73 03/28/18 10:01 Resp 14 03/28/18 10:01 BP 132/58 L 03/28/18 10:01 Pulse Ox 97 03/28/18 10:01 - Labs Result Diagrams: 03/28/18 09:44 03/28/18 08:22 Labs: Laboratory Results - last 24 hr 03/28/18 03/28/18 03/28/18 01:26 01:26 01:26 WBC 12.9 H D RBC 4.29 Hgb 11.7 Hct 36.5 MCV 85.0 MCH 27.3 MCHC 32.2 L RDW 15.8 H Plt Count 245 MPV 8.6 Neut % (Auto) 63.3 Lymph % (Auto) 27.7 [place] % (Auto) 7.0 Eos % (Auto) 1.4 Baso % (Auto) 0.6 Neut # (Auto) 8.2 H Lymph # (Auto) 3.6 [place] # (Auto) 0.9 H Eos # (Auto) 0.2 Baso # (Auto) 0.1 APTT 37 H D-Dimer, Quantitative 228 Puncture Site pCO2 pO2 HCO3 ABG pH ABG Total CO2 ABG O2 Saturation ABG Base Excess Adan Test ABG Potassium Glucose Lactate Liter Flow Sodium 136 Potassium 5.4 H Chloride 105 Carbon Dioxide 25 Anion Gap 11 BUN 18 H Creatinine 0.6 L Est GFR ( Amer) > 60 Est GFR (Non-Af Amer) > 60 Random Glucose 135 H D Lactic Acid Calcium 7.8 L Phosphorus Magnesium Total Bilirubin 1.0 AST 49 H D ALT 25 Alkaline Phosphatase 49 Troponin I < 0.0120 NT-Pro-B Natriuret Pep 2130 H Total Protein 7.1 Albumin 4.1 Globulin 3.0 Albumin/Globulin Ratio 1.4 Amylase Lipase Arterial Blood Potassium Urine Opiates Screen Urine Methadone Screen Ur Barbiturates Screen Ur Phencyclidine Scrn Ur Amphetamines Screen U Benzodiazepines Scrn U Oth Cocaine Metabols U Cannabinoids Screen 03/28/18 03/28/18 03/28/18 02:23 02:59 06:11 WBC RBC Hgb Hct MCV MCH MCHC RDW Plt Count MPV Neut % (Auto) Lymph % (Auto) [place] % (Auto) Eos % (Auto) Baso % (Auto) Neut # (Auto) Lymph # (Auto) [place] # (Auto) Eos # (Auto) Baso # (Auto) APTT D-Dimer, Quantitative Puncture Site R rad pCO2 37 pO2 97 HCO3 18.6 L ABG pH 7.29 L ABG Total CO2 18.9 L ABG O2 Saturation 98.3 H ABG Base Excess -8.1 L Adan Test Pos ABG Potassium 3.8 Glucose 143 H Lactate 1.5 Liter Flow 3.0 Sodium 139.0 138 Potassium 3.8 Chloride 116.0 H 112 H Carbon Dioxide 22 Anion Gap 9 L BUN 13 Creatinine 0.5 L Est GFR ( Amer) > 60 Est GFR (Non-Af Amer) > 60 Random Glucose 135 H Lactic Acid Calcium 6.4 L Phosphorus 1.9 L Magnesium 1.6 Total Bilirubin 0.3 AST 106 H D ALT 114 H D Alkaline Phosphatase 77 Troponin I < 0.0120 NT-Pro-B Natriuret Pep Total Protein 5.6 L Albumin 3.1 L D Globulin 2.5 Albumin/Globulin Ratio 1.2 Amylase 38 Lipase 128 Arterial Blood Potassium 3.8 Urine Opiates Screen Urine Methadone Screen Ur Barbiturates Screen Ur Phencyclidine Scrn Ur Amphetamines Screen U Benzodiazepines Scrn U Oth Cocaine Metabols U Cannabinoids Screen 03/28/18 03/28/18 03/28/18 06:11 06:11 08:22 WBC 11.4 H RBC 3.94 Hgb 10.6 L Hct 33.7 L MCV 85.5 MCH 26.9 L MCHC 31.5 L RDW 16.0 H Plt Count 208 MPV 8.7 Neut % (Auto) 76.9 H Lymph % (Auto) 17.5 L [place] % (Auto) 5.2 Eos % (Auto) 0.2 Baso % (Auto) 0.2 Neut # (Auto) 8.8 H Lymph # (Auto) 2.0 [place] # (Auto) 0.6 Eos # (Auto) 0.0 Baso # (Auto) 0.0 APTT D-Dimer, Quantitative Puncture Site pCO2 pO2 HCO3 ABG pH ABG Total CO2 ABG O2 Saturation ABG Base Excess Adan Test ABG Potassium Glucose Lactate Liter Flow Sodium 139 Potassium 3.8 Chloride 110 H Carbon Dioxide 24 Anion Gap 9 L BUN 11 Creatinine 0.5 L Est GFR ( Amer) > 60 Est GFR (Non-Af Amer) > 60 Random Glucose 111 H Lactic Acid 2.3 H Calcium 6.3 L Phosphorus Magnesium Total Bilirubin 0.4 AST 91 H ALT 97 H Alkaline Phosphatase 71 Troponin I < 0.0120 NT-Pro-B Natriuret Pep Total Protein 5.6 L Albumin 3.1 L Globulin 2.5 Albumin/Globulin Ratio 1.2 Amylase Lipase Arterial Blood Potassium Urine Opiates Screen Urine Methadone Screen Ur Barbiturates Screen Ur Phencyclidine Scrn Ur Amphetamines Screen U Benzodiazepines Scrn U Oth Cocaine Metabols U Cannabinoids Screen 03/28/18 03/28/18 03/28/18 08:22 09:42 09:44 WBC 9.0 RBC 3.37 L Hgb 9.3 L Hct 28.8 L MCV 85.5 MCH 27.7 MCHC 32.4 L RDW 16.0 H Plt Count 169 MPV 8.0 Neut % (Auto) Lymph % (Auto) [place] % (Auto) Eos % (Auto) Baso % (Auto) Neut # (Auto) Lymph # (Auto) [place] # (Auto) Eos # (Auto) Baso # (Auto) APTT D-Dimer, Quantitative Puncture Site pCO2 pO2 HCO3 ABG pH ABG Total CO2 ABG O2 Saturation ABG Base Excess Adan Test ABG Potassium Glucose Lactate Liter Flow Sodium Potassium Chloride Carbon Dioxide Anion Gap BUN Creatinine Est GFR ( Amer) Est GFR (Non-Af Amer) Random Glucose Lactic Acid 1.7 Calcium Phosphorus Magnesium Total Bilirubin AST ALT Alkaline Phosphatase Troponin I NT-Pro-B Natriuret Pep Total Protein Albumin Globulin Albumin/Globulin Ratio Amylase Lipase Arterial Blood Potassium Urine Opiates Screen Positive H Urine Methadone Screen Negative Ur Barbiturates Screen Negative Ur Phencyclidine Scrn Negative Ur Amphetamines Screen Negative U Benzodiazepines Scrn Negative U Oth Cocaine Metabols Negative U Cannabinoids Screen Negative Assessment & Plan - Assessment and Plan (Free Text) Assessment: ac chest pain dizziness dm Plan: cont as per icu orders - Date & Time Date: 03/28/18 Time: 11:33
--- NOTE | 2018-03-28 11:48 | CT ---
PROCEDURE: CT Abdomen and Pelvis without Oral or IV contrast. HISTORY: abdominal pain COMPARISON: None available TECHNIQUE: Contiguous axial images of the abdomen and pelvis. No oral or IV contrast administered. Coronal and Sagittal reformats generated and reviewed. Radiation dose: Total exam DLP = 524.45 mGy-cm. This CT exam was performed using one or more of the following dose reduction techniques: Automated exposure control, adjustment of the mA and/or kV according to patient size, and/or use of iterative reconstruction technique. FINDINGS: There is limited evaluation of the solid organs without the administration of IV contrast. LOWER THORAX: Bibasilar atelectasis. No visible pleural effusion or pneumothorax. Cardiomegaly. Moderate hiatal hernia/distal esophageal wall thickening. LIVER: Unremarkable unenhanced appearance. GALLBLADDER AND BILE DUCTS: Gallbladder wall appears thickened. Pericholecystic fluid noted. No calcified gallstones evident. Evidence of soft tissue density along the nondependent portion of the gallbladder of uncertain significance; of note subsequent ultrasound did not demonstrate this finding. PANCREAS: Unremarkable unenhanced appearance. SPLEEN: Unremarkable enhanced appearance. ADRENALS: Unremarkable unenhanced appearance. KIDNEYS AND URETERS: No hydronephrosis or obstructing renal calculus. Left extrarenal pelvis. Large right renal cysts measuring up to 5.3 cm. BLADDER: The urinary bladder appears unremarkable. REPRODUCTIVE: Uterus is absent consistent with hysterectomy. APPENDIX: No secondary signs of acute appendicitis. BOWEL: The stomach is nondistended. Lack of oral contrast limits evaluation for bowel pathology. The bowel loops appear within normal limits of caliber without evidence of intestinal obstruction. Mild constipation. PERITONEUM: No significant free fluid. No definite free air. LYMPH NODES: No bulky lymphadenopathy identified. VASCULATURE: Atherosclerotic calcifications of the aorta. No aortic aneurysm. BONES: No acute osseous abnormality is detected. OTHER FINDINGS: None. IMPRESSION: Gallbladder wall appears thickened. Pericholecystic fluid noted. No calcified gallstones evident. Evidence of soft tissue density along the nondependent portion of the gallbladder of uncertain significance; of note subsequent ultrasound did not demonstrate this finding. Recommend short-term follow-up ultrasound for confirmation. Large right renal cysts. Bibasilar atelectasis. Cardiomegaly. Additional findings as above. Preliminary impression was provided by [employer].Findings discussed with SUZANNE Meraz on 03/28/18 at 11:43 a.m.
--- NOTE | 2018-03-28 13:14 | CP.CCUPN ---
<Saqib Tarango - Last Filed: 03/28/18 19:05> CCU Subjective - Physician Review Subjective (Free Text): PGY-1 ICU progress note for Dr Warner service Patient is seen and examined at bedside. Patient is now awake and oriented to person and place, Patient reports improvement of chest pain this morning, patient is denies epigastric pain, says she never felt abdominal pain, mostly was chest pain. Denies nausea or vomiting or other complaints at this time. denies fever or chills. Critical Care Time Spent (in minutes): 40 CCU Objective - Vital Signs / Intake & Output Vital Signs (Last 4 hours): Vital Signs Temp Pulse Resp BP Pulse Ox 03/28/18 12:08 137/64 03/28/18 12:00 98.1 F 84 12 94 L 03/28/18 11:00 80 13 96 03/28/18 10:01 73 14 132/58 L 97 03/28/18 10:00 78 14 97 Intake and Output (Last 8hrs): Intake & Output 03/27/18 03/28/18 03/28/18 22:59 06:59 14:59 Intake Total 300 400 Output Total 450 650 Balance -150 -250 Weight 127 lb 3.307 oz Intake: Intake, IV Amount 300 400 Left Hand 300 400 Output: Urine 450 650 Urine, Voided 450 650 Other: # Voids Urine, Voided 1 # Bowel Movements 1 - Physical Exam Head: Positive for: Atraumatic, Normocephalic Pupils: Positive for: PERRL Extroacular Muscles: Positive for: EOMI Conjunctiva: Positive for: Normal Mouth: Positive for: Moist Mucous Membranes Neck: Positive for: Normal Range of Motion Respiratory/Chest: Positive for: Clear to Auscultation, Good Air Exchange. Negative for: Respiratory Distress, Accessory Muscle Use Cardiovascular: Positive for: Regular Rate and Rhythm Abdomen: Positive for: Normal Bowel Sounds Upper Extremity: Positive for: Normal Inspection Lower Extremity: Positive for: Normal Inspection Neurological: Positive for: CN II-XII Intact, Speech Normal Skin: Positive for: Warm, Dry, Normal Color Psychiatric: Positive for: Alert - Medications Active Medications: Active Medications Generic Name Dose Route Start Last Admin Trade Name Freq PRN Reason Stop Dose Admin Heparin Sodium (Porcine) 5,000 units 03/28/18 06:15 03/28/18 06:30 Heparin SC 5,000 units Q12H MATT Administration Piperacillin Sod/Tazobactam 100 mls @ 200 mls/hr 03/28/18 07:00 03/28/18 08:31 Sod 3.375 gm/ Sodium Chloride IVPB 200 mls/hr Q6H MATT Administration Protocol Sodium Chloride 1,000 mls @ 50 mls/hr 03/28/18 07:56 03/28/18 08:22 Sodium Chloride 0.9% IV 03/28/18 20:29 50 mls/hr .Q20H ONE Administration Pantoprazole Sodium 40 mg 03/28/18 02:30 03/28/18 02:51 Protonix Inj IVP 40 mg Q12H MATT Administration - Patient Studies Lab Studies: Lab Studies 03/28/18 03/28/18 03/28/18 Range/Units 09:44 09:42 08:22 WBC 9.0 (4.8-10.8) K/uL RBC 3.37 L (3.80-5.20) Mil/uL Hgb 9.3 L (11.0-16.0) g/dL Hct 28.8 L (34.0-47.0) % MCV 85.5 (81.0-99.0) fL MCH 27.7 (27.0-31.0) pg MCHC 32.4 L (33.0-37.0) g/dL RDW 16.0 H (11.5-14.5) % Plt Count 169 (130-400) K/uL MPV 8.0 (7.2-11.7) fL Neut % (Auto) (50.0-75.0) % Lymph % (Auto) (20.0-40.0) % Dade % (Auto) (0.0-10.0) % Eos % (Auto) (0.0-4.0) % Baso % (Auto) (0.0-2.0) % Neut # (Auto) (1.8-7.0) K/uL Lymph # (Auto) (1.0-4.3) K/uL Dade # (Auto) (0.0-0.8) K/uL Eos # (Auto) (0.0-0.7) K/uL Baso # (Auto) (0.0-0.2) K/uL APTT (21-34) SECONDS D-Dimer, Quantitative (0-243) ng/mlDDU Puncture Site pCO2 (35-45) mm/Hg pO2 (80-100) mm/Hg HCO3 (21-28) mmol/L ABG pH (7.35-7.45) ABG Total CO2 (22-28) mmol/L ABG O2 Saturation (95-98) % ABG Base Excess (-2.0-3.0) mmol/L Adan Test ABG Potassium (3.6-5.2) mmol/L Glucose (65-105) mg/dl Lactate (0.7-2.1) mmol/L Liter Flow Sodium (132-148) mmol/L Potassium (3.6-5.2) mmol/L Chloride (98-107) mmol/L Carbon Dioxide (22-30) mmol/L Anion Gap (10-20) BUN (7-17) mg/dL Creatinine (0.7-1.2) mg/dL Est GFR ( Amer) Est GFR (Non-Af Amer) Random Glucose (65-105) mg/dL Lactic Acid 1.7 (0.7-2.1) mmol/L Calcium (8.6-10.4) mg/dl Phosphorus (2.5-4.5) mg/dL Magnesium (1.6-2.3) mg/dL Total Bilirubin (0.2-1.3) mg/dL AST (14-36) U/L ALT (9-52) U/L Alkaline Phosphatase (38-126) U/L Troponin I (0.00-0.120) ng/mL NT-Pro-B Natriuret Pep (0-900) pg/mL Total Protein (6.3-8.3) g/dL Albumin (3.5-5.0) g/dL Globulin (2.2-3.9) gm/dL Albumin/Globulin Ratio (1.0-2.1) Amylase (30-110) U/L Lipase (23-300) U/L Arterial Blood Potassium (3.6-5.2) mmol/L Urine Opiates Screen Positive H (NEGATIVE) Urine Methadone Screen Negative (NEGATIVE) Ur Barbiturates Screen Negative (NEGATIVE) Ur Phencyclidine Scrn Negative (NEGATIVE) Ur Amphetamines Screen Negative (NEGATIVE) U Benzodiazepines Scrn Negative (NEGATIVE) U Oth Cocaine Metabols Negative (NEGATIVE) U Cannabinoids Screen Negative (NEGATIVE) 03/28/18 03/28/18 03/28/18 Range/Units 08:22 06:11 06:11 WBC 11.4 H (4.8-10.8) K/uL RBC 3.94 (3.80-5.20) Mil/uL Hgb 10.6 L (11.0-16.0) g/dL Hct 33.7 L (34.0-47.0) % MCV 85.5 (81.0-99.0) fL MCH 26.9 L (27.0-31.0) pg MCHC 31.5 L (33.0-37.0) g/dL RDW 16.0 H (11.5-14.5) % Plt Count 208 (130-400) K/uL MPV 8.7 (7.2-11.7) fL Neut % (Auto) 76.9 H (50.0-75.0) % Lymph % (Auto) 17.5 L (20.0-40.0) % Dade % (Auto) 5.2 (0.0-10.0) % Eos % (Auto) 0.2 (0.0-4.0) % Baso % (Auto) 0.2 (0.0-2.0) % Neut # (Auto) 8.8 H (1.8-7.0) K/uL Lymph # (Auto) 2.0 (1.0-4.3) K/uL Dade # (Auto) 0.6 (0.0-0.8) K/uL Eos # (Auto) 0.0 (0.0-0.7) K/uL Baso # (Auto) 0.0 (0.0-0.2) K/uL APTT (21-34) SECONDS D-Dimer, Quantitative (0-243) ng/mlDDU Puncture Site pCO2 (35-45) mm/Hg pO2 (80-100) mm/Hg HCO3 (21-28) mmol/L ABG pH (7.35-7.45) ABG Total CO2 (22-28) mmol/L ABG O2 Saturation (95-98) % ABG Base Excess (-2.0-3.0) mmol/L Adan Test ABG Potassium (3.6-5.2) mmol/L Glucose (65-105) mg/dl Lactate (0.7-2.1) mmol/L Liter Flow Sodium 139 (132-148) mmol/L Potassium 3.8 (3.6-5.2) mmol/L Chloride 110 H (98-107) mmol/L Carbon Dioxide 24 (22-30) mmol/L Anion Gap 9 L (10-20) BUN 11 (7-17) mg/dL Creatinine 0.5 L (0.7-1.2) mg/dL Est GFR ( Amer) > 60 Est GFR (Non-Af Amer) > 60 Random Glucose 111 H (65-105) mg/dL Lactic Acid 2.3 H (0.7-2.1) mmol/L Calcium 6.3 L (8.6-10.4) mg/dl Phosphorus (2.5-4.5) mg/dL Magnesium (1.6-2.3) mg/dL Total Bilirubin 0.4 (0.2-1.3) mg/dL AST 91 H (14-36) U/L ALT 97 H (9-52) U/L Alkaline Phosphatase 71 (38-126) U/L Troponin I < 0.0120 (0.00-0.120) ng/mL NT-Pro-B Natriuret Pep (0-900) pg/mL Total Protein 5.6 L (6.3-8.3) g/dL Albumin 3.1 L (3.5-5.0) g/dL Globulin 2.5 (2.2-3.9) gm/dL Albumin/Globulin Ratio 1.2 (1.0-2.1) Amylase (30-110) U/L Lipase (23-300) U/L Arterial Blood Potassium (3.6-5.2) mmol/L Urine Opiates Screen (NEGATIVE) Urine Methadone Screen (NEGATIVE) Ur Barbiturates Screen (NEGATIVE) Ur Phencyclidine Scrn (NEGATIVE) Ur Amphetamines Screen (NEGATIVE) U Benzodiazepines Scrn (NEGATIVE) U Oth Cocaine Metabols (NEGATIVE) U Cannabinoids Screen (NEGATIVE) 03/28/18 03/28/18 03/28/18 Range/Units 06:11 02:59 02:23 WBC (4.8-10.8) K/uL RBC (3.80-5.20) Mil/uL Hgb (11.0-16.0) g/dL Hct (34.0-47.0) % MCV (81.0-99.0) fL MCH (27.0-31.0) pg MCHC (33.0-37.0) g/dL RDW (11.5-14.5) % Plt Count (130-400) K/uL MPV (7.2-11.7) fL Neut % (Auto) (50.0-75.0) % Lymph % (Auto) (20.0-40.0) % Dade % (Auto) (0.0-10.0) % Eos % (Auto) (0.0-4.0) % Baso % (Auto) (0.0-2.0) % Neut # (Auto) (1.8-7.0) K/uL Lymph # (Auto) (1.0-4.3) K/uL Dade # (Auto) (0.0-0.8) K/uL Eos # (Auto) (0.0-0.7) K/uL Baso # (Auto) (0.0-0.2) K/uL APTT (21-34) SECONDS D-Dimer, Quantitative (0-243) ng/mlDDU Puncture Site R rad pCO2 37 (35-45) mm/Hg pO2 97 (80-100) mm/Hg HCO3 18.6 L (21-28) mmol/L ABG pH 7.29 L (7.35-7.45) ABG Total CO2 18.9 L (22-28) mmol/L ABG O2 Saturation 98.3 H (95-98) % ABG Base Excess -8.1 L (-2.0-3.0) mmol/L Adan Test Pos ABG Potassium 3.8 (3.6-5.2) mmol/L Glucose 143 H (65-105) mg/dl Lactate 1.5 (0.7-2.1) mmol/L Liter Flow 3.0 Sodium 138 139.0 (132-148) mmol/L Potassium 3.8 (3.6-5.2) mmol/L Chloride 112 H 116.0 H (98-107) mmol/L Carbon Dioxide 22 (22-30) mmol/L Anion Gap 9 L (10-20) BUN 13 (7-17) mg/dL Creatinine 0.5 L (0.7-1.2) mg/dL Est GFR ( Amer) > 60 Est GFR (Non-Af Amer) > 60 Random Glucose 135 H (65-105) mg/dL Lactic Acid (0.7-2.1) mmol/L Calcium 6.4 L (8.6-10.4) mg/dl Phosphorus 1.9 L (2.5-4.5) mg/dL Magnesium 1.6 (1.6-2.3) mg/dL Total Bilirubin 0.3 (0.2-1.3) mg/dL AST 106 H D (14-36) U/L ALT 114 H D (9-52) U/L Alkaline Phosphatase 77 (38-126) U/L Troponin I < 0.0120 (0.00-0.120) ng/mL NT-Pro-B Natriuret Pep (0-900) pg/mL Total Protein 5.6 L (6.3-8.3) g/dL Albumin 3.1 L D (3.5-5.0) g/dL Globulin 2.5 (2.2-3.9) gm/dL Albumin/Globulin Ratio 1.2 (1.0-2.1) Amylase 38 (30-110) U/L Lipase 128 (23-300) U/L Arterial Blood Potassium 3.8 (3.6-5.2) mmol/L Urine Opiates Screen (NEGATIVE) Urine Methadone Screen (NEGATIVE) Ur Barbiturates Screen (NEGATIVE) Ur Phencyclidine Scrn (NEGATIVE) Ur Amphetamines Screen (NEGATIVE) U Benzodiazepines Scrn (NEGATIVE) U Oth Cocaine Metabols (NEGATIVE) U Cannabinoids Screen (NEGATIVE) 03/28/18 03/28/18 03/28/18 Range/Units 01:26 01:26 01:26 WBC 12.9 H D (4.8-10.8) K/uL RBC 4.29 (3.80-5.20) Mil/uL Hgb 11.7 (11.0-16.0) g/dL Hct 36.5 (34.0-47.0) % MCV 85.0 (81.0-99.0) fL MCH 27.3 (27.0-31.0) pg MCHC 32.2 L (33.0-37.0) g/dL RDW 15.8 H (11.5-14.5) % Plt Count 245 (130-400) K/uL MPV 8.6 (7.2-11.7) fL Neut % (Auto) 63.3 (50.0-75.0) % Lymph % (Auto) 27.7 (20.0-40.0) % Dade % (Auto) 7.0 (0.0-10.0) % Eos % (Auto) 1.4 (0.0-4.0) % Baso % (Auto) 0.6 (0.0-2.0) % Neut # (Auto) 8.2 H (1.8-7.0) K/uL Lymph # (Auto) 3.6 (1.0-4.3) K/uL Dade # (Auto) 0.9 H (0.0-0.8) K/uL Eos # (Auto) 0.2 (0.0-0.7) K/uL Baso # (Auto) 0.1 (0.0-0.2) K/uL APTT 37 H (21-34) SECONDS D-Dimer, Quantitative 228 (0-243) ng/mlDDU Puncture Site pCO2 (35-45) mm/Hg pO2 (80-100) mm/Hg HCO3 (21-28) mmol/L ABG pH (7.35-7.45) ABG Total CO2 (22-28) mmol/L ABG O2 Saturation (95-98) % ABG Base Excess (-2.0-3.0) mmol/L Adan Test ABG Potassium (3.6-5.2) mmol/L Glucose (65-105) mg/dl Lactate (0.7-2.1) mmol/L Liter Flow Sodium 136 (132-148) mmol/L Potassium 5.4 H (3.6-5.2) mmol/L Chloride 105 (98-107) mmol/L Carbon Dioxide 25 (22-30) mmol/L Anion Gap 11 (10-20) BUN 18 H (7-17) mg/dL Creatinine 0.6 L (0.7-1.2) mg/dL Est GFR ( Amer) > 60 Est GFR (Non-Af Amer) > 60 Random Glucose 135 H D (65-105) mg/dL Lactic Acid (0.7-2.1) mmol/L Calcium 7.8 L (8.6-10.4) mg/dl Phosphorus (2.5-4.5) mg/dL Magnesium (1.6-2.3) mg/dL Total Bilirubin 1.0 (0.2-1.3) mg/dL AST 49 H D (14-36) U/L ALT 25 (9-52) U/L Alkaline Phosphatase 49 (38-126) U/L Troponin I < 0.0120 (0.00-0.120) ng/mL NT-Pro-B Natriuret Pep 2130 H (0-900) pg/mL Total Protein 7.1 (6.3-8.3) g/dL Albumin 4.1 (3.5-5.0) g/dL Globulin 3.0 (2.2-3.9) gm/dL Albumin/Globulin Ratio 1.4 (1.0-2.1) Amylase (30-110) U/L Lipase (23-300) U/L Arterial Blood Potassium (3.6-5.2) mmol/L Urine Opiates Screen (NEGATIVE) Urine Methadone Screen (NEGATIVE) Ur Barbiturates Screen (NEGATIVE) Ur Phencyclidine Scrn (NEGATIVE) Ur Amphetamines Screen (NEGATIVE) U Benzodiazepines Scrn (NEGATIVE) U Oth Cocaine Metabols (NEGATIVE) U Cannabinoids Screen (NEGATIVE) Laboratory Results - last 24 hr 03/28/18 03/28/18 03/28/18 01:26 01:26 01:26 WBC 12.9 H D RBC 4.29 Hgb 11.7 Hct 36.5 MCV 85.0 MCH 27.3 MCHC 32.2 L RDW 15.8 H Plt Count 245 MPV 8.6 Neut % (Auto) 63.3 Lymph % (Auto) 27.7 Dade % (Auto) 7.0 Eos % (Auto) 1.4 Baso % (Auto) 0.6 Neut # (Auto) 8.2 H Lymph # (Auto) 3.6 Dade # (Auto) 0.9 H Eos # (Auto) 0.2 Baso # (Auto) 0.1 APTT 37 H D-Dimer, Quantitative 228 Puncture Site pCO2 pO2 HCO3 ABG pH ABG Total CO2 ABG O2 Saturation ABG Base Excess Adan Test ABG Potassium Glucose Lactate Liter Flow Sodium 136 Potassium 5.4 H Chloride 105 Carbon Dioxide 25 Anion Gap 11 BUN 18 H Creatinine 0.6 L Est GFR ( Amer) > 60 Est GFR (Non-Af Amer) > 60 Random Glucose 135 H D Lactic Acid Calcium 7.8 L Phosphorus Magnesium Total Bilirubin 1.0 AST 49 H D ALT 25 Alkaline Phosphatase 49 Troponin I < 0.0120 NT-Pro-B Natriuret Pep 2130 H Total Protein 7.1 Albumin 4.1 Globulin 3.0 Albumin/Globulin Ratio 1.4 Amylase Lipase Arterial Blood Potassium Urine Opiates Screen Urine Methadone Screen Ur Barbiturates Screen Ur Phencyclidine Scrn Ur Amphetamines Screen U Benzodiazepines Scrn U Oth Cocaine Metabols U Cannabinoids Screen 03/28/18 03/28/18 03/28/18 02:23 02:59 06:11 WBC RBC Hgb Hct MCV MCH MCHC RDW Plt Count MPV Neut % (Auto) Lymph % (Auto) Dade % (Auto) Eos % (Auto) Baso % (Auto) Neut # (Auto) Lymph # (Auto) Dade # (Auto) Eos # (Auto) Baso # (Auto) APTT D-Dimer, Quantitative Puncture Site R rad pCO2 37 pO2 97 HCO3 18.6 L ABG pH 7.29 L ABG Total CO2 18.9 L ABG O2 Saturation 98.3 H ABG Base Excess -8.1 L Adan Test Pos ABG Potassium 3.8 Glucose 143 H Lactate 1.5 Liter Flow 3.0 Sodium 139.0 138 Potassium 3.8 Chloride 116.0 H 112 H Carbon Dioxide 22 Anion Gap 9 L BUN 13 Creatinine 0.5 L Est GFR ( Amer) > 60 Est GFR (Non-Af Amer) > 60 Random Glucose 135 H Lactic Acid Calcium 6.4 L Phosphorus 1.9 L Magnesium 1.6 Total Bilirubin 0.3 AST 106 H D ALT 114 H D Alkaline Phosphatase 77 Troponin I < 0.0120 NT-Pro-B Natriuret Pep Total Protein 5.6 L Albumin 3.1 L D Globulin 2.5 Albumin/Globulin Ratio 1.2 Amylase 38 Lipase 128 Arterial Blood Potassium 3.8 Urine Opiates Screen Urine Methadone Screen Ur Barbiturates Screen Ur Phencyclidine Scrn Ur Amphetamines Screen U Benzodiazepines Scrn U Oth Cocaine Metabols U Cannabinoids Screen 03/28/18 03/28/18 03/28/18 06:11 06:11 08:22 WBC 11.4 H RBC 3.94 Hgb 10.6 L Hct 33.7 L MCV 85.5 MCH 26.9 L MCHC 31.5 L RDW 16.0 H Plt Count 208 MPV 8.7 Neut % (Auto) 76.9 H Lymph % (Auto) 17.5 L Dade % (Auto) 5.2 Eos % (Auto) 0.2 Baso % (Auto) 0.2 Neut # (Auto) 8.8 H Lymph # (Auto) 2.0 Dade # (Auto) 0.6 Eos # (Auto) 0.0 Baso # (Auto) 0.0 APTT D-Dimer, Quantitative Puncture Site pCO2 pO2 HCO3 ABG pH ABG Total CO2 ABG O2 Saturation ABG Base Excess Adan Test ABG Potassium Glucose Lactate Liter Flow Sodium 139 Potassium 3.8 Chloride 110 H Carbon Dioxide 24 Anion Gap 9 L BUN 11 Creatinine 0.5 L Est GFR ( Amer) > 60 Est GFR (Non-Af Amer) > 60 Random Glucose 111 H Lactic Acid 2.3 H Calcium 6.3 L Phosphorus Magnesium Total Bilirubin 0.4 AST 91 H ALT 97 H Alkaline Phosphatase 71 Troponin I < 0.0120 NT-Pro-B Natriuret Pep Total Protein 5.6 L Albumin 3.1 L Globulin 2.5 Albumin/Globulin Ratio 1.2 Amylase Lipase Arterial Blood Potassium Urine Opiates Screen Urine Methadone Screen Ur Barbiturates Screen Ur Phencyclidine Scrn Ur Amphetamines Screen U Benzodiazepines Scrn U Oth Cocaine Metabols U Cannabinoids Screen 03/28/18 03/28/18 03/28/18 08:22 09:42 09:44 WBC 9.0 RBC 3.37 L Hgb 9.3 L Hct 28.8 L MCV 85.5 MCH 27.7 MCHC 32.4 L RDW 16.0 H Plt Count 169 MPV 8.0 Neut % (Auto) Lymph % (Auto) Dade % (Auto) Eos % (Auto) Baso % (Auto) Neut # (Auto) Lymph # (Auto) [place] # (Auto) Eos # (Auto) Baso # (Auto) APTT D-Dimer, Quantitative Puncture Site pCO2 pO2 HCO3 ABG pH ABG Total CO2 ABG O2 Saturation ABG Base Excess Adan Test ABG Potassium Glucose Lactate Liter Flow Sodium Potassium Chloride Carbon Dioxide Anion Gap BUN Creatinine Est GFR ( Amer) Est GFR (Non-Af Amer) Random Glucose Lactic Acid 1.7 Calcium Phosphorus Magnesium Total Bilirubin AST ALT Alkaline Phosphatase Troponin I NT-Pro-B Natriuret Pep Total Protein Albumin Globulin Albumin/Globulin Ratio Amylase Lipase Arterial Blood Potassium Urine Opiates Screen Positive H Urine Methadone Screen Negative Ur Barbiturates Screen Negative Ur Phencyclidine Scrn Negative Ur Amphetamines Screen Negative U Benzodiazepines Scrn Negative U Oth Cocaine Metabols Negative U Cannabinoids Screen Negative Radiology Impressions: Radiology Impressions Chest X-Ray 03/28/18 00:30 IMPRESSION: No active pulmonary disease. Head CT 03/28/18 02:23 IMPRESSION: No acute intracranial abnormality. Mild chronic microangiopathic changes and mild age-related global parenchymal volume loss. Acute and/or chronic left posterior ethmoid sinusitis. A preliminary report was provided by [employer]. Abdomen/Pelvis CT 03/28/18 03:09 IMPRESSION: Gallbladder wall appears thickened. Pericholecystic fluid noted. No calcified gallstones evident. Evidence of soft tissue density along the nondependent portion of the gallbladder of uncertain significance; of note subsequent ultrasound did not demonstrate this finding. Recommend short-term follow-up ultrasound for confirmation. Large right renal cysts. Bibasilar atelectasis. Cardiomegaly. Additional findings as above. Preliminary impression was provided by [employer].Findings discussed with SUZANNE Meraz on 03/28/18 at 11:43 a.m. Abdomen Ultrasound 03/28/18 06:48 IMPRESSION: Echogenic liver may be seen in setting of hepatic parenchymal disease or fatty infiltration. Gallbladder wall thickening/pericholecystic edema. No evidence of gallstones. Negative sonographic Gardner's sign as assessed by the garage door hanger. 8.0 x 5.4 x 6.7 cm septated lower pole cyst. 5.8 x 4.7 x 5.7 cm midpole cyst. EKG/Cardiology Studies: Cardiology / EKG Studies 03/28/18 00:30 ELECTROCARDIOGRAM Stat Comment: Mode Of Transportation: BED Reason For Exam: chest pain 03/28/18 01:36 EKG [ELECTROCARDIOGRAM] Stat Comment: Mode Of Transportation: BED Reason For Exam: cp bed 7 03/28/18 12:00 ELECTROCARDIOGRAM Routine Comment: Mode Of Transportation: Reason For Exam: f/u chest pain Critical Care Progress Note - Nutrition Nutrition: Nutrition Category Date Time Status NPO Diet [DIET] Diets 03/28/18 Breakfast Active Assessment/Plan - Assessment and Plan (Free Text) Plan: Patient is a 82 year old female with pmhx of Anxiety, asthma, Afib, CAD, CVA in 2000, HTN, HLD admitted after complaining of chest pain, nonradiating, in ED became lethargic and hypotensive, given nitro, MagSulfate 2mg, Narcan, 3 L bolus. Patient is more awake and oriented x2, denies chest pain or abdominal pain. EKG in ED shows T wave inversions inf leads, will follow up EKG, trops blood work, lactic acid, will follow up CT abd/pelv and US abdomen. Neuro AMS upon admission resolved at this time - AAOx2 CT head No acute intracranial abnormality. Mild chronic microangiopathic changes and mild age-related global parenchymal volume loss. Acute and/or chronic left posterior ethmoid sinusitis. drug screen - positive for opioids Cardio Chest Pain, resolved at this time EKG - T wave inversion inf leads repeat EKG trop negative x 2, f/u trops Chronic diastolic heart failure: avoid fluid overload state, IVF to maintain BP ASA Resp No acute findings hx of asthma - no acute issues continue monitor GI Clear liquid diet continue IV protonix q12hrs Negative amylase and lipase CT A/P - Gallbladder wall appears thickened. Pericholecystic fluid noted. No calcified gallstones evident. Evidence of soft tissue density along the nondependent portion of the gallbladder of uncertain significance; of note subsequent ultrasound did not demonstrate this finding. Recommend short-term follow-up ultrasound for confirmation US abdomen Echogenic liver may be seen in setting of hepatic parenchymal disease or fatty infiltration. Gallbladder wall thickening/pericholecystic edema. No evidence of gallstones. Negative sonographic Gardner's sign as assessed by the garage door hanger. ID Leukocytosis, afebrile hypotension resolved now most likely 2/2 morphine and nitro SUB lingual- Jan 18, 2018 similar episode), rodriguez culture abx - continue Zosyn Nephro Phosphate low repleted with [facility] follow up blood work NS @ 50mls/hr PPX: -DVT heparin SQ -PUD ppx protonix q12 Plan discussed with Dr Timmy Tarango PGY-1 - Date & Time Date: 03/28/18 Time: 10:00 <Jose Daniel Warner - Last Filed: 03/31/18 09:42> CCU Objective - Vital Signs / Intake & Output Vital Signs (Last 4 hours): Vital Signs Temp Pulse Resp BP Pulse Ox 03/31/18 07:30 72 03/31/18 07:00 98.4 F 69 20 123/73 99 - Medications Active Medications: Active Medications Generic Name Dose Route Start Last Admin Trade Name Freq PRN Reason Stop Dose Admin Aspirin 81 mg 03/29/18 10:00 03/31/18 09:37 Aspirin Chewable PO 81 mg DAILY MATT Administration Piperacillin Sod/Tazobactam 100 mls @ 200 mls/hr 03/28/18 07:00 03/31/18 06:06 Sod 3.375 gm/ Sodium Chloride IVPB 200 mls/hr Q6H MATT Administration Protocol Metoprolol Succinate 25 mg 03/30/18 10:00 03/31/18 09:37 Toprol Xl PO 25 mg DAILY MATT Administration Pantoprazole Sodium 40 mg 03/30/18 10:00 03/31/18 09:37 Protonix Ec Tab PO 40 mg DAILY MATT Administration - Patient Studies Lab Studies: Lab Studies 03/30/18 Range/Units 11:59 Hep Bs Antigen Negative (NEGATIVE) Laboratory Results - last 24 hr 03/30/18 11:59 Hep Bs Antigen Negative Critical Care Progress Note - Nutrition Nutrition: Nutrition Category Date Time Status Liquid Diet [DIET] Diets 03/28/18 Lunch Active Attending/Attestation - Attestation I have personally seen and examined this patient.: Yes I have fully participated in the care of the patient.: Yes I have reviewed all pertinent clinical information: Yes Notes (Text): Today: Wednesday, March 28, 2018 The Patient was seen and examined at the bedside, Medical records reviewed, and management issues were discussed and formulated with the house staff. I have reviewed all the relevant clinical, laboratory, hemodynamic, radiographic data and medications Events reviewed Pain issues, skin care, head of the bed elevation, glycemic control were addressed. Agree with above resident's assessment and treatment plans of care as transcribed in Dr. Tarango's note.
[2018-03-28] MEDS ORDERED: Potassium Phosphate 30 MMOLE in Sodium Chloride 0.9% 250 ML IVPB ONE (16:30)
[2018-03-28] MEDS ORDERED: Sodium Chloride 0.9% 1,000 ML IV SCH (22:30)
--- NOTE | 2018-03-29 00:16 | CON ---
DATE: 03/28/2018 CARDIOLOGY CONSULTATION REQUESTING PHYSICIAN: Dr. Ta. HISTORY OF PRESENT ILLNESS: An 82-year-old female, who was brought in with a history of chest pain. While in the ER, she was found have a junctional rhythm, left bundle-branch block, and T-wave inversions in the inferior leads. Troponins were negative. She is known to me over past couple of years. She has been on medication for hypertension including Cozaar, Xarelto, and she has been on amiodarone 200 mg on Saturday, Saturday, and Saturday along with Cardizem 240 mg. Echocardiogram done in 10/2017 had shown normal LV systolic function and normal valves. Carotid Doppler and duplex done in 05/2017 did not show any significant stenosis. She was admitted at [facility] a few months ago in 01/2018 with again atypical chest pain and a syncopal episode. Workup at that time was negative. She has a history of paroxysmal atrial fibrillation. To my recollection, she had a cardiac cath done, which did not show any significant coronary artery disease in 2016. She is on Xarelto and is doing well. PERSONAL HISTORY: Does not smoke. Does not drink. PAST MEDICAL HISTORY: History of hysterectomy. Admitted in the past for atypical chest pains, cholecystitis, history of CVA in 2000, osteoporosis, cardiac cath as mentioned above, bilateral cataracts. REVIEW OF SYSTEMS: CONSTITUTIONAL: Generalized weakness. Questionable right-sided facial drop, which is mild. No problem swallowing. EYES: No pallor. No icterus. CARDIAC: Chest pains for past two days, which was substernal, no radiation, associated also with a cough. No palpitation. PULMONARY: Cough. No hemoptysis. GASTROINTESTINAL: Negative for hematemesis or melena. She has to be on Protonix at times. SKIN: Negative for rash. NEUROLOGIC: Denies any weakness. GENITOURINARY: Negative for urinary complaints. PSYCHIATRIC: No evidence of depression. MUSCULOSKELETAL SYSTEM: Back pains and knee pains. PHYSICAL EXAMINATION: GENERAL: Shows an elderly female, who is conscious, alert, well oriented, complaining of throat pains for the last several hours. VITAL SIGNS: She is 5 feet 1 inch and weighs 150 pounds. Her blood pressure is 137/64. Heart rate of 68, sinus. O2 sat is 96%. Respiratory rate of 14. Afebrile. HEENT: Head is normocephalic. Eyes: No pallor, no icterus. NECK: Supple. LUNGS: Scattered rhonchi at the bases. HEART: PMI is normal. S1 and S2 are distant. No definite gallops. Grade 1 to 2/6 early systolic murmur in the mitral area. ABDOMEN: Soft. EXTREMITIES: No cyanosis, clubbing, or edema. Distal pulses are intact. NEUROLOGIC: She is awake, alert, and oriented x3. LABORATORY DATA: Shows hemoglobin of 9.3, initially was 11.7. Electrolytes are normal. Troponins are negative. Initial EKG had a junctional rhythm with a left bundle-branch block pattern. Repeat EKG today is sinus rhythm with left bundle-branch block. ASSESSMENT: An 82-year-old female with history of hypertension, has presented with an atypical chest pain that does not appear to be cardiac in nature. Also, EKG is suggestive of ischemia, which may have been related to the rate. RECOMMENDATIONS: At this point is to hold off with all Cardizem and beta maritza. The patient has been off amiodarone at this point. We will keep her off amlodipine if she needs to control the blood pressure. Continue Xarelto. I thank you kindly. We will follow as needed. Amos Sheikh MD
[2018-03-29] MEDS: Piperacillin/Tazobact 3.375 GM in Sodium Chloride 100 ML IVPB SCH ×4 (01:00→18:26)
[2018-03-29 06:46] LABS: BASO % 0.4 % (0.0-2.0); EOS # 0.1 K/uL (0.0-0.7); HEMOGLOBIN 11.8 g/dL (11.0-16.0); LYMPH # 3.2 K/uL (1.0-4.3); MEAN CELL VOLUME 84.2 fL (81.0-99.0); MEAN CORPUSCULAR HEMOGLOBIN 27.6 pg (27.0-31.0); MEAN CORPUSCULAR HGB CONC 32.8 g/dL (33.0-37.0); MEAN PLATELET VOLUME 8.7 fL (7.2-11.7); MONO # 0.4 K/uL (0.0-0.8); MONO % 5.8 % (0.0-10.0); NEUT # 2.5 K/uL (1.8-7.0); NEUT % 40.8 % (50.0-75.0); RBC 4.28 Mil/uL (3.80-5.20); RED CELL DISTRIBUTION WIDTH 16.1 % (11.5-14.5); WHITE BLOOD COUNT 6.2 K/uL (4.8-10.8)
[2018-03-29 07:03] LABS: ALB/GLOB RATIO 1.3 (1.0-2.1); ALBUMIN 3.7 g/dL (3.5-5.0); ALT/SGPT 88 U/L (9-52); AST/SGOT 55 U/L (14-36); BLOOD UREA NITROGEN 5 mg/dL (7-17); CALCIUM 6.9 mg/dl (8.6-10.4); GFR NON-AFRICAN AMERICAN > 60
[2018-03-29] MEDS ORDERED: Magnesium Sulfate 1 gm in D5W 1 GM/100 ML BAG IVPB ONE (08:30)
[2018-03-29] MEDS ORDERED: Potassium Chloride 20 mEq/15 ml LIQ UD PO ONE (08:31)
--- NOTE | 2018-03-29 08:37 | CP.CCUPN ---
CCU Subjective - Physician Review Events Since Last Encounter (Free Text): 03/29/18 08:36 With a history of heart disease admitted with chest pain. Patient had a hypotension. Patient is a 82-year-old female under closely monitored in the ICU. Now patient is sitting up comfortably. She is not in any distress. Mild cough noted. She is able to eat independently. No chest pain or shortness of breath noted. On examination: Vital signs stable. Chest good air entry. No wheezing or rales noted Heart sounds are regular Labs reviewed Potassium 3.5, magnesium is 1.7 liver enzymes is improving. Patient had a sonogram of the abdomen negative Gardner sign gallbladder wall thickening noted CAT scan of the abdomen and pelvis thickened gallbladder wall, pericholecystic fluid otherwise nonspecific assessment and recommendation: Patient is a 82-year-old female with a history of CAD admitted with chest pain. Nonspecific. Patient has a questionable cholecystitis acalculous. Currently on antibiotic and IV fluid. She is also on aspirin and heparin Protonix. Stable. We will transfer the patient to telemetry. CCU Objective - Vital Signs / Intake & Output Vital Signs (Last 4 hours): Vital Signs Pulse Resp BP Pulse Ox 03/29/18 06:01 73 13 129/79 98 03/29/18 05:00 81 16 107/71 96 Intake and Output (Last 8hrs): Intake & Output 03/28/18 03/29/18 03/29/18 22:59 06:59 14:59 Intake Total 1240 464 Output Total 450 900 Balance 790 -436 Weight 135 lb Intake: Intake, IV Amount 640 464 Left Hand 330 180 Right Forearm 210 284 Right Forearm 2 100 Oral 600 Output: Urine 150 Urine, Voided 150 Stool 300 900 Other: # Bowel Movements 1 1 - Physical Exam Head: Positive for: Atraumatic, Normocephalic Pupils: Positive for: PERRL Extroacular Muscles: Positive for: EOMI Conjunctiva: Positive for: Normal Mouth: Positive for: Moist Mucous Membranes Neck: Positive for: Normal Range of Motion Respiratory/Chest: Positive for: Clear to Auscultation, Good Air Exchange. Negative for: Respiratory Distress, Accessory Muscle Use Cardiovascular: Positive for: Regular Rate and Rhythm Abdomen: Positive for: Normal Bowel Sounds Upper Extremity: Positive for: Normal Inspection Lower Extremity: Positive for: Normal Inspection Neurological: Positive for: CN II-XII Intact, Speech Normal Skin: Positive for: Warm, Dry, Normal Color Psychiatric: Positive for: Alert - Medications Active Medications: Active Medications Generic Name Dose Route Start Last Admin Trade Name Ryley PRN Reason Stop Dose Admin Aspirin 81 mg 03/29/18 10:00 Aspirin Chewable PO DAILY MATT Heparin Sodium (Porcine) 5,000 units 03/28/18 06:15 03/29/18 05:52 Heparin SC 5,000 units Q12H MATT Administration Piperacillin Sod/Tazobactam 100 mls @ 200 mls/hr 03/28/18 07:00 03/29/18 07:00 Sod 3.375 gm/ Sodium Chloride IVPB 200 mls/hr Q6H MATT Administration Protocol Sodium Chloride 1,000 mls @ 30 mls/hr 03/28/18 22:30 03/28/18 22:30 Sodium Chloride 0.9% IV 30 mls/hr .Q24H MATT Administration Magnesium Sulfate/Dextrose 1 gm in 100 mls @ 100 mls/hr 03/29/18 08:30 Magnesium Sulfate 1 Gm/100 Ml D5w IVPB 03/29/18 09:29 ONCE ONE Pantoprazole Sodium 40 mg 03/28/18 02:30 03/29/18 01:43 Protonix Inj IVP 40 mg Q12H MATT Administration - Patient Studies Lab Studies: Lab Studies 03/29/18 03/29/18 03/28/18 Range/Units 06:40 06:40 09:44 WBC 6.2 9.0 (4.8-10.8) K/uL RBC 4.28 3.37 L (3.80-5.20) Mil/uL Hgb 11.8 D 9.3 L (11.0-16.0) g/dL Hct 36.0 28.8 L (34.0-47.0) % MCV 84.2 85.5 (81.0-99.0) fL MCH 27.6 27.7 (27.0-31.0) pg MCHC 32.8 L 32.4 L (33.0-37.0) g/dL RDW 16.1 H 16.0 H (11.5-14.5) % Plt Count 221 169 (130-400) K/uL MPV 8.7 8.0 (7.2-11.7) fL Neut % (Auto) 40.8 L (50.0-75.0) % Lymph % (Auto) 51.0 H (20.0-40.0) % [place] % (Auto) 5.8 (0.0-10.0) % Eos % (Auto) 2.0 (0.0-4.0) % Baso % (Auto) 0.4 (0.0-2.0) % Neut # (Auto) 2.5 (1.8-7.0) K/uL Lymph # (Auto) 3.2 (1.0-4.3) K/uL [place] # (Auto) 0.4 (0.0-0.8) K/uL Eos # (Auto) 0.1 (0.0-0.7) K/uL Baso # (Auto) 0.0 (0.0-0.2) K/uL Sodium 141 (132-148) mmol/L Potassium 3.5 L (3.6-5.2) mmol/L Chloride 111 H (98-107) mmol/L Carbon Dioxide 24 (22-30) mmol/L Anion Gap 10 (10-20) BUN 5 L (7-17) mg/dL Creatinine 0.6 L (0.7-1.2) mg/dL Est GFR ( Amer) > 60 Est GFR (Non-Af Amer) > 60 Random Glucose 90 (65-105) mg/dL Lactic Acid (0.7-2.1) mmol/L Calcium 6.9 L (8.6-10.4) mg/dl Phosphorus 2.4 L (2.5-4.5) mg/dL Magnesium 1.7 (1.6-2.3) mg/dL Total Bilirubin 0.7 (0.2-1.3) mg/dL AST 55 H D (14-36) U/L ALT 88 H (9-52) U/L Alkaline Phosphatase 80 (38-126) U/L Troponin I (0.00-0.120) ng/mL Total Protein 6.6 (6.3-8.3) g/dL Albumin 3.7 (3.5-5.0) g/dL Globulin 2.9 (2.2-3.9) gm/dL Albumin/Globulin Ratio 1.3 (1.0-2.1) U Butalbital Confirm Urine Opiates Screen (NEGATIVE) Ur Opiates (GC/MS) (Negative) 300 Urine Methadone Screen (NEGATIVE) Ur Methadone, Qual (Negative) 300 Ur Methadone (GC/MS) Ur Propoxyphene Screen Urine Propoxyphene (Negative) 300 Ur Norpropoxyphene Ur Propoxyphene Confrm Methaqualone (Negative) 300 Urine Methaqualone U Methaqualone Confirm Ur Barbiturates Screen (NEGATIVE) Ur Barbiturates, Qual (Negative) 300 Ur Barbiturate Confirm Ur Phencyclidine Scrn (NEGATIVE) Ur Phencyclidine (PCP) (Negative) 25 Urine PCP Confirm Ur Amphetamines Screen (Negative) 1000 U Amphetam Cnfrm GC/MS U Methamphetamin GC/MS Ur Amobarbital Confirm U Butabarbital Confirm U Pentobarbital Conf U Phenobarbital Confirm U Secobarbital Confirm U [id number] Conf U Benzodiazepines Scrn (NEGATIVE) U Benzodiazepines Qual (Negative) 300 Ur Nordiazepam Confirm Ur Oxazepam Confirm Urine Cocaine (Negative) 300 Urine Cocaine Confirm U Oth Cocaine Metabols (NEGATIVE) U Cannabinoids Screen (NEGATIVE) THC Confirmation U Marijuana (THC) Screen (Negative) 50 Drugs of Abuse Note 03/28/18 03/28/18 03/28/18 Range/Units 09:42 09:42 08:22 WBC (4.8-10.8) K/uL RBC (3.80-5.20) Mil/uL Hgb (11.0-16.0) g/dL Hct (34.0-47.0) % MCV (81.0-99.0) fL MCH (27.0-31.0) pg MCHC (33.0-37.0) g/dL RDW (11.5-14.5) % Plt Count (130-400) K/uL MPV (7.2-11.7) fL Neut % (Auto) (50.0-75.0) % Lymph % (Auto) (20.0-40.0) % [place] % (Auto) (0.0-10.0) % Eos % (Auto) (0.0-4.0) % Baso % (Auto) (0.0-2.0) % Neut # (Auto) (1.8-7.0) K/uL Lymph # (Auto) (1.0-4.3) K/uL [place] # (Auto) (0.0-0.8) K/uL Eos # (Auto) (0.0-0.7) K/uL Baso # (Auto) (0.0-0.2) K/uL Sodium (132-148) mmol/L Potassium (3.6-5.2) mmol/L Chloride (98-107) mmol/L Carbon Dioxide (22-30) mmol/L Anion Gap (10-20) BUN (7-17) mg/dL Creatinine (0.7-1.2) mg/dL Est GFR ( Amer) Est GFR (Non-Af Amer) Random Glucose (65-105) mg/dL Lactic Acid 1.7 (0.7-2.1) mmol/L Calcium (8.6-10.4) mg/dl Phosphorus (2.5-4.5) mg/dL Magnesium (1.6-2.3) mg/dL Total Bilirubin (0.2-1.3) mg/dL AST (14-36) U/L ALT (9-52) U/L Alkaline Phosphatase (38-126) U/L Troponin I (0.00-0.120) ng/mL Total Protein (6.3-8.3) g/dL Albumin (3.5-5.0) g/dL Globulin (2.2-3.9) gm/dL Albumin/Globulin Ratio (1.0-2.1) U Butalbital Confirm TEST NOT PERFORMED Urine Opiates Screen Positive H (NEGATIVE) Ur Opiates (GC/MS) Positive H (Negative) 300 Urine Methadone Screen Negative (NEGATIVE) Ur Methadone, Qual Negative (Negative) 300 Ur Methadone (GC/MS) TEST NOT PERFORMED Ur Propoxyphene Screen TEST NOT PERFORMED Urine Propoxyphene Negative (Negative) 300 Ur Norpropoxyphene TEST NOT PERFORMED Ur Propoxyphene Confrm TEST NOT PERFORMED Methaqualone Negative (Negative) 300 Urine Methaqualone TEST NOT PERFORMED U Methaqualone Confirm TEST NOT PERFORMED Ur Barbiturates Screen Negative (NEGATIVE) Ur Barbiturates, Qual Negative (Negative) 300 Ur Barbiturate Confirm TEST NOT PERFORMED Ur Phencyclidine Scrn Negative (NEGATIVE) Ur Phencyclidine (PCP) Negative (Negative) 25 Urine PCP Confirm TEST NOT PERFORMED Ur Amphetamines Screen Negative Negative (Negative) 1000 U Amphetam Cnfrm GC/MS TEST NOT PERFORMED U Methamphetamin GC/MS TEST NOT PERFORMED Ur Amobarbital Confirm TEST NOT PERFORMED U Butabarbital Confirm TEST NOT PERFORMED U Pentobarbital Conf TEST NOT PERFORMED U Phenobarbital Confirm TEST NOT PERFORMED U Secobarbital Confirm TEST NOT PERFORMED U [id number] Conf TEST NOT PERFORMED U Benzodiazepines Scrn Negative (NEGATIVE) U Benzodiazepines Qual Negative (Negative) 300 Ur Nordiazepam Confirm TEST NOT PERFORMED Ur Oxazepam Confirm TEST NOT PERFORMED Urine Cocaine Negative (Negative) 300 Urine Cocaine Confirm TEST NOT PERFORMED U Oth Cocaine Metabols Negative (NEGATIVE) U Cannabinoids Screen Negative (NEGATIVE) THC Confirmation TEST NOT PERFORMED U Marijuana (THC) Screen Negative (Negative) 50 Drugs of Abuse Note See note 03/28/18 Range/Units 08:22 WBC (4.8-10.8) K/uL RBC (3.80-5.20) Mil/uL Hgb (11.0-16.0) g/dL Hct (34.0-47.0) % MCV (81.0-99.0) fL MCH (27.0-31.0) pg MCHC (33.0-37.0) g/dL RDW (11.5-14.5) % Plt Count (130-400) K/uL MPV (7.2-11.7) fL Neut % (Auto) (50.0-75.0) % Lymph % (Auto) (20.0-40.0) % [place] % (Auto) (0.0-10.0) % Eos % (Auto) (0.0-4.0) % Baso % (Auto) (0.0-2.0) % Neut # (Auto) (1.8-7.0) K/uL Lymph # (Auto) (1.0-4.3) K/uL [place] # (Auto) (0.0-0.8) K/uL Eos # (Auto) (0.0-0.7) K/uL Baso # (Auto) (0.0-0.2) K/uL Sodium 139 (132-148) mmol/L Potassium 3.8 (3.6-5.2) mmol/L Chloride 110 H (98-107) mmol/L Carbon Dioxide 24 (22-30) mmol/L Anion Gap 9 L (10-20) BUN 11 (7-17) mg/dL Creatinine 0.5 L (0.7-1.2) mg/dL Est GFR ( Amer) > 60 Est GFR (Non-Af Amer) > 60 Random Glucose 111 H (65-105) mg/dL Lactic Acid (0.7-2.1) mmol/L Calcium 6.3 L (8.6-10.4) mg/dl Phosphorus (2.5-4.5) mg/dL Magnesium (1.6-2.3) mg/dL Total Bilirubin 0.4 (0.2-1.3) mg/dL AST 91 H (14-36) U/L ALT 97 H (9-52) U/L Alkaline Phosphatase 71 (38-126) U/L Troponin I < 0.0120 (0.00-0.120) ng/mL Total Protein 5.6 L (6.3-8.3) g/dL Albumin 3.1 L (3.5-5.0) g/dL Globulin 2.5 (2.2-3.9) gm/dL Albumin/Globulin Ratio 1.2 (1.0-2.1) U Butalbital Confirm Urine Opiates Screen (NEGATIVE) Ur Opiates (GC/MS) (Negative) 300 Urine Methadone Screen (NEGATIVE) Ur Methadone, Qual (Negative) 300 Ur Methadone (GC/MS) Ur Propoxyphene Screen Urine Propoxyphene (Negative) 300 Ur Norpropoxyphene Ur Propoxyphene Confrm Methaqualone (Negative) 300 Urine Methaqualone U Methaqualone Confirm Ur Barbiturates Screen (NEGATIVE) Ur Barbiturates, Qual (Negative) 300 Ur Barbiturate Confirm Ur Phencyclidine Scrn (NEGATIVE) Ur Phencyclidine (PCP) (Negative) 25 Urine PCP Confirm Ur Amphetamines Screen (Negative) 1000 U Amphetam Cnfrm GC/MS U Methamphetamin GC/MS Ur Amobarbital Confirm U Butabarbital Confirm U Pentobarbital Conf U Phenobarbital Confirm U Secobarbital Confirm U [id number] Conf U Benzodiazepines Scrn (NEGATIVE) U Benzodiazepines Qual (Negative) 300 Ur Nordiazepam Confirm Ur Oxazepam Confirm Urine Cocaine (Negative) 300 Urine Cocaine Confirm U Oth Cocaine Metabols (NEGATIVE) U Cannabinoids Screen (NEGATIVE) THC Confirmation U Marijuana (THC) Screen (Negative) 50 Drugs of Abuse Note Laboratory Results - last 24 hr 03/28/18 03/28/18 03/28/18 08:22 08:22 09:42 WBC RBC Hgb Hct MCV MCH MCHC RDW Plt Count MPV Neut % (Auto) Lymph % (Auto) [place] % (Auto) Eos % (Auto) Baso % (Auto) Neut # (Auto) Lymph # (Auto) [place] # (Auto) Eos # (Auto) Baso # (Auto) Sodium 139 Potassium 3.8 Chloride 110 H Carbon Dioxide 24 Anion Gap 9 L BUN 11 Creatinine 0.5 L Est GFR ( Amer) > 60 Est GFR (Non-Af Amer) > 60 Random Glucose 111 H Lactic Acid 1.7 Calcium 6.3 L Phosphorus Magnesium Total Bilirubin 0.4 AST 91 H ALT 97 H Alkaline Phosphatase 71 Troponin I < 0.0120 Total Protein 5.6 L Albumin 3.1 L Globulin 2.5 Albumin/Globulin Ratio 1.2 U Butalbital Confirm TEST NOT PERFORMED Urine Opiates Screen Ur Opiates (GC/MS) Positive H Urine Methadone Screen Ur Methadone, Qual Negative Ur Methadone (GC/MS) TEST NOT PERFORMED Ur Propoxyphene Screen TEST NOT PERFORMED Urine Propoxyphene Negative Ur Norpropoxyphene TEST NOT PERFORMED Ur Propoxyphene Confrm TEST NOT PERFORMED Methaqualone Negative Urine Methaqualone TEST NOT PERFORMED U Methaqualone Confirm TEST NOT PERFORMED Ur Barbiturates Screen Ur Barbiturates, Qual Negative Ur Barbiturate Confirm TEST NOT PERFORMED Ur Phencyclidine Scrn Ur Phencyclidine (PCP) Negative Urine PCP Confirm TEST NOT PERFORMED Ur Amphetamines Screen Negative U Amphetam Cnfrm GC/MS TEST NOT PERFORMED U Methamphetamin GC/MS TEST NOT PERFORMED Ur Amobarbital Confirm TEST NOT PERFORMED U Butabarbital Confirm TEST NOT PERFORMED U Pentobarbital Conf TEST NOT PERFORMED U Phenobarbital Confirm TEST NOT PERFORMED U Secobarbital Confirm TEST NOT PERFORMED U [id number] Conf TEST NOT PERFORMED U Benzodiazepines Scrn U Benzodiazepines Qual Negative Ur Nordiazepam Confirm TEST NOT PERFORMED Ur Oxazepam Confirm TEST NOT PERFORMED Urine Cocaine Negative Urine Cocaine Confirm TEST NOT PERFORMED U Oth Cocaine Metabols U Cannabinoids Screen THC Confirmation TEST NOT PERFORMED U Marijuana (THC) Screen Negative Drugs of Abuse Note See note 03/28/18 03/28/18 03/29/18 09:42 09:44 06:40 WBC 9.0 6.2 RBC 3.37 L 4.28 Hgb 9.3 L 11.8 D Hct 28.8 L 36.0 MCV 85.5 84.2 MCH 27.7 27.6 MCHC 32.4 L 32.8 L RDW 16.0 H 16.1 H Plt Count 169 221 MPV 8.0 8.7 Neut % (Auto) 40.8 L Lymph % (Auto) 51.0 H [place] % (Auto) 5.8 Eos % (Auto) 2.0 Baso % (Auto) 0.4 Neut # (Auto) 2.5 Lymph # (Auto) 3.2 [place] # (Auto) 0.4 Eos # (Auto) 0.1 Baso # (Auto) 0.0 Sodium Potassium Chloride Carbon Dioxide Anion Gap BUN Creatinine Est GFR ( Amer) Est GFR (Non-Af Amer) Random Glucose Lactic Acid Calcium Phosphorus Magnesium Total Bilirubin AST ALT Alkaline Phosphatase Troponin I Total Protein Albumin Globulin Albumin/Globulin Ratio U Butalbital Confirm Urine Opiates Screen Positive H Ur Opiates (GC/MS) Urine Methadone Screen Negative Ur Methadone, Qual Ur Methadone (GC/MS) Ur Propoxyphene Screen Urine Propoxyphene Ur Norpropoxyphene Ur Propoxyphene Confrm Methaqualone Urine Methaqualone U Methaqualone Confirm Ur Barbiturates Screen Negative Ur Barbiturates, Qual Ur Barbiturate Confirm Ur Phencyclidine Scrn Negative Ur Phencyclidine (PCP) Urine PCP Confirm Ur Amphetamines Screen Negative U Amphetam Cnfrm GC/MS U Methamphetamin GC/MS Ur Amobarbital Confirm U Butabarbital Confirm U Pentobarbital Conf U Phenobarbital Confirm U Secobarbital Confirm U [id number] Conf U Benzodiazepines Scrn Negative U Benzodiazepines Qual Ur Nordiazepam Confirm Ur Oxazepam Confirm Urine Cocaine Urine Cocaine Confirm U Oth Cocaine Metabols Negative U Cannabinoids Screen Negative THC Confirmation U Marijuana (THC) Screen Drugs of Abuse Note 03/29/18 06:40 WBC RBC Hgb Hct MCV MCH MCHC RDW Plt Count MPV Neut % (Auto) Lymph % (Auto) [place] % (Auto) Eos % (Auto) Baso % (Auto) Neut # (Auto) Lymph # (Auto) [place] # (Auto) Eos # (Auto) Baso # (Auto) Sodium 141 Potassium 3.5 L Chloride 111 H Carbon Dioxide 24 Anion Gap 10 BUN 5 L Creatinine 0.6 L Est GFR ( Amer) > 60 Est GFR (Non-Af Amer) > 60 Random Glucose 90 Lactic Acid Calcium 6.9 L Phosphorus 2.4 L Magnesium 1.7 Total Bilirubin 0.7 AST 55 H D ALT 88 H Alkaline Phosphatase 80 Troponin I Total Protein 6.6 Albumin 3.7 Globulin 2.9 Albumin/Globulin Ratio 1.3 U Butalbital Confirm Urine Opiates Screen Ur Opiates (GC/MS) Urine Methadone Screen Ur Methadone, Qual Ur Methadone (GC/MS) Ur Propoxyphene Screen Urine Propoxyphene Ur Norpropoxyphene Ur Propoxyphene Confrm Methaqualone Urine Methaqualone U Methaqualone Confirm Ur Barbiturates Screen Ur Barbiturates, Qual Ur Barbiturate Confirm Ur Phencyclidine Scrn Ur Phencyclidine (PCP) Urine PCP Confirm Ur Amphetamines Screen U Amphetam Cnfrm GC/MS U Methamphetamin GC/MS Ur Amobarbital Confirm U Butabarbital Confirm U Pentobarbital Conf U Phenobarbital Confirm U Secobarbital Confirm U [id number] Conf U Benzodiazepines Scrn U Benzodiazepines Qual Ur Nordiazepam Confirm Ur Oxazepam Confirm Urine Cocaine Urine Cocaine Confirm U Oth Cocaine Metabols U Cannabinoids Screen THC Confirmation U Marijuana (THC) Screen Drugs of Abuse Note Radiology Impressions: Radiology Impressions Chest X-Ray 03/28/18 00:30 IMPRESSION: No active pulmonary disease. Head CT 03/28/18 02:23 IMPRESSION: No acute intracranial abnormality. Mild chronic microangiopathic changes and mild age-related global parenchymal volume loss. Acute and/or chronic left posterior ethmoid sinusitis. A preliminary report was provided by [email or web address] [facility]. Abdomen/Pelvis CT 03/28/18 03:09 IMPRESSION: Gallbladder wall appears thickened. Pericholecystic fluid noted. No calcified gallstones evident. Evidence of soft tissue density along the nondependent portion of the gallbladder of uncertain significance; of note subsequent ultrasound did not demonstrate this finding. Recommend short-term follow-up ultrasound for confirmation. Large right renal cysts. Bibasilar atelectasis. Cardiomegaly. Additional findings as above. Preliminary impression was provided by ANANTH Servin.Findings discussed with SUZANNE Meraz on 03/28/18 at 11:43 a.m. Abdomen Ultrasound 03/28/18 06:48 IMPRESSION: Echogenic liver may be seen in setting of hepatic parenchymal disease or fatty infiltration. Gallbladder wall thickening/pericholecystic edema. No evidence of gallstones. Negative sonographic Gardner's sign as assessed by the play back operator. 8.0 x 5.4 x 6.7 cm septated lower pole cyst. 5.8 x 4.7 x 5.7 cm midpole cyst. EKG/Cardiology Studies: Cardiology / EKG Studies 03/28/18 12:00 ELECTROCARDIOGRAM Routine Comment: Mode Of Transportation: Reason For Exam: f/u chest pain Critical Care Progress Note - Nutrition Nutrition: Nutrition Category Date Time Status Liquid Diet [DIET] Diets 03/28/18 Lunch Active
--- NOTE | 2018-03-29 13:12 | CP.PCM.PN ---
Subjective - Date & Time of Evaluation Date of Evaluation: 03/29/18 Time of Evaluation: 13:10 - Subjective Subjective: pt seen and examined still has chest pain but less bp improved Objective - Vital Signs/Intake and Output Vital Signs (last 24 hours): Temp Pulse Resp BP Pulse Ox 97.3 F L 78 16 130/82 97 03/29/18 12:00 03/29/18 12:00 03/29/18 12:00 03/29/18 11:48 03/29/18 12:00 Intake and Output: 03/29/18 03/29/18 06:59 18:59 Intake Total 812 330 Output Total 1200 Balance -388 330 - Medications Medications: Current Medications Aspirin (Aspirin Chewable) 81 mg PO DAILY [facility] Last Admin: 03/29/18 09:27 Dose: 81 mg Heparin Sodium (Porcine) (Heparin) 5,000 units SC Q12H [facility] Last Admin: 03/29/18 05:52 Dose: 5,000 units Piperacillin Sod/Tazobactam (Sod 3.375 gm/ Sodium Chloride) 100 mls @ 200 mls/hr IVPB Q6H [facility]; Protocol Last Admin: 03/29/18 12:34 Dose: 200 mls/hr Sodium Chloride (Sodium Chloride 0.9%) 1,000 mls @ 30 mls/hr IV .Q24H MATT Last Admin: 03/28/18 22:30 Dose: 30 mls/hr Pantoprazole Sodium (Protonix Inj) 40 mg IVP Q12H [facility] Last Admin: 03/29/18 01:43 Dose: 40 mg - Labs Labs: 03/29/18 06:40 03/29/18 06:40 APTT 37 SECONDS (21-34) H 03/28/18 01:26 - Constitutional Appears: Non-toxic - Head Exam Head Exam: ATRAUMATIC - Eye Exam Eye Exam: Normal appearance Pupil Exam: NORMAL ACCOMODATION - ENT Exam ENT Exam: Mucous Membranes Moist - Cardiovascular Exam Cardiovascular Exam: REGULAR RHYTHM - GI/Abdominal Exam GI & Abdominal Exam: Normal Bowel Sounds - Extremities Exam Extremities Exam: Normal Capillary Refill - Neurological Exam Neurological Exam: Alert, Awake, Normal Gait, Oriented x3 - Psychiatric Exam Psychiatric exam: Normal Affect Assessment and Plan - Assessment and Plan (Free Text) Assessment: acute chest pain hypotension improved Plan: cont as per orders
--- NOTE | 2018-03-29 14:18 | CP.PCM.PN ---
Subjective - Date & Time of Evaluation Date of Evaluation: 03/29/18 Time of Evaluation: 14:17 - Subjective Subjective: no chest pains.nsr. Objective - Vital Signs/Intake and Output Vital Signs (last 24 hours): Temp Pulse Resp BP Pulse Ox 97.3 F L 78 16 130/82 97 03/29/18 12:00 03/29/18 12:00 03/29/18 12:00 03/29/18 11:48 03/29/18 12:00 Intake and Output: 03/29/18 03/29/18 06:59 18:59 Intake Total 812 330 Output Total 1200 Balance -388 330 - Medications Medications: Current Medications Aspirin (Aspirin Chewable) 81 mg PO DAILY [facility] Last Admin: 03/29/18 09:27 Dose: 81 mg Heparin Sodium (Porcine) (Heparin) 5,000 units SC Q12H [facility] Last Admin: 03/29/18 05:52 Dose: 5,000 units Piperacillin Sod/Tazobactam (Sod 3.375 gm/ Sodium Chloride) 100 mls @ 200 mls/hr IVPB Q6H [facility]; Protocol Last Admin: 03/29/18 12:34 Dose: 200 mls/hr - Labs Labs: 03/29/18 06:40 03/29/18 06:40 APTT 37 SECONDS (21-34) H 03/28/18 01:26 - Constitutional Appears: No Acute Distress, Chronically Ill - Head Exam Head Exam: NORMOCEPHALIC - Neck Exam Neck Exam: Normal Inspection - Respiratory Exam Respiratory Exam: Clear to Ausculation Bilateral - Cardiovascular Exam Cardiovascular Exam: REGULAR RHYTHM, Murmur - GI/Abdominal Exam GI & Abdominal Exam: Soft - Extremities Exam Extremities Exam: absent: Pedal Edema - Neurological Exam Neurological Exam: Alert, Oriented x3 Assessment and Plan - Assessment and Plan (Free Text) Plan: no mi.tele.will resume toprol.
[2018-03-30] MEDS: Piperacillin/Tazobact 3.375 GM in Sodium Chloride 100 ML IVPB SCH ×4 (00:06→19:15)
[2018-03-30 07:28] VITALS: RESP 20
[2018-03-30] MEDS: Pantoprazole 40 mg EC Tab PO SCH (09:15)
[2018-03-30] MEDS: Metoprolol Succinate 25 mg XL Tab PO SCH (09:15)
--- NOTE | 2018-03-30 09:44 | CP.PCM.PN ---
Subjective - Date & Time of Evaluation Date of Evaluation: 03/30/18 Time of Evaluation: 09:42 - Subjective Subjective: pt denied chest pain but has ruq abd pain Objective - Vital Signs/Intake and Output Vital Signs (last 24 hours): Temp Pulse Resp BP Pulse Ox 97.6 F 66 20 129/68 95 03/30/18 08:00 03/30/18 08:00 03/30/18 08:00 03/30/18 08:00 03/30/18 08:00 - Medications Medications: Current Medications Aspirin (Aspirin Chewable) 81 mg PO DAILY [facility] Last Admin: 03/30/18 09:15 Dose: 81 mg Heparin Sodium (Porcine) (Heparin) 5,000 units SC Q12H [facility] Last Admin: 03/30/18 06:28 Dose: 5,000 units Piperacillin Sod/Tazobactam (Sod 3.375 gm/ Sodium Chloride) 100 mls @ 200 mls/hr IVPB Q6H [facility]; Protocol Last Admin: 03/30/18 06:29 Dose: 200 mls/hr Metoprolol Succinate (Toprol Xl) 25 mg PO DAILY [facility] Last Admin: 03/30/18 09:15 Dose: 25 mg Pantoprazole Sodium (Protonix Ec Tab) 40 mg PO DAILY [facility] Last Admin: 03/30/18 09:15 Dose: 40 mg - Labs Labs: 03/29/18 06:40 03/29/18 06:40 APTT 37 SECONDS (21-34) H 03/28/18 01:26 - Constitutional Appears: Non-toxic - Head Exam Head Exam: NORMAL INSPECTION - Eye Exam Eye Exam: Normal appearance Pupil Exam: NORMAL ACCOMODATION - ENT Exam ENT Exam: Mucous Membranes Moist - Neck Exam Neck Exam: Full ROM - Respiratory Exam Respiratory Exam: Clear to Ausculation Bilateral - Cardiovascular Exam Cardiovascular Exam: REGULAR RHYTHM - GI/Abdominal Exam GI & Abdominal Exam: Tenderness Additional comments: ruq tender - Extremities Exam Extremities Exam: Normal Inspection - Back Exam Back Exam: NORMAL INSPECTION - Neurological Exam Neurological Exam: Alert, Awake - Psychiatric Exam Psychiatric exam: Normal Affect - Skin Skin Exam: Pallor Assessment and Plan - Assessment and Plan (Free Text) Assessment: acute cholysistitis Plan: cont iv antibiotics
[2018-03-31] MEDS: Piperacillin/Tazobact 3.375 GM in Sodium Chloride 100 ML IVPB SCH ×4 (00:30→18:02)
[2018-03-31] MEDS: Pantoprazole 40 mg EC Tab PO SCH (09:37)
[2018-03-31] MEDS: Metoprolol Succinate 25 mg XL Tab PO SCH (09:37)
[2018-03-31 11:08] LABS: BASO % 0.5 % (0.0-2.0); EOS # 0.1 K/uL (0.0-0.7); EOS % 1.5 % (0.0-4.0); HEMOGLOBIN 12.5 g/dL (11.0-16.0); LYMPH # 3.3 K/uL (1.0-4.3); LYMPH % 45.3 % (20.0-40.0); MEAN CELL VOLUME 85.5 fL (81.0-99.0); MEAN CORPUSCULAR HGB CONC 32.8 g/dL (33.0-37.0); MEAN PLATELET VOLUME 8.5 fL (7.2-11.7); MONO # 0.4 K/uL (0.0-0.8); MONO % 5.7 % (0.0-10.0); NEUT # 3.5 K/uL (1.8-7.0); NRBC % 0.1 % (0.0-2.0); RBC 4.47 Mil/uL (3.80-5.20); RED CELL DISTRIBUTION WIDTH 15.6 % (11.5-14.5); WHITE BLOOD COUNT 7.3 K/uL (4.8-10.8)
[2018-03-31 12:46] LABS: OXYCODONE SCREEN negative
[2018-03-31 13:11] LABS: ALB/GLOB RATIO 1.3 (1.0-2.1); ALBUMIN 4.1 g/dL (3.5-5.0); ALT/SGPT 54 U/L (9-52); AST/SGOT 28 U/L (14-36); BLOOD UREA NITROGEN 6 mg/dL (7-17); CALCIUM 7.5 mg/dl (8.6-10.4); GFR NON-AFRICAN AMERICAN > 60
--- NOTE | 2018-03-31 13:56 | CP.PCM.PN ---
Subjective - Date & Time of Evaluation Date of Evaluation: 03/31/18 Time of Evaluation: 13:54 - Subjective Subjective: feels better.no cp or sob. Objective - Vital Signs/Intake and Output Vital Signs (last 24 hours): Temp Pulse Resp BP Pulse Ox 98.4 F 74 20 123/73 99 03/31/18 07:00 03/31/18 11:55 03/31/18 07:00 03/31/18 07:00 03/31/18 07:00 - Medications Medications: Current Medications Aspirin (Aspirin Chewable) 81 mg PO DAILY [facility] Last Admin: 03/31/18 09:37 Dose: 81 mg Piperacillin Sod/Tazobactam (Sod 3.375 gm/ Sodium Chloride) 100 mls @ 200 mls/hr IVPB Q6H [facility]; Protocol Last Admin: 03/31/18 12:26 Dose: 200 mls/hr Metoprolol Succinate (Toprol Xl) 25 mg PO DAILY [facility] Last Admin: 03/31/18 09:37 Dose: 25 mg Pantoprazole Sodium (Protonix Ec Tab) 40 mg PO DAILY [facility] Last Admin: 03/31/18 09:37 Dose: 40 mg - Labs Labs: 03/31/18 10:54 03/31/18 10:54 APTT 37 SECONDS (21-34) H 03/28/18 01:26 - Constitutional Appears: No Acute Distress, Chronically Ill - Head Exam Head Exam: NORMOCEPHALIC - Neck Exam Neck Exam: Normal Inspection - Respiratory Exam Respiratory Exam: Clear to Ausculation Bilateral - Cardiovascular Exam Cardiovascular Exam: REGULAR RHYTHM, Murmur - GI/Abdominal Exam GI & Abdominal Exam: Soft - Extremities Exam Extremities Exam: absent: Pedal Edema - Neurological Exam Neurological Exam: Alert, Oriented x3 Assessment and Plan - Assessment and Plan (Free Text) Plan: paro,afib.now in nsr.on toprol.hold off with amio for now.
[2018-03-31 16:14] VITALS: O2SAT 97
[2018-03-31] MEDS ORDERED: Potassium & Sodium Phosphate PO SCH (17:30)
[2018-03-31] MEDS: Potassium Phosphate 15 MMOLE in Sodium Chloride 0.9% 250 ML IV ONE ×2 (18:00→18:10)
--- NOTE | 2018-03-31 18:57 | CP.PCM.PN ---
Subjective - Date & Time of Evaluation Date of Evaluation: 03/31/18 Time of Evaluation: 18:54 - Subjective Subjective: pt denied chest pain abd pain is improving need k iv Objective - Vital Signs/Intake and Output Vital Signs (last 24 hours): Temp Pulse Resp BP Pulse Ox 97.7 F 73 20 131/74 97 03/31/18 16:13 03/31/18 16:13 03/31/18 16:13 03/31/18 16:13 03/31/18 16:13 - Medications Medications: Current Medications Aspirin (Aspirin Chewable) 81 mg PO DAILY [facility] Last Admin: 03/31/18 09:37 Dose: 81 mg Piperacillin Sod/Tazobactam (Sod 3.375 gm/ Sodium Chloride) 100 mls @ 200 mls/hr IVPB Q6H [facility]; Protocol Last Admin: 03/31/18 18:02 Dose: 200 mls/hr Potassium Phosphate 15 mmole/ (Sodium Chloride) 255 mls @ 63 mls/hr IV ONCE ONE Stop: 03/31/18 21:24 Last Admin: 03/31/18 18:10 Dose: 63 mls/hr Metoprolol Succinate (Toprol Xl) 25 mg PO DAILY [facility] Last Admin: 03/31/18 09:37 Dose: 25 mg Pantoprazole Sodium (Protonix Ec Tab) 40 mg PO DAILY [facility] Last Admin: 03/31/18 09:37 Dose: 40 mg Potassium Phos/Sodium Phos (Neutra-Phos) 1 pkt PO DAILY [facility] Stop: 04/02/18 17:31 Last Admin: 03/31/18 18:10 Dose: 1 pkt - Labs Labs: 03/31/18 10:54 03/31/18 10:54 APTT 37 SECONDS (21-34) H 03/28/18 01:26 - Constitutional Appears: Non-toxic - Head Exam Head Exam: ATRAUMATIC - Eye Exam Eye Exam: Normal appearance Pupil Exam: NORMAL ACCOMODATION - ENT Exam ENT Exam: Normal Exam - Neck Exam Neck Exam: Full ROM - Respiratory Exam Respiratory Exam: NORMAL BREATHING PATTERN - Cardiovascular Exam Cardiovascular Exam: REGULAR RHYTHM - GI/Abdominal Exam Additional comments: tender ruq - Rectal Exam Rectal Exam: Deferred - Exam Exam: NORMAL INSPECTION - Extremities Exam Extremities Exam: Normal Inspection - Back Exam Back Exam: NORMAL INSPECTION - Neurological Exam Neurological Exam: Alert, Awake, CN II-XII Intact, Oriented x3 - Psychiatric Exam Psychiatric exam: Normal Affect - Skin Skin Exam: Pallor Assessment and Plan - Assessment and Plan (Free Text) Assessment: chest pain improved ac cholycystitis on med improving Plan: continu as ordered
[2018-04-01] MEDS: Piperacillin/Tazobact 3.375 GM in Sodium Chloride 100 ML IVPB SCH ×2 (00:40→06:06)
[2018-04-01 06:48] LABS: BLOOD UREA NITROGEN 4 mg/dL (7-17); CALCIUM 7.6 mg/dl (8.6-10.4); GFR NON-AFRICAN AMERICAN > 60
[2018-04-01 09:30] VITALS: BP 122/78; PULSE 77; TEMP 97.8
[2018-04-01] MEDS ORDERED: Potassium & Sodium Phosphate PO STA (09:30)
[2018-04-01] MEDS: Pantoprazole 40 mg EC Tab PO SCH (09:32)
[2018-04-01] MEDS: Metoprolol Succinate 25 mg XL Tab PO SCH (09:32)
--- NOTE | 2018-04-01 09:34 | CP.PCM.PN ---
Subjective - Date & Time of Evaluation Date of Evaluation: 04/01/18 Time of Evaluation: 09:31 - Subjective Subjective: pt feels good no chest pain no abdominal pain Objective - Vital Signs/Intake and Output Vital Signs (last 24 hours): Temp Pulse Resp BP Pulse Ox 97.8 F 77 20 122/78 97 04/01/18 09:28 04/01/18 09:28 04/01/18 09:28 04/01/18 09:28 04/01/18 09:28 - Medications Medications: Current Medications Aspirin (Aspirin Chewable) 81 mg PO DAILY [facility] Last Admin: 03/31/18 09:37 Dose: 81 mg Piperacillin Sod/Tazobactam (Sod 3.375 gm/ Sodium Chloride) 100 mls @ 200 mls/hr IVPB Q6H [facility]; Protocol Last Admin: 04/01/18 06:06 Dose: 200 mls/hr Metoprolol Succinate (Toprol Xl) 25 mg PO DAILY [facility] Last Admin: 03/31/18 09:37 Dose: 25 mg Pantoprazole Sodium (Protonix Ec Tab) 40 mg PO DAILY [facility] Last Admin: 03/31/18 09:37 Dose: 40 mg Potassium Phos/Sodium Phos (Neutra-Phos) 1 pkt PO STAT [facility] Stop: 04/01/18 09:31 - Labs Labs: 03/31/18 10:54 04/01/18 06:24 APTT 37 SECONDS (21-34) H 03/28/18 01:26 - Constitutional Appears: Non-toxic - Head Exam Head Exam: ATRAUMATIC - Eye Exam Eye Exam: Normal appearance Pupil Exam: NORMAL ACCOMODATION - ENT Exam ENT Exam: Mucous Membranes Moist - Neck Exam Neck Exam: Full ROM - Respiratory Exam Respiratory Exam: NORMAL BREATHING PATTERN - Cardiovascular Exam Cardiovascular Exam: REGULAR RHYTHM - GI/Abdominal Exam GI & Abdominal Exam: Soft, Normal Bowel Sounds - Extremities Exam Extremities Exam: Normal Inspection - Back Exam Back Exam: NORMAL INSPECTION - Neurological Exam Neurological Exam: Alert, Awake, Normal Gait, Oriented x3 - Psychiatric Exam Psychiatric exam: Normal Affect - Skin Skin Exam: Normal Color Assessment and Plan - Assessment and Plan (Free Text) Assessment: s/p post chest pain nonspescific ac cholysystits improved Plan: disc home on levaqueen and cont all med f/u by her
--- NOTE | 2018-04-09 06:29 | DS ---
HOSPITAL COURSE: The patient came in to the emergency room complaining of chest pain and dizziness. She came in at 03/28/2018 and she was discharged on 04/01/2018. She was seen by cardiology and she had no more chest pain. Her cardiac enzymes were negative, but she also had diabetes which was monitored. Her hemoglobin was 11.8. Her sugar was . She was seen by Dr. Amos Sheikh and he cleared her for no cardiac issue. She was put on medications; aspirin, antibiotics, metoprolol, pantoprazole. The antibiotic because of she has atrial fibrillation history. She was continuing to feel better and her CBC was completely normal. Her sugar was 125. Her exam was unremarkable. Her improved, but she did have some right upper quadrant abdominal pain which is compatible with cholecystitis and because of that she was on antibiotics and she was daily improving with that. So she was discharged home on 04/01/2018 to continue on her medications including all medications and antibiotics and to follow up by her MD. FINAL DIAGNOSES: Chest pain nonspecific, right upper quadrant abdominal pain, acute cholecystitis and her liver enzymes were high a little bit, and she did have urinary tract infection. Elif Ta MD
== END 2018-04-01 12:55 | disposition home or self-care (01) | DRG 313 ==
LOC: SUPCPDRO 00:07 → C.ER 00:07 → C.9I 02:31 → C.6T 03-30 05:39
PROVIDERS: ADMIT Internal Medicine; ATTEND Internal Medicine
DX: R07.89 Other chest pain (principal); K81.0 Acute cholecystitis; I50.32 Chronic diastolic (congestive) heart failure; J98.11 Atelectasis; N39.0 Urinary tract infection, site not specified; I11.0 Hypertensive heart disease with heart failure; D72.829 Elevated white blood cell count, unspecified; I48.0 Paroxysmal atrial fibrillation; I44.7 Left bundle-branch block, unspecified; I25.10 Atherosclerotic heart disease of native coronary artery without angina pectoris; I95.2 Hypotension due to drugs; J45.909 Unspecified asthma, uncomplicated; N28.1 Cyst of kidney, acquired; E78.00 Pure hypercholesterolemia, unspecified; M81.0 Age-related osteoporosis without current pathological fracture; T46.3X5A Adverse effect of coronary vasodilators, initial encounter; T40.2X5A Adverse effect of other opioids, initial encounter; H26.9 Unspecified cataract; Z79.01 Long term (current) use of anticoagulants; Z86.73 Personal history of transient ischemic attack (TIA), and cerebral infarction without residual deficits; Z85.41 Personal history of malignant neoplasm of cervix uteri; Z87.891 Personal history of nicotine dependence

== ENCOUNTER 2018-05-04 13:30 | Inpatient (IN) | payer MEDICARE, MEDICAID ==
[2018-05-04 13:46] VITALS: BMI 23.4
[2018-05-04 14:05] LABS: BASO # 0.1 K/uL (0.0-0.2); BASO % 0.7 % (0.0-2.0); EOS # 0.2 K/uL (0.0-0.7); EOS % 1.4 % (0.0-4.0); LYMPH % 34.3 % (20.0-40.0); MEAN CELL VOLUME 86.1 fL (81.0-99.0); MEAN CORPUSCULAR HEMOGLOBIN 27.9 pg (27.0-31.0); MEAN CORPUSCULAR HGB CONC 32.4 g/dL (33.0-37.0); MEAN PLATELET VOLUME 8.3 fL (7.2-11.7); MONO # 0.6 K/uL (0.0-0.8); MONO % 5.4 % (0.0-10.0); NEUT # 6.7 K/uL (1.8-7.0); NEUT % 58.2 % (50.0-75.0); RBC 3.96 Mil/uL (3.80-5.20); RED CELL DISTRIBUTION WIDTH 15.7 % (11.5-14.5); WHITE BLOOD COUNT 11.5 K/uL (4.8-10.8)
--- NOTE | 2018-05-04 14:11 | C.PDOC ---
History Of Present Illness 82 yo female, hx of paroxsyml afib on xarelto, htn, hld, presetns from home. as per son at bedside, pt returned from [employer], "weak, feeling cold". as per son, pt was at baseline previously. c/o of clemens and abodminal pain. pt and son poor historian, unclear of past medical hx and medical phsycians. info obtained via preivous records. pt admitted recently for acalculous everett. no fevers, no n/v. no diarrhea. Time Seen by Provider: 05/04/18 13:34 Chief Complaint (Nursing): Weakness/Neurological Deficit Past Medical History Reviewed: Historical Data, Nursing Documentation, Vital Signs Vital Signs: Last Vital Signs Temp 97.6 F 05/04/18 13:41 Pulse 52 L 05/04/18 13:41 Resp 18 05/04/18 13:41 BP 104/47 L 05/04/18 13:41 Pulse Ox 97 05/04/18 13:41 - Medical History PMH: Anxiety, Asthma, Atrial Fibrillation, CAD, Cardia Arrhythmia, CVA (2000), Gall Bladder Disease (Cholecystitis (April 2014)), HTN, Hypercholesterolemia, M alignancy, Osteoporosis Surgical History: Cholecystectomy, Endoscopy - [facility] Procedures ATRIAL CARDIOVERSION (04/26/13) DX ULTRASOUND-HEART (04/26/13) MEASURE OF CARDIAC SAMPL & PRESSURE, L HEART, PERC APPROACH (10/19/16) OTHER ESOPHAGOSCOPY (04/26/13) PLAIN RADIOGRAPHY OF LEFT HEART USING OTHER CONTRAST (10/19/16) PLAIN RADIOGRAPHY OF MULT COR ART USING OTH CONTRAST (10/19/16) Family History: States: Unknown Family Hx, Diabetes (son) - Social History Hx Tobacco Use: Yes (Former (1992)) Hx Alcohol Use: No Hx Substance Use: No - Immunization History Hx Tetanus Toxoid Vaccination: No Hx Influenza Vaccination: No Hx Pneumococcal Vaccination: No ED Course And Treatment - Laboratory Results Result Diagrams: 05/04/18 14:00 05/04/18 14:00 O2 Sat by Pulse Oximetry: 97 Medical Decision Making Medical Decision Making: bradycardia/weakness - ro metabolci infectious cardiac thryodi, intracranil abdominal pathology labs imaging pending upon ED arrival, inital ekg shows junctional donavon. labs and imaging ordred. during ED course, pt recieved atropine with conversion to sinus rhythm. case see by icu dr foley, at this time sinus rythym vitals stable not icu candidate. case discussed wtih dr martínez and dr vitaliy foley covering dr lee. agree with admisison Disposition - Disposition Disposition: HOSPITALIZED Disposition Time: 19:00 Condition: FAIR - Clinical Impression Clinical Impression: Abdominal pain, Weakness, Headache, Bradycardia Decision To Admit - Pt Status Changed To: Hospital Disposition Of: Inpatient - Admit Certification Admit to Inpatient:: After my assessment, the patient will require hospitalization for at least two midnights. This is because of the severity of symptoms shown, intensity of services needed, and/or the medical risk in this patient being treated as an outpatient. - InPatient: Physician Admission Certification: I certify that this patient requires 2 or more midnights of care for the following reason:: needs tele monitoring for donavon and cards eval - . Bed Request Type: Telemetry Admitting Physician: Elif Ta Patient Diagnosis: Abdominal pain, Weakness, Headache, Bradycardia
[2018-05-04 14:13] LABS: INR 1.7; PROTHROMBIN TIME 18.6 SECONDS (9.7-12.2)
[2018-05-04 14:17] LABS: ALB/GLOB RATIO 2.1 (1.0-2.1); ALBUMIN 4.3 g/dL (3.5-5.0); ALT/SGPT 22 U/L (9-52); AST/SGOT 27 U/L (14-36); BILIRUBIN,DIRECT 0.4 mg/dL (0.0-0.4); BLOOD UREA NITROGEN 13 mg/dL (7-17); CALCIUM 8.3 mg/dl (8.6-10.4); GFR NON-AFRICAN AMERICAN > 60; LIPASE 211 U/L (23-300)
[2018-05-04 14:25] LABS: B-TYPE NATRIURETIC PEPTIDE 205 pg/mL (0-900)
[2018-05-04] MEDS ORDERED: Iodixanol 320 MG/ML 100 ML BOTTLE IV ONE (14:36)
[2018-05-04] MEDS ORDERED: Glucagon Recombinant 1 mg Inj IV STA (15:11)
[2018-05-04] MEDS ORDERED: Glucagon Recombinant 1 mg Inj ONE (15:18)
--- NOTE | 2018-05-04 15:28 | CT ---
Date of service: 05/04/2018 PROCEDURE: CT HEAD WITHOUT CONTRAST. HISTORY: Headache COMPARISON: 03/28/2018 TECHNIQUE: Axial computed tomography images were obtained through the head/brain without intravenous contrast. Radiation dose: Total exam DLP = 939.85 mGy-cm. This CT exam was performed using one or more of the following dose reduction techniques: Automated exposure control, adjustment of the mA and/or kV according to patient size, and/or use of iterative reconstruction technique. FINDINGS: HEMORRHAGE: No intracranial hemorrhage. BRAIN: No mass effect or edema. Scattered focal lucencies in the subcortical and periventricular white matter suggestive for chronic microvascular ischemic change. Diffuse generalized parenchymal volume loss. Punctate left basal ganglia lacunar infarcts. VENTRICLES: Unremarkable. No hydrocephalus. CALVARIUM: Unremarkable. PARANASAL SINUSES: Unremarkable as visualized. No significant inflammatory changes. MASTOID AIR CELLS: Unremarkable as visualized. No inflammatory changes. OTHER FINDINGS: None. IMPRESSION: Chronic microvascular ischemic change. Diffuse generalized parenchymal volume loss. If symptoms persists, consider correlation with MRI.
[2018-05-04] MEDS: Sodium Chloride 0.9% 1,000 ML IV SCH (15:48)
--- NOTE | 2018-05-04 15:50 | RAD ---
Chest x-ray single frontal view History: Weakness. COMPARISON: 03/28/2017 FINDINGS: Mild venous congestion. Patchy increased markings at the lung bases. Biapical pleural thickening with upper lobe granulomatous changes. Atherosclerotic calcification at the aortic knob. Tortuous aorta. Mild cardiomegaly. Degenerative changes in the spine and shoulders. Impression: Mild venous congestion. Patchy increased markings at the lung bases. Biapical pleural thickening with upper lobe granulomatous changes. Atherosclerotic calcification at the aortic knob. Tortuous aorta. Mild cardiomegaly. Degenerative changes in the spine and shoulders.
[2018-05-04 16:16] LABS: SQUAMOUS EPITHIAL < 1 /hpf (0-5); URINE BILIRUBIN NEGATIVE (NEGATIVE); URINE BLOOD NEGATIVE (NEGATIVE); URINE CLARITY Clear (Clear); URINE COLOR Yellow (YELLOW); URINE GLUCOSE (UA) NORMAL (Normal); URINE LEUKOCYTE ESTERASE NEG Leu/uL (Negative); URINE PROTEIN NEGATIVE (NEGATIVE); URINE UROBILINOGEN NORMAL mg/dL (0.2-1.0)
--- NOTE | 2018-05-04 16:42 | CT ---
CT abdomen and pelvis HISTORY: Abdominal pain. COMPARISON: CT scan dated 03/28/2018 TECHNIQUE: Multiple contiguous axial images were performed through the abdomen and pelvis with the use of intravenous contrast. Subsequently, sagittal and coronal reformatted images were obtained. This CT exam was performed using one or more of the following dose reduction techniques: Automated exposure control, adjustment of the mA and/or kV according to patient size, and/or use of iterative reconstruction technique. FINDINGS: Scattered atelectasis at the lung bases. No pleural or pericardial effusion. Mild fatty infiltration of the liver. Gallbladder is preserved. Splenules. Spleen otherwise preserved. Adrenal glands are preserved. Pancreas is preserved. Small hiatal hernia. Mild thickening of the stomach. Right kidney: Prominent large peripelvic as well as right renal cysts. For example in the upper pole measuring 6 centimeters demonstrating a Hounsfield unit attenuation of 10 as well as in the lower pole, loculated with internal septations measuring 5.5 centimeters with a Hounsfield unit attenuation of 10. Fullness of the right renal collecting system. Somewhat distorted right renal parenchyma. Left Kidney: Mild fullness of the left renal collecting system. Urinary bladder is preserved. Fecal retention in the colon. Thickening versus underdistention of the transverse and descending colon. Mild acute infectious and or inflammatory changes at this level can't be excluded. Clinical correlation. Appendix not well visualized. Few shotty mesenteric lymph nodes in the right lower abdomen which may represent a mild mesenteric adenitis. Clinical correlation. Atherosclerotic calcification and plaque in the aorta. Few shotty para-aortic and inguinal lymph nodes. Few shotty mesenteric lymph nodes. Degenerative changes in the spine. Osteitis pubis. Impression: 1. Thickening versus underdistention of the transverse and descending colon. Mild acute infectious and or inflammatory changes at this level can't be excluded. Clinical correlation. 2. Few shotty mesenteric lymph nodes in the right lower abdomen which may represent a mild mesenteric adenitis. Clinical correlation. 3. Prominent large peripelvic as well as right renal cysts. For example in the upper pole measuring 6 centimeters demonstrating a Hounsfield unit attenuation of 10 as well as in the lower pole, loculated with internal septations measuring 5.5 centimeters with a Hounsfield unit attenuation of 10. Fullness of the right renal collecting system. Somewhat distorted right renal parenchyma. 4. Mild fullness of the left renal collecting system. 5. Small hiatal hernia. 6. Mild thickening of the stomach.
[2018-05-04] MEDS ORDERED: Sodium Chloride 0.9% 1,000 ML ONE (18:13)
[2018-05-05 01:05] LABS: CK-MB 0.79 ng/mL (0.0-3.38)
[2018-05-05] MEDS: Sodium Chloride 0.9% 1,000 ML IV SCH ×4 (01:43→22:00)
[2018-05-05 08:20] LABS: ALB/GLOB RATIO 1.3 (1.0-2.1); ALBUMIN 3.8 g/dL (3.5-5.0); ALT/SGPT 27 U/L (9-52); AST/SGOT 29 U/L (14-36); BLOOD UREA NITROGEN 7 mg/dL (7-17); CALCIUM 8.1 mg/dl (8.6-10.4); GFR NON-AFRICAN AMERICAN > 60; HDL CHOLESTEROL 55 mg/dL (30-70)
[2018-05-05 08:22] LABS: LDL CHOLESTEROL 70 mg/dL (0-129)
[2018-05-05] MEDS ORDERED: Home Med 1 UNIT (Atorvastatin [Lipitor] 20 MG) PO SCH (10:00)
[2018-05-05] MEDS ORDERED: Home Med 1 UNIT (Multivitamin [Multivitamins] 1 EACH) PO SCH (10:00)
[2018-05-05] MEDS ORDERED: Home Med 1 UNIT (Esomeprazole Magnesium [Nexium] 40 MG) PO SCH (10:00)
[2018-05-05] MEDS: Pantoprazole 40 mg EC Tab PO SCH (10:04)
[2018-05-05 10:05] LABS: FREE T4 1.35 ng/dL (0.78-2.19)
[2018-05-05] MEDS: Multiple Vitamins Tab PO SCH (10:05)
[2018-05-05 10:51] LABS: CK-MB 0.77 ng/mL (0.0-3.38)
--- NOTE | 2018-05-05 12:47 | CP.PCM.PN ---
Subjective - Date & Time of Evaluation Date of Evaluation: 05/05/18 Time of Evaluation: 12:44 - Subjective Subjective: COVERING DR. Oliver ESTEVEZ. PT AWAKE, COMFORTABLE. FATIGUE EKG IMPROVED. NSR. Objective - Vital Signs/Intake and Output Vital Signs (last 24 hours): Temp Pulse Resp BP Pulse Ox 98.9 F 67 12 131/56 L 94 L 05/05/18 04:00 05/05/18 04:00 05/05/18 04:00 05/05/18 09:40 05/05/18 04:00 Intake and Output: 05/05/18 05/05/18 06:59 18:59 Intake Total 400 Output Total 200 Balance 200 - Medications Medications: Current Medications Amiodarone HCl (Cordarone) 200 mg PO DAILY [facility] Last Admin: 05/05/18 09:41 Dose: 200 mg Aspirin (Ecotrin) 81 mg PO DAILY [facility] Last Admin: 05/05/18 09:41 Dose: 81 mg Diltiazem HCl (Cardizem) 120 mg PO DAILY [facility] Last Admin: 05/05/18 09:40 Dose: 120 mg Furosemide (Lasix) 20 mg PO DAILY [facility] Last Admin: 05/05/18 09:40 Dose: 20 mg Sodium Chloride (Sodium Chloride 0.9%) 1,000 mls @ 100 mls/hr IV .Q10H [facility] Last Admin: 05/05/18 06:29 Dose: 100 mls/hr Montelukast Sodium (Singulair) 10 mg PO DAILY [facility] Last Admin: 05/05/18 09:41 Dose: 10 mg Multivitamins (Hexavitamin) 1 tab PO DAILY [facility] Last Admin: 05/05/18 10:05 Dose: 1 tab Nitroglycerin (Nitrostat Sl Tab) 0.4 mg SL Q5MIN PRN PRN Reason: chest pain Pantoprazole Sodium (Protonix Ec Tab) 40 mg PO DAILY [facility] Last Admin: 05/05/18 10:04 Dose: 40 mg Rivaroxaban (Xarelto) 15 mg PO DAILY [facility] Last Admin: 05/05/18 09:40 Dose: 15 mg Rosuvastatin Calcium (Crestor) 10 mg PO DAILY [facility] - Labs Labs: 05/04/18 14:00 05/05/18 07:48 PT 18.6 SECONDS (9.7-12.2) H 05/04/18 14:00 INR 1.7 05/04/18 14:00 APTT 34 SECONDS (21-34) 05/04/18 14:00 - Constitutional Appears: No Acute Distress, Chronically Ill - Eye Exam Eye Exam: PERRL - ENT Exam ENT Exam: Normal Exam - Respiratory Exam Respiratory Exam: Clear to Ausculation Bilateral - Cardiovascular Exam Cardiovascular Exam: REGULAR RHYTHM, +S1, +S2 - GI/Abdominal Exam GI & Abdominal Exam: Soft, Normal Bowel Sounds Assessment and Plan - Assessment and Plan (Free Text) Assessment: BLANCA ARRHYTHMIA. ASHD. Plan: CT PRESENT TREATMENT.
--- NOTE | 2018-05-05 17:15 | CP.PCM.HP ---
History of Present Illness - History of Present Illness History of Present Illness: pt came from home [facility] sy[facility] abd disconfort Present on Admission - Present on Admission Any Indicators Present on Admission: No Review of Systems - Review of Systems Systems not reviewed;Unavailable: Acuity of Condition, Dementia - Constitutional Constitutional: Fatigue - EENT Eyes: As Per HPI Ears: As Per HPI Nose/Mouth/Throat: As Per HPI - Breasts Breasts: As Per HPI - Cardiovascular Cardiovascular: Slow Heart Rate - Respiratory Respiratory: Dyspnea - Gastrointestinal Gastrointestinal: Abdominal Pain - Genitourinary Genitourinary: As Per HPI - Reproductive: Female Reproductive:Female: As Per HPI - Menstruation Menstruation: Post Menopausal - Musculoskeletal Musculoskeletal: Loss of Height - Integumentary Integumentary: As Per HPI - Neurological Neurological: Dizziness - Psychiatric Psychiatric: As Per HPI - Endocrine Endocrine: As Per HPI - Hematologic/Lymphatic Hematologic: As Per HPI Past Patient History - Infectious Disease Hx of Infectious Diseases: None - Past Medical History & Family History Past Medical History?: Yes - Past Social History Smoking Status: Never Smoked - CARDIAC Hx Atrial Fibrillation: Yes Hx Cardia Arrhythmia: Yes Hx Hypercholesterolemia: Yes Hx Hypertension: Yes - PULMONARY Hx Asthma: Yes - NEUROLOGICAL Hx Neurological Disorder: Yes HX Cerebrovascular Accident: Yes - HEENT Hx HEENT Problems: Yes Hx Cataracts: Yes (both eyes) - ENDOCRINE/METABOLIC Hx Endocrine Disorders: No - HEMATOLOGICAL/ONCOLOGICAL Hx Blood Disorders: No Hx Blood Transfusions: No - INTEGUMENTARY Hx Dermatological Problems: No - MUSCULOSKELETAL/RHEUMATOLOGICAL Hx Falls: No Hx Osteoporosis: Yes - GASTROINTESTINAL Hx Gall Bladder Disease: Yes (Cholecystitis (April 2014)) - GENITOURINARY/GYNECOLOGICAL Hx Genitourinary Disorders: Yes Hx Cervical Cancer: Yes (S/P HYSTERECTOMY) - PSYCHIATRIC Hx Anxiety: Yes Hx Substance Use: No - SURGICAL HISTORY Hx Cholecystectomy: Yes - ANESTHESIA Hx Anesthesia: Yes Hx Anesthesia Reactions: No Hx Malignant Hyperthermia: No Meds Allergies/Adverse Reactions: Allergies Allergy/AdvReac Type Severity Reaction Status Date / Time paroxetine HCl [From Paxil] Allergy Verified 03/28/18 00:25 tramadol Allergy Verified 03/28/18 00:25 Physical Exam - Constitutional Appears: Non-toxic - Head Exam Head Exam: ATRAUMATIC - Eye Exam Eye Exam: Normal appearance Pupil Exam: NORMAL ACCOMODATION - ENT Exam ENT Exam: Normal Exam - Neck Exam Neck exam: Positive for: Full Rom - Respiratory Exam Respiratory Exam: Decreased Breath Sounds - Cardiovascular Exam Cardiovascular Exam: Bradycardia - GI/Abdominal Exam GI & Abdominal Exam: Normal Bowel Sounds - Rectal Exam Rectal Exam: Deferred - Extremities Exam Extremities exam: Positive for: normal inspection - Back Exam Back exam: NORMAL INSPECTION - Neurological Exam Neurological exam: Alert - Psychiatric Exam Psychiatric exam: Normal Affect - Skin Skin Exam: Pallor Results - Vital Signs Recent Vital Signs: Last Vital Signs Temp 98.9 F 05/05/18 04:00 Pulse 70 05/05/18 10:00 Resp 12 05/05/18 04:00 BP 131/56 L 05/05/18 09:40 Pulse Ox 94 L 05/05/18 04:00 - Labs Result Diagrams: 05/04/18 14:00 05/05/18 07:48 Labs: Laboratory Results - last 24 hr 05/05/18 05/05/18 05/05/18 00:38 07:48 07:48 Sodium 141 Potassium 3.6 Chloride 108 H Carbon Dioxide 26 Anion Gap 10 BUN 7 Creatinine 0.5 L Est GFR ( Amer) > 60 Est GFR (Non-Af Amer) > 60 Random Glucose 90 D Calcium 8.1 L Total Bilirubin 0.5 AST 29 ALT 27 Alkaline Phosphatase 65 Total Creatine Kinase 89 CK-MB (Mass) 0.79 Troponin I < 0.0120 Total Protein 6.7 Albumin 3.8 Globulin 2.8 Albumin/Globulin Ratio 1.3 Triglycerides 89 D Cholesterol 137 LDL Cholesterol Direct 70 HDL Cholesterol 55 Vitamin B12 519 Free T4 1.35 TSH 3rd Generation 0.96 05/05/18 10:19 Sodium Potassium Chloride Carbon Dioxide Anion Gap BUN Creatinine Est GFR ( Amer) Est GFR (Non-Af Amer) Random Glucose Calcium Total Bilirubin AST ALT Alkaline Phosphatase Total Creatine Kinase 113 CK-MB (Mass) 0.77 Troponin I < 0.0120 Total Protein Albumin Globulin Albumin/Globulin Ratio Triglycerides Cholesterol LDL Cholesterol Direct HDL Cholesterol Vitamin B12 Free T4 TSH 3rd Generation Assessment & Plan - Assessment and Plan (Free Text) Assessment: bradycardia hx of at fib ac abd pain hx of cholycystitis neare syncope Plan: as ordered - Date & Time Date: 05/05/18 Time: 17:19
--- NOTE | 2018-05-05 20:21 | CON ---
DATE: 05/05/2018 CARDIOLOGY CONSULTATION HISTORY OF PRESENT ILLNESS: This is an 82-year-old female, who came to the emergency room with history of generalized weakness and feeling cold. The patient has history of atrial fibrillation and cardiac arrhythmia for which she is taking Xarelto. The patient has history of hypertension. The patient's medications are reviewed by me. REVIEW OF SYSTEMS: CARDIOVASCULAR SYSTEM: Negative for chest pain. RESPIRATORY SYSTEM: Negative for shortness of breath. GASTROINTESTINAL SYSTEM: Negative for nausea, vomiting, or abdominal pain. CENTRAL NERVOUS SYSTEM: No focal neurological complaints offered. The patient claims feeling weak and fatigue. No fever. ALLERGIES: THE PATIENT IS ALLERGIC TO PAROXETINE AND TRAMADOL. FAMILY HISTORY: No known inherited disease. SOCIAL HISTORY: Nonsmoker. Nonalcoholic. No IVDA. PHYSICAL EXAMINATION: GENERAL: This is an 82-year-old female, awake, comfortable. VITAL SIGNS: Temperature 97.6, pulse 52, respirations 18, blood pressure 104/47 mmHg, and pulse ox is 97% on room air. HEENT: Normal. NECK: JVP is flat. Carotid, no bruits. LUNGS: No rales. No wheezing. HEART: S1 and S2 normal. No gallop. No murmur. ABDOMEN: Soft and nontender. No organomegaly. [employer]: No focal neurological deficits. LABORATORY DATA: On admission, EKG shows wide QRS bradyarrhythmia, possible junctional rhythm. Rule out atrial fibrillation with slow ventricular rate. Other lab work is within normal limits. The patient was evaluated for ICU care. The patient was admitted to ICU. IMPRESSION: Severe bradyarrhythmia, possibly junctional rhythm, atrial fibrillation with slow ventricular rate. Wide QRS, bradyarrhythmia. SUGGESTIONS: Agree with present management. We will observe the patient in ICU. Continue all medication. Other workup as needed. Shannan Sanders MD
[2018-05-06] MEDS: Multiple Vitamins Tab PO SCH (09:03)
[2018-05-06] MEDS: Pantoprazole 40 mg EC Tab PO SCH (09:03)
--- NOTE | 2018-05-06 09:54 | CP.PCM.PN ---
Subjective - Date & Time of Evaluation Date of Evaluation: 05/06/18 Time of Evaluation: 09:52 - Subjective Subjective: pt c/o of cough no chest pain no abd pain tolerating diet Objective - Vital Signs/Intake and Output Vital Signs (last 24 hours): Temp Pulse Resp BP Pulse Ox 98.3 F 62 17 141/60 98 05/06/18 08:00 05/06/18 04:00 05/06/18 04:00 05/06/18 09:03 05/06/18 04:00 Intake and Output: 05/06/18 05/06/18 06:59 18:59 Intake Total 410 Output Total 500 Balance -90 - Medications Medications: Current Medications Amiodarone HCl (Cordarone) 200 mg PO DAILY [facility] Last Admin: 05/06/18 09:02 Dose: 200 mg Aspirin (Ecotrin) 81 mg PO DAILY [facility] Last Admin: 05/06/18 09:02 Dose: 81 mg Diltiazem HCl (Cardizem) 120 mg PO DAILY [facility] Last Admin: 05/06/18 09:02 Dose: 120 mg Furosemide (Lasix) 20 mg PO DAILY [facility] Last Admin: 05/06/18 09:03 Dose: 20 mg Sodium Chloride (Sodium Chloride 0.9%) 1,000 mls @ 100 mls/hr IV .Q10H [facility] Last Admin: 05/05/18 22:00 Dose: 100 mls/hr Influenza Virus Vaccine (Flucelvax Quad [id number] Syr) 60 mcg IM .ONCE ONE Stop: 05/07/18 16:01 Montelukast Sodium (Singulair) 10 mg PO DAILY [facility] Last Admin: 05/05/18 09:41 Dose: 10 mg Multivitamins (Hexavitamin) 1 tab PO DAILY [facility] Last Admin: 05/06/18 09:03 Dose: 1 tab Nitroglycerin (Nitrostat Sl Tab) 0.4 mg SL Q5MIN PRN PRN Reason: chest pain Pantoprazole Sodium (Protonix Ec Tab) 40 mg PO DAILY [facility] Last Admin: 05/06/18 09:03 Dose: 40 mg Rivaroxaban (Xarelto) 15 mg PO DAILY [facility] Last Admin: 05/06/18 09:04 Dose: 15 mg Rosuvastatin Calcium (Crestor) 10 mg PO HS [facility] Last Admin: 05/05/18 22:49 Dose: 10 mg - Labs Labs: 03/17/19 14:00 05/05/18 07:48 PT 18.6 SECONDS (9.7-12.2) H 05/04/18 14:00 INR 1.7 05/04/18 14:00 APTT 34 SECONDS (21-34) 05/04/18 14:00 - Constitutional Appears: Non-toxic - Head Exam Head Exam: ATRAUMATIC - Eye Exam Eye Exam: Normal appearance Pupil Exam: NORMAL ACCOMODATION - ENT Exam ENT Exam: Mucous Membranes Moist - Neck Exam Neck Exam: Normal Inspection - Respiratory Exam Respiratory Exam: Clear to Ausculation Bilateral - Cardiovascular Exam Cardiovascular Exam: REGULAR RHYTHM, +S1, +S2, +S4 - GI/Abdominal Exam GI & Abdominal Exam: Normal Bowel Sounds - Extremities Exam Extremities Exam: Full ROM - Back Exam Back Exam: NORMAL INSPECTION - Neurological Exam Neurological Exam: Alert, Awake, Oriented x3 - Psychiatric Exam Psychiatric exam: Normal Mood - Skin Skin Exam: Normal Color Assessment and Plan - Assessment and Plan (Free Text) Assessment: s/p bradycardia chf htn near syncope improving Plan: d/c iv fluids oob pt transfer to telemetry
[2018-05-06] MEDS: Sodium Chloride 0.9% 1,000 ML IV SCH (11:17)
--- NOTE | 2018-05-06 12:26 | CP.PCM.PN ---
Subjective - Date & Time of Evaluation Date of Evaluation: 05/06/18 Time of Evaluation: 12:24 - Subjective Subjective: cardiac condition stable. hr wnl. vs wnl. no sob. Objective - Vital Signs/Intake and Output Vital Signs (last 24 hours): Temp Pulse Resp BP Pulse Ox 97.9 F 84 18 114/68 98 05/06/18 12:00 05/06/18 12:00 05/06/18 12:00 05/06/18 12:00 05/06/18 04:00 Intake and Output: 05/06/18 05/06/18 06:59 18:59 Intake Total 410 10 Output Total 500 Balance -90 10 - Medications Medications: Current Medications Amiodarone HCl (Cordarone) 200 mg PO DAILY [facility] Last Admin: 05/06/18 09:02 Dose: 200 mg Aspirin (Ecotrin) 81 mg PO DAILY [facility] Last Admin: 05/06/18 09:02 Dose: 81 mg Diltiazem HCl (Cardizem) 120 mg PO DAILY [facility] Last Admin: 05/06/18 09:02 Dose: 120 mg Furosemide (Lasix) 20 mg PO DAILY [facility] Last Admin: 05/06/18 09:03 Dose: 20 mg Influenza Virus Vaccine (Flucelvax Quad [id number] Syr) 60 mcg IM .ONCE ONE Stop: 05/07/18 16:01 Montelukast Sodium (Singulair) 10 mg PO DAILY [facility] Last Admin: 05/06/18 11:26 Dose: 10 mg Multivitamins (Hexavitamin) 1 tab PO DAILY [facility] Last Admin: 05/06/18 09:03 Dose: 1 tab Nitroglycerin (Nitrostat Sl Tab) 0.4 mg SL Q5MIN PRN PRN Reason: chest pain Pantoprazole Sodium (Protonix Ec Tab) 40 mg PO DAILY [facility] Last Admin: 05/06/18 09:03 Dose: 40 mg Rivaroxaban (Xarelto) 15 mg PO DAILY [facility] Last Admin: 05/06/18 09:04 Dose: 15 mg Rosuvastatin Calcium (Crestor) 10 mg PO HS [facility] Last Admin: 05/05/18 22:49 Dose: 10 mg - Labs Labs: 05/04/18 14:00 05/05/18 07:48 PT 18.6 SECONDS (9.7-12.2) H 05/04/18 14:00 INR 1.7 03/17/19 14:00 APTT 34 SECONDS (21-34) 05/04/18 14:00 - Constitutional Appears: No Acute Distress, Chronically Ill - Eye Exam Eye Exam: PERRL - ENT Exam ENT Exam: Mucous Membranes Moist - Respiratory Exam Respiratory Exam: Clear to Ausculation Bilateral, NORMAL BREATHING PATTERN - Cardiovascular Exam Cardiovascular Exam: REGULAR RHYTHM, +S1, +S2 - GI/Abdominal Exam GI & Abdominal Exam: Soft, Normal Bowel Sounds - Back Exam Back Exam: NORMAL INSPECTION - Neurological Exam Neurological Exam: Alert, Awake, CN II-XII Intact, Normal Gait, Oriented x3 - Psychiatric Exam Psychiatric exam: Normal Affect, Normal Mood Assessment and Plan - Assessment and Plan (Free Text) Assessment: donavon arrhythmia. s/p chf. htn. near syncope. Plan: ct present treatment. for tele.
[2018-05-07 06:47] LABS: HEMOGLOBIN 12.4 g/dL (11.0-16.0); MEAN CELL VOLUME 85.4 fL (81.0-99.0); MEAN CORPUSCULAR HEMOGLOBIN 27.8 pg (27.0-31.0); MEAN CORPUSCULAR HGB CONC 32.6 g/dL (33.0-37.0); MEAN PLATELET VOLUME 8.4 fL (7.2-11.7); RBC 4.45 Mil/uL (3.80-5.20); RED CELL DISTRIBUTION WIDTH 15.5 % (11.5-14.5); WHITE BLOOD COUNT 7.4 K/uL (4.8-10.8)
[2018-05-07 07:07] LABS: B-TYPE NATRIURETIC PEPTIDE 115 pg/mL (0-900)
[2018-05-07 07:08] LABS: BLOOD UREA NITROGEN 11 mg/dL (7-17); CALCIUM 8.9 mg/dl (8.6-10.4); GFR NON-AFRICAN AMERICAN > 60
[2018-05-07 09:00] VITALS: TEMP 97.7
[2018-05-07 09:21] VITALS: RESP 16
[2018-05-07] MEDS: Multiple Vitamins Tab PO SCH (09:28)
[2018-05-07] MEDS: Pantoprazole 40 mg EC Tab PO SCH (09:28)
--- NOTE | 2018-05-07 11:44 | CP.PCM.PN ---
Subjective - Date & Time of Evaluation Date of Evaluation: 05/07/18 Time of Evaluation: 11:41 - Subjective Subjective: pt feels good no pain vss Objective - Vital Signs/Intake and Output Vital Signs (last 24 hours): Temp Pulse Resp BP Pulse Ox 97.7 F 87 16 146/67 97 05/07/18 08:00 05/07/18 09:00 05/07/18 09:00 05/07/18 09:28 05/07/18 09:00 Intake and Output: 05/07/18 05/07/18 06:59 18:59 Intake Total 300 Output Total 850 Balance -550 - Medications Medications: Current Medications Amiodarone HCl (Cordarone) 200 mg PO DAILY [facility] Last Admin: 05/07/18 09:29 Dose: 200 mg Aspirin (Ecotrin) 81 mg PO DAILY [facility] Last Admin: 05/07/18 09:29 Dose: 81 mg Diltiazem HCl (Cardizem) 120 mg PO DAILY [facility] Last Admin: 05/07/18 09:29 Dose: 120 mg Furosemide (Lasix) 20 mg PO DAILY [facility] Last Admin: 05/07/18 09:28 Dose: 20 mg Influenza Virus Vaccine (Flucelvax Quad [id number] Syr) 60 mcg IM .ONCE ONE Stop: 05/07/18 16:01 Montelukast Sodium (Singulair) 10 mg PO DAILY [facility] Last Admin: 05/07/18 09:28 Dose: 10 mg Multivitamins (Hexavitamin) 1 tab PO DAILY [facility] Last Admin: 05/07/18 09:28 Dose: 1 tab Nitroglycerin (Nitrostat Sl Tab) 0.4 mg SL Q5MIN PRN PRN Reason: chest pain Pantoprazole Sodium (Protonix Ec Tab) 40 mg PO DAILY [facility] Last Admin: 05/07/18 09:28 Dose: 40 mg Rivaroxaban (Xarelto) 15 mg PO DAILY [facility] Last Admin: 05/07/18 09:29 Dose: 15 mg Rosuvastatin Calcium (Crestor) 10 mg PO HS [facility] Last Admin: 05/06/18 21:44 Dose: 10 mg - Labs Labs: 05/07/18 06:42 05/07/18 06:42 PT 18.6 SECONDS (9.7-12.2) H 05/04/18 14:00 INR 1.7 05/04/18 14:00 APTT 34 SECONDS (21-34) 05/04/18 14:00 - Constitutional Appears: Non-toxic - Head Exam Head Exam: ATRAUMATIC - Eye Exam Eye Exam: Normal appearance Pupil Exam: NORMAL ACCOMODATION - ENT Exam ENT Exam: Mucous Membranes Moist - Neck Exam Neck Exam: Full ROM - Respiratory Exam Respiratory Exam: Clear to Ausculation Bilateral - Cardiovascular Exam Cardiovascular Exam: REGULAR RHYTHM - GI/Abdominal Exam GI & Abdominal Exam: Normal Bowel Sounds - Exam Exam: NORMAL INSPECTION - Back Exam Back Exam: NORMAL INSPECTION - Neurological Exam Neurological Exam: Alert, Awake, Normal Gait, Oriented x3 - Psychiatric Exam Psychiatric exam: Normal Mood - Skin Skin Exam: Normal Color Assessment and Plan - Assessment and Plan (Free Text) Assessment: casdiac arrythmia stable will disch on med Plan: disch
--- NOTE | 2018-05-07 12:09 | CP.PCM.PN ---
Subjective - Date & Time of Evaluation Date of Evaluation: 05/07/18 Time of Evaluation: 12:07 - Subjective Subjective: FEELS BETTER. VS WNL. Objective - Vital Signs/Intake and Output Vital Signs (last 24 hours): Temp Pulse Resp BP Pulse Ox 97.7 F 87 16 146/67 97 05/07/18 08:00 05/07/18 09:00 05/07/18 09:00 05/07/18 09:28 05/07/18 09:00 Intake and Output: 05/07/18 05/07/18 06:59 18:59 Intake Total 300 Output Total 850 Balance -550 - Medications Medications: Current Medications Amiodarone HCl (Cordarone) 200 mg PO DAILY [facility] Last Admin: 05/07/18 09:29 Dose: 200 mg Aspirin (Ecotrin) 81 mg PO DAILY [facility] Last Admin: 05/07/18 09:29 Dose: 81 mg Diltiazem HCl (Cardizem) 120 mg PO DAILY [facility] Last Admin: 05/07/18 09:29 Dose: 120 mg Furosemide (Lasix) 20 mg PO DAILY [facility] Last Admin: 05/07/18 09:28 Dose: 20 mg Influenza Virus Vaccine (Flucelvax Quad [id number] Syr) 60 mcg IM .ONCE ONE Stop: 05/07/18 16:01 Montelukast Sodium (Singulair) 10 mg PO DAILY [facility] Last Admin: 05/07/18 09:28 Dose: 10 mg Multivitamins (Hexavitamin) 1 tab PO DAILY [facility] Last Admin: 05/07/18 09:28 Dose: 1 tab Nitroglycerin (Nitrostat Sl Tab) 0.4 mg SL Q5MIN PRN PRN Reason: chest pain Pantoprazole Sodium (Protonix Ec Tab) 40 mg PO DAILY [facility] Last Admin: 05/07/18 09:28 Dose: 40 mg Rivaroxaban (Xarelto) 15 mg PO DAILY [facility] Last Admin: 05/07/18 09:29 Dose: 15 mg Rosuvastatin Calcium (Crestor) 10 mg PO HS [facility] Last Admin: 05/06/18 21:44 Dose: 10 mg - Labs Labs: 05/07/18 06:42 05/07/18 06:42 PT 18.6 SECONDS (9.7-12.2) H 05/04/18 14:00 INR 1.7 05/04/18 14:00 APTT 34 SECONDS (21-34) 05/04/18 14:00 - Constitutional Appears: No Acute Distress, Chronically Ill - Eye Exam Pupil Exam: PERRL - ENT Exam ENT Exam: Normal Exam - Respiratory Exam Respiratory Exam: Clear to Ausculation Bilateral, NORMAL BREATHING PATTERN - Cardiovascular Exam Cardiovascular Exam: REGULAR RHYTHM, +S1, +S2 - GI/Abdominal Exam GI & Abdominal Exam: Soft, Normal Bowel Sounds - Extremities Exam Extremities Exam: Full ROM, Normal Capillary Refill, Normal Inspection. absent: Joint Swelling, Pedal Edema - Neurological Exam Neurological Exam: Alert, Awake, CN II-XII Intact, Normal Gait, Oriented x3 Assessment and Plan - Assessment and Plan (Free Text) Assessment: CARDIAC ARRHYTHMIAS. STABLE. Plan: OK FOR D/C HOME. SAME MEDS.
[2018-05-07 13:10] VITALS: BP 144/77; PULSE 74; O2SAT 96
[2018-05-07] MEDS ORDERED: Pneumococcal 23-Valent Vaccine IM ONE (16:00)
[2018-05-07] MEDS ORDERED: Influenza Vaccine 60 mcg/0.5 mL SYR (4YR UP) IM ONE (16:00)
--- NOTE | 2018-05-12 14:28 | DS ---
The patient came into the emergency room on 05/04/2018 for she felt weak like passing out and dizziness. She was having some bradycardia on admission and her blood pressure was good, her pulse improved to 64, was around 40. She was taking amiodarone, aspirin, diltiazem, Lasix, sodium chloride, Singulair, vitamins, nitroglycerin, pantoprazole, Crestor. She was on Xarelto for history of atrial fibrillation. She was seen by Cardiology and they said cardiac condition is stable. Her medications were continued the same. Her white count was a little bit high, 11. She was doing better. She feels good. She did not have any pain. She was not dizzy anymore. Her vital signs were stable and she was having white count normal and CBC completely normal. Sugar is okay. Kidney is okay. She was cleared for discharge and she was discharged on her medications after the clearance of Cardiology and to continue on all her medications. She went home and she has to follow up in the office. FINAL DIAGNOSES: Atrial fibrillation, near syncope, cardiac arrhythmia, which was bradycardia. She will be followed up by Cardiology as well. Elif Ta MD
== END 2018-05-07 13:15 | disposition home or self-care (01) | DRG 312 ==
LOC: C.ER 13:30 → C.9E 15:50 → C.9I 22:36
PROVIDERS: ADMIT Internal Medicine; ATTEND Internal Medicine
DX: R55 Syncope and collapse (principal); R00.1 Bradycardia, unspecified; R53.1 Weakness; I48.0 Paroxysmal atrial fibrillation; J45.909 Unspecified asthma, uncomplicated; I25.10 Atherosclerotic heart disease of native coronary artery without angina pectoris; Z86.73 Personal history of transient ischemic attack (TIA), and cerebral infarction without residual deficits; E78.00 Pure hypercholesterolemia, unspecified; M81.0 Age-related osteoporosis without current pathological fracture; F41.9 Anxiety disorder, unspecified; Z87.891 Personal history of nicotine dependence; R51 Headache; Z85.41 Personal history of malignant neoplasm of cervix uteri; Z79.01 Long term (current) use of anticoagulants; I11.0 Hypertensive heart disease with heart failure; I50.9 Heart failure, unspecified